=== PATIENT | female | born 1955 | race Caucasian/White ===

== ENCOUNTER 2016-12-10 19:54 | Inpatient (IN) | payer OTHER ==
[~2016-12-10] VITALS: Ht 162.6 cm; Wt 83.9 kg
[~2016-12-10 19:54] MED LIST: ATOR10TA60 PO; BYSTOLIC20 MG PO; CHLO25TA PO; CLON0.2T PO; CYCL10TA2 PO; HYDR-2766 PO; HYDR100T24 PO; LORA0.5T PO; LOSA100T6 PO; POTA20TA12 PO; PREG300C PO; PROAIR HFA8.5 GM IH; ROPI2TAB3 PO; TIZA2TAB PO
--- NOTE | 2016-12-10 21:30 | PHYS DOC ---
Past Medical History Past Medical History: Anemia, DVT, Hypertension, Other Additional Past Medical Histor: MRSA in past, Cervical fusion C6-C7, Hx of DVT Past Surgical History: Cervical Fusion, Other Additional Past Surgical Histo: Cardiac cath WITH STENTS, partial gastrectomy, Alcohol Use: None Drug Use: None Adult General Chief Complaint Chief Complaint: MUSCLE SPASM/CRAMP HPI HPI 61 yo F presenting to the ED with leg cramps and swelling. She has a hx of a DVT. she reports right lower extremity swelling more than the left. onset 2-3 days. location legs. duration constant. no alleviating factors. ROS neg for cp, soa, n/v/d, fevers, chills. all other ros neg unless noted in hpi. ED course: 61 yo F presenting to the ED with leg cramps and swelling. US and blood work obtained. Patient's hemoglobin was noted to be below 7. Type and screen ordered. Transfusion ordered. Patient does not have abdominal pain. She denies a history of dark stools. Ultrasound negative. Urinalysis suggestive of urinary tract infection. Intravenous Rocephin ordered. Patient was then admitted to Dr. harris at approximately 10:30 PM for further evaluation workup and care. At that time the patient's care was transferred. Allergies Allergies Allergies Coded Allergies Type Severity Reaction Last Updated Verified Sulfa (Sulfonamide Antibiotics) Allergy Intermediate 02/16/16 Yes amlodipine Allergy Intermediate 02/16/16 Yes codeine Allergy Intermediate Rash 02/16/16 Yes doxycycline Allergy Intermediate 02/16/16 Yes ezetimibe Allergy Intermediate 02/16/16 Yes levofloxacin Allergy Intermediate 02/16/16 Yes morphine Allergy Intermediate 02/16/16 Yes simvastatin Allergy Intermediate 02/16/16 Yes oxycodone Adverse Reaction Intermediate Hallucinations 02/16/16 Yes Physical Exam Physical Exam Constitutional: Well developed, well nourished, no acute distress, non-toxic appearance. [] HENT: Normocephalic, atraumatic, bilateral external ears normal, oropharynx moist, no oral exudates, nose normal. [] Eyes: PERRLA, EOMI, conjunctiva normal, no discharge. [] Neck: Normal range of motion, no tenderness, supple, no stridor. [] Cardiovascular:Heart rate regular rhythm, no murmur [] Lungs & Thorax: Bilateral breath sounds clear to auscultation [] Abdomen: Bowel sounds normal, soft, no tenderness, no masses, no pulsatile masses. [] Skin: Warm, dry, no erythema, no rash. [] Back: No tenderness, no CVA tenderness. [] Extremities: mild 1+ edema in the legs bilaterally. more on the right than the left. otherwise pule present. 2 sec cap refill and nl neurovasc status. Neurologic: Alert and oriented X 3, normal motor function, normal sensory function, no focal deficits noted. [] Psychologic: Affect normal, judgement normal, mood normal. [] Current Patient Data Vital Signs Vital Signs Date Time Temp Pulse Resp B/P (MAP) Pulse Ox O2 Delivery O2 Flow Rate FiO2 12/10/16 21:48 80 174/92 (119) 100 Room Air 12/10/16 20:20 98.2 20 98.2 Lab Values Laboratory Tests Test 12/10/16 20:25 12/10/16 21:40 12/10/16 21:44 Urine Collection Type Unknown Urine Color Straw Urine Clarity Cloudy Urine pH 7.5 Urine Specific [place] <=1.005 Urine Protein 30 mg/dL (NEG-TRACE) Urine Glucose (UA) Negative mg/dL (NEG) Urine Ketones (Stick) Negative mg/dL (NEG) Urine Blood Moderate (NEG) Urine Nitrite Negative (NEG) Urine Bilirubin Negative (NEG) Urine Urobilinogen Dipstick 0.2 mg/dL (0.2 mg/dL) Urine Leukocyte Esterase Large (NEG) Urine RBC 1-2 /HPF (0-2) Urine WBC Tntc /HPF (0-4) Urine Squamous Epithelial Cells Few /LPF Urine Renal Epithelial Cells Occ /LPF Urine Bacteria Many /HPF (0-FEW) Urine Mucus Mod /LPF Prothrombin Time 13.8 SEC (11.7-14.0) Prothrombin Time INR 1.1 (0.8-1.1) PTT 27 SEC (24-38) White Blood Count 8.9 x10^3/uL (4.0-11.0) Red Blood Count 3.64 x10^6/uL (3.50-5.40) Hemoglobin 6.8 g/dL (12.0-15.5) *L Hematocrit 22.7 % (36.0-47.0) L Mean Corpuscular Volume 62 fL (79-100) L Mean Corpuscular Hemoglobin 19 pg (25-35) L Mean Corpuscular Hemoglobin Concent 30 g/dL (31-37) L Red Cell Distribution Width 18.6 % (11.5-14.5) H Platelet Count 325 x10^3/uL (140-400) Neutrophils (%) (Auto) 60 % (31-73) Lymphocytes (%) (Auto) 27 % (24-48) Monocytes (%) (Auto) 8 % (0-9) Eosinophils (%) (Auto) 3 % (0-3) Basophils (%) (Auto) 1 % (0-3) Neutrophils # (Auto) 5.3 x10^3uL (1.8-7.7) Lymphocytes # (Auto) 2.4 x10^3/uL (1.0-4.8) Monocytes # (Auto) 0.7 x10^3/uL (0.0-1.1) Eosinophils # (Auto) 0.3 x10^3/uL (0.0-0.7) Basophils # (Auto) 0.1 x10^3/uL (0.0-0.2) Platelet Estimate Adequate (ADEQUATE) Hypochromasia Marked Poikilocytosis Slight Anisocytosis Slight Microcytosis Marked Ovalocytes Mod Sodium Level 135 mmol/L (136-145) L Potassium Level 4.6 mmol/L (3.5-5.1) Chloride Level 102 mmol/L (98-107) Carbon Dioxide Level 21 mmol/L (21-32) Anion Gap 12 (6-14) Blood Urea Nitrogen 21 mg/dL (7-20) H Creatinine 1.6 mg/dL (0.6-1.0) H Estimated GFR (Cockcroft-Gault) 32.7 Glucose Level 106 mg/dL (70-99) H Calcium Level 9.2 mg/dL (8.5-10.1) Total Bilirubin 0.1 mg/dL (0.2-1.0) L Direct Bilirubin 0.1 mg/dL (0.0-0.2) Aspartate Amino Transferase (AST) 16 U/L (15-37) Alanine Aminotransferase (ALT) 13 U/L (14-59) L Alkaline Phosphatase 141 U/L (46-116) H Troponin I Quantitative < 0.017 ng/mL (0.000-0.055) Total Protein 7.3 g/dL (6.4-8.2) Albumin 3.7 g/dL (3.4-5.0) Laboratory Tests 12/10/16 21:44 Laboratory Tests 12/10/16 21:44 EKG EKG [] Radiology/Procedures Radiology/Procedures [] Course & Med Decision Making Course & Med Decision Making Pertinent Labs and Imaging studies reviewed. (See chart for details) [] Dragon Disclaimer Dragon Disclaimer This electronic medical record was generated, in whole or in part, using a voice recognition dictation system. Departure Departure Impression: Primary Impression: Leg cramp Additional Impression: Swelling of lower extremity Disposition: ADMITTED INPATIENT Admitting Physician: An Harris Condition: STABLE Referrals: WARD TINOCO MD (PCP) Patient Instructions: Leg Cramps Problem Qualifiers JESSICA PEÑA MD Dec 10, 2016 21:30
[2016-12-10 21:52] LABS: BASO # 0.1 x10^3/uL (0.0-0.2); BASO % 1 % (0-3); EOS % 3 % (0-3); HEMATOCRIT 22.7 % (36.0-47.0); LYMPH # 2.4 x10^3/uL (1.0-4.8); LYMPH % 27 % (24-48); MEAN CORPUSCULAR HEMOGLOBIN 19 pg (25-35); MEAN CORPUSCULAR HGB CONC 30 g/dL (31-37); MEAN CORPUSCULAR VOLUME 62 fL (79-100); MONO % 8 % (0-9); NEUT % 60 % (31-73); PLATELET COUNT 325 x10^3/uL (140-400); RED BLOOD COUNT 3.64 x10^6/uL (3.50-5.40); RED CELL DISTRIBUTION WIDTH 18.6 % (11.5-14.5); WHITE BLOOD COUNT 8.9 x10^3/uL (4.0-11.0)
[2016-12-10 21:57] LABS: HEMOGLOBIN 6.8 g/dL (12.0-15.5)
[2016-12-10 22:10] LABS: CALCIUM 9.2 mg/dL (8.5-10.1); CREATININE 1.6 mg/dL (0.6-1.0); GFR 32.7; POTASSIUM 4.6 mmol/L (3.5-5.1)
[2016-12-10] MEDS ORDERED: ONDANSETRON PF 4 MG/2 ML VIAL. IV PRN (22:15)
[2016-12-10 22:19] LABS: BILIRUBIN,URINE NEGATIVE (NEG); GLUCOSE,URINE NEGATIVE (NEG); NITRITE,URINE NEGATIVE (NEG); PH,URINE 7.5; PROTEIN,URINE 30 mg/dL (NEG-TRACE); UROBILINOGEN,URINE 0.2 mg/dL (0.2 mg/dL)
[2016-12-10 22:20] LABS: PLT ESTIMATE ADEQUATE (ADEQUATE)
[2016-12-10 22:21] LABS: ANISOCYTOSIS SLIGHT; HYPOCHROMIA MARKED; MICROCYTOSIS MARKED; OVALOCYTES MOD; POIKILOCYTOSIS SLIGHT
[2016-12-10 22:27] LABS: INR 1.1 (0.8-1.1); PROTHROMBIN TIME PATIENT 13.8 SEC (11.7-14.0)
[2016-12-10 22:29] LABS: BACTERIA,URINE MANY /HPF (0-FEW); SQUAMOUS EPITHELIAL CELL,UR FEW /LPF; WBC,URINE TNTC /HPF (0-4)
[2016-12-10 22:29] LABS: ALBUMIN 3.7 g/dL (3.4-5.0); DIRECT BILIRUBIN 0.1 mg/dL (0.0-0.2); TOTAL BILIRUBIN 0.1 mg/dL (0.2-1.0); TOTAL PROTEIN 7.3 g/dL (6.4-8.2)
[2016-12-10] MEDS ORDERED: IV NORMAL SALINE 1000ML BAG 1,000 ML IV ONE (22:30)
--- NOTE | 2016-12-10 22:41 | RAD ---
Ultrasound bilateral lower extremity Indication: Bilateral lower extremity swelling Technique: Multiple real-time grayscale images were obtained over the bilateral lower extremities with use of color Doppler imaging and spectral analysis. Static images were submitted for interpretation. Findings: There is no evidence for deep venous thrombosis. There is normal color fill-in on Doppler images. There is also normal response to compression and augmentation deep venous system. No evidence for mass or fluid collection. Impression: No evidence for deep venous thrombosis. Electronically signed by: Robe London MD (12/10/2016 10:38 PM) [facility]
[2016-12-10 23:00] VITALS: BP 155/86
[2016-12-10] MEDS ORDERED: ACET500T68 PO (23:38)
[2016-12-11] VITALS (12 sets, daily range): BP systolic 150–187; BP diastolic 70–94
[2016-12-11 06:40] LABS: BASO # 0.1 x10^3/uL (0.0-0.2); BASO % 1 % (0-3); EOS % 3 % (0-3); HEMATOCRIT 26.6 % (36.0-47.0); HEMOGLOBIN 8.1 g/dL (12.0-15.5); LYMPH # 1.7 x10^3/uL (1.0-4.8); LYMPH % 24 % (24-48); MEAN CORPUSCULAR HEMOGLOBIN 20 pg (25-35); MEAN CORPUSCULAR HGB CONC 31 g/dL (31-37); MEAN CORPUSCULAR VOLUME 65 fL (79-100); MONO % 8 % (0-9); NEUT % 63 % (31-73); PLATELET COUNT 317 x10^3/uL (140-400); RED CELL DISTRIBUTION WIDTH 21.6 % (11.5-14.5); WHITE BLOOD COUNT 7.2 x10^3/uL (4.0-11.0)
[2016-12-11 07:00] LABS: CALCIUM 9.4 mg/dL (8.5-10.1); CREATININE 1.5 mg/dL (0.6-1.0); GFR 35.2; POTASSIUM 4.7 mmol/L (3.5-5.1)
--- NOTE | 2016-12-11 08:23 | PDOC1 ---
History and Physical Date of Admission Date of Admission DATE: 12/11/16 TIME: 08:19 Identification/Chief Complaint Chief Complaint leg cramps Problems: Source Source: Chart review, Patient History of Present Illness History of Present Illness Ms. Gonzalez, is a 61 yo f admit for weakness and leg cramps and swelling. She follows with Dr. Delaney, but has not been there in some time. Reports some worsening weakness with these legs cramps, almost 3 days of pain she has no history of renal disease, but has Htn, and has not been taking her BP meds for some time. she does report hx of renal stones leg pain 09/09 now. Hx of DVT, has been of Xarelto after she cut herself and bled extensively some time ago. 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 Family History: No Significant Social History Smoke: No ALCOHOL: none Drugs: None Current Problem List Problem List Problems Medical Problems: (1) Leg cramp Status: Acute (2) Swelling of lower extremity Status: Acute Problems: Current Medications Current Medications Current Medications Ondansetron HCl (Zofran) 4 mg PRN Q8HRS PRN IV NAUSEA/VOMITING; Start 12/10/16 at 22:15; Stop 12/11/16 at 22:14 Sodium Chloride 1,000 ml @ 100 mls/hr 1X ONCE IV Last administered on t 05:32; Start 12/10/16 at 22:30; Stop 12/11/16 at 08:29 Ceftriaxone Sodium 50 ml @ 100 mls/hr 1X ONCE IV Last administered on 05:33; Start 12/11/16 at 01:30; Stop 12/11/16 at 01:59; Status DC Ceftriaxone Sodium 1 gm/ Sodium Chloride 50 ml @ 100 mls/hr Q24H IV ; Start at 06:00 Pantoprazole Sodium (Protonix) 40 mg DAILYAC PO ; Start 12/12/16 at 07:30 Pantoprazole Sodium (Protonix) 40 mg 1X ONCE PO ; Start 12/11/16 at 08:30; Stop 12/11/16 at 08:31 Active Scripts Active Reported Acetaminophen 500 Mg Tablet 1,000 Mg PO PRN Q6HRS PRN Cyclobenzaprine Hcl 10 Mg Tablet 10 Mg PO Proair Hfa Inhaler (Albuterol Sulfate) 8.5 Gm Hfa.aer.ad 8.5 Gm IH Allergies Allergies: Coded Allergies: Sulfa (Sulfonamide Antibiotics) (Verified Allergy, Intermediate, 02/16/16) amlodipine (Verified Allergy, Intermediate, 02/16/16) codeine (Verified Allergy, Intermediate, Rash, 02/16/16) doxycycline (Verified Allergy, Intermediate, 02/16/16) ezetimibe (Verified Allergy, Intermediate, 02/16/16) levofloxacin (Verified Allergy, Intermediate, 02/16/16) morphine (Verified Allergy, Intermediate, 02/16/16) simvastatin (Verified Allergy, Intermediate, 02/16/16) oxycodone (Verified Adverse Reaction, Intermediate, Hallucinations, ) ROS General: YES: Fatigue, Malaise, No: Chills, Night Sweats, Appetite, Other PSYCHOLOGICAL ROS: No: Anxiety, Behavioral Disorder, Concentration difficultie , Decreased libido, Depression, Disorientation, Hallucinations, Hostility, Irritablity, Memory difficulties, Mood Swings, Obsessive thoughts, Physical abuse, Sexual abuse, Sleep disturbances, Suicidal ideation, Other Eyes: No Blurry vision, No Decreased vision, No Double vision, No Dry eyes, No Excessive tearing, No Eye Pain, No Itchy Eyes, No Loss of vision, No Photophobia , No Scotomata, No Uses contacts, No Uses glasses, No Other HEENT: No: Heacaches, Visual Changes, Hearing change, Nasal congestion, Nasal discharge, Oral lesions, Sinus pain, Sore Throat, Epistaxis, Sneezing, Snoring, Tinnitus, Vertigo, Vocal changes, Other Respiratory: No: Cough, Hemoptysis, Orthopnea, Pleuritic Pain, Shortness of breath, SOB with excertion, Sputum Changes, Stridor, Tachypnea, Wheezing, Other Cardiovascular: No Chest Pain, No Palpitations, No Orthopnea, No Paroxysmal Noc. Dyspnea, No Edema, No Lt Headedness, No Other Gastrointestinal: No Nausea, No Vomiting, No Abdominal Pain, No Diarrhea, No Constipation, No Melena, No Hematochezia, No Other Genitourinary: No Dysuria, No Frequency, No Incontinence, No Hematuria, No Retention, No Discharge, No Urgency, No Pain, No Flank Pain, No Other, No , No , No , No , No , No , No Musculoskeletal: Yes Muscle Pain (cramps), Yes Muscular Weakness, No Gait Disturbance, No Joint Pain, No Joint Stiffness, No Joint Swelling, No Pain In:, No Swelling In:, No Other Neurological: No Behavorial Changes, No Bowel/Bladder ControlChng, No Confusion , No Dizziness, No Gait Disturbance, No Headaches, No Impaired Coord/balance, No Memory Loss, No Numbness/Tingling, No Seizures, No Speech Problems, No Tremors, No Visual Changes, No Weakness, No Other Skin: No Dry Skin, No Eczema, No Hair Changes, No Lumps, No Mole Changes, No Mottling, No Nail Changes, No Pruritus, No Rash, No Skin Lesion Changes, No Other, No Acne Physical Exam Abdomen: Normal bowel sounds, Soft (obese) Rectal Exam: not examined Extremities: No clubbing, No edema, Normal pulses Skin: No rashes Neuro: Normal gait, Normal speech, Normal tone, Sensation intact, Cranial nerves 3-12 NL Vitals Vitals Vital Signs Date Time Temp Pulse Resp B/P (MAP) Pulse Ox O2 Delivery O2 Flow Rate FiO2 12/11/16 07:00 98.4 77 18 155/94 (114) 97 Room Air 98.4 Labs Labs Laboratory Tests Test 12/10/16 20:25 12/10/16 21:40 12/10/16 21:44 12/11/16 06:00 Urine Collection Type Unknown Urine Color Straw Urine Clarity Cloudy Urine pH 7.5 Urine Specific [place] <=1.005 Urine Protein 30 mg/dL (NEG-TRACE) Urine Glucose (UA) Negative mg/dL (NEG) Urine Ketones (Stick) Negative mg/dL (NEG) Urine Blood Moderate (NEG) Urine Nitrite Negative (NEG) Urine Bilirubin Negative (NEG) Urine Urobilinogen Dipstick 0.2 mg/dL (0.2 mg/dL) Urine Leukocyte Esterase Large (NEG) Urine RBC 1-2 /HPF (0-2) Urine WBC Tntc /HPF (0-4) Urine Squamous Epithelial Cells Few /LPF Urine Renal Epithelial Cells Occ /LPF Urine Bacteria Many /HPF (0-FEW) Urine Mucus Mod /LPF Prothrombin Time 13.8 SEC (11.7-14.0) Prothromb Time International Ratio 1.1 (0.8-1.1) Activated Partial Thromboplast Time 27 SEC (24-38) White Blood Count 8.9 x10^3/uL (4.0-11.0) 7.2 x10^3/uL (4.0-11.0) Red Blood Count 3.64 x10^6/uL (3.50-5.40) 4.10 x10^6/uL (3.50-5.40) Hemoglobin 6.8 g/dL (12.0-15.5) 8.1 g/dL (12.0-15.5) Hematocrit 22.7 % (36.0-47.0) 26.6 % (36.0-47.0) Mean Corpuscular Volume 62 fL (79-100) 65 fL (79-100) Mean Corpuscular Hemoglobin 19 pg (25-35) 20 pg (25-35) Mean Corpuscular Hemoglobin Concent 30 g/dL (31-37) 31 g/dL (31-37) Red Cell Distribution Width 18.6 % (11.5-14.5) 21.6 % (11.5-14.5) Platelet Count 325 x10^3/uL (140-400) 317 x10^3/uL (140-400) Neutrophils (%) (Auto) 60 % (31-73) 63 % (31-73) Lymphocytes (%) (Auto) 27 % (24-48) 24 % (24-48) Monocytes (%) (Auto) 8 % (0-9) 8 % (0-9) Eosinophils (%) (Auto) 3 % (0-3) 3 % (0-3) Basophils (%) (Auto) 1 % (0-3) 1 % (0-3) Neutrophils # (Auto) 5.3 x10^3uL (1.8-7.7) 4.6 x10^3uL (1.8-7.7) Lymphocytes # (Auto) 2.4 x10^3/uL (1.0-4.8) 1.7 x10^3/uL (1.0-4.8) Monocytes # (Auto) 0.7 x10^3/uL (0.0-1.1) 0.6 x10^3/uL (0.0-1.1) Eosinophils # (Auto) 0.3 x10^3/uL (0.0-0.7) 0.2 x10^3/uL (0.0-0.7) Basophils # (Auto) 0.1 x10^3/uL (0.0-0.2) 0.1 x10^3/uL (0.0-0.2) Platelet Estimate Adequate (ADEQUATE) Hypochromasia Marked Poikilocytosis Slight Anisocytosis Slight Microcytosis Marked Ovalocytes Mod Sodium Level 135 mmol/L (136-145) 138 mmol/L (136-145) Potassium Level 4.6 mmol/L (3.5-5.1) 4.7 mmol/L (3.5-5.1) Chloride Level 102 mmol/L (98-107) 104 mmol/L (98-107) Carbon Dioxide Level 21 mmol/L (21-32) 22 mmol/L (21-32) Anion Gap 12 (6-14) 12 (6-14) Blood Urea Nitrogen 21 mg/dL (7-20) 19 mg/dL (7-20) Creatinine 1.6 mg/dL (0.6-1.0) 1.5 mg/dL (0.6-1.0) Estimated GFR (Cockcroft-Gault) 32.7 35.2 Glucose Level 106 mg/dL (70-99) 111 mg/dL (70-99) Calcium Level 9.2 mg/dL (8.5-10.1) 9.4 mg/dL (8.5-10.1) Total Bilirubin 0.1 mg/dL (0.2-1.0) Direct Bilirubin 0.1 mg/dL (0.0-0.2) Aspartate Amino Transf (AST/SGOT) 16 U/L (15-37) Alanine Aminotransferase (ALT/SGPT) 13 U/L (14-59) Alkaline Phosphatase 141 U/L (46-116) Troponin I Quantitative < 0.017 ng/mL (0.000-0.055) Total Protein 7.3 g/dL (6.4-8.2) Albumin 3.7 g/dL (3.4-5.0) Laboratory Tests Test 12/10/16 20:25 12/10/16 21:40 12/10/16 21:44 12/11/16 06:00 Urine Collection Type Unknown Urine Color Straw Urine Clarity Cloudy Urine pH 7.5 Urine Specific [place] <=1.005 Urine Protein 30 mg/dL (NEG-TRACE) Urine Glucose (UA) Negative mg/dL (NEG) Urine Ketones (Stick) Negative mg/dL (NEG) Urine Blood Moderate (NEG) Urine Nitrite Negative (NEG) Urine Bilirubin Negative (NEG) Urine Urobilinogen Dipstick 0.2 mg/dL (0.2 mg/dL) Urine Leukocyte Esterase Large (NEG) Urine RBC 1-2 /HPF (0-2) Urine WBC Tntc /HPF (0-4) Urine Squamous Epithelial Cells Few /LPF Urine Renal Epithelial Cells Occ /LPF Urine Bacteria Many /HPF (0-FEW) Urine Mucus Mod /LPF Prothrombin Time 13.8 SEC (11.7-14.0) Prothromb Time International Ratio 1.1 (0.8-1.1) Activated Partial Thromboplast Time 27 SEC (24-38) White Blood Count 8.9 x10^3/uL (4.0-11.0) 7.2 x10^3/uL (4.0-11.0) Red Blood Count 3.64 x10^6/uL (3.50-5.40) 4.10 x10^6/uL (3.50-5.40) Hemoglobin 6.8 g/dL (12.0-15.5) 8.1 g/dL (12.0-15.5) Hematocrit 22.7 % (36.0-47.0) 26.6 % (36.0-47.0) Mean Corpuscular Volume 62 fL (79-100) 65 fL (79-100) Mean Corpuscular Hemoglobin 19 pg (25-35) 20 pg (25-35) Mean Corpuscular Hemoglobin Concent 30 g/dL (31-37) 31 g/dL (31-37) Red Cell Distribution Width 18.6 % (11.5-14.5) 21.6 % (11.5-14.5) Platelet Count 325 x10^3/uL (140-400) 317 x10^3/uL (140-400) Neutrophils (%) (Auto) 60 % (31-73) 63 % (31-73) Lymphocytes (%) (Auto) 27 % (24-48) 24 % (24-48) Monocytes (%) (Auto) 8 % (0-9) 8 % (0-9) Eosinophils (%) (Auto) 3 % (0-3) 3 % (0-3) Basophils (%) (Auto) 1 % (0-3) 1 % (0-3) Neutrophils # (Auto) 5.3 x10^3uL (1.8-7.7) 4.6 x10^3uL (1.8-7.7) Lymphocytes # (Auto) 2.4 x10^3/uL (1.0-4.8) 1.7 x10^3/uL (1.0-4.8) Monocytes # (Auto) 0.7 x10^3/uL (0.0-1.1) 0.6 x10^3/uL (0.0-1.1) Eosinophils # (Auto) 0.3 x10^3/uL (0.0-0.7) 0.2 x10^3/uL (0.0-0.7) Basophils # (Auto) 0.1 x10^3/uL (0.0-0.2) 0.1 x10^3/uL (0.0-0.2) Platelet Estimate Adequate (ADEQUATE) Hypochromasia Marked Poikilocytosis Slight Anisocytosis Slight Microcytosis Marked Ovalocytes Mod Sodium Level 135 mmol/L (136-145) 138 mmol/L (136-145) Potassium Level 4.6 mmol/L (3.5-5.1) 4.7 mmol/L (3.5-5.1) Chloride Level 102 mmol/L (98-107) 104 mmol/L (98-107) Carbon Dioxide Level 21 mmol/L (21-32) 22 mmol/L (21-32) Anion Gap 12 (6-14) 12 (6-14) Blood Urea Nitrogen 21 mg/dL (7-20) 19 mg/dL (7-20) Creatinine 1.6 mg/dL (0.6-1.0) 1.5 mg/dL (0.6-1.0) Estimated GFR (Cockcroft-Gault) 32.7 35.2 Glucose Level 106 mg/dL (70-99) 111 mg/dL (70-99) Calcium Level 9.2 mg/dL (8.5-10.1) 9.4 mg/dL (8.5-10.1) Total Bilirubin 0.1 mg/dL (0.2-1.0) Direct Bilirubin 0.1 mg/dL (0.0-0.2) Aspartate Amino Transf (AST/SGOT) 16 U/L (15-37) Alanine Aminotransferase (ALT/SGPT) 13 U/L (14-59) Alkaline Phosphatase 141 U/L (46-116) Troponin I Quantitative < 0.017 ng/mL (0.000-0.055) Total Protein 7.3 g/dL (6.4-8.2) Albumin 3.7 g/dL (3.4-5.0) VTE Prophylaxis Ordered VTE Prophylaxis Devices: Yes VTE Pharmacological Prophylaxi: No Assessment/Plan Assessment/Plan leg cramps, weakness symptomatic anemia UTI, rocephin, cx pending microcytic anemia, suspect iron def. consult GI Hx gastrectomy, she reports prior history of Ulcers, Htn, non-compliant with med treatment Hx of DVT, CKD 3 or4, with history of renal stones, check US, consult renal PCP is ZACH Mcgraw MD Dec 11, 2016 08:23
[2016-12-11] MEDS ORDERED: PANTOPRAZOLE 40 MG TABLET.DR. PO ONE (08:30)
[2016-12-11 08:31] LABS: % SAT IRON 10 % (15-34); IRON,SERUM 50 ug/dL (50-170)
--- NOTE | 2016-12-11 09:26 | RAD ---
Renal ultrasound 12/11/2016 at 0844 hours Indication: Renal failure with history of stones. Comparison: Ultrasound abdomen 02/26/2013. Technique: Sonographic evaluation of the right kidney was performed utilizing grayscale and color Doppler. Findings: Right kidney measures 12.1 x 4.7 x 5.7 cm. Left kidney measures 11.7 x 5.3 x 5.1 cm. There is increased echogenicity of the renal cortex which appears thinned compatible with medical renal disease. There is a 15 mm calculus in the mid to superior pole the right kidney. There is no hydronephrosis. There are areas of calcification within the left renal pelvis measuring up to 2.1 cm, which may represent nonobstructing renal calculi. There is no hydronephrosis. There is a complex cystic structure in the superior pole of the left kidney measuring 4.5 x 3.2 cm. There is suggestion of peripheral calcification. There are areas which appear more solid that do not have posterior acoustic shadowing to suggest calcification. Impression: 1. There is a complex cystic and solid lesion in the superior pole the left kidney which is indeterminate by ultrasound. Further evaluation with a renal mass CT (CT abdomen/pelvis with and without intravenous contrast) is recommended for further evaluation. 2. 15 mm nonobstructing calculus in the mid to superior pole the right kidney. No hydronephrosis. 3. There is a calcification within the left renal pelvis may represent renal calculi or calcifications from underlying hyperparathyroidism or medullary sponge kidney or other hypercalcemic states.
--- NOTE | 2016-12-11 09:47 | PDOC2 ---
GI CONSULT Reason For Consult: Microcytic anemia, h/o gastrectomy HPI: HPI: 61 y/o female, evaluated in ER for "whole body cramps" and admitted. Also describes some lightheadedness which "is typical of when my blood counts are low." Noted w/ Hgb 6.8 (now 8.1 s/p transfusion 1 unit pRBCs) w/ low indices and elevated RDW. Iron 50, TIBC 513, sat 10. Cr elevated (1.5) w/ normal BUN. Left renal mass noted on US, nephrology asked to see. Reports h/o anemia since the , previously treated w/ iron ("didn't work" - records suggest stomach sensitivity to iron), now seems treated w/ intermittent transfusions (she thinks last 3 months ago). GI history is also significant for PUD w/ partial gastrectomy. Was on PPI for awhile, has been off due to fear of possible adverse effects. Occasional heartburn and nausea, also some occasional decreased appetite. "Always" has diarrhea which is unchanged. Denies obvious bleeding including hematochezia or melena. No vomiting or dysphagia. No weight loss. H/o DVT, took self off of Xarleto in August after significant bleeding from skin/arm trauma at home. No NSAIDs. Reports last EGD and colonoscopy w/ Dr. Nevarez 2-3 years ago, says performed here at [facility], believes performed for anemia, "was never told results." Per our office records , had an EGD w/ ulcers in 1993 and normal colonoscopy that year. PMH: PMH: CAD w/ 2 stents, HTN, DVT, GERD, PUD, anemia, nephrolithiasis, non-compliance, partial gastrectomy, umbilical hernia repair FH: Family History: No pertinent hx (denies GI cancers), Cancer (lung) Social History: Smoke: No ALCOHOL: none Drugs: None ROS: GEN: Denies fevers, chills, sweats HEENT: Denies blurred vision, sore throat CV: Denies chest pain RESP: +shortness of air GI: Per HPI : Denies hematuria, dysuria ENDO: Denies weight changes NEURO: Denies confusion, dizziness MSK: Denies weakness, joint pain/swelling SKIN: Denies jaundice, pruritus Vitals: Vitals: Vital Signs Date Time Temp Pulse Resp B/P (MAP) Pulse Ox O2 Delivery O2 Flow Rate FiO2 12/11/16 07:00 98.4 77 18 155/94 (114) 97 Room Air 98.4 Labs: Labs: Laboratory Tests Test 12/10/16 20:25 12/10/16 21:40 12/10/16 21:44 12/11/16 06:00 Urine Collection Type Unknown Urine Color Straw Urine Clarity Cloudy Urine pH 7.5 Urine Specific [place] <=1.005 Urine Protein 30 mg/dL (NEG-TRACE) Urine Glucose (UA) Negative mg/dL (NEG) Urine Ketones (Stick) Negative mg/dL (NEG) Urine Blood Moderate (NEG) Urine Nitrite Negative (NEG) Urine Bilirubin Negative (NEG) Urine Urobilinogen Dipstick 0.2 mg/dL (0.2 mg/dL) Urine Leukocyte Esterase Large (NEG) Urine RBC 1-2 /HPF (0-2) Urine WBC Tntc /HPF (0-4) Urine Squamous Epithelial Cells Few /LPF Urine Renal Epithelial Cells Occ /LPF Urine Bacteria Many /HPF (0-FEW) Urine Mucus Mod /LPF Prothrombin Time 13.8 SEC (11.7-14.0) Prothromb Time International Ratio 1.1 (0.8-1.1) Activated Partial Thromboplast Time 27 SEC (24-38) White Blood Count 8.9 x10^3/uL (4.0-11.0) 7.2 x10^3/uL (4.0-11.0) Red Blood Count 3.64 x10^6/uL (3.50-5.40) 4.10 x10^6/uL (3.50-5.40) Hemoglobin 6.8 g/dL (12.0-15.5) 8.1 g/dL (12.0-15.5) Hematocrit 22.7 % (36.0-47.0) 26.6 % (36.0-47.0) Mean Corpuscular Volume 62 fL (79-100) 65 fL (79-100) Mean Corpuscular Hemoglobin 19 pg (25-35) 20 pg (25-35) Mean Corpuscular Hemoglobin Concent 30 g/dL (31-37) 31 g/dL (31-37) Red Cell Distribution Width 18.6 % (11.5-14.5) 21.6 % (11.5-14.5) Platelet Count 325 x10^3/uL (140-400) 317 x10^3/uL (140-400) Neutrophils (%) (Auto) 60 % (31-73) 63 % (31-73) Lymphocytes (%) (Auto) 27 % (24-48) 24 % (24-48) Monocytes (%) (Auto) 8 % (0-9) 8 % (0-9) Eosinophils (%) (Auto) 3 % (0-3) 3 % (0-3) Basophils (%) (Auto) 1 % (0-3) 1 % (0-3) Neutrophils # (Auto) 5.3 x10^3uL (1.8-7.7) 4.6 x10^3uL (1.8-7.7) Lymphocytes # (Auto) 2.4 x10^3/uL (1.0-4.8) 1.7 x10^3/uL (1.0-4.8) Monocytes # (Auto) 0.7 x10^3/uL (0.0-1.1) 0.6 x10^3/uL (0.0-1.1) Eosinophils # (Auto) 0.3 x10^3/uL (0.0-0.7) 0.2 x10^3/uL (0.0-0.7) Basophils # (Auto) 0.1 x10^3/uL (0.0-0.2) 0.1 x10^3/uL (0.0-0.2) Platelet Estimate Adequate (ADEQUATE) Hypochromasia Marked Poikilocytosis Slight Anisocytosis Slight Microcytosis Marked Ovalocytes Mod Sodium Level 135 mmol/L (136-145) 138 mmol/L (136-145) Potassium Level 4.6 mmol/L (3.5-5.1) 4.7 mmol/L (3.5-5.1) Chloride Level 102 mmol/L (98-107) 104 mmol/L (98-107) Carbon Dioxide Level 21 mmol/L (21-32) 22 mmol/L (21-32) Anion Gap 12 (6-14) 12 (6-14) Blood Urea Nitrogen 21 mg/dL (7-20) 19 mg/dL (7-20) Creatinine 1.6 mg/dL (0.6-1.0) 1.5 mg/dL (0.6-1.0) Estimated GFR (Cockcroft-Gault) 32.7 35.2 Glucose Level 106 mg/dL (70-99) 111 mg/dL (70-99) Calcium Level 9.2 mg/dL (8.5-10.1) 9.4 mg/dL (8.5-10.1) Total Bilirubin 0.1 mg/dL (0.2-1.0) Direct Bilirubin 0.1 mg/dL (0.0-0.2) Aspartate Amino Transf (AST/SGOT) 16 U/L (15-37) Alanine Aminotransferase (ALT/SGPT) 13 U/L (14-59) Alkaline Phosphatase 141 U/L (46-116) Troponin I Quantitative < 0.017 ng/mL (0.000-0.055) Total Protein 7.3 g/dL (6.4-8.2) Albumin 3.7 g/dL (3.4-5.0) Iron Level 50 ug/dL (50-170) Total Iron Binding Capacity 513 ug/dL (250-450) Iron Saturation 10 % (15-34) Allergies: Coded Allergies: Sulfa (Sulfonamide Antibiotics) (Verified Allergy, Intermediate, 02/16/16) amlodipine (Verified Allergy, Intermediate, 02/16/16) codeine (Verified Allergy, Intermediate, Rash, 02/16/16) doxycycline (Verified Allergy, Intermediate, 02/16/16) ezetimibe (Verified Allergy, Intermediate, 02/16/16) levofloxacin (Verified Allergy, Intermediate, 02/16/16) morphine (Verified Allergy, Intermediate, 02/16/16) simvastatin (Verified Allergy, Intermediate, 02/16/16) oxycodone (Verified Adverse Reaction, Intermediate, Hallucinations, ) Medications: Current Medications Medications (Trade) Dose Ordered Sig/David Route PRN Reason Start Time Stop Time Status Last Admin Dose Admin Sodium Chloride 1,000 ml @ 100 mls/hr 1X ONCE IV 12/10/16 22:30 12/11/16 08:29 DC 12/11/16 05:32 Ceftriaxone Sodium 50 ml @ 100 mls/hr 1X ONCE IV 12/11/16 01:30 12/11/16 01:59 DC 12/11/16 05:33 Imaging: Imaging: BLE US Impression: No evidence for deep venous thrombosis. Renal US Impression: 1. There is a complex cystic and solid lesion in the superior pole the left kidney which is indeterminate by ultrasound. Further evaluation with a renal mass CT (CT abdomen/pelvis with and without intravenous contrast) is recommended for further evaluation. 2. 15 mm nonobstructing calculus in the mid to superior pole the right kidney. No hydronephrosis. 3. There is a calcification within the left renal pelvis may represent renal calculi or calcifications from underlying hyperparathyroidism or medullary sponge kidney or other hypercalcemic states. PE: GEN: NAD HEENT: Atraumatic, PERRL LUNGS: CTAB anteriorly HEART: RRR ABD: NABS, S/ND/NT EXTREMITY: No edema SKIN: No rashes, no jaundice NEURO/PSYCH: A & O 3 A/P: A/P: Microcytic anemia -seems long history of this, attempted tx w/ iron in the past, now intermittent transfusions -denies obvious bleeding -last EGD/colon 2-3 years ago -started on PPI here H/o PUD, occasional heartburn/nausea, h/o partial gastrectomy HTN, elevated Cr, left renal mass -per primary/nephrology H/o DVT -off Xarelto since August, no evidence of DVT on imaging above -- Agree w/ PPI, transfusion. Seems chronic anemia, possible related to altered anatomy/partial gastrectomy. Unable to see records of EGD/colonoscopy she says performed here 2-3 years ago. Other per Dr. Rinaldi. ABDI RUBIO Dec 11, 2016 09:47
[2016-12-11] MEDS ORDERED: traMADol 50 MG TABLET PO PRN (11:15)
--- NOTE | 2016-12-11 11:48 | PDOC2 ---
CONSULT Date of Consult Date of Consult DATE: 12/11/16 TIME: 11:42 Reason for Consult Reason for Consult: RENAL FAILURE Referring Physician Referring Physician: LES Identification/Chief Complaint Chief Complaint ANEMIA AND WEAKNESS Problems: Source Source: Chart review, Patient History of Present Illness Reason for Visit: THIS IS A 61 YR OLD WITH WEAKNESS AND SEVERE ANEMIA WITH A HGB OF 6.8. GI EVAL IS ONGOING. CR IS 1.5. SHE HAS A HX OF RENAL STONES NEEDING EXTRACTION SEVERAL TIMES IN THE PAST. ALL DONE AT [facility]. NO PASSAGE OF STONES IN SEVERAL YEARS. SHE IS NOT AWARE OF ANY CKD. SHE HAS A LONG HX OF HTN AND IT HAS NOT BEEN WELL CONTROLLED. RENAL SONO SHOWED A NON OBSTRUCTING RIGHT RENAL STONE AND A LEFT COMPLEX CYSTIC VS MASS LESION Past Medical History Cardiovascular: HTN Pulmonary: No pertinent hx GI: GERD, Gastritis, Peptic Ulcer disease Hepatobiliary: No pertinent hx Psych: No pertinent hx Musculoskeletal: low back pain Rheumatologic: No pertinent hx Infectious disease: No pertinent hx ENT: No pertinent hx Renal/: Chronic renal insuff Endocrine: No pertinent hx Family History Family History: No Significant Social History No ALCOHOL: none Drugs: None Current Problem List Problem List Problems Medical Problems: (1) Leg cramp Status: Acute (2) Swelling of lower extremity Status: Acute Current Medications Current Medications Current Medications Ondansetron HCl (Zofran) 4 mg PRN Q8HRS PRN IV NAUSEA/VOMITING; Start 12/10/16 at 22:15; Stop 12/11/16 at 22:14 Sodium Chloride 1,000 ml @ 100 mls/hr 1X ONCE IV Last administered on 05:32; Start 12/10/16 at 22:30; Stop 12/11/16 at 08:29; Status DC Ceftriaxone Sodium 50 ml @ 100 mls/hr 1X ONCE IV Last administered on 05:33; Start 12/11/16 at 01:30; Stop 12/11/16 at 01:59; Status DC Ceftriaxone Sodium 1 gm/ Sodium Chloride 50 ml @ 100 mls/hr Q24H IV ; Start at 06:00 Pantoprazole Sodium (Protonix) 40 mg DAILYAC PO ; Start 12/12/16 at 07:30 Pantoprazole Sodium (Protonix) 40 mg 1X ONCE PO Last administered on 7/12/ 17at 10:58; Start 12/11/16 at 08:30; Stop 12/11/16 at 08:31; Status DC Acetaminophen (Tylenol) 650 mg PRN Q6HRS PRN PO MILD PAIN; Start 12/11/16 at 11 :15 Tramadol HCl (Ultram) 50 mg PRN Q6HRS PRN PO MODERATE - SEVERE PAIN; Start 05/18 at 11:15 Iron Sucrose 500 mg/Sodium Chloride 275 ml @ 78.571 mls/ hr 1X ONCE IV ; Start 12/11/16 at 12:00; Stop 12/11/16 at 15:29 Iron Sucrose 500 mg/Sodium Chloride 275 ml @ 78.571 mls/ hr 1X ONCE IV ; Start 12/12/16 at 08:00; Stop 12/12/16 at 11:29 Active Scripts Active Reported Acetaminophen 500 Mg Tablet 1,000 Mg PO PRN Q6HRS PRN Cyclobenzaprine Hcl 10 Mg Tablet 10 Mg PO Proair Hfa Inhaler (Albuterol Sulfate) 8.5 Gm Hfa.aer.ad 8.5 Gm IH Allergies Allergies: Coded Allergies: Sulfa (Sulfonamide Antibiotics) (Verified Allergy, Intermediate, 02/16/16) amlodipine (Verified Allergy, Intermediate, 02/16/16) codeine (Verified Allergy, Intermediate, Rash, 02/16/16) doxycycline (Verified Allergy, Intermediate, 02/16/16) ezetimibe (Verified Allergy, Intermediate, 02/16/16) levofloxacin (Verified Allergy, Intermediate, 02/16/16) morphine (Verified Allergy, Intermediate, 02/16/16) simvastatin (Verified Allergy, Intermediate, 02/16/16) oxycodone (Verified Adverse Reaction, Intermediate, Hallucinations, ) ROS General: YES: Fatigue, Malaise, Appetite PSYCHOLOGICAL ROS: YES: Anxiety Eyes: Yes Decreased vision HEENT: YES: Heacaches Respiratory: YES: Cough Gastrointestinal: Yes Constipation Genitourinary: YES Other (NOCTURIA) Musculoskeletal: Yes Muscular Weakness Neurological: Yes Weakness Skin: Yes Dry Skin Physical Exam General: Alert, Oriented X3, Cooperative, No acute distress HEENT: Atraumatic, PERRLA, EOMI Lungs: Clear to auscultation, Normal air movement Heart: Regular rate, Normal S1 Abdomen: Normal bowel sounds, Soft, No tenderness Skin: No significant lesion Neuro: Normal speech, Cranial nerves 3-12 NL Psych/Mental Status: Mental status NL, Mood NL MUSCULOSKELETAL: No joint tenderness, No deformity, No swelling Vitals VITALS Vital Signs Date Time Temp Pulse Resp B/P (MAP) Pulse Ox O2 Delivery O2 Flow Rate FiO2 12/11/16 11:00 98.1 82 18 150/84 (106) 98 Room Air 98.1 Labs Labs Laboratory Tests Test 12/10/16 20:25 12/10/16 21:40 12/10/16 21:44 12/11/16 06:00 Urine Collection Type Unknown Urine Color Straw Urine Clarity Cloudy Urine pH 7.5 Urine Specific [place] <=1.005 Urine Protein 30 mg/dL (NEG-TRACE) Urine Glucose (UA) Negative mg/dL (NEG) Urine Ketones (Stick) Negative mg/dL (NEG) Urine Blood Moderate (NEG) Urine Nitrite Negative (NEG) Urine Bilirubin Negative (NEG) Urine Urobilinogen Dipstick 0.2 mg/dL (0.2 mg/dL) Urine Leukocyte Esterase Large (NEG) Urine RBC 1-2 /HPF (0-2) Urine WBC Tntc /HPF (0-4) Urine Squamous Epithelial Cells Few /LPF Urine Renal Epithelial Cells Occ /LPF Urine Bacteria Many /HPF (0-FEW) Urine Mucus Mod /LPF Prothrombin Time 13.8 SEC (11.7-14.0) Prothromb Time International Ratio 1.1 (0.8-1.1) Activated Partial Thromboplast Time 27 SEC (24-38) White Blood Count 8.9 x10^3/uL (4.0-11.0) 7.2 x10^3/uL (4.0-11.0) Red Blood Count 3.64 x10^6/uL (3.50-5.40) 4.10 x10^6/uL (3.50-5.40) Hemoglobin 6.8 g/dL (12.0-15.5) 8.1 g/dL (12.0-15.5) Hematocrit 22.7 % (36.0-47.0) 26.6 % (36.0-47.0) Mean Corpuscular Volume 62 fL (79-100) 65 fL (79-100) Mean Corpuscular Hemoglobin 19 pg (25-35) 20 pg (25-35) Mean Corpuscular Hemoglobin Concent 30 g/dL (31-37) 31 g/dL (31-37) Red Cell Distribution Width 18.6 % (11.5-14.5) 21.6 % (11.5-14.5) Platelet Count 325 x10^3/uL (140-400) 317 x10^3/uL (140-400) Neutrophils (%) (Auto) 60 % (31-73) 63 % (31-73) Lymphocytes (%) (Auto) 27 % (24-48) 24 % (24-48) Monocytes (%) (Auto) 8 % (0-9) 8 % (0-9) Eosinophils (%) (Auto) 3 % (0-3) 3 % (0-3) Basophils (%) (Auto) 1 % (0-3) 1 % (0-3) Neutrophils # (Auto) 5.3 x10^3uL (1.8-7.7) 4.6 x10^3uL (1.8-7.7) Lymphocytes # (Auto) 2.4 x10^3/uL (1.0-4.8) 1.7 x10^3/uL (1.0-4.8) Monocytes # (Auto) 0.7 x10^3/uL (0.0-1.1) 0.6 x10^3/uL (0.0-1.1) Eosinophils # (Auto) 0.3 x10^3/uL (0.0-0.7) 0.2 x10^3/uL (0.0-0.7) Basophils # (Auto) 0.1 x10^3/uL (0.0-0.2) 0.1 x10^3/uL (0.0-0.2) Platelet Estimate Adequate (ADEQUATE) Hypochromasia Marked Poikilocytosis Slight Anisocytosis Slight Microcytosis Marked Ovalocytes Mod Sodium Level 135 mmol/L (136-145) 138 mmol/L (136-145) Potassium Level 4.6 mmol/L (3.5-5.1) 4.7 mmol/L (3.5-5.1) Chloride Level 102 mmol/L (98-107) 104 mmol/L (98-107) Carbon Dioxide Level 21 mmol/L (21-32) 22 mmol/L (21-32) Anion Gap 12 (6-14) 12 (6-14) Blood Urea Nitrogen 21 mg/dL (7-20) 19 mg/dL (7-20) Creatinine 1.6 mg/dL (0.6-1.0) 1.5 mg/dL (0.6-1.0) Estimated GFR (Cockcroft-Gault) 32.7 35.2 Glucose Level 106 mg/dL (70-99) 111 mg/dL (70-99) Calcium Level 9.2 mg/dL (8.5-10.1) 9.4 mg/dL (8.5-10.1) Total Bilirubin 0.1 mg/dL (0.2-1.0) Direct Bilirubin 0.1 mg/dL (0.0-0.2) Aspartate Amino Transf (AST/SGOT) 16 U/L (15-37) Alanine Aminotransferase (ALT/SGPT) 13 U/L (14-59) Alkaline Phosphatase 141 U/L (46-116) Troponin I Quantitative < 0.017 ng/mL (0.000-0.055) Total Protein 7.3 g/dL (6.4-8.2) Albumin 3.7 g/dL (3.4-5.0) Iron Level 50 ug/dL (50-170) Total Iron Binding Capacity 513 ug/dL (250-450) Iron Saturation 10 % (15-34) Laboratory Tests Test 12/10/16 20:25 12/10/16 21:40 12/10/16 21:44 12/11/16 06:00 Urine Collection Type Unknown Urine Color Straw Urine Clarity Cloudy Urine pH 7.5 Urine Specific [place] <=1.005 Urine Protein 30 mg/dL (NEG-TRACE) Urine Glucose (UA) Negative mg/dL (NEG) Urine Ketones (Stick) Negative mg/dL (NEG) Urine Blood Moderate (NEG) Urine Nitrite Negative (NEG) Urine Bilirubin Negative (NEG) Urine Urobilinogen Dipstick 0.2 mg/dL (0.2 mg/dL) Urine Leukocyte Esterase Large (NEG) Urine RBC 1-2 /HPF (0-2) Urine WBC Tntc /HPF (0-4) Urine Squamous Epithelial Cells Few /LPF Urine Renal Epithelial Cells Occ /LPF Urine Bacteria Many /HPF (0-FEW) Urine Mucus Mod /LPF Prothrombin Time 13.8 SEC (11.7-14.0) Prothromb Time International Ratio 1.1 (0.8-1.1) Activated Partial Thromboplast Time 27 SEC (24-38) White Blood Count 8.9 x10^3/uL (4.0-11.0) 7.2 x10^3/uL (4.0-11.0) Red Blood Count 3.64 x10^6/uL (3.50-5.40) 4.10 x10^6/uL (3.50-5.40) Hemoglobin 6.8 g/dL (12.0-15.5) 8.1 g/dL (12.0-15.5) Hematocrit 22.7 % (36.0-47.0) 26.6 % (36.0-47.0) Mean Corpuscular Volume 62 fL (79-100) 65 fL (79-100) Mean Corpuscular Hemoglobin 19 pg (25-35) 20 pg (25-35) Mean Corpuscular Hemoglobin Concent 30 g/dL (31-37) 31 g/dL (31-37) Red Cell Distribution Width 18.6 % (11.5-14.5) 21.6 % (11.5-14.5) Platelet Count 325 x10^3/uL (140-400) 317 x10^3/uL (140-400) Neutrophils (%) (Auto) 60 % (31-73) 63 % (31-73) Lymphocytes (%) (Auto) 27 % (24-48) 24 % (24-48) Monocytes (%) (Auto) 8 % (0-9) 8 % (0-9) Eosinophils (%) (Auto) 3 % (0-3) 3 % (0-3) Basophils (%) (Auto) 1 % (0-3) 1 % (0-3) Neutrophils # (Auto) 5.3 x10^3uL (1.8-7.7) 4.6 x10^3uL (1.8-7.7) Lymphocytes # (Auto) 2.4 x10^3/uL (1.0-4.8) 1.7 x10^3/uL (1.0-4.8) Monocytes # (Auto) 0.7 x10^3/uL (0.0-1.1) 0.6 x10^3/uL (0.0-1.1) Eosinophils # (Auto) 0.3 x10^3/uL (0.0-0.7) 0.2 x10^3/uL (0.0-0.7) Basophils # (Auto) 0.1 x10^3/uL (0.0-0.2) 0.1 x10^3/uL (0.0-0.2) Platelet Estimate Adequate (ADEQUATE) Hypochromasia Marked Poikilocytosis Slight Anisocytosis Slight Microcytosis Marked Ovalocytes Mod Sodium Level 135 mmol/L (136-145) 138 mmol/L (136-145) Potassium Level 4.6 mmol/L (3.5-5.1) 4.7 mmol/L (3.5-5.1) Chloride Level 102 mmol/L (98-107) 104 mmol/L (98-107) Carbon Dioxide Level 21 mmol/L (21-32) 22 mmol/L (21-32) Anion Gap 12 (6-14) 12 (6-14) Blood Urea Nitrogen 21 mg/dL (7-20) 19 mg/dL (7-20) Creatinine 1.6 mg/dL (0.6-1.0) 1.5 mg/dL (0.6-1.0) Estimated GFR (Cockcroft-Gault) 32.7 35.2 Glucose Level 106 mg/dL (70-99) 111 mg/dL (70-99) Calcium Level 9.2 mg/dL (8.5-10.1) 9.4 mg/dL (8.5-10.1) Total Bilirubin 0.1 mg/dL (0.2-1.0) Direct Bilirubin 0.1 mg/dL (0.0-0.2) Aspartate Amino Transf (AST/SGOT) 16 U/L (15-37) Alanine Aminotransferase (ALT/SGPT) 13 U/L (14-59) Alkaline Phosphatase 141 U/L (46-116) Troponin I Quantitative < 0.017 ng/mL (0.000-0.055) Total Protein 7.3 g/dL (6.4-8.2) Albumin 3.7 g/dL (3.4-5.0) Iron Level 50 ug/dL (50-170) Total Iron Binding Capacity 513 ug/dL (250-450) Iron Saturation 10 % (15-34) Assessment/Plan Assessment/Plan IMP SEVERE ANEMIA PROB CKD STAGE 3 WITH CR OF 1.5-1.6 HTN UTI COMPLEX L RENAL CYST RIGHT SIDE NEPHROCALCINOSIS HTN-POORLY CONTROLLED PLAN CONT IVF'S CT SCAN TO EVALUATE THE CYST VS MASS START NORVASC RISK OF CAN D/W PT CATIA ESPAÑA AND TX DARWIN ANNE MD Dec 11, 2016 11:48
[2016-12-11] MEDS ORDERED: IRON SUCROSE COMPLEX 500 MG in IV NORMAL SALINE 250ML 250 ML IV ONE (12:00)
--- NOTE | 2016-12-11 12:47 | PDOC2 ---
CONSULT Date of Consult Date of Consult DATE: 12/11/16 TIME: 12:34 Reason for Consult Reason for Consult: Iron def anemia Referring Physician Referring Physician: Linda Pepper History of Present Illness Reason for Visit: Pt presented with 3 day h/o weakness, leg pain. H/o RLE DVT in Jun, unprovoked per pt. Tried anticoag for 3 weeks, was woodworking and had bad bleeding-- reported being told by ER to stop and never went back on meds. Has chronic RLE swelling but LE U/S neg for DVT this admit. Noted to have hgb 6.8, MCV 62. Had partial gastrectomy for PUD in 1997. Has had poor tolerance to po iron and didn' t absorb it well. Has needed blood transfusions periodically, last a few months ago. Reports that her PCP, Dr. 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 Occasionally has SOB, chest pain, dizziness, leg cramps when iron low-- has leg cramps now. Has always craved ice. Past Medical History Past Medical History DVT RLE 06/18, only 3 weeks of anticoag, HTN, PUD, CAD, kidney stones, YENY Cardiovascular: HTN Pulmonary: No pertinent hx GI: GERD, Gastritis, Peptic Ulcer disease Hepatobiliary: No pertinent hx Psych: No pertinent hx Musculoskeletal: low back pain Rheumatologic: No pertinent hx Infectious disease: No pertinent hx ENT: No pertinent hx Renal/: Chronic renal insuff Endocrine: No pertinent hx Past Surgical History Past Surgical History Partial gastrectomy 1997 for PUD, PCI x 2, Umb hernia repair, lithotripsy, C fusion x 2 Family History Family History 8 siblings, mom and dad reportedly all from lung ca- nonsmokers-- reports living near [place] [employer] and thinking that is the cause Mom also possibly had breast ca Family History: No Significant Social History 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, 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 No ALCOHOL: none Drugs: None Current Problem List Problem List Problems Medical Problems: (1) Leg cramp Status: Acute (2) Swelling of lower extremity Status: Acute Current Medications Current Medications Current Medications Ondansetron HCl (Zofran) 4 mg PRN Q8HRS PRN IV NAUSEA/VOMITING; Start 12/10/16 at 22:15; Stop 12/11/16 at 22:14 Sodium Chloride 1,000 ml @ 100 mls/hr 1X ONCE IV Last administered on 05:32; Start 12/10/16 at 22:30; Stop 12/11/16 at 08:29; Status DC Ceftriaxone Sodium 50 ml @ 100 mls/hr 1X ONCE IV Last administered on 05:33; Start 12/11/16 at 01:30; Stop 12/11/16 at 01:59; Status DC Ceftriaxone Sodium 1 gm/ Sodium Chloride 50 ml @ 100 mls/hr Q24H IV ; Start at 06:00 Pantoprazole Sodium (Protonix) 40 mg DAILYAC PO ; Start 12/12/16 at 07:30 Pantoprazole Sodium (Protonix) 40 mg 1X ONCE PO Last administered on 10:58; Start 12/11/16 at 08:30; Stop 12/11/16 at 08:31; Status DC Acetaminophen (Tylenol) 650 mg PRN Q6HRS PRN PO MILD PAIN; Start 12/11/16 at 11 :15 Tramadol HCl (Ultram) 50 mg PRN Q6HRS PRN PO MODERATE - SEVERE PAIN; Start 05/18 at 11:15 Iron Sucrose 500 mg/Sodium Chloride 275 ml @ 78.571 mls/ hr 1X ONCE IV ; Start 12/11/16 at 12:00; Stop 12/11/16 at 15:29 Iron Sucrose 500 mg/Sodium Chloride 275 ml @ 78.571 mls/ hr 1X ONCE IV ; Start 12/12/16 at 08:00; Stop 12/12/16 at 11:29 Sodium Chloride 1,000 ml @ 100 mls/hr Q10H IV ; Start 12/11/16 at 12:00 Amlodipine Besylate (Norvasc) 5 mg DAILY PO ; Start 12/12/16 at 09:00; Status UNV Active Scripts Active Reported Acetaminophen 500 Mg Tablet 1,000 Mg PO PRN Q6HRS PRN Cyclobenzaprine Hcl 10 Mg Tablet 10 Mg PO Proair Hfa Inhaler (Albuterol Sulfate) 8.5 Gm Hfa.aer.ad 8.5 Gm IH Allergies Allergies: Coded Allergies: Sulfa (Sulfonamide Antibiotics) (Verified Allergy, Intermediate, 02/16/16) amlodipine (Verified Allergy, Intermediate, 02/16/16) codeine (Verified Allergy, Intermediate, Rash, 02/16/16) doxycycline (Verified Allergy, Intermediate, 02/16/16) ezetimibe (Verified Allergy, Intermediate, 02/16/16) levofloxacin (Verified Allergy, Intermediate, 02/16/16) morphine (Verified Allergy, Intermediate, 02/16/16) simvastatin (Verified Allergy, Intermediate, 02/16/16) oxycodone (Verified Adverse Reaction, Intermediate, Hallucinations, ) ROS Review of System 12 point ROS completed, positive as per HPI, also chronic RLE swelling Physical Exam General: Alert, Oriented X3, Cooperative, No acute distress HEENT: Other (no scleral icterus) Lungs: Clear to auscultation, Normal air movement Heart: Regular rate Abdomen: Normal bowel sounds, Soft Extremities: Other (chronic 1+ RLE edema) Skin: No rashes, Other (no pallor) Neuro: Normal tone, Cranial nerves 3-12 NL Psych/Mental Status: Mental status NL, Mood NL MUSCULOSKELETAL: Other (1+ RLE edema) Vitals VITALS Vital Signs Date Time Temp Pulse Resp B/P (MAP) Pulse Ox O2 Delivery O2 Flow Rate FiO2 12/11/16 11:00 98.1 82 18 150/84 (106) 98 Room Air 98.1 Labs Labs Laboratory Tests Test 12/10/16 20:25 12/10/16 21:40 12/10/16 21:44 12/11/16 06:00 Urine Collection Type Unknown Urine Color Straw Urine Clarity Cloudy Urine pH 7.5 Urine Specific [place] <=1.005 Urine Protein 30 mg/dL (NEG-TRACE) Urine Glucose (UA) Negative mg/dL (NEG) Urine Ketones (Stick) Negative mg/dL (NEG) Urine Blood Moderate (NEG) Urine Nitrite Negative (NEG) Urine Bilirubin Negative (NEG) Urine Urobilinogen Dipstick 0.2 mg/dL (0.2 mg/dL) Urine Leukocyte Esterase Large (NEG) Urine RBC 1-2 /HPF (0-2) Urine WBC Tntc /HPF (0-4) Urine Squamous Epithelial Cells Few /LPF Urine Renal Epithelial Cells Occ /LPF Urine Bacteria Many /HPF (0-FEW) Urine Mucus Mod /LPF Prothrombin Time 13.8 SEC (11.7-14.0) Prothromb Time International Ratio 1.1 (0.8-1.1) Activated Partial Thromboplast Time 27 SEC (24-38) White Blood Count 8.9 x10^3/uL (4.0-11.0) 7.2 x10^3/uL (4.0-11.0) Red Blood Count 3.64 x10^6/uL (3.50-5.40) 4.10 x10^6/uL (3.50-5.40) Hemoglobin 6.8 g/dL (12.0-15.5) 8.1 g/dL (12.0-15.5) Hematocrit 22.7 % (36.0-47.0) 26.6 % (36.0-47.0) Mean Corpuscular Volume 62 fL (79-100) 65 fL (79-100) Mean Corpuscular Hemoglobin 19 pg (25-35) 20 pg (25-35) Mean Corpuscular Hemoglobin Concent 30 g/dL (31-37) 31 g/dL (31-37) Red Cell Distribution Width 18.6 % (11.5-14.5) 21.6 % (11.5-14.5) Platelet Count 325 x10^3/uL (140-400) 317 x10^3/uL (140-400) Neutrophils (%) (Auto) 60 % (31-73) 63 % (31-73) Lymphocytes (%) (Auto) 27 % (24-48) 24 % (24-48) Monocytes (%) (Auto) 8 % (0-9) 8 % (0-9) Eosinophils (%) (Auto) 3 % (0-3) 3 % (0-3) Basophils (%) (Auto) 1 % (0-3) 1 % (0-3) Neutrophils # (Auto) 5.3 x10^3uL (1.8-7.7) 4.6 x10^3uL (1.8-7.7) Lymphocytes # (Auto) 2.4 x10^3/uL (1.0-4.8) 1.7 x10^3/uL (1.0-4.8) Monocytes # (Auto) 0.7 x10^3/uL (0.0-1.1) 0.6 x10^3/uL (0.0-1.1) Eosinophils # (Auto) 0.3 x10^3/uL (0.0-0.7) 0.2 x10^3/uL (0.0-0.7) Basophils # (Auto) 0.1 x10^3/uL (0.0-0.2) 0.1 x10^3/uL (0.0-0.2) Platelet Estimate Adequate (ADEQUATE) Hypochromasia Marked Poikilocytosis Slight Anisocytosis Slight Microcytosis Marked Ovalocytes Mod Sodium Level 135 mmol/L (136-145) 138 mmol/L (136-145) Potassium Level 4.6 mmol/L (3.5-5.1) 4.7 mmol/L (3.5-5.1) Chloride Level 102 mmol/L (98-107) 104 mmol/L (98-107) Carbon Dioxide Level 21 mmol/L (21-32) 22 mmol/L (21-32) Anion Gap 12 (6-14) 12 (6-14) Blood Urea Nitrogen 21 mg/dL (7-20) 19 mg/dL (7-20) Creatinine 1.6 mg/dL (0.6-1.0) 1.5 mg/dL (0.6-1.0) Estimated GFR (Cockcroft-Gault) 32.7 35.2 Glucose Level 106 mg/dL (70-99) 111 mg/dL (70-99) Calcium Level 9.2 mg/dL (8.5-10.1) 9.4 mg/dL (8.5-10.1) Total Bilirubin 0.1 mg/dL (0.2-1.0) Direct Bilirubin 0.1 mg/dL (0.0-0.2) Aspartate Amino Transf (AST/SGOT) 16 U/L (15-37) Alanine Aminotransferase (ALT/SGPT) 13 U/L (14-59) Alkaline Phosphatase 141 U/L (46-116) Troponin I Quantitative < 0.017 ng/mL (0.000-0.055) Total Protein 7.3 g/dL (6.4-8.2) Albumin 3.7 g/dL (3.4-5.0) Iron Level 50 ug/dL (50-170) Total Iron Binding Capacity 513 ug/dL (250-450) Iron Saturation 10 % (15-34) Laboratory Tests Test 12/10/16 20:25 12/10/16 21:40 12/10/16 21:44 12/11/16 06:00 Urine Collection Type Unknown Urine Color Straw Urine Clarity Cloudy Urine pH 7.5 Urine Specific [place] <=1.005 Urine Protein 30 mg/dL (NEG-TRACE) Urine Glucose (UA) Negative mg/dL (NEG) Urine Ketones (Stick) Negative mg/dL (NEG) Urine Blood Moderate (NEG) Urine Nitrite Negative (NEG) Urine Bilirubin Negative (NEG) Urine Urobilinogen Dipstick 0.2 mg/dL (0.2 mg/dL) Urine Leukocyte Esterase Large (NEG) Urine RBC 1-2 /HPF (0-2) Urine WBC Tntc /HPF (0-4) Urine Squamous Epithelial Cells Few /LPF Urine Renal Epithelial Cells Occ /LPF Urine Bacteria Many /HPF (0-FEW) Urine Mucus Mod /LPF Prothrombin Time 13.8 SEC (11.7-14.0) Prothromb Time International Ratio 1.1 (0.8-1.1) Activated Partial Thromboplast Time 27 SEC (24-38) White Blood Count 8.9 x10^3/uL (4.0-11.0) 7.2 x10^3/uL (4.0-11.0) Red Blood Count 3.64 x10^6/uL (3.50-5.40) 4.10 x10^6/uL (3.50-5.40) Hemoglobin 6.8 g/dL (12.0-15.5) 8.1 g/dL (12.0-15.5) Hematocrit 22.7 % (36.0-47.0) 26.6 % (36.0-47.0) Mean Corpuscular Volume 62 fL (79-100) 65 fL (79-100) Mean Corpuscular Hemoglobin 19 pg (25-35) 20 pg (25-35) Mean Corpuscular Hemoglobin Concent 30 g/dL (31-37) 31 g/dL (31-37) Red Cell Distribution Width 18.6 % (11.5-14.5) 21.6 % (11.5-14.5) Platelet Count 325 x10^3/uL (140-400) 317 x10^3/uL (140-400) Neutrophils (%) (Auto) 60 % (31-73) 63 % (31-73) Lymphocytes (%) (Auto) 27 % (24-48) 24 % (24-48) Monocytes (%) (Auto) 8 % (0-9) 8 % (0-9) Eosinophils (%) (Auto) 3 % (0-3) 3 % (0-3) Basophils (%) (Auto) 1 % (0-3) 1 % (0-3) Neutrophils # (Auto) 5.3 x10^3uL (1.8-7.7) 4.6 x10^3uL (1.8-7.7) Lymphocytes # (Auto) 2.4 x10^3/uL (1.0-4.8) 1.7 x10^3/uL (1.0-4.8) Monocytes # (Auto) 0.7 x10^3/uL (0.0-1.1) 0.6 x10^3/uL (0.0-1.1) Eosinophils # (Auto) 0.3 x10^3/uL (0.0-0.7) 0.2 x10^3/uL (0.0-0.7) Basophils # (Auto) 0.1 x10^3/uL (0.0-0.2) 0.1 x10^3/uL (0.0-0.2) Platelet Estimate Adequate (ADEQUATE) Hypochromasia Marked Poikilocytosis Slight Anisocytosis Slight Microcytosis Marked Ovalocytes Mod Sodium Level 135 mmol/L (136-145) 138 mmol/L (136-145) Potassium Level 4.6 mmol/L (3.5-5.1) 4.7 mmol/L (3.5-5.1) Chloride Level 102 mmol/L (98-107) 104 mmol/L (98-107) Carbon Dioxide Level 21 mmol/L (21-32) 22 mmol/L (21-32) Anion Gap 12 (6-14) 12 (6-14) Blood Urea Nitrogen 21 mg/dL (7-20) 19 mg/dL (7-20) Creatinine 1.6 mg/dL (0.6-1.0) 1.5 mg/dL (0.6-1.0) Estimated GFR (Cockcroft-Gault) 32.7 35.2 Glucose Level 106 mg/dL (70-99) 111 mg/dL (70-99) Calcium Level 9.2 mg/dL (8.5-10.1) 9.4 mg/dL (8.5-10.1) Total Bilirubin 0.1 mg/dL (0.2-1.0) Direct Bilirubin 0.1 mg/dL (0.0-0.2) Aspartate Amino Transf (AST/SGOT) 16 U/L (15-37) Alanine Aminotransferase (ALT/SGPT) 13 U/L (14-59) Alkaline Phosphatase 141 U/L (46-116) Troponin I Quantitative < 0.017 ng/mL (0.000-0.055) Total Protein 7.3 g/dL (6.4-8.2) Albumin 3.7 g/dL (3.4-5.0) Iron Level 50 ug/dL (50-170) Total Iron Binding Capacity 513 ug/dL (250-450) Iron Saturation 10 % (15-34) Images Images Bilateral LE neg for DVT Assessment/Plan Assessment/Plan 1. Iron deficiency anemia likely due to decreased absorption s/p partial gastrectomy in , previous intolerance and lack of response to po iron Ordered venofer 500 mg today, 2nd dose tomorrow AM. Pt eager to DC after that. Unfortunately my clinic does not participate with her insurance. I have placed a call to her PCP, Dr. Delaney, to set up further outpt IV iron at [facility] infusion. Will take 2 mth for iron/ hgb to fully correct. Given previous surgery, also will check B12, folate and recommend outpt replacement if these are low as well. 1 unit PRBC has already been ordered today. 2. Chronic RLE swelling. Discussed this is due to her previous RLE DVT in 06/18. However no DVT now seen so would not recommend anticoag. 3. Leg cramping. Can be seen with iron deficiency as well. Hopefully will improve with replacement. Ok to DC tomorrow from heme standpoint after IV iron. Will need f/u with PCP as above. SHARON LLANOS DO Dec 11, 2016 12:46
[2016-12-11] MEDS: ACETAMINOPHEN 325 MG TABLET. PO PRN ×2 (13:03→21:13)
[2016-12-11] MEDS: METOPROLOL TART IMMED RELEASE 50 MG TABLET. PO SCH (17:46)
[2016-12-11] MEDS: IV NORMAL SALINE 1000ML BAG 1,000 ML IV SCH ×2 (18:45→22:00)
[2016-12-12 00:25] VITALS: BP 159/78
[2016-12-12 01:25] VITALS: BP 168/80
[2016-12-12 06:59] LABS: BASO # 0.1 x10^3/uL (0.0-0.2); BASO % 2 % (0-3); EOS % 4 % (0-3); HEMATOCRIT 31.4 % (36.0-47.0); HEMOGLOBIN 9.6 g/dL (12.0-15.5); LYMPH # 1.4 x10^3/uL (1.0-4.8); LYMPH % 20 % (24-48); MEAN CORPUSCULAR HEMOGLOBIN 21 pg (25-35); MEAN CORPUSCULAR HGB CONC 31 g/dL (31-37); MONO % 8 % (0-9); NEUT % 67 % (31-73); PLATELET COUNT 287 x10^3/uL (140-400); RED BLOOD COUNT 4.57 x10^6/uL (3.50-5.40); RED CELL DISTRIBUTION WIDTH 23.7 % (11.5-14.5); WHITE BLOOD COUNT 6.9 x10^3/uL (4.0-11.0)
[2016-12-12 07:00] VITALS: BP 163/100
[2016-12-12 07:04] LABS: MEAN CORPUSCULAR VOLUME 67 fL (79-100)
[2016-12-12 07:19] LABS: ALBUMIN 3.4 g/dL (3.4-5.0); ALBUMIN/GLOBULIN RATIO 0.9 (1.0-1.7); CALCIUM 9.5 mg/dL (8.5-10.1); CREATININE 1.4 mg/dL (0.6-1.0); GFR 38.1; POTASSIUM 4.5 mmol/L (3.5-5.1); TOTAL BILIRUBIN 0.4 mg/dL (0.2-1.0); TOTAL PROTEIN 7.4 g/dL (6.4-8.2)
[2016-12-12] MEDS ORDERED: PANTOPRAZOLE 40 MG TABLET.DR. PO SCH (07:30)
[2016-12-12] MEDS ORDERED: FOLI1TAB16 PO (07:37)
[2016-12-12] MEDS ORDERED: IRON SUCROSE COMPLEX 500 MG in IV NORMAL SALINE 250ML 250 ML IV ONE (08:00)
--- NOTE | 2016-12-12 08:21 | PDOC3 ---
Discharge Summary Visit Information Date of Admission: Dec 10, 2016 Date of Discharge: Dec 12, 2016 Admitting Diagnosis Comment: leg cramps, in the background of YENY symptomatic anemia Intolreance to PO ferrous sulfate Hx gastric bypass UTI, Hx of DVT, neg sono currently CKD 3 - 4 15 mm non obstructing kidney stone, R superior pole Final Diagnosis Problems Medical Problems: (1) Leg cramp Status: Acute (2) Swelling of lower extremity Status: Acute Brief Hospital Course Allergies Allergies Coded Allergies Type Severity Reaction Last Updated Verified Sulfa (Sulfonamide Antibiotics) Allergy Intermediate 02/16/16 Yes amlodipine Allergy Intermediate 02/16/16 Yes codeine Allergy Intermediate Rash 02/16/16 Yes doxycycline Allergy Intermediate 02/16/16 Yes ezetimibe Allergy Intermediate 02/16/16 Yes levofloxacin Allergy Intermediate 02/16/16 Yes morphine Allergy Intermediate 02/16/16 Yes simvastatin Allergy Intermediate 02/16/16 Yes oxycodone Adverse Reaction Intermediate Hallucinations 02/16/16 Yes Vital Signs Vital Signs Date Time Temp Pulse Resp B/P (MAP) Pulse Ox O2 Delivery O2 Flow Rate FiO2 12/12/16 07:00 98.1 70 16 163/100 (121) 98 Room Air 98.1 Lab Results Laboratory Tests Test 12/10/16 20:25 12/10/16 21:40 12/10/16 21:44 12/11/16 06:00 Urine Collection Type Unknown Urine Color Straw Urine Clarity Cloudy Urine pH 7.5 Urine Specific [place] <=1.005 Urine Protein 30 mg/dL (NEG-TRACE) Urine Glucose (UA) Negative mg/dL (NEG) Urine Ketones (Stick) Negative mg/dL (NEG) Urine Blood Moderate (NEG) Urine Nitrite Negative (NEG) Urine Bilirubin Negative (NEG) Urine Urobilinogen Dipstick 0.2 mg/dL (0.2 mg/dL) Urine Leukocyte Esterase Large (NEG) Urine RBC 1-2 /HPF (0-2) Urine WBC Tntc /HPF (0-4) Urine Squamous Epithelial Cells Few /LPF Urine Renal Epithelial Cells Occ /LPF Urine Bacteria Many /HPF (0-FEW) Urine Mucus Mod /LPF Prothrombin Time 13.8 SEC (11.7-14.0) Prothromb Time International Ratio 1.1 (0.8-1.1) Activated Partial Thromboplast Time 27 SEC (24-38) White Blood Count 8.9 x10^3/uL (4.0-11.0) 7.2 x10^3/uL (4.0-11.0) Red Blood Count 3.64 x10^6/uL (3.50-5.40) 4.10 x10^6/uL (3.50-5.40) Hemoglobin 6.8 g/dL (12.0-15.5) 8.1 g/dL (12.0-15.5) Hematocrit 22.7 % (36.0-47.0) 26.6 % (36.0-47.0) Mean Corpuscular Volume 62 fL (79-100) 65 fL (79-100) Mean Corpuscular Hemoglobin 19 pg (25-35) 20 pg (25-35) Mean Corpuscular Hemoglobin Concent 30 g/dL (31-37) 31 g/dL (31-37) Red Cell Distribution Width 18.6 % (11.5-14.5) 21.6 % (11.5-14.5) Platelet Count 325 x10^3/uL (140-400) 317 x10^3/uL (140-400) Neutrophils (%) (Auto) 60 % (31-73) 63 % (31-73) Lymphocytes (%) (Auto) 27 % (24-48) 24 % (24-48) Monocytes (%) (Auto) 8 % (0-9) 8 % (0-9) Eosinophils (%) (Auto) 3 % (0-3) 3 % (0-3) Basophils (%) (Auto) 1 % (0-3) 1 % (0-3) Neutrophils # (Auto) 5.3 x10^3uL (1.8-7.7) 4.6 x10^3uL (1.8-7.7) Lymphocytes # (Auto) 2.4 x10^3/uL (1.0-4.8) 1.7 x10^3/uL (1.0-4.8) Monocytes # (Auto) 0.7 x10^3/uL (0.0-1.1) 0.6 x10^3/uL (0.0-1.1) Eosinophils # (Auto) 0.3 x10^3/uL (0.0-0.7) 0.2 x10^3/uL (0.0-0.7) Basophils # (Auto) 0.1 x10^3/uL (0.0-0.2) 0.1 x10^3/uL (0.0-0.2) Platelet Estimate Adequate (ADEQUATE) Hypochromasia Marked Poikilocytosis Slight Anisocytosis Slight Microcytosis Marked Ovalocytes Mod Sodium Level 135 mmol/L (136-145) 138 mmol/L (136-145) Potassium Level 4.6 mmol/L (3.5-5.1) 4.7 mmol/L (3.5-5.1) Chloride Level 102 mmol/L (98-107) 104 mmol/L (98-107) Carbon Dioxide Level 21 mmol/L (21-32) 22 mmol/L (21-32) Anion Gap 12 (6-14) 12 (6-14) Blood Urea Nitrogen 21 mg/dL (7-20) 19 mg/dL (7-20) Creatinine 1.6 mg/dL (0.6-1.0) 1.5 mg/dL (0.6-1.0) Estimated GFR (Cockcroft-Gault) 32.7 35.2 Glucose Level 106 mg/dL (70-99) 111 mg/dL (70-99) Calcium Level 9.2 mg/dL (8.5-10.1) 9.4 mg/dL (8.5-10.1) Total Bilirubin 0.1 mg/dL (0.2-1.0) Direct Bilirubin 0.1 mg/dL (0.0-0.2) Aspartate Amino Transf (AST/SGOT) 16 U/L (15-37) Alanine Aminotransferase (ALT/SGPT) 13 U/L (14-59) Alkaline Phosphatase 141 U/L (46-116) Troponin I Quantitative < 0.017 ng/mL (0.000-0.055) Total Protein 7.3 g/dL (6.4-8.2) Albumin 3.7 g/dL (3.4-5.0) Iron Level 50 ug/dL (50-170) Total Iron Binding Capacity 513 ug/dL (250-450) Iron Saturation 10 % (15-34) Test 12/11/16 12:40 12/12/16 06:30 Ferritin 7 ng/mL (8-252) Serum Folate 7.91 ng/ml (3.2-20.0) White Blood Count 6.9 x10^3/uL (4.0-11.0) Red Blood Count 4.57 x10^6/uL (3.50-5.40) Hemoglobin 9.6 g/dL (12.0-15.5) Hematocrit 31.4 % (36.0-47.0) Mean Corpuscular Volume 67 fL (79-100) Mean Corpuscular Hemoglobin 21 pg (25-35) Mean Corpuscular Hemoglobin Concent 31 g/dL (31-37) Red Cell Distribution Width 23.7 % (11.5-14.5) Platelet Count 287 x10^3/uL (140-400) Neutrophils (%) (Auto) 67 % (31-73) Lymphocytes (%) (Auto) 20 % (24-48) Monocytes (%) (Auto) 8 % (0-9) Eosinophils (%) (Auto) 4 % (0-3) Basophils (%) (Auto) 2 % (0-3) Neutrophils # (Auto) 4.6 x10^3uL (1.8-7.7) Lymphocytes # (Auto) 1.4 x10^3/uL (1.0-4.8) Monocytes # (Auto) 0.6 x10^3/uL (0.0-1.1) Eosinophils # (Auto) 0.3 x10^3/uL (0.0-0.7) Basophils # (Auto) 0.1 x10^3/uL (0.0-0.2) Sodium Level 140 mmol/L (136-145) Potassium Level 4.5 mmol/L (3.5-5.1) Chloride Level 105 mmol/L (98-107) Carbon Dioxide Level 24 mmol/L (21-32) Anion Gap 11 (6-14) Blood Urea Nitrogen 15 mg/dL (7-20) Creatinine 1.4 mg/dL (0.6-1.0) Estimated GFR (Cockcroft-Gault) 38.1 BUN/Creatinine Ratio 11 (6-20) Glucose Level 112 mg/dL (70-99) Calcium Level 9.5 mg/dL (8.5-10.1) Total Bilirubin 0.4 mg/dL (0.2-1.0) Aspartate Amino Transf (AST/SGOT) 15 U/L (15-37) Alanine Aminotransferase (ALT/SGPT) 11 U/L (14-59) Alkaline Phosphatase 136 U/L (46-116) Total Protein 7.4 g/dL (6.4-8.2) Albumin 3.4 g/dL (3.4-5.0) Albumin/Globulin Ratio 0.9 (1.0-1.7) Laboratory Tests Test 12/11/16 12:40 12/12/16 06:30 Ferritin 7 ng/mL (8-252) Serum Folate 7.91 ng/ml (3.2-20.0) White Blood Count 6.9 x10^3/uL (4.0-11.0) Red Blood Count 4.57 x10^6/uL (3.50-5.40) Hemoglobin 9.6 g/dL (12.0-15.5) Hematocrit 31.4 % (36.0-47.0) Mean Corpuscular Volume 67 fL (79-100) Mean Corpuscular Hemoglobin 21 pg (25-35) Mean Corpuscular Hemoglobin Concent 31 g/dL (31-37) Red Cell Distribution Width 23.7 % (11.5-14.5) Platelet Count 287 x10^3/uL (140-400) Neutrophils (%) (Auto) 67 % (31-73) Lymphocytes (%) (Auto) 20 % (24-48) Monocytes (%) (Auto) 8 % (0-9) Eosinophils (%) (Auto) 4 % (0-3) Basophils (%) (Auto) 2 % (0-3) Neutrophils # (Auto) 4.6 x10^3uL (1.8-7.7) Lymphocytes # (Auto) 1.4 x10^3/uL (1.0-4.8) Monocytes # (Auto) 0.6 x10^3/uL (0.0-1.1) Eosinophils # (Auto) 0.3 x10^3/uL (0.0-0.7) Basophils # (Auto) 0.1 x10^3/uL (0.0-0.2) Sodium Level 140 mmol/L (136-145) Potassium Level 4.5 mmol/L (3.5-5.1) Chloride Level 105 mmol/L (98-107) Carbon Dioxide Level 24 mmol/L (21-32) Anion Gap 11 (6-14) Blood Urea Nitrogen 15 mg/dL (7-20) Creatinine 1.4 mg/dL (0.6-1.0) Estimated GFR (Cockcroft-Gault) 38.1 BUN/Creatinine Ratio 11 (6-20) Glucose Level 112 mg/dL (70-99) Calcium Level 9.5 mg/dL (8.5-10.1) Total Bilirubin 0.4 mg/dL (0.2-1.0) Aspartate Amino Transf (AST/SGOT) 15 U/L (15-37) Alanine Aminotransferase (ALT/SGPT) 11 U/L (14-59) Alkaline Phosphatase 136 U/L (46-116) Total Protein 7.4 g/dL (6.4-8.2) Albumin 3.4 g/dL (3.4-5.0) Albumin/Globulin Ratio 0.9 (1.0-1.7) Brief Hospital Course Ms. Gonzalez is a 61 old female admitted for leg cramps and weakness and was found to have significant anemia, YENY by iron panel indices. Hx gasrtric bypass which is most likely the culprit, CLiams intolarence to PO ferrous sulfate, heme onc consulted, IV venofer x 2 doses given;. Advised ff up PCP set up appt as our heme onc does not accept pt insurance, Pt aware SOme incidental non obstructing 15 mm urologic stone, none bothersome, Wants to go home, CT to be done, Can definitely ff up as oP re this Pt seen and examined Dw Pt and RN Advised PO folic acid and B12, B12 levels pending time 3 4mins Discharge Information Condition at Discharge: Improved, Stable Follow Up: Weeks (2-[address] Delaney PCP) Disposition/Orders: D/C to Home Scheduled PRN Acetaminophen (Acetaminophen), 1,000 MG PO PRN Q6HRS PRN for PAIN, (Reported) Miscellaneous Medications Albuterol Sulfate (Proair Hfa Inhaler), 8.5 GM IH, (Reported) Cyclobenzaprine Hcl (Cyclobenzaprine Hcl), 10 MG PO, (Reported) Discontinued Medications Atorvastatin Calcium (Atorvastatin Calcium), 10 MG PO, (Reported) Chlorthalidone (Chlorthalidone), 25 MG PO, (Reported) Clonidine Hcl (Clonidine Hcl), 0.2 MG PO, (Reported) Hydralazine Hcl (Hydralazine Hcl), 100 MG PO, (Reported) Hydrocodone Bit/Acetaminophen (Hydrocodone-Apap 10-325 ), 1 EACH PO, ( Reported) Lorazepam (Lorazepam), 0.5 MG PO, (Reported) Losartan Potassium (Losartan Potassium), 100 MG PO, (Reported) Nebivolol Hcl (Bystolic), 20 MG PO, (Reported) Potassium Chloride (Potassium Chloride), 20 MEQ PO, (Reported) Pregabalin (Lyrica), 300 MG PO, (Reported) Ropinirole Hcl (Requip), 2 MG PO, (Reported) Tizanidine Hcl (Tizanidine Hcl), 2 MG PO, (Reported) GABY LUNA MD Dec 12, 2016 08:21
[2016-12-12] MEDS ORDERED: amLODIPine BESYLATE 5 MG TABLET PO SCH (09:00)
[2016-12-12] MEDS: ACETAMINOPHEN 325 MG TABLET. PO PRN ×2 (09:08→15:24)
--- NOTE | 2016-12-12 09:09 | PDOC ---
Subjective: Subjective: Feels better, hopeful to DC today. Objective: Objective: No records received (previous EGD/colon w/ [facility] requested yesterday). Vital Signs: Vital Signs Date Time Temp Pulse Resp B/P (MAP) Pulse Ox O2 Delivery O2 Flow Rate FiO2 12/12/16 07:00 98.1 70 16 163/100 (121) 98 Room Air 98.1 Labs: Laboratory Tests Test 12/11/16 12:40 12/12/16 06:30 Ferritin 7 ng/mL Serum Folate 7.91 ng/ml White Blood Count 6.9 x10^3/uL Red Blood Count 4.57 x10^6/uL Hemoglobin 9.6 g/dL Hematocrit 31.4 % Mean Corpuscular Volume 67 fL Mean Corpuscular Hemoglobin 21 pg Mean Corpuscular Hemoglobin Concent 31 g/dL Red Cell Distribution Width 23.7 % Platelet Count 287 x10^3/uL Neutrophils (%) (Auto) 67 % Lymphocytes (%) (Auto) 20 % Monocytes (%) (Auto) 8 % Eosinophils (%) (Auto) 4 % Basophils (%) (Auto) 2 % Neutrophils # (Auto) 4.6 x10^3uL Lymphocytes # (Auto) 1.4 x10^3/uL Monocytes # (Auto) 0.6 x10^3/uL Eosinophils # (Auto) 0.3 x10^3/uL Basophils # (Auto) 0.1 x10^3/uL Sodium Level 140 mmol/L Potassium Level 4.5 mmol/L Chloride Level 105 mmol/L Carbon Dioxide Level 24 mmol/L Anion Gap 11 Blood Urea Nitrogen 15 mg/dL Creatinine 1.4 mg/dL Estimated GFR (Cockcroft-Gault) 38.1 BUN/Creatinine Ratio 11 Glucose Level 112 mg/dL Calcium Level 9.5 mg/dL Total Bilirubin 0.4 mg/dL Aspartate Amino Transf (AST/SGOT) 15 U/L Alanine Aminotransferase (ALT/SGPT) 11 U/L Alkaline Phosphatase 136 U/L Total Protein 7.4 g/dL Albumin 3.4 g/dL Albumin/Globulin Ratio 0.9 PE: GEN: NAD LUNGS: CTAB HEART: RRR ABD: S/ND/NT NEURO/PSYCH: A & O 3 A/P: Chronic YENY -Hgb improved s/p transfusions -denies obvious bleeding -h/o PUD and partial gastrectomy, last EGD/colon 2-3 years ago ---> records requested/not received -started on PPI here -saw hematology yesterday, received IV iron Left renal mass -to have CT today -- Note DC plans, okay per GI. She asks when she should have her next EGD/colon; will review w/ Dr. Rinaldi. ABDI RUBIO Dec 12, 2016 09:08
[2016-12-12] MEDS: METOPROLOL TART IMMED RELEASE 50 MG TABLET. PO SCH (09:12)
[2016-12-12] MEDS ORDERED: SODIUM BICARBONATE VIAL 150 MEQ in IV STERILE WATER 1,000 ML IV SCH (10:30)
[2016-12-12 10:39] VITALS: BP 156/95
[2016-12-12] MEDS: IV NORMAL SALINE 1000ML BAG 1,000 ML IV SCH (10:53)
--- NOTE | 2016-12-12 12:19 | PDOC ---
Renal-Progress Notes Subjective Notes Notes NO NEW COMPLAINTS History of Present Illness Hx of present illness STABLE Vitals Vitals Vital Signs Date Time Temp Pulse Resp B/P (MAP) Pulse Ox O2 Delivery O2 Flow Rate FiO2 12/12/16 10:39 98.0 75 17 156/95 (115) 95 Room Air 98.0 Weight Weight [ ] I.O. Intake and Output Intake and Output 12/12/16 06:59 Intake Total 360 ml Output Total 450 ml Balance -90 ml Intake Oral 360 ml Output Urine Total 450 ml # Voids 6 Labs Labs Laboratory Tests Test 12/11/16 12:40 12/12/16 06:30 Ferritin 7 ng/mL (8-252) Serum Folate 7.91 ng/ml (3.2-20.0) White Blood Count 6.9 x10^3/uL (4.0-11.0) Red Blood Count 4.57 x10^6/uL (3.50-5.40) Hemoglobin 9.6 g/dL (12.0-15.5) Hematocrit 31.4 % (36.0-47.0) Mean Corpuscular Volume 67 fL (79-100) Mean Corpuscular Hemoglobin 21 pg (25-35) Mean Corpuscular Hemoglobin Concent 31 g/dL (31-37) Red Cell Distribution Width 23.7 % (11.5-14.5) Platelet Count 287 x10^3/uL (140-400) Neutrophils (%) (Auto) 67 % (31-73) Lymphocytes (%) (Auto) 20 % (24-48) Monocytes (%) (Auto) 8 % (0-9) Eosinophils (%) (Auto) 4 % (0-3) Basophils (%) (Auto) 2 % (0-3) Neutrophils # (Auto) 4.6 x10^3uL (1.8-7.7) Lymphocytes # (Auto) 1.4 x10^3/uL (1.0-4.8) Monocytes # (Auto) 0.6 x10^3/uL (0.0-1.1) Eosinophils # (Auto) 0.3 x10^3/uL (0.0-0.7) Basophils # (Auto) 0.1 x10^3/uL (0.0-0.2) Sodium Level 140 mmol/L (136-145) Potassium Level 4.5 mmol/L (3.5-5.1) Chloride Level 105 mmol/L (98-107) Carbon Dioxide Level 24 mmol/L (21-32) Anion Gap 11 (6-14) Blood Urea Nitrogen 15 mg/dL (7-20) Creatinine 1.4 mg/dL (0.6-1.0) Estimated GFR (Cockcroft-Gault) 38.1 BUN/Creatinine Ratio 11 (6-20) Glucose Level 112 mg/dL (70-99) Calcium Level 9.5 mg/dL (8.5-10.1) Total Bilirubin 0.4 mg/dL (0.2-1.0) Aspartate Amino Transf (AST/SGOT) 15 U/L (15-37) Alanine Aminotransferase (ALT/SGPT) 11 U/L (14-59) Alkaline Phosphatase 136 U/L (46-116) Total Protein 7.4 g/dL (6.4-8.2) Albumin 3.4 g/dL (3.4-5.0) Albumin/Globulin Ratio 0.9 (1.0-1.7) Review of Systems Constitutional: yes: weakness, alert, oriented Ears/Nose/Throat: Yes: no symptom reported Eyes: Yes: no symptom reported Pulmonary: Yes no symptom reported Gastrointestional: Yes: no symptom reported Genitourinary: Yes: no symptom reported Musculoskeletal: Yes: no symptom reported Skin: Yes no symptom reported Psychiatric/Neurological: Yes: no symptom reported Endocrine: Yes: no symptom reported Physical Exam General Appearance: no apparent distress Skin: warm Respiratory: bilateral CTA Heart: S1S2 Abdomen: bowel sounds present Genitourinary: bladder flat Extremities: pulses present Neurology: alert Assessment Assessment IMP ANEMIA-IRON DEFICIENT CKD STAGE 3 - STABLE CR OF 1.4 HX OF GASTRIC BYPASS LEFT RENAL CYST-COMPLEX VS MASS RIGHT RENAL NON OBSTRUCTING STONE PLAN IV IRON IVF'S CT SCAN PENDING LABS IN AM DARWIN ANNE MD Dec 12, 2016 12:19
[2016-12-12] MEDS ORDERED: CONTRAST GIVEN MC PRN (13:15)
[2016-12-12] MEDS ORDERED: IOHEXOL 300 MG/ML 75 ML VIAL IV ONE (13:15)
--- NOTE | 2016-12-12 14:46 | RAD ---
CT abdomen/pelvis without and with contrast 12/12/2016 at 1303 hours Indication: Renal cyst versus mass Comparison: Renal ultrasound 12/11/2016 Technique: Multiple axial CT images of the abdomen and pelvis are performed with and without intravenous contrast. Coronal and sagittal reformats are provided. 60 mL of Omnipaque 300 was administered intravenously. Findings: Lung bases are clear. Heart size is within normal limits. The liver enhances homogenously without evidence for a focal mass lesion. The spleen is normal. Bilateral adrenal glands are normal. The gallbladder is present without adjacent inflammatory changes. There is fatty atrophy of the pancreas. No intrahepatic or extrahepatic biliary ductal dilatation. The abdominal aorta is normal in course and caliber. IVC is patent. There are no enlarged lymph nodes in the abdomen or pelvis. There is no free intraperitoneal air. No free fluid within the abdomen or pelvis. There is symmetric enhancement of the kidneys. There is a large staghorn calculus involving the left kidney with inflammatory changes surrounding the renal pelvis suggestive of xanthogranulomatous pyelonephritis. Mild perinephric stranding with slight thickening of Gerota's fascia. Early staghorn formation is identified in the right kidney. Irregularity and parenchymal thinning of bilateral kidneys is noted. No right-sided hydronephrosis. No renal mass. Postsurgical changes from gastric bypass surgery are noted. Prior abdominal hernia repair noted. Small and large bowel are normal in caliber. A normal appendix is visualized. No pericolonic inflammatory changes are present. The urinary bladder is normal in appearance. No suspicious osseous lesions are identified. Facet degenerative changes are identified in the lower lumbar spine. Impression: 1. There is a large staghorn calculus in the left kidney with prominence of the left renal collecting system and associated inflammatory changes/perinephric stranding suggestive of xanthogranulomatous pyelonephritis. Recommend correlation with urinalysis and Urology consultation. 2. Early staghorn formation in the right kidney. No hydronephrosis or inflammatory changes. 3. Bilateral renal cortical thinning and irregularity. Recommend correlation with renal function. 4. Postoperative changes from surgical gastric bypass Critical findings were discussed with LUCIAN Wright at 2:40 PM on 12/12/[address] Silva. PQRS Compliance Statement: One or more of the following individualized dose reduction techniques were utilized for this examination: 1. Automated exposure control 2. Adjustment of the mA and/or kV according to patient size 3. Use of iterative reconstruction technique
[2016-12-12 15:01] VITALS: BP 155/80
[2016-12-12] MEDS ORDERED: CEPHALEXIN 250 MG CAPSULE. PO SCH (17:30)
[2016-12-12] MEDS ORDERED: CEPH-264 PO (19:49)
== END 2016-12-12 20:46 | disposition home or self-care (01) | DRG 812 ==
LOC: ER 19:54 → 5 NORTH 22:03
PROVIDERS: ADMIT Internal Medicine; ATTEND Internal Medicine
PROC: 30233N1 Transfusion of Nonautologous Red Blood Cells into Peripheral Vein, Percutaneous Approach (ICD-10-PCS; principal; 2016-12-10)
DX: D50.9 Iron deficiency anemia, unspecified (principal); N39.0 Urinary tract infection, site not specified; N28.1 Cyst of kidney, acquired; I12.9 Hypertensive chronic kidney disease with stage 1 through stage 4 chronic kidney disease, or unspecified chronic kidney disease; I25.10 Atherosclerotic heart disease of native coronary artery without angina pectoris; K21.9 Gastro-esophageal reflux disease without esophagitis; G47.62 Sleep related leg cramps; N28.89 Other specified disorders of kidney and ureter; N20.0 Calculus of kidney; E66.9 Obesity, unspecified; N18.3 Chronic kidney disease, stage 3 (moderate); Z90.3 Acquired absence of stomach [part of]; Z91.14 Patient's other noncompliance with medication regimen; Z91.19 Patient's noncompliance with other medical treatment and regimen; Z95.5 Presence of coronary angioplasty implant and graft; Z98.84 Bariatric surgery status; Z68.31 Body mass index [BMI] 31.0-31.9, adult; Z88.1 Allergy status to other antibiotic agents; Z88.5 Allergy status to narcotic agent; Z88.2 Allergy status to sulfonamides; Z88.8 Allergy status to other drugs, medicaments and biological substances; Z86.718 Personal history of other venous thrombosis and embolism; Z87.11 Personal history of peptic ulcer disease; Z80.1 Family history of malignant neoplasm of trachea, bronchus and lung
CPT/HCPCS: 36415; 72193; 74170; 76770; 80048; 80053; 80076; 81001; 82728; 82746; 83540; 83550; 84484; 85007; 85027; 85610; 85730; 86850; 86900; 86901; 86920; 93970; J0690; J0696; J1756; J7030; J7050; P9016; 99285-25

== ENCOUNTER 2017-01-29 09:26 | Emergency (ER) | payer OTHER ==
[~2017-01-29] VITALS: Ht 162.6 cm; Wt 83.9 kg
[~2017-01-29 09:26] MED LIST changes: +ACET500T68 PO; +CEPH-264 PO; +FOLI1TAB16 PO
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
[2017-01-29] MEDS ORDERED: CYCLOBENZAPRINE 10 MG TABLET. PO ONE (10:00)
[2017-01-29 10:16] LABS: BILIRUBIN,URINE NEGATIVE (NEG); GLUCOSE,URINE NEGATIVE (NEG); NITRITE,URINE NEGATIVE (NEG); PH,URINE 7.5; PROTEIN,URINE 100 mg/dL (NEG-TRACE); UROBILINOGEN,URINE 0.2 mg/dL (0.2 mg/dL)
[2017-01-29 10:16] LABS: BASO % 1 % (0-3); EOS % 2 % (0-3); HEMATOCRIT 34.4 % (36.0-47.0); HEMOGLOBIN 11.3 g/dL (12.0-15.5); LYMPH % 19 % (24-48); MEAN CORPUSCULAR HEMOGLOBIN 27 pg (25-35); MEAN CORPUSCULAR HGB CONC 33 g/dL (31-37); MEAN CORPUSCULAR VOLUME 81 fL (79-100); MONO % 8 % (0-9); NEUT % 70 % (31-73); PLATELET COUNT 230 x10^3/uL (140-400); RED BLOOD COUNT 4.23 x10^6/uL (3.50-5.40); WHITE BLOOD COUNT 5.4 x10^3/uL (4.0-11.0)
[2017-01-29 10:36] LABS: BACTERIA,URINE MODERATE /HPF (0-FEW); SQUAMOUS EPITHELIAL CELL,UR FEW /LPF; WBC,URINE 20-40 /HPF (0-4)
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
[2017-01-29 10:40] LABS: CALCIUM 9.1 mg/dL (8.5-10.1); CREATININE 1.5 mg/dL (0.6-1.0); GFR 35.2
[2017-01-29 10:53] LABS: ALBUMIN 3.2 g/dL (3.4-5.0); ALBUMIN/GLOBULIN RATIO 0.9 (1.0-1.7); TOTAL BILIRUBIN 0.2 mg/dL (0.2-1.0); TOTAL PROTEIN 6.9 g/dL (6.4-8.2)
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
[2017-01-29] MEDS ORDERED: NITR100C62 PO (12:02)
[2017-01-29] MEDS ORDERED: CYCL10TA2 PO (12:02)
[2017-01-29 12:12] VITALS: BP 180/83
[2017-01-29 12:37] LABS: ANISOCYTOSIS MARKED; OVALOCYTES MOD; PLT ESTIMATE ADEQUATE (ADEQUATE); POLYCHROMASIA SLIGHT
== END 2017-01-29 12:15 | disposition home or self-care (01) ==
LOC: ER 09:26
DX: S06.0X0A Concussion without loss of consciousness, initial encounter (principal); N39.0 Urinary tract infection, site not specified; I10 Essential (primary) hypertension; Z86.718 Personal history of other venous thrombosis and embolism; Z98.1 Arthrodesis status; Z95.5 Presence of coronary angioplasty implant and graft; Z86.14 Personal history of Methicillin resistant Staphylococcus aureus infection; Z88.1 Allergy status to other antibiotic agents; Z88.2 Allergy status to sulfonamides; Z88.5 Allergy status to narcotic agent; Z88.8 Allergy status to other drugs, medicaments and biological substances; Y08.89XA Assault by other specified means, initial encounter; Y93.89 Activity, other specified; Y99.8 Other external cause status; Y92.89 Other specified places as the place of occurrence of the external cause
CPT/HCPCS: 36415; 70450; 72072; 72100; 72125; 80053; 81001; 85025; 87086; 99285-25

== ENCOUNTER 2017-02-03 11:54 | Emergency (ER) | payer OTHER ==
[~2017-02-03] VITALS: Ht 165.1 cm; Wt 85.8 kg
[~2017-02-03 11:54] MED LIST changes: +NITR100C62 PO
[2017-02-03 12:18] VITALS: BP 160/93
[2017-02-03] MEDS ORDERED: PRED50TA PO (12:21)
--- NOTE | 2017-02-03 12:22 | PHYS DOC ---
Past Medical History Past Medical History: Anemia, DVT, Hypertension, Other Additional Past Medical Histor: MRSA in past, Cervical fusion C6-C7, Hx of DVT Past Surgical History: Cervical Fusion, Other Additional Past Surgical Histo: Cardiac cath WITH STENTS, partial gastrectomy, C6-7 fusion Alcohol Use: None Drug Use: None Adult General Chief Complaint Chief Complaint: SKIN RASH/ABSCESS HPI HPI Patient is a 61 year old F who presents with rash to the face for 2 days. Patient states she was weeding in her yard 2 days ago and developed a rash to her face and progressive got worse. Patient states her eyes itch and her cheeks itch bilaterally. Patient denies any wheezing or shortness of breath. Patient denies any fevers. Patient denies any chest pain. Patient denies any other symptoms. Patient states she took Benadryl last night however the symptoms hve not gotten better. Review of Systems Review of Systems GEN: Rash HEENT: Denies blurred vision, sore throat CV: Denies chest pain RESP: Denies shortness of air, cough GI: Denies n/v/d NEURO: Denies confusion, dizziness MSK: Denies weakness, joint pain/swelling Allergies Allergies Allergies Coded Allergies Type Severity Reaction Last Updated Verified Sulfa (Sulfonamide Antibiotics) Allergy Intermediate 02/16/16 Yes amlodipine Allergy Intermediate 02/16/16 Yes codeine Allergy Intermediate Rash 02/16/16 Yes doxycycline Allergy Intermediate 02/16/16 Yes ezetimibe Allergy Intermediate 02/16/16 Yes levofloxacin Allergy Intermediate 02/16/16 Yes morphine Allergy Intermediate 02/16/16 Yes simvastatin Allergy Intermediate 02/16/16 Yes oxycodone Adverse Reaction Intermediate Hallucinations 02/16/16 Yes Physical Exam Physical Exam GEN.: No apparent distress. Alert and oriented. HEENT: Head is normocephalic, atraumatic NECK: Supple. LUNGS: CTAB. HEART: RRR, S1, S2 present. Peripheral pulses intact ABDOMEN: Soft, nontender. Positive bowel sounds. EXTREMITIES: Without any cyanosis. NEUROLOGIC: Normal speech, normal tone PSYCHIATRIC: Normal affect, normal mood. SKIN: No ulcerations, erythematous rash to the face with periorbital swelling bilaterally consistent with contact dermatitis EKG EKG [] Radiology/Procedures Radiology/Procedures [] Course & Med Decision Making Course & Med Decision Making Pertinent Labs and Imaging studies reviewed. (See chart for details) ED course Patient was seen and examined emergency room patient was given 10 mg Decadron IM MDM: After reviewing the chart, CC/HPI/PMH, physical exam, I do not believe the patient has a life-threatening rashes warranting further workup and/or admission at this time. I believe the patient has contact dermatitis from working out in the yard. Patient is no acute distress and having no difficult breathing or signs or symptoms of anaphylaxis. Patient will be given steroids and discharged home. Additional verbal discharge instructions were provided to the patient and that if symptoms get worse or any new symptoms arise that are worrisome to the patient she is to return to the emergency room immediately [] Dragon Disclaimer Dragon Disclaimer This electronic medical record was generated, in whole or in part, using a voice recognition dictation system. Departure Departure Impression: Primary Impression: Contact dermatitis Disposition: 01 HOME, SELF-CARE Condition: IMPROVED Referrals: WARD TINOCO MD (PCP) Patient Instructions: Contact Dermatitis, [id number] Additional Instructions: Please follow-up with your family physician next one to 2 days and return if symptoms increase Scripts Prednisone (PREDNISONE) 50 Mg Tablet 1 TAB PO DAILY, #5 TAB Prov: BILLY TRUJILLO DO 02/03/17 BILLY TRUJILLO DO Feb 03, 2017 12:22
[2017-02-03] MEDS ORDERED: DEXAMETHASONE SOD PHOS 4 MG/ML VIAL IM ONE (12:30)
== END 2017-02-03 12:30 | disposition home or self-care (01) ==
LOC: ER 11:54
DX: L25.9 Unspecified contact dermatitis, unspecified cause (principal); I10 Essential (primary) hypertension; Z86.718 Personal history of other venous thrombosis and embolism; Z86.14 Personal history of Methicillin resistant Staphylococcus aureus infection; Z98.1 Arthrodesis status; Z95.5 Presence of coronary angioplasty implant and graft; Z88.2 Allergy status to sulfonamides; Z88.5 Allergy status to narcotic agent; Z88.1 Allergy status to other antibiotic agents; Z88.8 Allergy status to other drugs, medicaments and biological substances
CPT/HCPCS: 96372; 99283; J1100

== ENCOUNTER 2017-02-23 15:24 | Inpatient (IN) | payer OTHER ==
[~2017-02-23] VITALS: Ht 162.6 cm; Wt 85.7 kg
[~2017-02-23 15:24] MED LIST changes: +PIPERACILLIN/TAZOBACTAM 2.25 GM in IV NORMAL SALINE 50ML 50 ML IV SCH; +PRED50TA PO
[2017-02-23] MEDS ORDERED: IV NORMAL SALINE 1000ML BAG 1,000 ML IV SCH (15:51)
[2017-02-23] MEDS ORDERED: ONDANSETRON PF 4 MG/2 ML VIAL. IV ONE ×2 (16:00→17:30)
[2017-02-23 16:02] LABS: BASO % 0 % (0-3); EOS % 0 % (0-3); HEMATOCRIT 40.8 % (36.0-47.0); HEMOGLOBIN 13.1 g/dL (12.0-15.5); LYMPH # 0.5 x10^3/uL (1.0-4.8); LYMPH % 2 % (24-48); MEAN CORPUSCULAR HEMOGLOBIN 28 pg (25-35); MEAN CORPUSCULAR HGB CONC 32 g/dL (31-37); MEAN CORPUSCULAR VOLUME 87 fL (79-100); MONO % 4 % (0-9); NEUT % 93 % (31-73); PLATELET COUNT 153 x10^3/uL (140-400); RED BLOOD COUNT 4.67 x10^6/uL (3.50-5.40); RED CELL DISTRIBUTION WIDTH 21.9 % (11.5-14.5); WHITE BLOOD COUNT 20.6 x10^3/uL (4.0-11.0)
[2017-02-23 16:24] LABS: CALCIUM 9.7 mg/dL (8.5-10.1); CREATININE 3.1 mg/dL (0.6-1.0); GFR 15.2; POTASSIUM 4.7 mmol/L (3.5-5.1)
[2017-02-23 16:25] LABS: ANISOCYTOSIS MOD; PLT ESTIMATE ADEQUATE (ADEQUATE); TOXIC GRANULATION SLIGHT; TOXIC VACUOLATION SLIGHT
[2017-02-23 16:30] LABS: ALBUMIN 3.2 g/dL (3.4-5.0); ALBUMIN/GLOBULIN RATIO 0.7 (1.0-1.7); TOTAL BILIRUBIN 0.7 mg/dL (0.2-1.0); TOTAL PROTEIN 7.5 g/dL (6.4-8.2)
[2017-02-23] MEDS: fentaNYL PF VIAL 100 MCG/2 ML VIAL IV PRN ×2 (16:32→17:21)
--- NOTE | 2017-02-23 17:39 | PHYS DOC ---
Past Medical History Past Medical History: Anemia, DVT, Hypertension, Other Additional Past Medical Histor: MRSA in past, Cervical fusion C6-C7, KIDNEY INFECTION Past Surgical History: Cervical Fusion, Other Additional Past Surgical Histo: Cardiac cath WITH STENTS, partial gastrectomy, C6-7 fusion Alcohol Use: None Drug Use: None Adult General Chief Complaint Chief Complaint: MECHANICAL FALL HPI HPI Patient is a 61 year old female who presents with complaint of nausea, vomiting , and lower abdominal pain. Patient states her symptoms started last night and have progressively worsened throughout the day today. Patient states that she has had numerous episodes of vomiting and has not been able to keep down any solid or liquid intake. The patient states that she has been having multiple falls, though she states that she has not suffered any significant injuries and has been able to catch herself before fully falling to the ground. The patient states that she has history of chronic kidney disease and has been diagnosed with renal stones in the past. Patient states that she thinks she ate something bad last night that precipitated her symptoms. She states that she ate at a buffet restaurant prior to onset of symptoms. Patient denies any associated fever and denies any known sick contacts. Patient rates her pain as 9 out of 10 and states that it is currently located in her left lower abdomen. Review of Systems Review of Systems Constitutional: Denies fever or chills [] Eyes: Denies change in visual acuity, redness, or eye pain [] HENT: Denies nasal congestion or sore throat [] Respiratory: Denies cough or shortness of breath [] Cardiovascular: Denies chest pain or edema[] GI: Abdominal pain, nausea, vomiting, denies bloody stools or diarrhea [] : Denies dysuria or hematuria [] Musculoskeletal: Denies back pain or joint pain [] Integument: Denies rash or skin lesions [] Neurologic: Denies headache, focal weakness or sensory changes [] Current Medications Current Medications Current Medications Medications (Trade) Dose Ordered Sig/David Start Time Stop Time Status Last Admin Dose Admin Fentanyl Citrate (Fentanyl 2ml Vial) 50 mcg PRN Q15MIN PRN 02/23/17 16:00 02/24/17 15:59 02/23/17 17:21 50 MCG Ondansetron HCl (Zofran) 4 mg 1X ONCE 02/23/17 17:30 02/23/17 17:33 DC 02/23/17 17:37 4 MG Sodium Chloride 1,000 ml @ 1,000 mls/hr Q1H 02/23/17 15:51 02/23/17 16:50 DC 02/23/17 16:19 1,000 MLS/HR Allergies Allergies Allergies Coded Allergies Type Severity Reaction Last Updated Verified Sulfa (Sulfonamide Antibiotics) Allergy Intermediate 02/16/16 Yes amlodipine Allergy Intermediate 02/16/16 Yes codeine Allergy Intermediate Rash 02/16/16 Yes doxycycline Allergy Intermediate 02/16/16 Yes ezetimibe Allergy Intermediate 02/16/16 Yes levofloxacin Allergy Intermediate 02/16/16 Yes morphine Allergy Intermediate 02/16/16 Yes simvastatin Allergy Intermediate 02/16/16 Yes oxycodone Adverse Reaction Intermediate Hallucinations 02/16/16 Yes Physical Exam Physical Exam Constitutional: Alert, afebrile, appears ill. [] HENT: Normocephalic, atraumatic, bilateral external ears normal, oropharynx moist, no oral exudates, nose normal. [] Eyes: PERRLA, EOMI, conjunctiva normal, no discharge. [] Neck: Normal range of motion, no tenderness, supple, no stridor. [] Cardiovascular:Heart rate regular rhythm, no murmur [] Lungs & Thorax: Bilateral breath sounds clear to auscultation [] Abdomen: Bowel sounds normal, soft, suprapubic and left lower quadrant tenderness to palpation with mild guarding, no rebound tenderness, no masses, no pulsatile masses. [] Skin: Warm, dry, no erythema, no rash. [] Back: No tenderness, no CVA tenderness. [] Extremities: No tenderness, no cyanosis, no clubbing, ROM intact, no edema. [] Neurologic: Alert and oriented X 3, normal motor function, normal sensory function, no focal deficits noted. [] Current Patient Data Vital Signs Vital Signs Date Time Temp Pulse Resp B/P (MAP) Pulse Ox O2 Delivery O2 Flow Rate FiO2 02/23/17 15:39 98.2 105 160/93 (115) 99 98.2 Lab Values Laboratory Tests Test 02/23/17 15:51 02/23/17 17:30 White Blood Count 20.6 x10^3/uL (4.0-11.0) H Red Blood Count 4.67 x10^6/uL (3.50-5.40) Hemoglobin 13.1 g/dL (12.0-15.5) Hematocrit 40.8 % (36.0-47.0) Mean Corpuscular Volume 87 fL (79-100) Mean Corpuscular Hemoglobin 28 pg (25-35) Mean Corpuscular Hemoglobin Concent 32 g/dL (31-37) Red Cell Distribution Width 21.9 % (11.5-14.5) H Platelet Count 153 x10^3/uL (140-400) Neutrophils (%) (Auto) 93 % (31-73) H Lymphocytes (%) (Auto) 2 % (24-48) L Monocytes (%) (Auto) 4 % (0-9) Eosinophils (%) (Auto) 0 % (0-3) Basophils (%) (Auto) 0 % (0-3) Neutrophils # (Auto) 19.3 x10^3uL (1.8-7.7) H Lymphocytes # (Auto) 0.5 x10^3/uL (1.0-4.8) L Monocytes # (Auto) 0.9 x10^3/uL (0.0-1.1) Eosinophils # (Auto) 0.0 x10^3/uL (0.0-0.7) Basophils # (Auto) 0.0 x10^3/uL (0.0-0.2) Segmented Neutrophils % 59 % (35-66) Band Neutrophils % 35 % (0-9) H Lymphocytes % 2 % (24-48) L Monocytes % 4 % (0-10) Toxic Granulation Slight Toxic Vacuolation Slight Platelet Estimate Adequate (ADEQUATE) Anisocytosis Mod Sodium Level 137 mmol/L (136-145) Potassium Level 4.7 mmol/L (3.5-5.1) Chloride Level 101 mmol/L (98-107) Carbon Dioxide Level 22 mmol/L (21-32) Anion Gap 14 (6-14) Blood Urea Nitrogen 43 mg/dL (7-20) H Creatinine 3.1 mg/dL (0.6-1.0) H Estimated GFR (Cockcroft-Gault) 15.2 BUN/Creatinine Ratio 14 (6-20) Glucose Level 191 mg/dL (70-99) H Calcium Level 9.7 mg/dL (8.5-10.1) Total Bilirubin 0.7 mg/dL (0.2-1.0) Aspartate Amino Transferase (AST) 50 U/L (15-37) H Alanine Aminotransferase (ALT) 54 U/L (14-59) Alkaline Phosphatase 224 U/L (46-116) H Total Protein 7.5 g/dL (6.4-8.2) Albumin 3.2 g/dL (3.4-5.0) L Albumin/Globulin Ratio 0.7 (1.0-1.7) L Lipase 226 U/L (73-393) Urine Collection Type Unknown Urine Color Yellow Urine Clarity Cloudy Urine pH 8.5 Urine Specific [place] 1.015 Urine Protein 100 mg/dL (NEG-TRACE) Urine Glucose (UA) Negative mg/dL (NEG) Urine Ketones (Stick) Negative mg/dL (NEG) Urine Blood Large (NEG) Urine Nitrite Negative (NEG) Urine Bilirubin Negative (NEG) Urine Urobilinogen Dipstick 0.2 mg/dL (0.2 mg/dL) Urine Leukocyte Esterase Large (NEG) Urine RBC 3-5 /HPF (0-2) Urine WBC >40 /HPF (0-4) Urine Squamous Epithelial Cells Mod /LPF Urine Bacteria Many /HPF (0-FEW) Laboratory Tests 02/23/17 15:51 Laboratory Tests 02/23/17 15:51 EKG EKG Interpreted by me: Heart rate 105, sinus tachycardia, leftward axis, no acute ST /T-wave abnormalities present[] Radiology/Procedures Radiology/Procedures 3 view acute abdominal series interpreted by me: No infiltrates, no effusions, nonobstructive bowel gas pattern, no free air under the diaphragm [id number] [place], [place] [id number] IMAGING REPORT Signed PATIENT: PANDA COLEMAN ACCOUNT: [id number] : 1955 LOCATION: ER AGE: 61 SEX: F EXAM STATUS: REG ER ORD. PHYSICIAN: SAUNDRA LANDRY MD REASON: nausea, vomiting, leukocytosis, lower abdominal pain PROCEDURE: CT ABDOMEN PELVIS WO CONTRAST History: Nausea, vomiting, abdominal pain, leukocytosis. Comparison: CT abdomen pelvis December 12, 2016. Technique: CT of the abdomen and pelvis was performed without intravenous or oral contrast. Exposure: One or more of the following individualized dose reduction techniques were utilized for this examination: 1. Automated exposure control 2. Adjustment of the mA and/or kV according to patient size 3. Use of iterative reconstruction technique Findings: Evaluation of solid organs is limited by lack of intravenous contrast. Evaluation of enteric structures may be limited by lack of oral contrast. Liver, spleen, pancreas, and bilateral adrenal glands unremarkable. Gallbladder is distended. Postsurgical changes are seen involving the stomach of distal gastrectomy and gastrojejunostomy. This may have been a Billroth type of procedure. Duodenum remains in place. Pancreas is without evidence of inflammation. Ventral hernia repair with mesh is seen. No recurrent hernia is identified. No bowel obstruction or inflammation is seen. Appendix is without evidence of inflammation. Urinary bladder is unremarkable. Uterus is unremarkable. No free air or significant free fluid is seen in the abdomen or pelvis. Left kidney demonstrates a large staghorn like calculus. Calculus measures about 7.5 cm in maximum craniocaudal dimension by 4.5 cm in transverse dimension. The right kidney demonstrates presence of a several smaller stones ranging in size from 3 mm up to 2.3 cm. There is a right renal pelvis stone which measures 10 mm and another stone measuring 5 mm. Both kidneys demonstrate dilated collecting systems. There is also inflammatory change involving both renal collecting systems. Since the previous study, the inflammatory change involving the left kidney is similar to previous study. The right kidney inflammation appears worse since previous study. Impression: 1. Left kidney demonstrates a large staghorn like calculus. There is also associated inflammation. Overall inflation is similar to previous study. 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 2. The right kidney demonstrates presence of smaller stones, but there is inflammatory change involving the right kidney which is increased from previous study. Acute inflammation from intermittent obstruction versus infection versus xanthogranulomatous pyelonephritis are possible. 3. No acute bowel pathology identified. Electronically signed by: Gagandeep Jaime MD (02/23/2017 6:00 PM) [facility] DICTATED and SIGNED BY: GAGANDEEP JAIME MD DATE: 02/23/17 [id number] CC: SAUNDRA LANDRY MD; WARD TINOCO MD ~ [] Course & Med Decision Making Course & Med Decision Making Pertinent Labs and Imaging studies reviewed. (See chart for details) The patient was given IV fluids, Zofran, and fentanyl for symptoms. Patient continues to have vomiting after treatment. The patient's CT scan shows an increase and inflammation around the right kidney which could show evidence of acute pyelonephritis versus possible xanthogranulomatous pyelonephritis. Due to presence of leukocytosis and bandemia, the patient will be started on Zosyn for possible intra-abdominal source of infection. I spoke with Dr. Steiner who accepted care patient in hospital. Patient also initiated on a 30 mL per kilo bolus due to potential concern for severe sepsis. Lactic acid and blood cultures drawn at time of admission before initiation of Zosyn. Dragon Disclaimer Dragon Disclaimer This electronic medical record was generated, in whole or in part, using a voice recognition dictation system. Departure Departure Impression: Primary Impression: Abdominal pain Additional Impressions: Intractable nausea and vomiting Leukocytosis Acute on chronic renal failure Dehydration Disposition: ADMITTED INPATIENT Admitting Physician: Milton Steiner Condition: GUARDED Referrals: WARD TINOCO MD (PCP) Problem Qualifiers Primary Impression: Abdominal pain Abdominal location: left lower quadrant Qualified Codes: R10.32 - Left lower quadrant pain Additional Impressions: Intractable nausea and vomiting Vomiting type: unspecified Qualified Codes: R11.2 - Nausea with vomiting, unspecified Leukocytosis Leukocytosis type: bandemia Qualified Codes: D72.825 - Bandemia Acute on chronic renal failure Acute renal failure type: unspecified Chronic kidney disease stage: stage 3 (moderate) Qualified Codes: N17.9 - Acute kidney failure, unspecified; N18.3 - Chronic kidney disease, stage 3 (moderate) SAUNDRA LANDRY MD Feb 23, 2017 17:39
[2017-02-23 17:50] LABS: BILIRUBIN,URINE NEGATIVE (NEG); GLUCOSE,URINE NEGATIVE (NEG); NITRITE,URINE NEGATIVE (NEG); PH,URINE 8.5; PROTEIN,URINE 100 mg/dL (NEG-TRACE); UROBILINOGEN,URINE 0.2 mg/dL (0.2 mg/dL)
[2017-02-23 17:52] LABS: BACTERIA,URINE MANY /HPF (0-FEW); WBC,URINE >40 /HPF (0-4)
[2017-02-23 17:53] LABS: SQUAMOUS EPITHELIAL CELL,UR MOD /LPF
--- NOTE | 2017-02-23 18:04 | RAD ---
History: Nausea, vomiting, abdominal pain, leukocytosis. Comparison: CT abdomen pelvis December 12, 2016. Technique: CT of the abdomen and pelvis was performed without intravenous or oral contrast. Exposure: One or more of the following individualized dose reduction techniques were utilized for this examination: 1. Automated exposure control 2. Adjustment of the mA and/or kV according to patient size 3. Use of iterative reconstruction technique Findings: Evaluation of solid organs is limited by lack of intravenous contrast. Evaluation of enteric structures may be limited by lack of oral contrast. Liver, spleen, pancreas, and bilateral adrenal glands unremarkable. Gallbladder is distended. Postsurgical changes are seen involving the stomach of distal gastrectomy and gastrojejunostomy. This may have been a Billroth type of procedure. Duodenum remains in place. Pancreas is without evidence of inflammation. Ventral hernia repair with mesh is seen. No recurrent hernia is identified. No bowel obstruction or inflammation is seen. Appendix is without evidence of inflammation. Urinary bladder is unremarkable. Uterus is unremarkable. No free air or significant free fluid is seen in the abdomen or pelvis. Left kidney demonstrates a large staghorn like calculus. Calculus measures about 7.5 cm in maximum craniocaudal dimension by 4.5 cm in transverse dimension. The right kidney demonstrates presence of a several smaller stones ranging in size from 3 mm up to 2.3 cm. There is a right renal pelvis stone which measures 10 mm and another stone measuring 5 mm. Both kidneys demonstrate dilated collecting systems. There is also inflammatory change involving both renal collecting systems. Since the previous study, the inflammatory change involving the left kidney is similar to previous study. The right kidney inflammation appears worse since previous study. Impression: 1. Left kidney demonstrates a large staghorn like calculus. There is also associated inflammation. Overall inflation is similar to previous study. 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 2. The right kidney demonstrates presence of smaller stones, but there is inflammatory change involving the right kidney which is increased from previous study. Acute inflammation from intermittent obstruction versus infection versus xanthogranulomatous pyelonephritis are possible. 3. No acute bowel pathology identified. Electronically signed by: Gagandeep Rocha MD (02/23/2017 6:00 PM) [facility]
[2017-02-23] MEDS ORDERED: PIP/TAZO PER PHARMACY MC PRN (18:30)
[2017-02-23] MEDS ORDERED: fentaNYL PF VIAL 100 MCG/2 ML VIAL IV PRN (18:30)
[2017-02-23] MEDS ORDERED: ACETAMINOPHEN 325 MG TABLET. PO PRN (18:30)
[2017-02-23] MEDS ORDERED: IV NORMAL SALINE 1000ML BAG 1,000 ML IV ONE (18:30)
[2017-02-23] MEDS ORDERED: ONDANSETRON PF 4 MG/2 ML VIAL. IV PRN (18:30)
[2017-02-23] MEDS ORDERED: NORMAL SALINE IV ONE (18:30)
[2017-02-23] MEDS ORDERED: DOCUSATE SODIUM 100 MG CAPSULE. PO PRN (19:00)
[2017-02-23] MEDS ORDERED: PIPERACILLIN/TAZOBACTAM 2.25 GM in IV NORMAL SALINE 50ML 50 ML IV ONE (19:00)
--- NOTE | 2017-02-23 19:09 | PDOC1 ---
History and Physical Date of Admission Date of Admission 02/23/17 Identification/Chief Complaint Chief Complaint abd pain ,N/V Problems: Source Source: Chart review, Patient History of Present Illness History of Present Illness HPI HPI Patient is a 61 year old female who presents with complaint of nausea, vomiting , and lower abdominal pain x1 day. Pt has had h/o bl kidney stones, s/p many sx for it and had UTI from it too. She always has flank pain. Last night, she started to have RLQ pain, which is new to her, 01/09, no radiation, with N/V, non bloody nor greenish. She also had fever at home T 101, chills, no cough, sob, chest pain. H/o partial gastrectomy for ulcer, since then, daily watery diarrhea. The patient states that she has been having multiple falls, though she states that she has not suffered any significant injuries and has been able to catch herself before fully falling to the ground. CT showed . 1. Left kidney demonstrates a large staghorn like calculus. There is also associated inflammation. Overall inflation is similar to previous study. 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 2. The right kidney demonstrates presence of smaller stones, but there is inflammatory change involving the right kidney which is increased from previous study. Acute inflammation from intermittent obstruction versus infection versus xanthogranulomatous pyelonephritis are possible. 3. No acute bowel pathology identified. Past Medical History Cardiovascular: HTN Pulmonary: No pertinent hx GI: GERD, Gastritis, Peptic Ulcer disease Hepatobiliary: No pertinent hx Psych: No pertinent hx Rheumatologic: No pertinent hx Infectious disease: No pertinent hx Renal/: Chronic renal insuff Endocrine: No pertinent hx Past Surgical History Past Surgical History gastrectomy partial Family History Family History: Hypertension Social History Smoke: No ALCOHOL: none Drugs: None Current Problem List Problem List Problems Medical Problems: (1) Abdominal pain Status: Acute (2) Acute on chronic renal failure Status: Acute (3) Dehydration Status: Acute (4) Intractable nausea and vomiting Status: Acute (5) Leukocytosis Status: Acute Current Medications Current Medications Current Medications Medications (Trade) Dose Ordered Sig/David Start Time Stop Time Status Last Admin Dose Admin Acetaminophen (Tylenol) 650 mg PRN Q4HRS PRN 02/23/17 18:30 02/24/17 18:29 Fentanyl Citrate (Fentanyl 2ml Vial) 50 mcg PRN Q2HR PRN 02/23/17 18:30 02/24/17 18:29 Ondansetron HCl (Zofran) 4 mg PRN Q8HRS PRN 02/23/17 18:30 02/24/17 18:29 Piperacillin Sod/ Tazobactam Sod (Zosyn Per Pharmacy) 1 each PRN DAILY PRN 02/23/17 18:30 UNV Piperacillin Sod/ Tazobactam Sod 2.25 gm/Sodium Chloride 50 ml @ 100 mls/hr 1X ONCE 02/23/17 19:00 02/23/17 19:29 Sodium Chloride 1,000 ml @ 150 mls/hr Q6H40M 02/23/17 18:27 02/24/17 18:26 Allergies Allergies Allergies Coded Allergies Type Severity Reaction Last Updated Verified Sulfa (Sulfonamide Antibiotics) Allergy Intermediate 02/16/16 Yes amlodipine Allergy Intermediate 02/16/16 Yes codeine Allergy Intermediate Rash 02/16/16 Yes doxycycline Allergy Intermediate 02/16/16 Yes ezetimibe Allergy Intermediate 02/16/16 Yes levofloxacin Allergy Intermediate 02/16/16 Yes morphine Allergy Intermediate 02/16/16 Yes simvastatin Allergy Intermediate 02/16/16 Yes oxycodone Adverse Reaction Intermediate Hallucinations 02/16/16 Yes ROS Review of System CONSTITUTIONAL: No fever or chills EYES: No recent changes SKIN: No rash or itching CARDIOVASCULAR: No chest pain, syncope, palpitations, or edema RESPIRATORY: No SOB or cough GASTROINTESTINAL: No nausea, vomiting or abdominal pain NEUROLOGICAL: No headaches or weakness ENDOCRINE: No cold or heat intolerance GENITOURINARY: No urgency or frequency of urination MUSCULOSKELETAL: No back pain or joint pain LYMPHATICS: No enlarged lymph nodes PSYCHIATRIC: No anxiety or depression Physical Exam Physical Exam GEN.: No apparent distress. Alert and oriented. HEENT: Head is normocephalic, atraumatic NECK: Supple. LUNGS: Clear to auscultation. HEART: RRR, S1, S2 present. Peripheral pulses intact ABDOMEN: Soft, Positive bowel sounds. RLQ moderate tenderness, no guarding or rebound. EXTREMITIES: Without any cyanosis. NEUROLOGIC: Normal speech, normal tone PSYCHIATRIC: Normal affect, normal mood. SKIN: No ulcerations Vitals Vitals Vital Signs Date Time Temp Pulse Resp B/P (MAP) Pulse Ox O2 Delivery O2 Flow Rate FiO2 9/24/17 15:39 98.2 105 160/93 (115) 99 98.2 Labs Labs Laboratory Tests Test 02/23/17 15:51 02/23/17 17:30 White Blood Count 20.6 x10^3/uL (4.0-11.0) Red Blood Count 4.67 x10^6/uL (3.50-5.40) Hemoglobin 13.1 g/dL (12.0-15.5) Hematocrit 40.8 % (36.0-47.0) Mean Corpuscular Volume 87 fL (79-100) Mean Corpuscular Hemoglobin 28 pg (25-35) Mean Corpuscular Hemoglobin Concent 32 g/dL (31-37) Red Cell Distribution Width 21.9 % (11.5-14.5) Platelet Count 153 x10^3/uL (140-400) Neutrophils (%) (Auto) 93 % (31-73) Lymphocytes (%) (Auto) 2 % (24-48) Monocytes (%) (Auto) 4 % (0-9) Eosinophils (%) (Auto) 0 % (0-3) Basophils (%) (Auto) 0 % (0-3) Neutrophils # (Auto) 19.3 x10^3uL (1.8-7.7) Lymphocytes # (Auto) 0.5 x10^3/uL (1.0-4.8) Monocytes # (Auto) 0.9 x10^3/uL (0.0-1.1) Eosinophils # (Auto) 0.0 x10^3/uL (0.0-0.7) Basophils # (Auto) 0.0 x10^3/uL (0.0-0.2) Segmented Neutrophils % 59 % (35-66) Band Neutrophils % 35 % (0-9) Lymphocytes % 2 % (24-48) Monocytes % 4 % (0-10) Toxic Granulation Slight Toxic Vacuolation Slight Platelet Estimate Adequate (ADEQUATE) Anisocytosis Mod Sodium Level 137 mmol/L (136-145) Potassium Level 4.7 mmol/L (3.5-5.1) Chloride Level 101 mmol/L (98-107) Carbon Dioxide Level 22 mmol/L (21-32) Anion Gap 14 (6-14) Blood Urea Nitrogen 43 mg/dL (7-20) Creatinine 3.1 mg/dL (0.6-1.0) Estimated GFR (Cockcroft-Gault) 15.2 BUN/Creatinine Ratio 14 (6-20) Glucose Level 191 mg/dL (70-99) Calcium Level 9.7 mg/dL (8.5-10.1) Total Bilirubin 0.7 mg/dL (0.2-1.0) Aspartate Amino Transf (AST/SGOT) 50 U/L (15-37) Alanine Aminotransferase (ALT/SGPT) 54 U/L (14-59) Alkaline Phosphatase 224 U/L (46-116) Total Protein 7.5 g/dL (6.4-8.2) Albumin 3.2 g/dL (3.4-5.0) Albumin/Globulin Ratio 0.7 (1.0-1.7) Lipase 226 U/L (73-393) Urine Collection Type Unknown Urine Color Yellow Urine Clarity Cloudy Urine pH 8.5 Urine Specific [place] 1.015 Urine Protein 100 mg/dL (NEG-TRACE) Urine Glucose (UA) Negative mg/dL (NEG) Urine Ketones (Stick) Negative mg/dL (NEG) Urine Blood Large (NEG) Urine Nitrite Negative (NEG) Urine Bilirubin Negative (NEG) Urine Urobilinogen Dipstick 0.2 mg/dL (0.2 mg/dL) Urine Leukocyte Esterase Large (NEG) Urine RBC 3-5 /HPF (0-2) Urine WBC >40 /HPF (0-4) Urine Squamous Epithelial Cells Mod /LPF Urine Bacteria Many /HPF (0-FEW) Laboratory Tests Test 02/23/17 15:51 02/23/17 17:30 White Blood Count 20.6 x10^3/uL (4.0-11.0) Red Blood Count 4.67 x10^6/uL (3.50-5.40) Hemoglobin 13.1 g/dL (12.0-15.5) Hematocrit 40.8 % (36.0-47.0) Mean Corpuscular Volume 87 fL (79-100) Mean Corpuscular Hemoglobin 28 pg (25-35) Mean Corpuscular Hemoglobin Concent 32 g/dL (31-37) Red Cell Distribution Width 21.9 % (11.5-14.5) Platelet Count 153 x10^3/uL (140-400) Neutrophils (%) (Auto) 93 % (31-73) Lymphocytes (%) (Auto) 2 % (24-48) Monocytes (%) (Auto) 4 % (0-9) Eosinophils (%) (Auto) 0 % (0-3) Basophils (%) (Auto) 0 % (0-3) Neutrophils # (Auto) 19.3 x10^3uL (1.8-7.7) Lymphocytes # (Auto) 0.5 x10^3/uL (1.0-4.8) Monocytes # (Auto) 0.9 x10^3/uL (0.0-1.1) Eosinophils # (Auto) 0.0 x10^3/uL (0.0-0.7) Basophils # (Auto) 0.0 x10^3/uL (0.0-0.2) Segmented Neutrophils % 59 % (35-66) Band Neutrophils % 35 % (0-9) Lymphocytes % 2 % (24-48) Monocytes % 4 % (0-10) Toxic Granulation Slight Toxic Vacuolation Slight Platelet Estimate Adequate (ADEQUATE) Anisocytosis Mod Sodium Level 137 mmol/L (136-145) Potassium Level 4.7 mmol/L (3.5-5.1) Chloride Level 101 mmol/L (98-107) Carbon Dioxide Level 22 mmol/L (21-32) Anion Gap 14 (6-14) Blood Urea Nitrogen 43 mg/dL (7-20) Creatinine 3.1 mg/dL (0.6-1.0) Estimated GFR (Cockcroft-Gault) 15.2 BUN/Creatinine Ratio 14 (6-20) Glucose Level 191 mg/dL (70-99) Calcium Level 9.7 mg/dL (8.5-10.1) Total Bilirubin 0.7 mg/dL (0.2-1.0) Aspartate Amino Transf (AST/SGOT) 50 U/L (15-37) Alanine Aminotransferase (ALT/SGPT) 54 U/L (14-59) Alkaline Phosphatase 224 U/L (46-116) Total Protein 7.5 g/dL (6.4-8.2) Albumin 3.2 g/dL (3.4-5.0) Albumin/Globulin Ratio 0.7 (1.0-1.7) Lipase 226 U/L (73-393) Urine Collection Type Unknown Urine Color Yellow Urine Clarity Cloudy Urine pH 8.5 Urine Specific [place] 1.015 Urine Protein 100 mg/dL (NEG-TRACE) Urine Glucose (UA) Negative mg/dL (NEG) Urine Ketones (Stick) Negative mg/dL (NEG) Urine Blood Large (NEG) Urine Nitrite Negative (NEG) Urine Bilirubin Negative (NEG) Urine Urobilinogen Dipstick 0.2 mg/dL (0.2 mg/dL) Urine Leukocyte Esterase Large (NEG) Urine RBC 3-5 /HPF (0-2) Urine WBC >40 /HPF (0-4) Urine Squamous Epithelial Cells Mod /LPF Urine Bacteria Many /HPF (0-FEW) VTE Prophylaxis Ordered VTE Prophylaxis Devices: Yes VTE Pharmacological Prophylaxi: Yes Assessment/Plan Assessment/Plan abd pain with N/V 2/2 UTI likely sepsis, likely 2/2 UTI bl kidney stones with h/o UTI BHUPENDRA on CKD 3, vasomotor vs. obstructive h/o dvt no AC htn H/O anemia h/o MRSA H/O CAD with PCI h/o partial gastrectomy with chronic diarrhea mild malnutrition plan: renal, id consult ivf zosyn , vanco for now if not better , need to rule out obstructive, may need transfer for uro then cont home meds clear liquid diet for now dvt ppx check cdiff admit 2nARCADIO Hernandez MD Feb 23, 2017 19:09
[2017-02-23] MEDS ORDERED: VANCOMYCIN PER PHARMACY MC PRN (19:15)
[2017-02-23] MEDS ORDERED: VANCOMYCIN 2 GM in IV NORMAL SALINE 500ML BAG 500 ML IV ONE (20:00)
[2017-02-23 20:08] VITALS: BP 153/82
[2017-02-23] MEDS: CYCLOBENZAPRINE 10 MG TABLET. PO PRN (20:50)
[2017-02-23] MEDS: HEPARIN PF for SUB-Q USE 5,000 UNIT/0.5 ML VIAL. SQ SCH (20:54)
[2017-02-23] MEDS: IV NORMAL SALINE 1000ML BAG 1,000 ML IV SCH (21:22)
[2017-02-23] MEDS ORDERED: PNEUMOCOCCAL VAX SCREEN BY RX. MC ONE (22:15)
[2017-02-23] MEDS ORDERED: INFLUENZA VAX SCREEN BY RX. MC ONE (22:15)
[2017-02-23 23:20] VITALS: BP 143/86
[2017-02-24] VITALS (7 sets, daily range): BP systolic 129–176; BP diastolic 60–88
[2017-02-24] MEDS: IV NORMAL SALINE 1000ML BAG 1,000 ML IV SCH ×3 (01:07→14:27)
[2017-02-24] MEDS: ONDANSETRON PF 4 MG/2 ML VIAL. IV PRN ×2 (02:05→11:17)
[2017-02-24] MEDS: PIPERACILLIN/TAZOBACTAM 2.25 GM in IV NORMAL SALINE 50ML 50 ML IV SCH ×3 (05:21→22:27)
[2017-02-24] MEDS: HEPARIN PF for SUB-Q USE 5,000 UNIT/0.5 ML VIAL. SQ SCH ×3 (05:29→21:12)
[2017-02-24 05:39] LABS: BASO # 0.1 x10^3/uL (0.0-0.2); BASO % 0 % (0-3); EOS % 0 % (0-3); HEMATOCRIT 34.8 % (36.0-47.0); HEMOGLOBIN 11.5 g/dL (12.0-15.5); LYMPH # 0.5 x10^3/uL (1.0-4.8); LYMPH % 4 % (24-48); MEAN CORPUSCULAR HEMOGLOBIN 29 pg (25-35); MEAN CORPUSCULAR HGB CONC 33 g/dL (31-37); MEAN CORPUSCULAR VOLUME 86 fL (79-100); MONO % 6 % (0-9); NEUT % 90 % (31-73); PLATELET COUNT 109 x10^3/uL (140-400); RED BLOOD COUNT 4.03 x10^6/uL (3.50-5.40); WHITE BLOOD COUNT 14.5 x10^3/uL (4.0-11.0)
[2017-02-24 06:15] LABS: CALCIUM 8.5 mg/dL (8.5-10.1); CREATININE 2.8 mg/dL (0.6-1.0); GFR 17.1; POTASSIUM 4.3 mmol/L (3.5-5.1)
--- NOTE | 2017-02-24 06:15 | EKG ---
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
[2017-02-24] MEDS: FOLIC ACID 1 MG TABLET. PO SCH (08:28)
[2017-02-24] MEDS: ACETAMINOPHEN 325 MG TABLET. PO PRN ×2 (08:29→22:27)
[2017-02-24] MEDS ORDERED: FLU VACC QS2017-18 (36MOS+)/PF 0.5 ML SYRINGE. VAX IM ONE (09:00)
[2017-02-24] MEDS ORDERED: PNEUMOC CONJ VACC 23-VALENT 0.5 ML VIAL. VAX IM ONE (09:00)
--- NOTE | 2017-02-24 10:02 | RAD ---
EXAM: Two view abdomen with one view chest HISTORY: Abdominal pain and vomiting. COMPARISON: 07/04/2009. FINDINGS: A frontal view of the chest and supine/upright views of the abdomen are obtained. There are no confluent infiltrates. There is no pneumothorax or pleural effusion. The heart is not enlarged. Instrumented anterior cervical discectomy and fusion changes are noted. There are atherosclerotic calcifications of the aorta. There is no pneumoperitoneum. There are no distended small bowel loops or significant air-fluid levels. There is gas distally. Stool throughout the colon is consistent with constipation. A large staghorn calculus in the left renal lower pole spans 6 cm. Another on the right and 3 cm. There are postsurgical changes throughout the anterior abdominal wall and within the upper abdomen. Left hip osteoarthritis is severe with large subchondral cysts in the femoral head and acetabulum. IMPRESSION: 1. No confluent infiltrates. 2. No evidence of obstruction. Findings consistent with constipation. 3. Large staghorn calculi within the left greater than right kidneys.
[2017-02-24] MEDS: CIPROFLOXACIN 400MG PREMIX 200 ML IV SCH ×2 (11:00→21:04)
--- NOTE | 2017-02-24 11:48 | PDOC2 ---
CONSULT Date of Consult Date of Consult DATE: 02/24/17 TIME: 11:41 Reason for Consult Reason for Consult: BHUPENDRA Referring Physician Referring Physician: BRYANT Identification/Chief Complaint Chief Complaint FEVER, N/V/D Problems: Source Source: Chart review, Patient History of Present Illness Reason for Visit: THIS IS A 61 YR WITH C/O OF N/V/D. SHE HAS CHRONIC LOOSE STOOLS DUE TO GASTRIC BYPASS SURGERY HX. SHE HAS ALSO NOTED THE N/V AND INCREASE IN DIARRHEA AND FEVERS THE LAST 2 DAYS. SHE ALSO HAS SOME BACK PAIN BUT STATES THIS IS CHRONIC IN NATURE. IMAGING STUDIES SHOWED A LARGE STAGHORN CALCULI AND SOME SMALL STONES ON THE RIGHT BUT NOT OBSTRUCTING IN NATURE. SHE HAS HAD STONES REMOVED IN THE PAST AT [facility] BUT THIS WAS ABOUT 3 TO 4 YEARS AGO. CR IS 3.1. SHE HAS CKD STAGE 3 WITH CR OF 1.5 AT BASELINE Past Medical History Cardiovascular: HTN Pulmonary: No pertinent hx GI: GERD, Gastritis, Peptic Ulcer disease Hepatobiliary: No pertinent hx Psych: No pertinent hx Rheumatologic: No pertinent hx Infectious disease: No pertinent hx Renal/: Chronic renal insuff, Other (KIDNEY STONES) Endocrine: No pertinent hx Past Surgical History Past Surgical History RENAL STONE EXTRACTION Family History Family History: Hypertension Social History No ALCOHOL: none Drugs: None Lives: with Family Current Problem List Problem List Problems Medical Problems: (1) Abdominal pain Status: Acute (2) Acute on chronic renal failure Status: Acute (3) Dehydration Status: Acute (4) Intractable nausea and vomiting Status: Acute (5) Leukocytosis Status: Acute Current Medications Current Medications Current Medications Fentanyl Citrate (Fentanyl 2ml Vial) 50 mcg PRN Q15MIN PRN IV PAIN GREATER THAN 3/10 Last administered on 02/23/17 17:21; Start 02/23/17 at 16:00; Stop at 20:30; Status DC Sodium Chloride 1,000 ml @ 1,000 mls/hr Q1H IV Last administered on 02/23/17 16:19; Start 02/23/17 at 15:51; Stop 02/23/17 at 16:50; Status DC Ondansetron HCl (Zofran) 4 mg 1X ONCE IV Last administered on 02/23/17 16:33 ; Start 02/23/17 at 16:00; Stop 02/23/17 at 16:01; Status DC Ondansetron HCl (Zofran) 4 mg 1X ONCE IV Last administered on 02/23/17 17:37 ; Start 02/23/17 at 17:30; Stop 02/23/17 at 17:33; Status DC Sodium Chloride 1,000 ml @ 1,000 mls/hr 1X ONCE IV Last administered on 19:26; Start 02/23/17 at 18:30; Stop 02/23/17 at 19:29; Status DC Sodium Chloride 600 ml @ 1,000 mls/hr 1X ONCE IV Last administered on 20:44; Start 02/23/17 at 18:30; Stop 02/23/17 at 19:05; Status DC Piperacillin Sod/ Tazobactam Sod (Zosyn Per Pharmacy) 1 each PRN DAILY PRN MC SEE COMMENTS; Start 02/23/17 at 18:30 Ondansetron HCl (Zofran) 4 mg PRN Q8HRS PRN IV NAUSEA/VOMITING Last administered on 02/23/17 19:57; Start 02/23/17 at 18:30; Stop 02/23/17 at 20:30 ; Status DC Fentanyl Citrate (Fentanyl 2ml Vial) 50 mcg PRN Q2HR PRN IV PAIN; Start at 18:30; Stop 02/23/17 at 20:30; Status DC Sodium Chloride 1,000 ml @ 150 mls/hr Q6H40M IV Last administered on 07:47; Start 02/23/17 at 18:27; Stop 02/24/17 at 18:26 Acetaminophen (Tylenol) 650 mg PRN Q4HRS PRN PO FEVER Last administered on 02/23 20:50; Start 02/23/17 at 18:30; Stop 02/24/17 at 18:29 Piperacillin Sod/ Tazobactam Sod 2.25 gm/Sodium Chloride 50 ml @ 100 mls/hr 1X ONCE IV Last administered on 02/23/17 19:48; Start 02/23/17 at 19:00; Stop 02/23/17 at 19:29; Status DC Piperacillin Sod/ Tazobactam Sod 2.25 gm/Sodium Chloride 50 ml @ 100 mls/hr Q8HRS IV ; Start 02/23/17 at 05:00; Status Cancel Cyclobenzaprine HCl (Flexeril) 10 mg PRN TID PRN PO MUSCLE PAIN Last administered on 02/23/17 20:50; Start 02/23/17 at 19:00 Folic Acid (Folic Acid) 1 mg DAILY PO Last administered on 02/24/17 08:28; Start 02/24/17 at 09:00 Acetaminophen (Tylenol) 650 mg PRN Q6HRS PRN PO FEVER Last administered on 02/24 08:29; Start 02/23/17 at 19:00 Ondansetron HCl (Zofran) 4 mg PRN Q6HRS PRN IV NAUSEA/VOMITING Last administered on 02/24/17 11:17; Start 02/23/17 at 19:00 Hydralazine HCl (Apresoline) 10 mg PRN Q4HRS PRN IVP ELEVATED BP, SEE COMMENTS ; Start 02/23/17 at 19:00 Docusate Sodium (Colace) 100 mg PRN DAILY PRN PO CONSTIPATION; Start 02/23/17 at 19:00 Fentanyl Citrate (Fentanyl 2ml Vial) 50 mcg PRN Q2HR PRN IV PAIN; Start at 19:00 Heparin Sodium (Porcine) (Heparin Sq) 5,000 unit Q8HRS SQ Last administered on 02/24/17 05:29; Start 02/23/17 at 20:00 Vancomycin HCl 2 gm/Sodium Chloride 500 ml @ 250 mls/hr 1X ONCE IV Last administered on 02/23/17 20:50; Start 02/23/17 at 20:00; Stop 02/23/17 at 21:59 ; Status DC Vancomycin HCl (Vanco Per Pharmacy) 1 each PRN DAILY PRN MC SEE COMMENTS Last administered on 02/23/17 21:28; Start 02/23/17 at 19:15; Stop 02/24/17 at 08:57 ; Status DC Piperacillin Sod/ Tazobactam Sod 2.25 gm/Sodium Chloride 50 ml @ 100 mls/hr Q8HRS IV Last administered on 02/24/17 05:21; Start 02/24/17 at 05:00 Vancomycin HCl 1.25 gm/Sodium Chloride 250 ml @ 167 mls/hr Q48H IV ; Start at 21:00; Stop 02/25/17 at 21:00; Status DC Vancomycin HCl 1 each 1X ONCE MC ; Start 02/27/17 at 20:30; Stop 02/27/17 at 20 :31; Status Cancel Info (Do NOT chart on this placeholder) 1 each 1X ONCE MC ; Start 02/23/17 at 22:15; Stop 02/23/17 at 22:16; Status UNV Pneumococcal Polyvalent Vaccine (Do NOT chart on this placeholder) 1 each 1X ONCE MC ; Start 02/23/17 at 22:15; Stop 02/23/17 at 22:16; Status UNV Influenza Virus Vaccine Quadrival (Fluarix Quad [id number] Syringe) 0.5 ml ONCE ONCE VAX IM ; Start 02/24/17 at 09:00; Stop 02/24/17 at 09:01; Status DC Pneumococcal Polyvalent Vaccine (Pneumovax 23) 0.5 ml ONCE ONCE VAX IM ; Start 02/24/17 at 09:00; Stop 02/24/17 at 09:01; Status DC Ciprofloxacin/ Dextrose 200 ml @ 200 mls/hr Q12HR IV Last administered on 02/24t 11:00; Start 02/24/17 at 11:00 Active Scripts Active Prednisone 50 Mg Tablet 1 Tab PO DAILY Macrobid 100 Mg Capsule (Nitrofurantoin Monohyd/M-Cryst) 100 Mg Capsule 1 Cap PO BID Cyclobenzaprine Hcl 10 Mg Tablet 1 Tab PO TID PRN Folic Acid 1 Mg Tablet 1 Tab PO DAILY Reported Keflex (Cephalexin) 500 Mg Capsule 1 Cap PO TID 14 Days Acetaminophen 500 Mg Tablet 1,000 Mg PO PRN Q6HRS PRN Cyclobenzaprine Hcl 10 Mg Tablet 10 Mg PO Proair Hfa Inhaler (Albuterol Sulfate) 8.5 Gm Hfa.aer.ad 8.5 Gm IH Allergies Allergies: Coded Allergies: Sulfa (Sulfonamide Antibiotics) (Verified Allergy, Intermediate, 02/16/16) amlodipine (Verified Allergy, Intermediate, 02/16/16) codeine (Verified Allergy, Intermediate, Rash, 02/16/16) doxycycline (Verified Allergy, Intermediate, 02/16/16) ezetimibe (Verified Allergy, Intermediate, 02/16/16) levofloxacin (Verified Allergy, Intermediate, ITCH, 02/24/17) morphine (Verified Allergy, Intermediate, 02/16/16) simvastatin (Verified Allergy, Intermediate, 02/16/16) oxycodone (Verified Adverse Reaction, Intermediate, Hallucinations, ) ROS General: YES: Chills, Fatigue, Malaise, Appetite PSYCHOLOGICAL ROS: YES: Anxiety Eyes: Yes Decreased vision HEENT: YES: [place] ALLERGY AND IMMUNOLOGY: YES: Hives Respiratory: YES: Cough Cardiovascular: yes Chest Pain Gastrointestinal: Yes Nausea, Yes Vomiting, Yes Diarrhea Genitourinary: YES Dysuria, YES Frequency, YES Other Musculoskeletal: Yes Muscular Weakness, Yes Other (FLANK PAIN) Neurological: Yes Weakness Skin: Yes Dry Skin Physical Exam General: Alert, Oriented X3, Cooperative, No acute distress HEENT: Atraumatic, PERRLA, EOMI, Mucous membr. moist/pink Lungs: Clear to auscultation, Normal air movement Heart: Regular rate, Normal S2 Abdomen: Normal bowel sounds, Soft, No tenderness Extremities: No clubbing, Normal pulses Skin: No breakdown, No significant lesion Neuro: Normal speech, Cranial nerves 3-12 NL Psych/Mental Status: Mental status NL, Mood NL MUSCULOSKELETAL: No deformity, No swelling Vitals VITALS Vital Signs Date Time Temp Pulse Resp B/P (MAP) Pulse Ox O2 Delivery O2 Flow Rate FiO2 02/24/17 10:42 Room Air 02/24/17 10:28 97.7 102 20 138/60 (86) 97.7 02/24/17 07:00 98 02/23/17 20:08 98.0 Labs Labs Laboratory Tests Test 02/23/17 15:51 02/23/17 17:30 02/23/17 19:35 02/23/17 20:45 White Blood Count 20.6 x10^3/uL (4.0-11.0) Red Blood Count 4.67 x10^6/uL (3.50-5.40) Hemoglobin 13.1 g/dL (12.0-15.5) Hematocrit 40.8 % (36.0-47.0) Mean Corpuscular Volume 87 fL (79-100) Mean Corpuscular Hemoglobin 28 pg (25-35) Mean Corpuscular Hemoglobin Concent 32 g/dL (31-37) Red Cell Distribution Width 21.9 % (11.5-14.5) Platelet Count 153 x10^3/uL (140-400) Neutrophils (%) (Auto) 93 % (31-73) Lymphocytes (%) (Auto) 2 % (24-48) Monocytes (%) (Auto) 4 % (0-9) Eosinophils (%) (Auto) 0 % (0-3) Basophils (%) (Auto) 0 % (0-3) Neutrophils # (Auto) 19.3 x10^3uL (1.8-7.7) Lymphocytes # (Auto) 0.5 x10^3/uL (1.0-4.8) Monocytes # (Auto) 0.9 x10^3/uL (0.0-1.1) Eosinophils # (Auto) 0.0 x10^3/uL (0.0-0.7) Basophils # (Auto) 0.0 x10^3/uL (0.0-0.2) Segmented Neutrophils % 59 % (35-66) Band Neutrophils % 35 % (0-9) Lymphocytes % 2 % (24-48) Monocytes % 4 % (0-10) Toxic Granulation Slight Toxic Vacuolation Slight Platelet Estimate Adequate (ADEQUATE) Anisocytosis Mod Sodium Level 137 mmol/L (136-145) Potassium Level 4.7 mmol/L (3.5-5.1) Chloride Level 101 mmol/L (98-107) Carbon Dioxide Level 22 mmol/L (21-32) Anion Gap 14 (6-14) Blood Urea Nitrogen 43 mg/dL (7-20) Creatinine 3.1 mg/dL (0.6-1.0) Estimated GFR (Cockcroft-Gault) 15.2 BUN/Creatinine Ratio 14 (6-20) Glucose Level 191 mg/dL (70-99) Calcium Level 9.7 mg/dL (8.5-10.1) Total Bilirubin 0.7 mg/dL (0.2-1.0) Aspartate Amino Transf (AST/SGOT) 50 U/L (15-37) Alanine Aminotransferase (ALT/SGPT) 54 U/L (14-59) Alkaline Phosphatase 224 U/L (46-116) C-Reactive Protein, Quantitative 114.1 mg/L (0-3.3) Total Protein 7.5 g/dL (6.4-8.2) Albumin 3.2 g/dL (3.4-5.0) Albumin/Globulin Ratio 0.7 (1.0-1.7) Lipase 226 U/L (73-393) Urine Collection Type Unknown Urine Color Yellow Urine Clarity Cloudy Urine pH 8.5 Urine Specific [place] 1.015 Urine Protein 100 mg/dL (NEG-TRACE) Urine Glucose (UA) Negative mg/dL (NEG) Urine Ketones (Stick) Negative mg/dL (NEG) Urine Blood Large (NEG) Urine Nitrite Negative (NEG) Urine Bilirubin Negative (NEG) Urine Urobilinogen Dipstick 0.2 mg/dL (0.2 mg/dL) Urine Leukocyte Esterase Large (NEG) Urine RBC 3-5 /HPF (0-2) Urine WBC >40 /HPF (0-4) Urine Squamous Epithelial Cells Mod /LPF Urine Bacteria Many /HPF (0-FEW) Lactic Acid Level 1.4 mmol/L (0.4-2.0) 2.7 mmol/L (0.4-2.0) Test 02/24/17 04:58 White Blood Count 14.5 x10^3/uL (4.0-11.0) Red Blood Count 4.03 x10^6/uL (3.50-5.40) Hemoglobin 11.5 g/dL (12.0-15.5) Hematocrit 34.8 % (36.0-47.0) Mean Corpuscular Volume 86 fL (79-100) Mean Corpuscular Hemoglobin 29 pg (25-35) Mean Corpuscular Hemoglobin Concent 33 g/dL (31-37) Red Cell Distribution Width 22.0 % (11.5-14.5) Platelet Count 109 x10^3/uL (140-400) Neutrophils (%) (Auto) 90 % (31-73) Lymphocytes (%) (Auto) 4 % (24-48) Monocytes (%) (Auto) 6 % (0-9) Eosinophils (%) (Auto) 0 % (0-3) Basophils (%) (Auto) 0 % (0-3) Neutrophils # (Auto) 13.1 x10^3uL (1.8-7.7) Lymphocytes # (Auto) 0.5 x10^3/uL (1.0-4.8) Monocytes # (Auto) 0.8 x10^3/uL (0.0-1.1) Eosinophils # (Auto) 0.0 x10^3/uL (0.0-0.7) Basophils # (Auto) 0.1 x10^3/uL (0.0-0.2) Sodium Level 140 mmol/L (136-145) Potassium Level 4.3 mmol/L (3.5-5.1) Chloride Level 108 mmol/L (98-107) Carbon Dioxide Level 19 mmol/L (21-32) Anion Gap 13 (6-14) Blood Urea Nitrogen 41 mg/dL (7-20) Creatinine 2.8 mg/dL (0.6-1.0) Estimated GFR (Cockcroft-Gault) 17.1 Glucose Level 181 mg/dL (70-99) Calcium Level 8.5 mg/dL (8.5-10.1) Laboratory Tests Test 02/23/17 15:51 02/23/17 17:30 02/23/17 19:35 02/23/17 20:45 White Blood Count 20.6 x10^3/uL (4.0-11.0) Red Blood Count 4.67 x10^6/uL (3.50-5.40) Hemoglobin 13.1 g/dL (12.0-15.5) Hematocrit 40.8 % (36.0-47.0) Mean Corpuscular Volume 87 fL (79-100) Mean Corpuscular Hemoglobin 28 pg (25-35) Mean Corpuscular Hemoglobin Concent 32 g/dL (31-37) Red Cell Distribution Width 21.9 % (11.5-14.5) Platelet Count 153 x10^3/uL (140-400) Neutrophils (%) (Auto) 93 % (31-73) Lymphocytes (%) (Auto) 2 % (24-48) Monocytes (%) (Auto) 4 % (0-9) Eosinophils (%) (Auto) 0 % (0-3) Basophils (%) (Auto) 0 % (0-3) Neutrophils # (Auto) 19.3 x10^3uL (1.8-7.7) Lymphocytes # (Auto) 0.5 x10^3/uL (1.0-4.8) Monocytes # (Auto) 0.9 x10^3/uL (0.0-1.1) Eosinophils # (Auto) 0.0 x10^3/uL (0.0-0.7) Basophils # (Auto) 0.0 x10^3/uL (0.0-0.2) Segmented Neutrophils % 59 % (35-66) Band Neutrophils % 35 % (0-9) Lymphocytes % 2 % (24-48) Monocytes % 4 % (0-10) Toxic Granulation Slight Toxic Vacuolation Slight Platelet Estimate Adequate (ADEQUATE) Anisocytosis Mod Sodium Level 137 mmol/L (136-145) Potassium Level 4.7 mmol/L (3.5-5.1) Chloride Level 101 mmol/L (98-107) Carbon Dioxide Level 22 mmol/L (21-32) Anion Gap 14 (6-14) Blood Urea Nitrogen 43 mg/dL (7-20) Creatinine 3.1 mg/dL (0.6-1.0) Estimated GFR (Cockcroft-Gault) 15.2 BUN/Creatinine Ratio 14 (6-20) Glucose Level 191 mg/dL (70-99) Calcium Level 9.7 mg/dL (8.5-10.1) Total Bilirubin 0.7 mg/dL (0.2-1.0) Aspartate Amino Transf (AST/SGOT) 50 U/L (15-37) Alanine Aminotransferase (ALT/SGPT) 54 U/L (14-59) Alkaline Phosphatase 224 U/L (46-116) C-Reactive Protein, Quantitative 114.1 mg/L (0-3.3) Total Protein 7.5 g/dL (6.4-8.2) Albumin 3.2 g/dL (3.4-5.0) Albumin/Globulin Ratio 0.7 (1.0-1.7) Lipase 226 U/L (73-393) Urine Collection Type Unknown Urine Color Yellow Urine Clarity Cloudy Urine pH 8.5 Urine Specific [place] 1.015 Urine Protein 100 mg/dL (NEG-TRACE) Urine Glucose (UA) Negative mg/dL (NEG) Urine Ketones (Stick) Negative mg/dL (NEG) Urine Blood Large (NEG) Urine Nitrite Negative (NEG) Urine Bilirubin Negative (NEG) Urine Urobilinogen Dipstick 0.2 mg/dL (0.2 mg/dL) Urine Leukocyte Esterase Large (NEG) Urine RBC 3-5 /HPF (0-2) Urine WBC >40 /HPF (0-4) Urine Squamous Epithelial Cells Mod /LPF Urine Bacteria Many /HPF (0-FEW) Lactic Acid Level 1.4 mmol/L (0.4-2.0) 2.7 mmol/L (0.4-2.0) Test 02/24/17 04:58 White Blood Count 14.5 x10^3/uL (4.0-11.0) Red Blood Count 4.03 x10^6/uL (3.50-5.40) Hemoglobin 11.5 g/dL (12.0-15.5) Hematocrit 34.8 % (36.0-47.0) Mean Corpuscular Volume 86 fL (79-100) Mean Corpuscular Hemoglobin 29 pg (25-35) Mean Corpuscular Hemoglobin Concent 33 g/dL (31-37) Red Cell Distribution Width 22.0 % (11.5-14.5) Platelet Count 109 x10^3/uL (140-400) Neutrophils (%) (Auto) 90 % (31-73) Lymphocytes (%) (Auto) 4 % (24-48) Monocytes (%) (Auto) 6 % (0-9) Eosinophils (%) (Auto) 0 % (0-3) Basophils (%) (Auto) 0 % (0-3) Neutrophils # (Auto) 13.1 x10^3uL (1.8-7.7) Lymphocytes # (Auto) 0.5 x10^3/uL (1.0-4.8) Monocytes # (Auto) 0.8 x10^3/uL (0.0-1.1) Eosinophils # (Auto) 0.0 x10^3/uL (0.0-0.7) Basophils # (Auto) 0.1 x10^3/uL (0.0-0.2) Sodium Level 140 mmol/L (136-145) Potassium Level 4.3 mmol/L (3.5-5.1) Chloride Level 108 mmol/L (98-107) Carbon Dioxide Level 19 mmol/L (21-32) Anion Gap 13 (6-14) Blood Urea Nitrogen 41 mg/dL (7-20) Creatinine 2.8 mg/dL (0.6-1.0) Estimated GFR (Cockcroft-Gault) 17.1 Glucose Level 181 mg/dL (70-99) Calcium Level 8.5 mg/dL (8.5-10.1) Assessment/Plan Assessment/Plan IMP DEHYDRATION PROBABLY GASTROENTERITIS URINARY TRACT INFECTION NEPHROCALCINOSIS-BILATERAL AND NON OBSTRUCTING CKD STAGE 3 WITH CR OF 1.5 AT BASELINE BHUPENDRA WITH CR OF 3.1 LEUCOCYTOSIS PLAN IVF'S ANTIBIOTICS EXPECT RECOVERY FROM [facility] IN AM DARWIN ANNE MD Feb 24, 2017 11:47
--- NOTE | 2017-02-24 14:12 | PDOC ---
PROGRESS NOTES Chief Complaint Chief Complaint sepsis, likely 2/2 UTI bl kidney stones with h/o UTI BHUPENDRA on CKD 3, vasomotor h/o dvt no AC htn H/O anemia h/o MRSA H/O CAD with PCI h/o partial gastrectomy with chronic diarrhea mild malnutrition POA History of Present Illness History of Present Illness IV fluid, abx given renal, id consult following cont home meds ADAT Vitals Vitals Vital Signs Date Time Temp Pulse Resp B/P (MAP) Pulse Ox O2 Delivery O2 Flow Rate FiO2 02/24/17 11:49 97.7 91 20 146/77 (100) Room Air 97.7 02/24/17 07:00 98 02/23/17 20:08 98.0 Physical Exam General: Alert, Oriented X3, Cooperative, No acute distress Heart: Regular rate, Normal S2 Abdomen: Normal bowel sounds, Soft, No tenderness Extremities: No clubbing, Normal pulses Skin: No breakdown, No significant lesion Labs LABS Laboratory Tests Test 02/23/17 15:51 02/23/17 17:30 02/23/17 19:35 02/23/17 20:45 White Blood Count 20.6 x10^3/uL (4.0-11.0) Red Blood Count 4.67 x10^6/uL (3.50-5.40) Hemoglobin 13.1 g/dL (12.0-15.5) Hematocrit 40.8 % (36.0-47.0) Mean Corpuscular Volume 87 fL (79-100) Mean Corpuscular Hemoglobin 28 pg (25-35) Mean Corpuscular Hemoglobin Concent 32 g/dL (31-37) Red Cell Distribution Width 21.9 % (11.5-14.5) Platelet Count 153 x10^3/uL (140-400) Neutrophils (%) (Auto) 93 % (31-73) Lymphocytes (%) (Auto) 2 % (24-48) Monocytes (%) (Auto) 4 % (0-9) Eosinophils (%) (Auto) 0 % (0-3) Basophils (%) (Auto) 0 % (0-3) Neutrophils # (Auto) 19.3 x10^3uL (1.8-7.7) Lymphocytes # (Auto) 0.5 x10^3/uL (1.0-4.8) Monocytes # (Auto) 0.9 x10^3/uL (0.0-1.1) Eosinophils # (Auto) 0.0 x10^3/uL (0.0-0.7) Basophils # (Auto) 0.0 x10^3/uL (0.0-0.2) Segmented Neutrophils % 59 % (35-66) Band Neutrophils % 35 % (0-9) Lymphocytes % 2 % (24-48) Monocytes % 4 % (0-10) Toxic Granulation Slight Toxic Vacuolation Slight Platelet Estimate Adequate (ADEQUATE) Anisocytosis Mod Sodium Level 137 mmol/L (136-145) Potassium Level 4.7 mmol/L (3.5-5.1) Chloride Level 101 mmol/L (98-107) Carbon Dioxide Level 22 mmol/L (21-32) Anion Gap 14 (6-14) Blood Urea Nitrogen 43 mg/dL (7-20) Creatinine 3.1 mg/dL (0.6-1.0) Estimated GFR (Cockcroft-Gault) 15.2 BUN/Creatinine Ratio 14 (6-20) Glucose Level 191 mg/dL (70-99) Calcium Level 9.7 mg/dL (8.5-10.1) Total Bilirubin 0.7 mg/dL (0.2-1.0) Aspartate Amino Transf (AST/SGOT) 50 U/L (15-37) Alanine Aminotransferase (ALT/SGPT) 54 U/L (14-59) Alkaline Phosphatase 224 U/L (46-116) C-Reactive Protein, Quantitative 114.1 mg/L (0-3.3) Total Protein 7.5 g/dL (6.4-8.2) Albumin 3.2 g/dL (3.4-5.0) Albumin/Globulin Ratio 0.7 (1.0-1.7) Lipase 226 U/L (73-393) Urine Collection Type Unknown Urine Color Yellow Urine Clarity Cloudy Urine pH 8.5 Urine Specific [place] 1.015 Urine Protein 100 mg/dL (NEG-TRACE) Urine Glucose (UA) Negative mg/dL (NEG) Urine Ketones (Stick) Negative mg/dL (NEG) Urine Blood Large (NEG) Urine Nitrite Negative (NEG) Urine Bilirubin Negative (NEG) Urine Urobilinogen Dipstick 0.2 mg/dL (0.2 mg/dL) Urine Leukocyte Esterase Large (NEG) Urine RBC 3-5 /HPF (0-2) Urine WBC >40 /HPF (0-4) Urine Squamous Epithelial Cells Mod /LPF Urine Bacteria Many /HPF (0-FEW) Lactic Acid Level 1.4 mmol/L (0.4-2.0) 2.7 mmol/L (0.4-2.0) Test 02/24/17 04:58 White Blood Count 14.5 x10^3/uL (4.0-11.0) Red Blood Count 4.03 x10^6/uL (3.50-5.40) Hemoglobin 11.5 g/dL (12.0-15.5) Hematocrit 34.8 % (36.0-47.0) Mean Corpuscular Volume 86 fL (79-100) Mean Corpuscular Hemoglobin 29 pg (25-35) Mean Corpuscular Hemoglobin Concent 33 g/dL (31-37) Red Cell Distribution Width 22.0 % (11.5-14.5) Platelet Count 109 x10^3/uL (140-400) Neutrophils (%) (Auto) 90 % (31-73) Lymphocytes (%) (Auto) 4 % (24-48) Monocytes (%) (Auto) 6 % (0-9) Eosinophils (%) (Auto) 0 % (0-3) Basophils (%) (Auto) 0 % (0-3) Neutrophils # (Auto) 13.1 x10^3uL (1.8-7.7) Lymphocytes # (Auto) 0.5 x10^3/uL (1.0-4.8) Monocytes # (Auto) 0.8 x10^3/uL (0.0-1.1) Eosinophils # (Auto) 0.0 x10^3/uL (0.0-0.7) Basophils # (Auto) 0.1 x10^3/uL (0.0-0.2) Sodium Level 140 mmol/L (136-145) Potassium Level 4.3 mmol/L (3.5-5.1) Chloride Level 108 mmol/L (98-107) Carbon Dioxide Level 19 mmol/L (21-32) Anion Gap 13 (6-14) Blood Urea Nitrogen 41 mg/dL (7-20) Creatinine 2.8 mg/dL (0.6-1.0) Estimated GFR (Cockcroft-Gault) 17.1 Glucose Level 181 mg/dL (70-99) Calcium Level 8.5 mg/dL (8.5-10.1) Review of Systems Review of Systems lethargy, weak Assessment and Plan Assessmemt and Plan Problems Medical Problems: (1) Abdominal pain Status: Acute (2) Acute on chronic renal failure Status: Acute (3) Dehydration Status: Acute (4) Intractable nausea and vomiting Status: Acute (5) Leukocytosis Status: Acute Problems: Comment Review of Relevant I have reviewed the following items joanna (where applicable) has been applied. Labs Laboratory Tests Test 02/23/17 15:51 02/23/17 17:30 02/23/17 19:35 02/23/17 20:45 White Blood Count 20.6 x10^3/uL (4.0-11.0) Red Blood Count 4.67 x10^6/uL (3.50-5.40) Hemoglobin 13.1 g/dL (12.0-15.5) Hematocrit 40.8 % (36.0-47.0) Mean Corpuscular Volume 87 fL (79-100) Mean Corpuscular Hemoglobin 28 pg (25-35) Mean Corpuscular Hemoglobin Concent 32 g/dL (31-37) Red Cell Distribution Width 21.9 % (11.5-14.5) Platelet Count 153 x10^3/uL (140-400) Neutrophils (%) (Auto) 93 % (31-73) Lymphocytes (%) (Auto) 2 % (24-48) Monocytes (%) (Auto) 4 % (0-9) Eosinophils (%) (Auto) 0 % (0-3) Basophils (%) (Auto) 0 % (0-3) Neutrophils # (Auto) 19.3 x10^3uL (1.8-7.7) Lymphocytes # (Auto) 0.5 x10^3/uL (1.0-4.8) Monocytes # (Auto) 0.9 x10^3/uL (0.0-1.1) Eosinophils # (Auto) 0.0 x10^3/uL (0.0-0.7) Basophils # (Auto) 0.0 x10^3/uL (0.0-0.2) Segmented Neutrophils % 59 % (35-66) Band Neutrophils % 35 % (0-9) Lymphocytes % 2 % (24-48) Monocytes % 4 % (0-10) Toxic Granulation Slight Toxic Vacuolation Slight Platelet Estimate Adequate (ADEQUATE) Anisocytosis Mod Sodium Level 137 mmol/L (136-145) Potassium Level 4.7 mmol/L (3.5-5.1) Chloride Level 101 mmol/L (98-107) Carbon Dioxide Level 22 mmol/L (21-32) Anion Gap 14 (6-14) Blood Urea Nitrogen 43 mg/dL (7-20) Creatinine 3.1 mg/dL (0.6-1.0) Estimated GFR (Cockcroft-Gault) 15.2 BUN/Creatinine Ratio 14 (6-20) Glucose Level 191 mg/dL (70-99) Calcium Level 9.7 mg/dL (8.5-10.1) Total Bilirubin 0.7 mg/dL (0.2-1.0) Aspartate Amino Transf (AST/SGOT) 50 U/L (15-37) Alanine Aminotransferase (ALT/SGPT) 54 U/L (14-59) Alkaline Phosphatase 224 U/L (46-116) C-Reactive Protein, Quantitative 114.1 mg/L (0-3.3) Total Protein 7.5 g/dL (6.4-8.2) Albumin 3.2 g/dL (3.4-5.0) Albumin/Globulin Ratio 0.7 (1.0-1.7) Lipase 226 U/L (73-393) Urine Collection Type Unknown Urine Color Yellow Urine Clarity Cloudy Urine pH 8.5 Urine Specific [place] 1.015 Urine Protein 100 mg/dL (NEG-TRACE) Urine Glucose (UA) Negative mg/dL (NEG) Urine Ketones (Stick) Negative mg/dL (NEG) Urine Blood Large (NEG) Urine Nitrite Negative (NEG) Urine Bilirubin Negative (NEG) Urine Urobilinogen Dipstick 0.2 mg/dL (0.2 mg/dL) Urine Leukocyte Esterase Large (NEG) Urine RBC 3-5 /HPF (0-2) Urine WBC >40 /HPF (0-4) Urine Squamous Epithelial Cells Mod /LPF Urine Bacteria Many /HPF (0-FEW) Lactic Acid Level 1.4 mmol/L (0.4-2.0) 2.7 mmol/L (0.4-2.0) Test 02/24/17 04:58 White Blood Count 14.5 x10^3/uL (4.0-11.0) Red Blood Count 4.03 x10^6/uL (3.50-5.40) Hemoglobin 11.5 g/dL (12.0-15.5) Hematocrit 34.8 % (36.0-47.0) Mean Corpuscular Volume 86 fL (79-100) Mean Corpuscular Hemoglobin 29 pg (25-35) Mean Corpuscular Hemoglobin Concent 33 g/dL (31-37) Red Cell Distribution Width 22.0 % (11.5-14.5) Platelet Count 109 x10^3/uL (140-400) Neutrophils (%) (Auto) 90 % (31-73) Lymphocytes (%) (Auto) 4 % (24-48) Monocytes (%) (Auto) 6 % (0-9) Eosinophils (%) (Auto) 0 % (0-3) Basophils (%) (Auto) 0 % (0-3) Neutrophils # (Auto) 13.1 x10^3uL (1.8-7.7) Lymphocytes # (Auto) 0.5 x10^3/uL (1.0-4.8) Monocytes # (Auto) 0.8 x10^3/uL (0.0-1.1) Eosinophils # (Auto) 0.0 x10^3/uL (0.0-0.7) Basophils # (Auto) 0.1 x10^3/uL (0.0-0.2) Sodium Level 140 mmol/L (136-145) Potassium Level 4.3 mmol/L (3.5-5.1) Chloride Level 108 mmol/L (98-107) Carbon Dioxide Level 19 mmol/L (21-32) Anion Gap 13 (6-14) Blood Urea Nitrogen 41 mg/dL (7-20) Creatinine 2.8 mg/dL (0.6-1.0) Estimated GFR (Cockcroft-Gault) 17.1 Glucose Level 181 mg/dL (70-99) Calcium Level 8.5 mg/dL (8.5-10.1) Laboratory Tests Test 02/23/17 15:51 02/23/17 17:30 02/23/17 19:35 02/23/17 20:45 White Blood Count 20.6 x10^3/uL (4.0-11.0) Red Blood Count 4.67 x10^6/uL (3.50-5.40) Hemoglobin 13.1 g/dL (12.0-15.5) Hematocrit 40.8 % (36.0-47.0) Mean Corpuscular Volume 87 fL (79-100) Mean Corpuscular Hemoglobin 28 pg (25-35) Mean Corpuscular Hemoglobin Concent 32 g/dL (31-37) Red Cell Distribution Width 21.9 % (11.5-14.5) Platelet Count 153 x10^3/uL (140-400) Neutrophils (%) (Auto) 93 % (31-73) Lymphocytes (%) (Auto) 2 % (24-48) Monocytes (%) (Auto) 4 % (0-9) Eosinophils (%) (Auto) 0 % (0-3) Basophils (%) (Auto) 0 % (0-3) Neutrophils # (Auto) 19.3 x10^3uL (1.8-7.7) Lymphocytes # (Auto) 0.5 x10^3/uL (1.0-4.8) Monocytes # (Auto) 0.9 x10^3/uL (0.0-1.1) Eosinophils # (Auto) 0.0 x10^3/uL (0.0-0.7) Basophils # (Auto) 0.0 x10^3/uL (0.0-0.2) Segmented Neutrophils % 59 % (35-66) Band Neutrophils % 35 % (0-9) Lymphocytes % 2 % (24-48) Monocytes % 4 % (0-10) Toxic Granulation Slight Toxic Vacuolation Slight Platelet Estimate Adequate (ADEQUATE) Anisocytosis Mod Sodium Level 137 mmol/L (136-145) Potassium Level 4.7 mmol/L (3.5-5.1) Chloride Level 101 mmol/L (98-107) Carbon Dioxide Level 22 mmol/L (21-32) Anion Gap 14 (6-14) Blood Urea Nitrogen 43 mg/dL (7-20) Creatinine 3.1 mg/dL (0.6-1.0) Estimated GFR (Cockcroft-Gault) 15.2 BUN/Creatinine Ratio 14 (6-20) Glucose Level 191 mg/dL (70-99) Calcium Level 9.7 mg/dL (8.5-10.1) Total Bilirubin 0.7 mg/dL (0.2-1.0) Aspartate Amino Transf (AST/SGOT) 50 U/L (15-37) Alanine Aminotransferase (ALT/SGPT) 54 U/L (14-59) Alkaline Phosphatase 224 U/L (46-116) C-Reactive Protein, Quantitative 114.1 mg/L (0-3.3) Total Protein 7.5 g/dL (6.4-8.2) Albumin 3.2 g/dL (3.4-5.0) Albumin/Globulin Ratio 0.7 (1.0-1.7) Lipase 226 U/L (73-393) Urine Collection Type Unknown Urine Color Yellow Urine Clarity Cloudy Urine pH 8.5 Urine Specific [place] 1.015 Urine Protein 100 mg/dL (NEG-TRACE) Urine Glucose (UA) Negative mg/dL (NEG) Urine Ketones (Stick) Negative mg/dL (NEG) Urine Blood Large (NEG) Urine Nitrite Negative (NEG) Urine Bilirubin Negative (NEG) Urine Urobilinogen Dipstick 0.2 mg/dL (0.2 mg/dL) Urine Leukocyte Esterase Large (NEG) Urine RBC 3-5 /HPF (0-2) Urine WBC >40 /HPF (0-4) Urine Squamous Epithelial Cells Mod /LPF Urine Bacteria Many /HPF (0-FEW) Lactic Acid Level 1.4 mmol/L (0.4-2.0) 2.7 mmol/L (0.4-2.0) Test 02/24/17 04:58 White Blood Count 14.5 x10^3/uL (4.0-11.0) Red Blood Count 4.03 x10^6/uL (3.50-5.40) Hemoglobin 11.5 g/dL (12.0-15.5) Hematocrit 34.8 % (36.0-47.0) Mean Corpuscular Volume 86 fL (79-100) Mean Corpuscular Hemoglobin 29 pg (25-35) Mean Corpuscular Hemoglobin Concent 33 g/dL (31-37) Red Cell Distribution Width 22.0 % (11.5-14.5) Platelet Count 109 x10^3/uL (140-400) Neutrophils (%) (Auto) 90 % (31-73) Lymphocytes (%) (Auto) 4 % (24-48) Monocytes (%) (Auto) 6 % (0-9) Eosinophils (%) (Auto) 0 % (0-3) Basophils (%) (Auto) 0 % (0-3) Neutrophils # (Auto) 13.1 x10^3uL (1.8-7.7) Lymphocytes # (Auto) 0.5 x10^3/uL (1.0-4.8) Monocytes # (Auto) 0.8 x10^3/uL (0.0-1.1) Eosinophils # (Auto) 0.0 x10^3/uL (0.0-0.7) Basophils # (Auto) 0.1 x10^3/uL (0.0-0.2) Sodium Level 140 mmol/L (136-145) Potassium Level 4.3 mmol/L (3.5-5.1) Chloride Level 108 mmol/L (98-107) Carbon Dioxide Level 19 mmol/L (21-32) Anion Gap 13 (6-14) Blood Urea Nitrogen 41 mg/dL (7-20) Creatinine 2.8 mg/dL (0.6-1.0) Estimated GFR (Cockcroft-Gault) 17.1 Glucose Level 181 mg/dL (70-99) Calcium Level 8.5 mg/dL (8.5-10.1) Microbiology 02/23/17 Blood Culture - Final, Complete 02/23/17 Urine Culture - Preliminary, Resulted 02/23/17 Urine Culture Result 1 (LINDSAY) - Preliminary, Resulted Medications Current Medications Fentanyl Citrate (Fentanyl 2ml Vial) 50 mcg PRN Q15MIN PRN IV PAIN GREATER THAN 3/10 Last administered on 02/23/17 17:21; Start 02/23/17 at 16:00; Stop at 20:30; Status DC Sodium Chloride 1,000 ml @ 1,000 mls/hr Q1H IV Last administered on 02/23/17 16:19; Start 02/23/17 at 15:51; Stop 02/23/17 at 16:50; Status DC Ondansetron HCl (Zofran) 4 mg 1X ONCE IV Last administered on 02/23/17 16:33 ; Start 02/23/17 at 16:00; Stop 02/23/17 at 16:01; Status DC Ondansetron HCl (Zofran) 4 mg 1X ONCE IV Last administered on 02/23/17 17:37 ; Start 02/23/17 at 17:30; Stop 02/23/17 at 17:33; Status DC Sodium Chloride 1,000 ml @ 1,000 mls/hr 1X ONCE IV Last administered on 19:26; Start 02/23/17 at 18:30; Stop 02/23/17 at 19:29; Status DC Sodium Chloride 600 ml @ 1,000 mls/hr 1X ONCE IV Last administered on 20:44; Start 02/23/17 at 18:30; Stop 02/23/17 at 19:05; Status DC Piperacillin Sod/ Tazobactam Sod (Zosyn Per Pharmacy) 1 each PRN DAILY PRN MC SEE COMMENTS; Start 02/23/17 at 18:30 Ondansetron HCl (Zofran) 4 mg PRN Q8HRS PRN IV NAUSEA/VOMITING Last administered on 02/23/17 19:57; Start 02/23/17 at 18:30; Stop 02/23/17 at 20:30 ; Status DC Fentanyl Citrate (Fentanyl 2ml Vial) 50 mcg PRN Q2HR PRN IV PAIN; Start at 18:30; Stop 02/23/17 at 20:30; Status DC Sodium Chloride 1,000 ml @ 150 mls/hr Q6H40M IV Last administered on 07:47; Start 02/23/17 at 18:27; Stop 02/24/17 at 18:26 Acetaminophen (Tylenol) 650 mg PRN Q4HRS PRN PO FEVER Last administered on 02/23 20:50; Start 02/23/17 at 18:30; Stop 02/24/17 at 18:29 Piperacillin Sod/ Tazobactam Sod 2.25 gm/Sodium Chloride 50 ml @ 100 mls/hr 1X ONCE IV Last administered on 02/23/17 19:48; Start 02/23/17 at 19:00; Stop 02/23/17 at 19:29; Status DC Piperacillin Sod/ Tazobactam Sod 2.25 gm/Sodium Chloride 50 ml @ 100 mls/hr Q8HRS IV ; Start 02/23/17 at 05:00; Status Cancel Cyclobenzaprine HCl (Flexeril) 10 mg PRN TID PRN PO MUSCLE PAIN Last administered on 02/23/17 20:50; Start 02/23/17 at 19:00 Folic Acid (Folic Acid) 1 mg DAILY PO Last administered on 02/24/17 08:28; Start 02/24/17 at 09:00 Acetaminophen (Tylenol) 650 mg PRN Q6HRS PRN PO FEVER Last administered on 02/24 08:29; Start 02/23/17 at 19:00 Ondansetron HCl (Zofran) 4 mg PRN Q6HRS PRN IV NAUSEA/VOMITING Last administered on 02/24/17 11:17; Start 02/23/17 at 19:00 Hydralazine HCl (Apresoline) 10 mg PRN Q4HRS PRN IVP ELEVATED BP, SEE COMMENTS ; Start 02/23/17 at 19:00 Docusate Sodium (Colace) 100 mg PRN DAILY PRN PO CONSTIPATION; Start 02/23/17 at 19:00 Fentanyl Citrate (Fentanyl 2ml Vial) 50 mcg PRN Q2HR PRN IV PAIN; Start at 19:00 Heparin Sodium (Porcine) (Heparin Sq) 5,000 unit Q8HRS SQ Last administered on 02/24/17 05:29; Start 02/23/17 at 20:00 Vancomycin HCl 2 gm/Sodium Chloride 500 ml @ 250 mls/hr 1X ONCE IV Last administered on 02/23/17 20:50; Start 02/23/17 at 20:00; Stop 02/23/17 at 21:59 ; Status DC Vancomycin HCl (Vanco Per Pharmacy) 1 each PRN DAILY PRN MC SEE COMMENTS Last administered on 02/23/17 21:28; Start 02/23/17 at 19:15; Stop 02/24/17 at 08:57 ; Status DC Piperacillin Sod/ Tazobactam Sod 2.25 gm/Sodium Chloride 50 ml @ 100 mls/hr Q8HRS IV Last administered on 9/25/17at 05:21; Start 02/24/17 at 05:00 Vancomycin HCl 1.25 gm/Sodium Chloride 250 ml @ 167 mls/hr Q48H IV ; Start at 21:00; Stop 02/25/17 at 21:00; Status DC Vancomycin HCl 1 each 1X ONCE MC ; Start 02/27/17 at 20:30; Stop 02/27/17 at 20 :31; Status Cancel Info (Do NOT chart on this placeholder) 1 each 1X ONCE MC ; Start 02/23/17 at 22:15; Stop 02/23/17 at 22:16; Status UNV Pneumococcal Polyvalent Vaccine (Do NOT chart on this placeholder) 1 each 1X ONCE MC ; Start 02/23/17 at 22:15; Stop 02/23/17 at 22:16; Status UNV Influenza Virus Vaccine Quadrival (Fluarix Quad [id number] Syringe) 0.5 ml ONCE ONCE VAX IM ; Start 02/24/17 at 09:00; Stop 02/24/17 at 09:01; Status DC Pneumococcal Polyvalent Vaccine (Pneumovax 23) 0.5 ml ONCE ONCE VAX IM ; Start 02/24/17 at 09:00; Stop 02/24/17 at 09:01; Status DC Ciprofloxacin/ Dextrose 200 ml @ 200 mls/hr Q12HR IV Last administered on 02/24t 11:00; Start 02/24/17 at 11:00 Active Scripts Active Prednisone 50 Mg Tablet 1 Tab PO DAILY Macrobid 100 Mg Capsule (Nitrofurantoin Monohyd/M-Cryst) 100 Mg Capsule 1 Cap PO BID Cyclobenzaprine Hcl 10 Mg Tablet 1 Tab PO TID PRN Folic Acid 1 Mg Tablet 1 Tab PO DAILY Reported Keflex (Cephalexin) 500 Mg Capsule 1 Cap PO TID 14 Days Acetaminophen 500 Mg Tablet 1,000 Mg PO PRN Q6HRS PRN Cyclobenzaprine Hcl 10 Mg Tablet 10 Mg PO Proair Hfa Inhaler (Albuterol Sulfate) 8.5 Gm Hfa.aer.ad 8.5 Gm IH Vitals/I & O Vital Sign - Last 24 Hours 02/23/17 02/23/17 02/23/17 02/23/17 15:39 16:35 17:17 17:30 Temp 98.2 98.2 Pulse 105 98 98 98 B/P (MAP) 160/93 (115) 149/70 (96) 166/78 (107) 156/71 (99) Pulse Ox 99 98 98 97 O2 Delivery Room Air Room Air Room Air 02/23/17 02/23/17 02/23/17 02/23/17 19:23 20:08 22:24 23:20 Temp 97.7 99.5 97.7 99.5 Pulse 96 20 101 Resp 20 20 B/P (MAP) 140/74 (96) 153/82 (105) 143/86 (105) Pulse Ox 10 99 O2 Delivery Room Air Room Air Room Air Room Air O2 Flow Rate 98.0 02/24/17 02/24/17 02/24/17 02/24/17 03:55 07:00 08:00 10:28 Temp 98.6 97.7 97.7 98.6 97.7 97.7 Pulse 99 102 102 Resp 18 20 20 B/P (MAP) 129/73 (91) 138/60 (86) 138/60 (86) Pulse Ox 96 98 O2 Delivery Room Air Room Air Room Air Room Air 02/24/17 02/24/17 10:42 11:49 Temp 97.7 97.7 Pulse 91 Resp 20 B/P (MAP) 146/77 (100) O2 Delivery Room Air Room Air ZACH SALDANA MD Feb 24, 2017 14:12
--- NOTE | 2017-02-24 15:43 | CONS ---
DATE OF CONSULTATION: 02/23/2017 REQUESTING PHYSICIAN: Dr. Steiner. REASON FOR CONSULTATION: Gram-negative sara in the blood. HISTORY OF PRESENT ILLNESS: This is a 61-year-old female with history of hypertension, kidney infection and stones in the past who came in with nausea, vomiting, abdominal pain and not feeling well. The patient even fell down. The patient was noted to have leukocytosis. The patient's blood culture done which is showing gram-negative sara in blood. Urinalysis abnormal and abdominal pelvic CT showing a large staghorn calculi in the left kidney and a smaller stone in the right kidney. The patient has been put on vancomycin and Zosyn and now, I discontinue vancomycin and added Cipro until we know the organism and susceptibilities. The patient is comfortable. She denies any right now, nausea, vomiting, diarrhea. Denies any abdominal pain. She does have urinary frequency, but that is all the time that way. She says she does not have any burning or pain with urination. Denies any headache, visual symptoms and denies any diarrhea. PAST MEDICAL HISTORY: Positive for hypertension, history of DVT, history of MRSA, cervical fusion done in the past, kidney infection and coronary artery disease with stenting done. The patient had partial gastrectomy. SOCIAL HISTORY: Negative for smoking, alcohol, illicit drug use. ALLERGIES: The patient is listed as allergic to DOXYCYCLINE, LEVOFLOXACIN although LEVOFLOXACIN she says is itching, she has taken Cipro without any problem. REVIEW OF SYSTEMS: As per HPI, all other systems reviewed are negative. CURRENT MEDICATIONS: Reviewed. PHYSICAL EXAMINATION: GENERAL: Alert, oriented female, not in distress. VITAL SIGNS: Stable, afebrile up to 99.5. HEENT: Anicteric. NECK: Supple, no JVP, no lymphadenopathy. LUNGS: Clear. HEART: S1, S2 regular. ABDOMEN: Benign. EXTREMITIES: No edema or cyanosis. SKIN: Unremarkable. NEUROLOGIC: Intact. LABORATORY DATA: White count is 14,000, down from 20,000. Platelets are 109,000. BUN 41, creatinine 2.8, which is improving. Urinalysis showed more than 40 wbc's. Blood culture is gram-negative sara and CT as I mentioned in HPI. IMPRESSION: 1. Urinary tract infection with sepsis. 2. Gram-negative sara bacteremia. 3. Leukocytosis. 4. Low grade fever. 5. Nausea, vomiting. 6. Kidney stones. RECOMMENDATION: Would continue Zosyn, discontinue vancomycin, added Cipro until identification and susceptibilities are known. Supportive care. We will adjust once the information is available and eventually, the patient is going to need a urologic workup with a possible lithotripsy or something like that. Although this is kidney stones, so it is not urgent and is not ureteral stone. Thank you very much, Dr. Steiner, for giving me the opportunity to participate in this patient's care. SANDRA HURLEY MD DR: LAYO/beth JOB#: [id number] / [id number]
[2017-02-24] MEDS: fentaNYL PF VIAL 100 MCG/2 ML VIAL IV PRN (17:31)
[2017-02-25] MEDS: fentaNYL PF VIAL 100 MCG/2 ML VIAL IV PRN (03:20)
[2017-02-25] MEDS: ONDANSETRON PF 4 MG/2 ML VIAL. IV PRN ×3 (03:20→22:03)
[2017-02-25 03:21] VITALS: BP 164/87
[2017-02-25] MEDS: PIPERACILLIN/TAZOBACTAM 2.25 GM in IV NORMAL SALINE 50ML 50 ML IV SCH ×3 (06:05→23:10)
[2017-02-25] MEDS: HEPARIN PF for SUB-Q USE 5,000 UNIT/0.5 ML VIAL. SQ SCH ×3 (06:08→22:16)
[2017-02-25 07:32] VITALS: BP 179/91
[2017-02-25 07:52] LABS: HEMATOCRIT 32.4 % (36.0-47.0); HEMOGLOBIN 10.5 g/dL (12.0-15.5); RED BLOOD COUNT 3.68 x10^6/uL (3.50-5.40); RED CELL DISTRIBUTION WIDTH 21.7 % (11.5-14.5); WHITE BLOOD COUNT 8.5 x10^3/uL (4.0-11.0)
[2017-02-25] MEDS: HYDROcodone/APAP 5/325MG 1 TAB TABLET PO PRN ×3 (09:05→22:03)
[2017-02-25] MEDS: FOLIC ACID 1 MG TABLET. PO SCH (09:05)
[2017-02-25] MEDS: CIPROFLOXACIN 400MG PREMIX 200 ML IV SCH ×2 (09:06→22:03)
[2017-02-25 09:50] LABS: CALCIUM 8.7 mg/dL (8.5-10.1); CREATININE 2.5 mg/dL (0.6-1.0); GFR 19.5
--- NOTE | 2017-02-25 09:52 | PDOC ---
Infectious Disease Note Subjective Subjective pt feeling ok, has headache ROS ROS GEN: Denies fevers, chills, sweats HEENT: Denies blurred vision, sore throat CV: Denies chest pain RESP: Denies shortness of air, cough GI: Denies n/v/d NEURO: Denies confusion, dizziness MSK: Denies weakness, joint pain/swelling Vital Sign Vital Signs Vital Signs Date Time Temp Pulse Resp B/P (MAP) Pulse Ox O2 Delivery O2 Flow Rate FiO2 02/25/17 09:05 98 Room Air 02/25/17 07:32 97.9 96 18 179/91 (120) 97.9 Physical Exam PHYSICAL EXAM GENERAL: NAD, Alert HEENT: PERRL, OC/OP NECK: Supple, no JVD, no LN LUNGS: Clear HEART: S1S2, no gallop, no murmur ABD: Soft, NT, no organomegaly, no rebound EXT: No edema, no cyanosis BEE ROBBER: Alert, oriented x 3, no focal neurologic deficit SKIN: No rash IV: ok Labs Lab Laboratory Tests Test 02/25/17 06:10 White Blood Count 8.5 x10^3/uL (4.0-11.0) Red Blood Count 3.68 x10^6/uL (3.50-5.40) Hemoglobin 10.5 g/dL (12.0-15.5) Hematocrit 32.4 % (36.0-47.0) Mean Corpuscular Volume 88 fL (79-100) Mean Corpuscular Hemoglobin 28 pg (25-35) Mean Corpuscular Hemoglobin Concent 32 g/dL (31-37) Red Cell Distribution Width 21.7 % (11.5-14.5) Platelet Count 103 x10^3/uL (140-400) C-Reactive Protein, Quantitative 311.8 mg/L (0-3.3) Micro BC g neg sara urine g neg sara Objective Assessment 1. Urinary tract infection with sepsis. 2. Gram-negative sara bacteremia. 3. Leukocytosis. 4. Low grade fever. 5. Nausea, vomiting. 6. Kidney stones. Plan Plan of Care cont antibiotics supprotive care check cultures and adjust SANDRA HURLEY MD Feb 25, 2017 09:52
[2017-02-25 10:40] VITALS: BP 158/86
--- NOTE | 2017-02-25 11:48 | PDOC ---
Renal-Progress Notes Subjective Notes Notes BETTER BUT STILL HAS NAUSEA AND NO APPETITE Vitals Vitals Vital Signs Date Time Temp Pulse Resp B/P (MAP) Pulse Ox O2 Delivery O2 Flow Rate FiO2 02/25/17 10:54 98 Room Air 98.0 02/25/17 10:40 97.9 88 18 158/86 (110) 97.9 Weight Weight [ ] I.O. Intake and Output Intake and Output 02/26/17 07:00 Intake Total 400 ml Output Total 1800 ml Balance -1400 ml Intake Oral 400 ml Output Urine Total 1800 ml Labs Labs Laboratory Tests Test 02/25/17 06:10 White Blood Count 8.5 x10^3/uL (4.0-11.0) Red Blood Count 3.68 x10^6/uL (3.50-5.40) Hemoglobin 10.5 g/dL (12.0-15.5) Hematocrit 32.4 % (36.0-47.0) Mean Corpuscular Volume 88 fL (79-100) Mean Corpuscular Hemoglobin 28 pg (25-35) Mean Corpuscular Hemoglobin Concent 32 g/dL (31-37) Red Cell Distribution Width 21.7 % (11.5-14.5) Platelet Count 103 x10^3/uL (140-400) Sodium Level 139 mmol/L (136-145) Potassium Level 4.0 mmol/L (3.5-5.1) Chloride Level 109 mmol/L (98-107) Carbon Dioxide Level 18 mmol/L (21-32) Anion Gap 12 (6-14) Blood Urea Nitrogen 40 mg/dL (7-20) Creatinine 2.5 mg/dL (0.6-1.0) Estimated GFR (Cockcroft-Gault) 19.5 Glucose Level 138 mg/dL (70-99) Calcium Level 8.7 mg/dL (8.5-10.1) C-Reactive Protein, Quantitative 311.8 mg/L (0-3.3) Micro Micro Microbiology 02/23/17 Blood Culture - Preliminary, Resulted 02/23/17 Blood Culture Result 1 (LINDSAY) - Preliminary, Resulted 02/23/17 Urine Culture - Preliminary, Resulted 02/23/17 Urine Culture Result 1 (LINDSAY) - Preliminary, Resulted Review of Systems Constitutional: yes: sweats, malaise, weakness, alert, oriented Ears/Nose/Throat: Yes: no symptom reported Eyes: Yes: no symptom reported Pulmonary: Yes no symptom reported Cardiovascular: Yes no symptom reported Gastrointestional: Yes: nausea, vomiting Genitourinary: Yes: no symptom reported Musculoskeletal: Yes: no symptom reported Skin: Yes no symptom reported Psychiatric/Neurological: Yes: no symptom reported Endocrine: Yes: no symptom reported Physical Exam General Appearance: no apparent distress Respiratory: bilateral CTA Abdomen: soft, bowel sounds present Genitourinary: bladder flat Extremities: pulses present Neurology: alert, oriented Assessment Assessment IMP BHUPENDRA BETTER WITH CR DOWN TO 2.5 CKD STAGE 3 WITH CR OF 1.5 DEHYDRATION LEUCOCYTOSIS UTI NON OBSTRUCTING RENAL STONES PLAN IVF'S ANTIBIOTICS LABS IN AM ENC PO TOLERATED DARWIN ANNE MD Feb 25, 2017 11:48
[2017-02-25 14:18] VITALS: BP 160/99
--- NOTE | 2017-02-25 16:28 | PDOC ---
PROGRESS NOTES Chief Complaint Chief Complaint sepsis, likely 2/2 UTI bl kidney stones with h/o UTI BHUPENDRA on CKD 3, vasomotor h/o dvt no AC htn H/O anemia h/o MRSA H/O CAD with PCI h/o partial gastrectomy with chronic diarrhea mild malnutrition POA History of Present Illness History of Present Illness IV fluid given percocet for GARCIA renal, id consult following cont home meds ADAT Vitals Vitals Vital Signs Date Time Temp Pulse Resp B/P (MAP) Pulse Ox O2 Delivery O2 Flow Rate FiO2 02/25/17 14:18 97.8 89 18 160/99 (119) 96 Room Air 97.8 02/25/17 10:54 98.0 Physical Exam General: Alert, Oriented X3, Cooperative, No acute distress Heart: Regular rate, Normal S2 Abdomen: Normal bowel sounds, Soft, No tenderness Extremities: No clubbing, Normal pulses Skin: No breakdown, No significant lesion Labs LABS Laboratory Tests Test 02/25/17 06:10 White Blood Count 8.5 x10^3/uL (4.0-11.0) Red Blood Count 3.68 x10^6/uL (3.50-5.40) Hemoglobin 10.5 g/dL (12.0-15.5) Hematocrit 32.4 % (36.0-47.0) Mean Corpuscular Volume 88 fL (79-100) Mean Corpuscular Hemoglobin 28 pg (25-35) Mean Corpuscular Hemoglobin Concent 32 g/dL (31-37) Red Cell Distribution Width 21.7 % (11.5-14.5) Platelet Count 103 x10^3/uL (140-400) Sodium Level 139 mmol/L (136-145) Potassium Level 4.0 mmol/L (3.5-5.1) Chloride Level 109 mmol/L (98-107) Carbon Dioxide Level 18 mmol/L (21-32) Anion Gap 12 (6-14) Blood Urea Nitrogen 40 mg/dL (7-20) Creatinine 2.5 mg/dL (0.6-1.0) Estimated GFR (Cockcroft-Gault) 19.5 Glucose Level 138 mg/dL (70-99) Calcium Level 8.7 mg/dL (8.5-10.1) C-Reactive Protein, Quantitative 311.8 mg/L (0-3.3) Review of Systems Review of Systems headache, nausea, poor PO intake, mostly clears Assessment and Plan Assessmemt and Plan Problems Medical Problems: (1) Abdominal pain Status: Acute (2) Acute on chronic renal failure Status: Acute (3) Dehydration Status: Acute (4) Intractable nausea and vomiting Status: Acute (5) Leukocytosis Status: Acute Problems: Comment Review of Relevant I have reviewed the following items joanna (where applicable) has been applied. Labs Laboratory Tests Test 02/23/17 17:30 02/23/17 19:35 02/23/17 20:00 02/23/17 20:45 Urine Collection Type Unknown Urine Color Yellow Urine Clarity Cloudy Urine pH 8.5 Urine Specific [place] 1.015 Urine Protein 100 mg/dL (NEG-TRACE) Urine Glucose (UA) Negative mg/dL (NEG) Urine Ketones (Stick) Negative mg/dL (NEG) Urine Blood Large (NEG) Urine Nitrite Negative (NEG) Urine Bilirubin Negative (NEG) Urine Urobilinogen Dipstick 0.2 mg/dL (0.2 mg/dL) Urine Leukocyte Esterase Large (NEG) Urine RBC 3-5 /HPF (0-2) Urine WBC >40 /HPF (0-4) Urine Squamous Epithelial Cells Mod /LPF Urine Bacteria Many /HPF (0-FEW) Lactic Acid Level 1.4 mmol/L (0.4-2.0) 2.7 mmol/L (0.4-2.0) Nasal Screen MRSA (PCR) Negative (Negative) Test 02/24/17 04:58 02/25/17 06:10 White Blood Count 14.5 x10^3/uL (4.0-11.0) 8.5 x10^3/uL (4.0-11.0) Red Blood Count 4.03 x10^6/uL (3.50-5.40) 3.68 x10^6/uL (3.50-5.40) Hemoglobin 11.5 g/dL (12.0-15.5) 10.5 g/dL (12.0-15.5) Hematocrit 34.8 % (36.0-47.0) 32.4 % (36.0-47.0) Mean Corpuscular Volume 86 fL (79-100) 88 fL (79-100) Mean Corpuscular Hemoglobin 29 pg (25-35) 28 pg (25-35) Mean Corpuscular Hemoglobin Concent 33 g/dL (31-37) 32 g/dL (31-37) Red Cell Distribution Width 22.0 % (11.5-14.5) 21.7 % (11.5-14.5) Platelet Count 109 x10^3/uL (140-400) 103 x10^3/uL (140-400) Neutrophils (%) (Auto) 90 % (31-73) Lymphocytes (%) (Auto) 4 % (24-48) Monocytes (%) (Auto) 6 % (0-9) Eosinophils (%) (Auto) 0 % (0-3) Basophils (%) (Auto) 0 % (0-3) Neutrophils # (Auto) 13.1 x10^3uL (1.8-7.7) Lymphocytes # (Auto) 0.5 x10^3/uL (1.0-4.8) Monocytes # (Auto) 0.8 x10^3/uL (0.0-1.1) Eosinophils # (Auto) 0.0 x10^3/uL (0.0-0.7) Basophils # (Auto) 0.1 x10^3/uL (0.0-0.2) Sodium Level 140 mmol/L (136-145) 139 mmol/L (136-145) Potassium Level 4.3 mmol/L (3.5-5.1) 4.0 mmol/L (3.5-5.1) Chloride Level 108 mmol/L (98-107) 109 mmol/L (98-107) Carbon Dioxide Level 19 mmol/L (21-32) 18 mmol/L (21-32) Anion Gap 13 (6-14) 12 (6-14) Blood Urea Nitrogen 41 mg/dL (7-20) 40 mg/dL (7-20) Creatinine 2.8 mg/dL (0.6-1.0) 2.5 mg/dL (0.6-1.0) Estimated GFR (Cockcroft-Gault) 17.1 19.5 Glucose Level 181 mg/dL (70-99) 138 mg/dL (70-99) Calcium Level 8.5 mg/dL (8.5-10.1) 8.7 mg/dL (8.5-10.1) C-Reactive Protein, Quantitative 311.8 mg/L (0-3.3) Laboratory Tests Test 02/25/17 06:10 White Blood Count 8.5 x10^3/uL (4.0-11.0) Red Blood Count 3.68 x10^6/uL (3.50-5.40) Hemoglobin 10.5 g/dL (12.0-15.5) Hematocrit 32.4 % (36.0-47.0) Mean Corpuscular Volume 88 fL (79-100) Mean Corpuscular Hemoglobin 28 pg (25-35) Mean Corpuscular Hemoglobin Concent 32 g/dL (31-37) Red Cell Distribution Width 21.7 % (11.5-14.5) Platelet Count 103 x10^3/uL (140-400) Sodium Level 139 mmol/L (136-145) Potassium Level 4.0 mmol/L (3.5-5.1) Chloride Level 109 mmol/L (98-107) Carbon Dioxide Level 18 mmol/L (21-32) Anion Gap 12 (6-14) Blood Urea Nitrogen 40 mg/dL (7-20) Creatinine 2.5 mg/dL (0.6-1.0) Estimated GFR (Cockcroft-Gault) 19.5 Glucose Level 138 mg/dL (70-99) Calcium Level 8.7 mg/dL (8.5-10.1) C-Reactive Protein, Quantitative 311.8 mg/L (0-3.3) Microbiology 02/23/17 Blood Culture - Preliminary, Resulted 02/23/17 Blood Culture Result 1 (LINDSAY) - Preliminary, Resulted 02/23/17 Urine Culture - Final, Complete 02/23/17 Urine Culture Result 1 (LINDSAY) - Final, Complete 02/23/17 Antimicrobic Susceptibility - Final, Complete Medications Current Medications Fentanyl Citrate (Fentanyl 2ml Vial) 50 mcg PRN Q15MIN PRN IV PAIN GREATER THAN 3/10 Last administered on 02/23/17 17:21; Start 02/23/17 at 16:00; Stop at 20:30; Status DC Sodium Chloride 1,000 ml @ 1,000 mls/hr Q1H IV Last administered on 02/23/17 16:19; Start 02/23/17 at 15:51; Stop 02/23/17 at 16:50; Status DC Ondansetron HCl (Zofran) 4 mg 1X ONCE IV Last administered on 02/23/17 16:33 ; Start 02/23/17 at 16:00; Stop 02/23/17 at 16:01; Status DC Ondansetron HCl (Zofran) 4 mg 1X ONCE IV Last administered on 02/23/17 17:37 ; Start 02/23/17 at 17:30; Stop 02/23/17 at 17:33; Status DC Sodium Chloride 1,000 ml @ 1,000 mls/hr 1X ONCE IV Last administered on 19:26; Start 02/23/17 at 18:30; Stop 02/23/17 at 19:29; Status DC Sodium Chloride 600 ml @ 1,000 mls/hr 1X ONCE IV Last administered on 20:44; Start 02/23/17 at 18:30; Stop 02/23/17 at 19:05; Status DC Piperacillin Sod/ Tazobactam Sod (Zosyn Per Pharmacy) 1 each PRN DAILY PRN MC SEE COMMENTS; Start 02/23/17 at 18:30 Ondansetron HCl (Zofran) 4 mg PRN Q8HRS PRN IV NAUSEA/VOMITING Last administered on 02/23/17 19:57; Start 02/23/17 at 18:30; Stop 02/23/17 at 20:30 ; Status DC Fentanyl Citrate (Fentanyl 2ml Vial) 50 mcg PRN Q2HR PRN IV PAIN; Start at 18:30; Stop 02/23/17 at 20:30; Status DC Sodium Chloride 1,000 ml @ 150 mls/hr Q6H40M IV Last administered on 14:27; Start 02/23/17 at 18:27; Stop 02/24/17 at 18:26; Status DC Acetaminophen (Tylenol) 650 mg PRN Q4HRS PRN PO FEVER Last administered on 02/23 20:50; Start 02/23/17 at 18:30; Stop 02/24/17 at 18:29; Status DC Piperacillin Sod/ Tazobactam Sod 2.25 gm/Sodium Chloride 50 ml @ 100 mls/hr 1X ONCE IV Last administered on 02/23/17 19:48; Start 02/23/17 at 19:00; Stop 02/23/17 at 19:29; Status DC Piperacillin Sod/ Tazobactam Sod 2.25 gm/Sodium Chloride 50 ml @ 100 mls/hr Q8HRS IV ; Start 02/23/17 at 05:00; Status Cancel Cyclobenzaprine HCl (Flexeril) 10 mg PRN TID PRN PO MUSCLE PAIN Last administered on 02/23/17 20:50; Start 02/23/17 at 19:00 Folic Acid (Folic Acid) 1 mg DAILY PO Last administered on 02/25/17 09:05; Start 02/24/17 at 09:00 Acetaminophen (Tylenol) 650 mg PRN Q6HRS PRN PO FEVER Last administered on 02/24 22:27; Start 02/23/17 at 19:00 Ondansetron HCl (Zofran) 4 mg PRN Q6HRS PRN IV NAUSEA/VOMITING Last administered on 02/25/17 10:51; Start 02/23/17 at 19:00 Hydralazine HCl (Apresoline) 10 mg PRN Q4HRS PRN IVP ELEVATED BP, SEE COMMENTS ; Start 02/23/17 at 19:00 Docusate Sodium (Colace) 100 mg PRN DAILY PRN PO CONSTIPATION; Start 02/23/17 at 19:00 Fentanyl Citrate (Fentanyl 2ml Vial) 50 mcg PRN Q2HR PRN IV PAIN Last administered on 02/25/17 03:20; Start 02/23/17 at 19:00 Heparin Sodium (Porcine) (Heparin Sq) 5,000 unit Q8HRS SQ Last administered on 02/25/17 14:22; Start 02/23/17 at 20:00 Vancomycin HCl 2 gm/Sodium Chloride 500 ml @ 250 mls/hr 1X ONCE IV Last administered on 02/23/17 20:50; Start 02/23/17 at 20:00; Stop 02/23/17 at 21:59 ; Status DC Vancomycin HCl (Vanco Per Pharmacy) 1 each PRN DAILY PRN MC SEE COMMENTS Last administered on 02/23/17 21:28; Start 02/23/17 at 19:15; Stop 02/24/17 at 08:57 ; Status DC Piperacillin Sod/ Tazobactam Sod 2.25 gm/Sodium Chloride 50 ml @ 100 mls/hr Q8HRS IV Last administered on 02/25/17 14:10; Start 02/24/17 at 05:00 Vancomycin HCl 1.25 gm/Sodium Chloride 250 ml @ 167 mls/hr Q48H IV ; Start at 21:00; Stop 02/25/17 at 21:00; Status DC Vancomycin HCl 1 each 1X ONCE MC ; Start 02/27/17 at 20:30; Stop 02/27/17 at 20 :31; Status Cancel Info (Do NOT chart on this placeholder) 1 each 1X ONCE MC ; Start 02/23/17 at 22:15; Stop 02/23/17 at 22:16; Status UNV Pneumococcal Polyvalent Vaccine (Do NOT chart on this placeholder) 1 each 1X ONCE MC ; Start 02/23/17 at 22:15; Stop 02/23/17 at 22:16; Status UNV Influenza Virus Vaccine Quadrival (Fluarix Quad [id number] Syringe) 0.5 ml ONCE ONCE VAX IM ; Start 02/24/17 at 09:00; Stop 02/24/17 at 09:01; Status DC Pneumococcal Polyvalent Vaccine (Pneumovax 23) 0.5 ml ONCE ONCE VAX IM ; Start 02/24/17 at 09:00; Stop 02/24/17 at 09:01; Status DC Ciprofloxacin/ Dextrose 200 ml @ 200 mls/hr Q12HR IV Last administered on 02/25 09:06; Start 02/24/17 at 11:00 Acetaminophen/ Hydrocodone Bitart (Lortab 5/325) 1 tab PRN Q4HRS PRN PO PAIN Last administered on 02/25/17 14:09; Start 02/25/17 at 09:00 Active Scripts Active Prednisone 50 Mg Tablet 1 Tab PO DAILY Macrobid 100 Mg Capsule (Nitrofurantoin Monohyd/M-Cryst) 100 Mg Capsule 1 Cap PO BID Cyclobenzaprine Hcl 10 Mg Tablet 1 Tab PO TID PRN Folic Acid 1 Mg Tablet 1 Tab PO DAILY Reported Keflex (Cephalexin) 500 Mg Capsule 1 Cap PO TID 14 Days Acetaminophen 500 Mg Tablet 1,000 Mg PO PRN Q6HRS PRN Cyclobenzaprine Hcl 10 Mg Tablet 10 Mg PO Proair Hfa Inhaler (Albuterol Sulfate) 8.5 Gm Hfa.aer.ad 8.5 Gm IH Vitals/I & O Vital Sign - Last 24 Hours 02/24/17 02/24/17 02/24/17 02/24/17 17:31 18:35 19:19 20:10 Temp 99.0 99.0 Pulse 101 Resp 18 B/P (MAP) 168/88 (114) Pulse Ox 98 98 99 O2 Delivery Room Air Room Air Room Air Room Air 02/24/17 02/25/17 02/25/17 02/25/17 23:09 03:21 07:32 08:00 Temp 98.4 97.9 97.9 98.4 97.9 97.9 Pulse 96 91 96 Resp 18 18 18 B/P (MAP) 176/81 (112) 164/87 (112) 179/91 (120) Pulse Ox 96 98 98 O2 Delivery Room Air Room Air Room Air Room Air 02/25/17 02/25/17 02/25/17 02/25/17 09:05 10:40 10:54 14:09 Temp 97.9 97.9 Pulse 88 Resp 18 B/P (MAP) 158/86 (110) Pulse Ox 98 98 98 98 O2 Delivery Room Air Room Air Room Air Room Air O2 Flow Rate 98.0 02/25/17 14:18 Temp 97.8 97.8 Pulse 89 Resp 18 B/P (MAP) 160/99 (119) Pulse Ox 96 O2 Delivery Room Air Intake and Output 02/25/17 02/25/17 02/26/17 15:00 23:00 07:00 Intake Total 400 ml 660 ml Output Total 1800 ml Balance -1400 ml 660 ml ZACH SALDANA MD Feb 25, 2017 16:28
[2017-02-25 19:00] VITALS: BP 177/90
[2017-02-25] MEDS ORDERED: VANCOMYCIN 1.25 GM in IV NORMAL SALINE 250ML 250 ML IV SCH (21:00)
[2017-02-25] MEDS: CYCLOBENZAPRINE 10 MG TABLET. PO PRN (22:02)
[2017-02-25 22:34] VITALS: BP 182/101
[2017-02-25] MEDS: hydrALAZINE 20 MG/ML VIAL. IVP PRN (23:16)
[2017-02-26 02:42] VITALS: BP 159/84
[2017-02-26] MEDS: HYDROcodone/APAP 5/325MG 1 TAB TABLET PO PRN ×2 (05:38→12:37)
[2017-02-26 06:10] LABS: BASO % 0 % (0-3); EOS % 3 % (0-3); HEMATOCRIT 33.9 % (36.0-47.0); HEMOGLOBIN 11.3 g/dL (12.0-15.5); LYMPH # 0.6 x10^3/uL (1.0-4.8); LYMPH % 9 % (24-48); MEAN CORPUSCULAR HEMOGLOBIN 29 pg (25-35); MEAN CORPUSCULAR HGB CONC 33 g/dL (31-37); MEAN CORPUSCULAR VOLUME 87 fL (79-100); MONO % 8 % (0-9); NEUT % 81 % (31-73); PLATELET COUNT 122 x10^3/uL (140-400); RED CELL DISTRIBUTION WIDTH 21.2 % (11.5-14.5); WHITE BLOOD COUNT 7.3 x10^3/uL (4.0-11.0)
[2017-02-26] MEDS: ONDANSETRON PF 4 MG/2 ML VIAL. IV PRN (06:34)
[2017-02-26] MEDS: PIPERACILLIN/TAZOBACTAM 2.25 GM in IV NORMAL SALINE 50ML 50 ML IV SCH (06:34)
[2017-02-26 06:37] LABS: CREATININE 2.3 mg/dL (0.6-1.0); GFR 21.5
[2017-02-26] MEDS: HEPARIN PF for SUB-Q USE 5,000 UNIT/0.5 ML VIAL. SQ SCH ×3 (06:42→21:06)
[2017-02-26 06:58] VITALS: BP 157/91
[2017-02-26] MEDS: CIPROFLOXACIN 400MG PREMIX 200 ML IV SCH ×2 (09:34→20:54)
[2017-02-26] MEDS: FOLIC ACID 1 MG TABLET. PO SCH (09:34)
--- NOTE | 2017-02-26 10:08 | PDOC ---
PROGRESS NOTES Chief Complaint Chief Complaint sepsis, likely 2/2 UTI bl kidney stones with h/o UTI nausea, poor po intake, Hx GERD and ulcers, gastrectomy surg 1988 BHUPENDRA on CKD 3, vasomotor h/o dvt no AC htn H/O anemia h/o MRSA H/O CAD with PCI h/o partial gastrectomy with chronic diarrhea mild malnutrition POA History of Present Illness History of Present Illness on clear liquids, try fulls, consult GI, give H2 IV x1, Hx GERD, nausea persists headache gone cont current, mult abx id consult following Vitals Vitals Vital Signs Date Time Temp Pulse Resp B/P (MAP) Pulse Ox O2 Delivery O2 Flow Rate FiO2 02/26/17 06:58 98.1 84 18 157/91 (113) 96 Room Air 98.1 02/25/17 10:54 98.0 Physical Exam General: Alert, Oriented X3, Cooperative, No acute distress Heart: Regular rate, Normal S2 Abdomen: Normal bowel sounds, Soft, No tenderness Extremities: No clubbing, Normal pulses Skin: No breakdown, No significant lesion Labs LABS Laboratory Tests Test 02/26/17 05:50 White Blood Count 7.3 x10^3/uL (4.0-11.0) Red Blood Count 3.90 x10^6/uL (3.50-5.40) Hemoglobin 11.3 g/dL (12.0-15.5) Hematocrit 33.9 % (36.0-47.0) Mean Corpuscular Volume 87 fL (79-100) Mean Corpuscular Hemoglobin 29 pg (25-35) Mean Corpuscular Hemoglobin Concent 33 g/dL (31-37) Red Cell Distribution Width 21.2 % (11.5-14.5) Platelet Count 122 x10^3/uL (140-400) Neutrophils (%) (Auto) 81 % (31-73) Lymphocytes (%) (Auto) 9 % (24-48) Monocytes (%) (Auto) 8 % (0-9) Eosinophils (%) (Auto) 3 % (0-3) Basophils (%) (Auto) 0 % (0-3) Neutrophils # (Auto) 5.9 x10^3uL (1.8-7.7) Lymphocytes # (Auto) 0.6 x10^3/uL (1.0-4.8) Monocytes # (Auto) 0.6 x10^3/uL (0.0-1.1) Eosinophils # (Auto) 0.2 x10^3/uL (0.0-0.7) Basophils # (Auto) 0.0 x10^3/uL (0.0-0.2) Sodium Level 140 mmol/L (136-145) Potassium Level 4.0 mmol/L (3.5-5.1) Chloride Level 109 mmol/L (98-107) Carbon Dioxide Level 20 mmol/L (21-32) Anion Gap 11 (6-14) Blood Urea Nitrogen 31 mg/dL (7-20) Creatinine 2.3 mg/dL (0.6-1.0) Estimated GFR (Cockcroft-Gault) 21.5 Glucose Level 115 mg/dL (70-99) Calcium Level 9.0 mg/dL (8.5-10.1) Review of Systems Review of Systems nausea weakness Assessment and Plan Assessmemt and Plan Problems Medical Problems: (1) Abdominal pain Status: Acute (2) Acute on chronic renal failure Status: Acute (3) Dehydration Status: Acute (4) Intractable nausea and vomiting Status: Acute (5) Leukocytosis Status: Acute Problems: Comment Review of Relevant I have reviewed the following items joanna (where applicable) has been applied. Labs Laboratory Tests Test 02/25/17 06:10 02/26/17 05:50 White Blood Count 8.5 x10^3/uL (4.0-11.0) 7.3 x10^3/uL (4.0-11.0) Red Blood Count 3.68 x10^6/uL (3.50-5.40) 3.90 x10^6/uL (3.50-5.40) Hemoglobin 10.5 g/dL (12.0-15.5) 11.3 g/dL (12.0-15.5) Hematocrit 32.4 % (36.0-47.0) 33.9 % (36.0-47.0) Mean Corpuscular Volume 88 fL (79-100) 87 fL (79-100) Mean Corpuscular Hemoglobin 28 pg (25-35) 29 pg (25-35) Mean Corpuscular Hemoglobin Concent 32 g/dL (31-37) 33 g/dL (31-37) Red Cell Distribution Width 21.7 % (11.5-14.5) 21.2 % (11.5-14.5) Platelet Count 103 x10^3/uL (140-400) 122 x10^3/uL (140-400) Sodium Level 139 mmol/L (136-145) 140 mmol/L (136-145) Potassium Level 4.0 mmol/L (3.5-5.1) 4.0 mmol/L (3.5-5.1) Chloride Level 109 mmol/L (98-107) 109 mmol/L (98-107) Carbon Dioxide Level 18 mmol/L (21-32) 20 mmol/L (21-32) Anion Gap 12 (6-14) 11 (6-14) Blood Urea Nitrogen 40 mg/dL (7-20) 31 mg/dL (7-20) Creatinine 2.5 mg/dL (0.6-1.0) 2.3 mg/dL (0.6-1.0) Estimated GFR (Cockcroft-Gault) 19.5 21.5 Glucose Level 138 mg/dL (70-99) 115 mg/dL (70-99) Calcium Level 8.7 mg/dL (8.5-10.1) 9.0 mg/dL (8.5-10.1) C-Reactive Protein, Quantitative 311.8 mg/L (0-3.3) Neutrophils (%) (Auto) 81 % (31-73) Lymphocytes (%) (Auto) 9 % (24-48) Monocytes (%) (Auto) 8 % (0-9) Eosinophils (%) (Auto) 3 % (0-3) Basophils (%) (Auto) 0 % (0-3) Neutrophils # (Auto) 5.9 x10^3uL (1.8-7.7) Lymphocytes # (Auto) 0.6 x10^3/uL (1.0-4.8) Monocytes # (Auto) 0.6 x10^3/uL (0.0-1.1) Eosinophils # (Auto) 0.2 x10^3/uL (0.0-0.7) Basophils # (Auto) 0.0 x10^3/uL (0.0-0.2) Laboratory Tests Test 9/27/17 05:50 White Blood Count 7.3 x10^3/uL (4.0-11.0) Red Blood Count 3.90 x10^6/uL (3.50-5.40) Hemoglobin 11.3 g/dL (12.0-15.5) Hematocrit 33.9 % (36.0-47.0) Mean Corpuscular Volume 87 fL (79-100) Mean Corpuscular Hemoglobin 29 pg (25-35) Mean Corpuscular Hemoglobin Concent 33 g/dL (31-37) Red Cell Distribution Width 21.2 % (11.5-14.5) Platelet Count 122 x10^3/uL (140-400) Neutrophils (%) (Auto) 81 % (31-73) Lymphocytes (%) (Auto) 9 % (24-48) Monocytes (%) (Auto) 8 % (0-9) Eosinophils (%) (Auto) 3 % (0-3) Basophils (%) (Auto) 0 % (0-3) Neutrophils # (Auto) 5.9 x10^3uL (1.8-7.7) Lymphocytes # (Auto) 0.6 x10^3/uL (1.0-4.8) Monocytes # (Auto) 0.6 x10^3/uL (0.0-1.1) Eosinophils # (Auto) 0.2 x10^3/uL (0.0-0.7) Basophils # (Auto) 0.0 x10^3/uL (0.0-0.2) Sodium Level 140 mmol/L (136-145) Potassium Level 4.0 mmol/L (3.5-5.1) Chloride Level 109 mmol/L (98-107) Carbon Dioxide Level 20 mmol/L (21-32) Anion Gap 11 (6-14) Blood Urea Nitrogen 31 mg/dL (7-20) Creatinine 2.3 mg/dL (0.6-1.0) Estimated GFR (Cockcroft-Gault) 21.5 Glucose Level 115 mg/dL (70-99) Calcium Level 9.0 mg/dL (8.5-10.1) Microbiology 02/23/17 Blood Culture - Preliminary, Resulted 02/23/17 Blood Culture Result 1 (LINDSAY) - Preliminary, Resulted 02/23/17 Blood Culture Result 2 (LINDSAY) - Preliminary, Resulted 02/23/17 Urine Culture - Final, Complete 02/23/17 Urine Culture Result 1 (LINDSAY) - Final, Complete 02/23/17 Antimicrobic Susceptibility - Final, Complete Medications Current Medications Fentanyl Citrate (Fentanyl 2ml Vial) 50 mcg PRN Q15MIN PRN IV PAIN GREATER THAN 3/10 Last administered on 02/23/17 17:21; Start 02/23/17 at 16:00; Stop at 20:30; Status DC Sodium Chloride 1,000 ml @ 1,000 mls/hr Q1H IV Last administered on 02/23/17 16:19; Start 02/23/17 at 15:51; Stop 02/23/17 at 16:50; Status DC Ondansetron HCl (Zofran) 4 mg 1X ONCE IV Last administered on 02/23/17 16:33 ; Start 02/23/17 at 16:00; Stop 02/23/17 at 16:01; Status DC Ondansetron HCl (Zofran) 4 mg 1X ONCE IV Last administered on 02/23/17 17:37 ; Start 02/23/17 at 17:30; Stop 02/23/17 at 17:33; Status DC Sodium Chloride 1,000 ml @ 1,000 mls/hr 1X ONCE IV Last administered on 19:26; Start 02/23/17 at 18:30; Stop 02/23/17 at 19:29; Status DC Sodium Chloride 600 ml @ 1,000 mls/hr 1X ONCE IV Last administered on 20:44; Start 02/23/17 at 18:30; Stop 02/23/17 at 19:05; Status DC Piperacillin Sod/ Tazobactam Sod (Zosyn Per Pharmacy) 1 each PRN DAILY PRN MC SEE COMMENTS; Start 02/23/17 at 18:30 Ondansetron HCl (Zofran) 4 mg PRN Q8HRS PRN IV NAUSEA/VOMITING Last administered on 02/23/17 19:57; Start 02/23/17 at 18:30; Stop 02/23/17 at 20:30 ; Status DC Fentanyl Citrate (Fentanyl 2ml Vial) 50 mcg PRN Q2HR PRN IV PAIN; Start at 18:30; Stop 02/23/17 at 20:30; Status DC Sodium Chloride 1,000 ml @ 150 mls/hr Q6H40M IV Last administered on 14:27; Start 02/23/17 at 18:27; Stop 02/24/17 at 18:26; Status DC Acetaminophen (Tylenol) 650 mg PRN Q4HRS PRN PO FEVER Last administered on 02/23 20:50; Start 02/23/17 at 18:30; Stop 02/24/17 at 18:29; Status DC Piperacillin Sod/ Tazobactam Sod 2.25 gm/Sodium Chloride 50 ml @ 100 mls/hr 1X ONCE IV Last administered on 02/23/17 19:48; Start 02/23/17 at 19:00; Stop 02/23/17 at 19:29; Status DC Piperacillin Sod/ Tazobactam Sod 2.25 gm/Sodium Chloride 50 ml @ 100 mls/hr Q8HRS IV ; Start 02/23/17 at 05:00; Status Cancel Cyclobenzaprine HCl (Flexeril) 10 mg PRN TID PRN PO MUSCLE PAIN Last administered on 02/25/17 22:02; Start 02/23/17 at 19:00 Folic Acid (Folic Acid) 1 mg DAILY PO Last administered on 02/26/17 09:34; Start 02/24/17 at 09:00 Acetaminophen (Tylenol) 650 mg PRN Q6HRS PRN PO FEVER Last administered on 02/24 22:27; Start 02/23/17 at 19:00 Ondansetron HCl (Zofran) 4 mg PRN Q6HRS PRN IV NAUSEA/VOMITING Last administered on 02/26/17 06:34; Start 02/23/17 at 19:00 Hydralazine HCl (Apresoline) 10 mg PRN Q4HRS PRN IVP ELEVATED BP, SEE COMMENTS Last administered on 02/25/17 23:16; Start 02/23/17 at 19:00 Docusate Sodium (Colace) 100 mg PRN DAILY PRN PO CONSTIPATION; Start 02/23/17 at 19:00 Fentanyl Citrate (Fentanyl 2ml Vial) 50 mcg PRN Q2HR PRN IV PAIN Last administered on 02/25/17 03:20; Start 02/23/17 at 19:00 Heparin Sodium (Porcine) (Heparin Sq) 5,000 unit Q8HRS SQ Last administered on 02/26/17 06:42; Start 02/23/17 at 20:00 Vancomycin HCl 2 gm/Sodium Chloride 500 ml @ 250 mls/hr 1X ONCE IV Last administered on 02/23/17 20:50; Start 02/23/17 at 20:00; Stop 02/23/17 at 21:59 ; Status DC Vancomycin HCl (Vanco Per Pharmacy) 1 each PRN DAILY PRN MC SEE COMMENTS Last administered on 02/23/17 21:28; Start 02/23/17 at 19:15; Stop 02/24/17 at 08:57 ; Status DC Piperacillin Sod/ Tazobactam Sod 2.25 gm/Sodium Chloride 50 ml @ 100 mls/hr Q8HRS IV Last administered on 02/26/17 06:34; Start 02/24/17 at 05:00 Vancomycin HCl 1.25 gm/Sodium Chloride 250 ml @ 167 mls/hr Q48H IV ; Start at 21:00; Stop 02/25/17 at 21:00; Status DC Vancomycin HCl 1 each 1X ONCE MC ; Start 02/27/17 at 20:30; Stop 02/27/17 at 20 :31; Status Cancel Info (Do NOT chart on this placeholder) 1 each 1X ONCE MC ; Start 02/23/17 at 22:15; Stop 02/23/17 at 22:16; Status UNV Pneumococcal Polyvalent Vaccine (Do NOT chart on this placeholder) 1 each 1X ONCE MC ; Start 02/23/17 at 22:15; Stop 02/23/17 at 22:16; Status UNV Influenza Virus Vaccine Quadrival (Fluarix Quad [id number] Syringe) 0.5 ml ONCE ONCE VAX IM ; Start 02/24/17 at 09:00; Stop 02/24/17 at 09:01; Status DC Pneumococcal Polyvalent Vaccine (Pneumovax 23) 0.5 ml ONCE ONCE VAX IM ; Start 02/24/17 at 09:00; Stop 02/24/17 at 09:01; Status DC Ciprofloxacin/ Dextrose 200 ml @ 200 mls/hr Q12HR IV Last administered on 02/26 09:34; Start 02/24/17 at 11:00 Acetaminophen/ Hydrocodone Bitart (Lortab 5/325) 1 tab PRN Q4HRS PRN PO PAIN Last administered on 02/26/17 05:38; Start 02/25/17 at 09:00 Active Scripts Active Prednisone 50 Mg Tablet 1 Tab PO DAILY Macrobid 100 Mg Capsule (Nitrofurantoin Monohyd/M-Cryst) 100 Mg Capsule 1 Cap PO BID Cyclobenzaprine Hcl 10 Mg Tablet 1 Tab PO TID PRN Folic Acid 1 Mg Tablet 1 Tab PO DAILY Reported Keflex (Cephalexin) 500 Mg Capsule 1 Cap PO TID 14 Days Acetaminophen 500 Mg Tablet 1,000 Mg PO PRN Q6HRS PRN Cyclobenzaprine Hcl 10 Mg Tablet 10 Mg PO Proair Hfa Inhaler (Albuterol Sulfate) 8.5 Gm Hfa.aer.ad 8.5 Gm IH Vitals/I & O Vital Sign - Last 24 Hours 02/25/17 02/25/17 02/25/17 02/25/17 10:40 10:54 14:09 14:18 Temp 97.9 97.8 97.9 97.8 Pulse 88 89 Resp 18 18 B/P (MAP) 158/86 (110) 160/99 (119) Pulse Ox 98 98 96 O2 Delivery Room Air Room Air Room Air O2 Flow Rate 98.0 02/25/17 02/25/17 02/25/17 02/25/17 18:02 19:00 20:10 22:34 Temp 98.1 97.9 98.1 97.9 Pulse 87 86 Resp 16 18 B/P (MAP) 177/90 (119) 182/101 (128) Pulse Ox 96 99 96 O2 Delivery Room Air Room Air Room Air Room Air 02/25/17 02/26/17 02/26/17 23:16 02:42 06:58 Temp 98.2 98.1 98.2 98.1 Pulse 86 90 84 Resp 18 18 B/P (MAP) 182/101 159/84 (109) 157/91 (113) Pulse Ox 97 96 O2 Delivery Room Air Room Air ZACH SALDANA MD Feb 26, 2017 10:08
[2017-02-26] MEDS ORDERED: FAMOTIDINE 20 MG/2 ML VIAL IVP ONE (10:15)
[2017-02-26 10:21] VITALS: BP 156/85
--- NOTE | 2017-02-26 10:51 | PDOC ---
Infectious Disease Note Subjective Subjective pt feeling ok, nausea + ROS ROS GEN: Denies fevers, chills, sweats HEENT: Denies blurred vision, sore throat CV: Denies chest pain RESP: Denies shortness of air, cough GI: Denies n/v/d NEURO: Denies confusion, dizziness MSK: Denies weakness, joint pain/swelling Vital Sign Vital Signs Vital Signs Date Time Temp Pulse Resp B/P (MAP) Pulse Ox O2 Delivery O2 Flow Rate FiO2 02/26/17 10:21 97.7 80 18 156/85 (108) 99 Room Air 97.7 02/25/17 10:54 98.0 Physical Exam PHYSICAL EXAM GENERAL: NAD, Alert HEENT: PERRL, OC/OP NECK: Supple, no JVD, no LN LUNGS: Clear HEART: S1S2, no gallop, no murmur ABD: Soft, NT, no organomegaly, no rebound EXT: No edema, no cyanosis INVESTIGATIVE RESEARCH SPECIALIST: Alert, oriented x 3, no focal neurologic deficit SKIN: No rash IV: ok Labs Lab Laboratory Tests Test 02/26/17 05:50 White Blood Count 7.3 x10^3/uL (4.0-11.0) Red Blood Count 3.90 x10^6/uL (3.50-5.40) Hemoglobin 11.3 g/dL (12.0-15.5) Hematocrit 33.9 % (36.0-47.0) Mean Corpuscular Volume 87 fL (79-100) Mean Corpuscular Hemoglobin 29 pg (25-35) Mean Corpuscular Hemoglobin Concent 33 g/dL (31-37) Red Cell Distribution Width 21.2 % (11.5-14.5) Platelet Count 122 x10^3/uL (140-400) Neutrophils (%) (Auto) 81 % (31-73) Lymphocytes (%) (Auto) 9 % (24-48) Monocytes (%) (Auto) 8 % (0-9) Eosinophils (%) (Auto) 3 % (0-3) Basophils (%) (Auto) 0 % (0-3) Neutrophils # (Auto) 5.9 x10^3uL (1.8-7.7) Lymphocytes # (Auto) 0.6 x10^3/uL (1.0-4.8) Monocytes # (Auto) 0.6 x10^3/uL (0.0-1.1) Eosinophils # (Auto) 0.2 x10^3/uL (0.0-0.7) Basophils # (Auto) 0.0 x10^3/uL (0.0-0.2) Sodium Level 140 mmol/L (136-145) Potassium Level 4.0 mmol/L (3.5-5.1) Chloride Level 109 mmol/L (98-107) Carbon Dioxide Level 20 mmol/L (21-32) Anion Gap 11 (6-14) Blood Urea Nitrogen 31 mg/dL (7-20) Creatinine 2.3 mg/dL (0.6-1.0) Estimated GFR (Cockcroft-Gault) 21.5 Glucose Level 115 mg/dL (70-99) Calcium Level 9.0 mg/dL (8.5-10.1) Micro BLOOD CULTURE PRL Final Final report BLD CULT RESULT 1 Final Escherichia coli Recovered from aerobic and anaerobic bottles. ANTIMICROBIAL SUSCEPTIBILITY Final Comment S = Susceptible; I = Intermediate; R = Resistant P = Positive; N = Negative MICS are expressed in micrograms per mL Antibiotic RSLT#1 RSLT#2 RSLT#3 RSLT#4 Amoxicillin/Clavulanic Acid R Ampicillin R Cefazolin R Cefepime S Ceftriaxone I Cefuroxime R Cephalothin R Ciprofloxacin S Ertapenem S Gentamicin S Imipenem S Levofloxacin S Nitrofurantoin S Piperacillin I Tetracycline S Tobramycin S Trimethoprim/Sulfa S Performed at: [address] [id number] Director Drug Safety: Carey Francis MD, Phone: [phone] Objective Assessment 1. Urinary tract infection with sepsis. 2. Gram-negative sara bacteremia. 3. Leukocytosis. 4. Low grade fever. 5. Nausea, vomiting. 6. Kidney stones. Plan Plan of Care cont antibiotics,, d/c zosyn, ok to dc once GI is resolved, on po cipro for 7 days supprotive care check cultures and adjust SANDRA HURLEY MD Feb 26, 2017 10:51
--- NOTE | 2017-02-26 12:02 | PDOC2 ---
GI CONSULT Reason For Consult: Nausea, h/o gastrectomy HPI: HPI: 61 y/o female who has previously seen Dr. Rinaldi. H/o YENY (intolerant to PO iron, received iron transfusion 11/2016), PUD w/ partial gastrectomy, and GERD. Last admission restarted on PPI; this was not continued at discharge. She said she was not given Rx for this and has been unable to follow-up w/ PCP. Has also not been able to follow-up w/ hematology or urology (for staghorn calculus) . Reports EGD and colonoscopy by Dr. Nevarez @ [facility] 2-3 years ago, unsure about results. Unable to see these records in EMR so were requested during last admission but not received. She says she personally went to that office to request records after discharge and was told there were none. Per our office, EGD w/ ulcers in 1993, colonoscopy normal that year. On this occasion, admitted on 02/23/17 w/ UTI/sepsis. CT again demonstrated large staghorn like calculus w/ associated inflammation. Has had n/v since 02/22, no precipitating events. Only taking small amounts of clears, retching ongoing. Admits to intermittent nausea "when she's nervous" and frequent nocturnal reflux (untreated). Has some lower abdominal pain possibly related to UTI. H/o "diarrhea," w/o BM since admission. Denies hematochezia, melena, hematemesis. No blood thinners or NSAIDs (although on Heparin here). Received IV H2 marcelo x 1. PMH: PMH: CAD w/ 2 stents, HTN, DVT, GERD, PUD, anemia, nephrolithiasis, partial gastrectomy, umbilical hernia repair FH: Family History: Cancer (lung) Social History: Smoke: No ALCOHOL: none Drugs: None ROS: GEN: Denies fevers, chills, sweats HEENT: Denies blurred vision, sore throat CV: Denies chest pain RESP: Denies shortness of air, cough GI: Per HPI : Denies hematuria, dysuria ENDO: Denies weight changes NEURO: Denies confusion, dizziness MSK: Denies weakness, joint pain/swelling SKIN: Denies jaundice, pruritus Vitals: Vitals: Vital Signs Date Time Temp Pulse Resp B/P (MAP) Pulse Ox O2 Delivery O2 Flow Rate FiO2 02/26/17 10:21 97.7 80 18 156/85 (108) 99 Room Air 97.7 02/25/17 10:54 98.0 Labs: Labs: Laboratory Tests Test 02/26/17 05:50 White Blood Count 7.3 x10^3/uL (4.0-11.0) Red Blood Count 3.90 x10^6/uL (3.50-5.40) Hemoglobin 11.3 g/dL (12.0-15.5) Hematocrit 33.9 % (36.0-47.0) Mean Corpuscular Volume 87 fL (79-100) Mean Corpuscular Hemoglobin 29 pg (25-35) Mean Corpuscular Hemoglobin Concent 33 g/dL (31-37) Red Cell Distribution Width 21.2 % (11.5-14.5) Platelet Count 122 x10^3/uL (140-400) Neutrophils (%) (Auto) 81 % (31-73) Lymphocytes (%) (Auto) 9 % (24-48) Monocytes (%) (Auto) 8 % (0-9) Eosinophils (%) (Auto) 3 % (0-3) Basophils (%) (Auto) 0 % (0-3) Neutrophils # (Auto) 5.9 x10^3uL (1.8-7.7) Lymphocytes # (Auto) 0.6 x10^3/uL (1.0-4.8) Monocytes # (Auto) 0.6 x10^3/uL (0.0-1.1) Eosinophils # (Auto) 0.2 x10^3/uL (0.0-0.7) Basophils # (Auto) 0.0 x10^3/uL (0.0-0.2) Sodium Level 140 mmol/L (136-145) Potassium Level 4.0 mmol/L (3.5-5.1) Chloride Level 109 mmol/L (98-107) Carbon Dioxide Level 20 mmol/L (21-32) Anion Gap 11 (6-14) Blood Urea Nitrogen 31 mg/dL (7-20) Creatinine 2.3 mg/dL (0.6-1.0) Estimated GFR (Cockcroft-Gault) 21.5 Glucose Level 115 mg/dL (70-99) Calcium Level 9.0 mg/dL (8.5-10.1) Allergies: Coded Allergies: Sulfa (Sulfonamide Antibiotics) (Verified Allergy, Intermediate, 02/16/16) amlodipine (Verified Allergy, Intermediate, 02/16/16) codeine (Verified Allergy, Intermediate, Rash, 02/16/16) doxycycline (Verified Allergy, Intermediate, 02/16/16) ezetimibe (Verified Allergy, Intermediate, 02/16/16) levofloxacin (Verified Allergy, Intermediate, ITCH, 02/25/17) Tolerates cipro morphine (Verified Allergy, Intermediate, 02/16/16) simvastatin (Verified Allergy, Intermediate, 02/16/16) oxycodone (Verified Adverse Reaction, Intermediate, Hallucinations, ) Medications: Please see EMR. Imaging: Imaging: Acute Abd Series 02/23/17 IMPRESSION: 1. No confluent infiltrates. 2. No evidence of obstruction. Findings consistent with constipation. 3. Large staghorn calculi within the left greater than right kidneys. CT A/P 02/23/17 (w/o contrast) Impression: 1. Left kidney demonstrates a large staghorn like calculus. There is also associated inflammation. Overall inflation is similar to previous study. 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 2. The right kidney demonstrates presence of smaller stones, but there is inflammatory change involving the right kidney which is increased from previous study. Acute inflammation from intermittent obstruction versus infection versus xanthogranulomatous pyelonephritis are possible. 3. No acute bowel pathology identified. PE: GEN: NAD HEENT: Atraumatic, PERRL LUNGS: CTAB HEART: RRR ABD: NABS, S/ND, suprapubic discomfort EXTREMITY: No edema SKIN: No rashes, no jaundice NEURO/PSYCH: A & O 3 A/P: A/P: Nausea -chronic/intermittent, worse since 02/22 GERD, untreated -frequent nocturnal reflux H/o PUD, partial gastrectomy YENY (chronic) -hematology saw last admission, received IV iron UTI/sepsis/nephrolithiasis -outpt follow-up w/ urology discussed -atbx per ID CRC screen -- Dr. Rinaldi attempting to locate records of previous EGD/colonoscopy. Favor restarting PPI - she agrees. ?EGD tomorrow - will review w/ Dr. Rinaldi. ABDI RUBIO Feb 26, 2017 12:02
[2017-02-26] MEDS: PANTOPRAZOLE 40 MG TABLET.DR. PO SCH (12:37)
--- NOTE | 2017-02-26 12:49 | PDOC ---
Renal-Progress Notes Subjective Notes Notes FEELING BETTER History of Present Illness Hx of present illness STABLE Vitals Vitals Vital Signs Date Time Temp Pulse Resp B/P (MAP) Pulse Ox O2 Delivery O2 Flow Rate FiO2 02/26/17 12:37 Room Air 02/26/17 10:21 97.7 80 18 156/85 (108) 99 97.7 02/25/17 10:54 98.0 Weight Weight [ ] Labs Labs Laboratory Tests Test 02/26/17 05:50 White Blood Count 7.3 x10^3/uL (4.0-11.0) Red Blood Count 3.90 x10^6/uL (3.50-5.40) Hemoglobin 11.3 g/dL (12.0-15.5) Hematocrit 33.9 % (36.0-47.0) Mean Corpuscular Volume 87 fL (79-100) Mean Corpuscular Hemoglobin 29 pg (25-35) Mean Corpuscular Hemoglobin Concent 33 g/dL (31-37) Red Cell Distribution Width 21.2 % (11.5-14.5) Platelet Count 122 x10^3/uL (140-400) Neutrophils (%) (Auto) 81 % (31-73) Lymphocytes (%) (Auto) 9 % (24-48) Monocytes (%) (Auto) 8 % (0-9) Eosinophils (%) (Auto) 3 % (0-3) Basophils (%) (Auto) 0 % (0-3) Neutrophils # (Auto) 5.9 x10^3uL (1.8-7.7) Lymphocytes # (Auto) 0.6 x10^3/uL (1.0-4.8) Monocytes # (Auto) 0.6 x10^3/uL (0.0-1.1) Eosinophils # (Auto) 0.2 x10^3/uL (0.0-0.7) Basophils # (Auto) 0.0 x10^3/uL (0.0-0.2) Sodium Level 140 mmol/L (136-145) Potassium Level 4.0 mmol/L (3.5-5.1) Chloride Level 109 mmol/L (98-107) Carbon Dioxide Level 20 mmol/L (21-32) Anion Gap 11 (6-14) Blood Urea Nitrogen 31 mg/dL (7-20) Creatinine 2.3 mg/dL (0.6-1.0) Estimated GFR (Cockcroft-Gault) 21.5 Glucose Level 115 mg/dL (70-99) Calcium Level 9.0 mg/dL (8.5-10.1) Micro Micro Microbiology 02/23/17 Blood Culture - Preliminary, Resulted 02/23/17 Blood Culture Result 1 (LINDSAY) - Preliminary, Resulted 02/23/17 Blood Culture Result 2 (LINDSAY) - Preliminary, Resulted 02/23/17 Urine Culture - Final, Complete 02/23/17 Urine Culture Result 1 (LINDSAY) - Final, Complete 02/23/17 Antimicrobic Susceptibility - Final, Complete Review of Systems Constitutional: yes: sweats, malaise, weakness, alert, oriented Ears/Nose/Throat: Yes: no symptom reported Eyes: Yes: no symptom reported Pulmonary: Yes no symptom reported Cardiovascular: Yes no symptom reported Gastrointestional: Yes: nausea, vomiting Genitourinary: Yes: no symptom reported Musculoskeletal: Yes: no symptom reported Skin: Yes no symptom reported Psychiatric/Neurological: Yes: no symptom reported Endocrine: Yes: no symptom reported Physical Exam General Appearance: no apparent distress Respiratory: bilateral CTA Abdomen: soft, bowel sounds present Genitourinary: bladder flat Extremities: pulses present Neurology: alert, oriented Assessment Assessment IMP BHUPENDRA BETTER WITH CR DOWN TO 2.3 CKD STAGE 3 WITH CR OF 1.5 DEHYDRATION LEUCOCYTOSIS UTI NON OBSTRUCTING RENAL STONES PLAN IVF'S ANTIBIOTICS LABS IN AM ENC PO TOLERATED DARWIN ANNE MD Feb 26, 2017 12:48
[2017-02-26] MEDS: IV NORMAL SALINE 1000ML BAG 1,000 ML IV SCH (13:00)
[2017-02-26 14:11] VITALS: BP 152/84
[2017-02-26 19:15] VITALS: BP 172/81
[2017-02-26] MEDS: CYCLOBENZAPRINE 10 MG TABLET. PO PRN (20:54)
[2017-02-26] MEDS: ACETAMINOPHEN 325 MG TABLET. PO PRN (21:00)
[2017-02-26 23:42] VITALS: BP 143/90
[2017-02-27 03:44] VITALS: BP 158/81
[2017-02-27] MEDS: HEPARIN PF for SUB-Q USE 5,000 UNIT/0.5 ML VIAL. SQ SCH ×2 (05:45→14:00)
[2017-02-27] MEDS: IV NORMAL SALINE 1000ML BAG 1,000 ML IV SCH ×2 (05:47→13:30)
[2017-02-27] MEDS ORDERED: IV RINGERS,LACTATED 1000ML 1,000 ML IV SCH (07:00)
[2017-02-27 07:20] VITALS: BP 186/92
[2017-02-27] MEDS: PANTOPRAZOLE 40 MG TABLET.DR. PO SCH (07:30)
[2017-02-27] MEDS: FOLIC ACID 1 MG TABLET. PO SCH (09:00)
[2017-02-27] MEDS: ONDANSETRON PF 4 MG/2 ML VIAL. IV PRN (09:14)
[2017-02-27] MEDS: hydrALAZINE 20 MG/ML VIAL. IVP PRN (09:15)
[2017-02-27] MEDS: CIPROFLOXACIN 400MG PREMIX 200 ML IV SCH (09:16)
--- NOTE | 2017-02-27 10:25 | PDOC ---
Infectious Disease Note Subjective Subjective pt feeling ok, nausea + ROS ROS GEN: Denies fevers, chills, sweats HEENT: Denies blurred vision, sore throat CV: Denies chest pain RESP: Denies shortness of air, cough GI: Denies n/v/d NEURO: Denies confusion, dizziness MSK: Denies weakness, joint pain/swelling Vital Sign Vital Signs Vital Signs Date Time Temp Pulse Resp B/P (MAP) Pulse Ox O2 Delivery O2 Flow Rate FiO2 02/27/17 09:15 77 186/92 02/27/17 07:20 98.4 17 98 Room Air 98.4 Physical Exam PHYSICAL EXAM GENERAL: NAD, Alert HEENT: PERRL, OC/OP NECK: Supple, no JVD, no LN LUNGS: Clear HEART: S1S2, no gallop, no murmur ABD: Soft, NT, no organomegaly, no rebound EXT: No edema, no cyanosis SEED TESTER: Alert, oriented x 3, no focal neurologic deficit SKIN: No rash IV: ok Labs Micro BLOOD CULTURE PRL Final Final report BLD CULT RESULT 1 Final Escherichia coli Recovered from aerobic and anaerobic bottles. ANTIMICROBIAL SUSCEPTIBILITY Final Comment S = Susceptible; I = Intermediate; R = Resistant P = Positive; N = Negative MICS are expressed in micrograms per mL Antibiotic RSLT#1 RSLT#2 RSLT#3 RSLT#4 Amoxicillin/Clavulanic Acid R Ampicillin R Cefazolin R Cefepime S Ceftriaxone I Cefuroxime R Cephalothin R Ciprofloxacin S Ertapenem S Gentamicin S Imipenem S Levofloxacin S Nitrofurantoin S Piperacillin I Tetracycline S Tobramycin S Trimethoprim/Sulfa S Performed at: [address] [id number] Jump Roll Operator: Carey Francis MD, Phone: [phone] Objective Assessment 1. Urinary tract infection with sepsis. 2. Gram-negative sara bacteremia. 3. Leukocytosis. 4. Low grade fever. 5. Nausea, vomiting. 6. Kidney stones. Plan Plan of Care ok to dc once GI is resolved, on po cipro for 7 days supprotive care SANDRA HURLEY MD Feb 27, 2017 10:25
[2017-02-27] MEDS ORDERED: HYDR-2758 PO (11:02)
[2017-02-27] MEDS ORDERED: PANT40TA5 PO (11:02)
[2017-02-27] MEDS ORDERED: CIPR250T30 PO (11:02)
[2017-02-27 11:09] VITALS: BP 173/88
--- NOTE | 2017-02-27 11:43 | PDOC ---
Renal-Progress Notes Subjective Notes Notes FEELS WELL History of Present Illness Hx of present illness BETTER Vitals Vitals Vital Signs Date Time Temp Pulse Resp B/P (MAP) Pulse Ox O2 Delivery O2 Flow Rate FiO2 02/27/17 11:09 98.3 86 17 173/88 (116) 98 Room Air 98.3 Weight Weight [ ] I.O. Intake and Output Intake and Output 02/28/17 07:00 Output Total 900 ml Balance -900 ml Output Urine Total 900 ml Micro Micro Microbiology 02/23/17 Blood Culture - Final, Complete 02/23/17 Blood Culture Result 1 (LINDSAY) - Final, Complete 02/23/17 Blood Culture Result 2 (LINDSAY) - Final, Complete 02/23/17 Antimicrobic Susceptibility - Final, Complete 02/23/17 Urine Culture - Final, Complete 02/23/17 Urine Culture Result 1 (LINDSAY) - Final, Complete 02/23/17 Antimicrobic Susceptibility - Final, Complete Review of Systems Constitutional: yes: sweats, malaise, weakness, alert, oriented Ears/Nose/Throat: Yes: no symptom reported Eyes: Yes: no symptom reported Pulmonary: Yes no symptom reported Cardiovascular: Yes no symptom reported Gastrointestional: Yes: nausea, vomiting Genitourinary: Yes: no symptom reported Musculoskeletal: Yes: no symptom reported Skin: Yes no symptom reported Psychiatric/Neurological: Yes: no symptom reported Endocrine: Yes: no symptom reported Physical Exam General Appearance: no apparent distress Respiratory: bilateral CTA Abdomen: soft, bowel sounds present Genitourinary: bladder flat Extremities: pulses present Neurology: alert, oriented Assessment Assessment IMP BHUPENDRA BETTER WITH CR DOWN TO 2.3 CKD STAGE 3 WITH CR OF 1.5 DEHYDRATION LEUCOCYTOSIS UTI WITH SEPSIS NON OBSTRUCTING RENAL STONES PLAN IVF'S TO CONTINUE ANTIBIOTICS LABS IN AM ENC PO TOLERATED DARWIN ANNE MD Feb 27, 2017 11:43
--- NOTE | 2017-02-27 15:00 | PDOC4 ---
PROCEDURE Procedure EGD Indication: N, V, prior ulcer surgery; r/o stomal ulcer. Meds: per anesthesia. Findings: E--Normal. GEJ at 40cm. G--S/p antrectomy with BII anastomosis. No ulcer, mass, etc. Probable stitch granulomas at gastroenterostomy. D--Both afferent and efferent limbs of anastomosis inspected. Long afferent limb; unable to get to papilla. No mucosal abnormalities in either limb. Joselito. well. IMP: S/p V and A with BII anastomosis, otherwise unremarkable exam. N and V may be secondary effects of UTI. YENY very likely from her post-surgical anatomy. REC: Try advance diet as tolerated. Po iron bid-tid, probably chronically. Could consider screening colonoscopy as outpatient; last colonoscopy ( normal) I can document was in 2006. Thanks. YOLA MAHER MD Feb 27, 2017 14:59
[2017-02-27 15:27] VITALS: BP 165/80
[2017-04-05] MEDS ORDERED: CYCL5TAB PO (18:08)
== END 2017-02-27 18:18 | disposition home or self-care (01) | DRG 871 ==
LOC: ER 15:24 → 6 SOUTH 18:18
PROVIDERS: ADMIT Internal Medicine; ATTEND Internal Medicine
PROC: 0DJ08ZZ Inspection of Upper Intestinal Tract, Via Natural or Artificial Opening Endoscopic (ICD-10-PCS; principal; 2017-02-27 14:00)
DX: A41.50 Gram-negative sepsis, unspecified (principal); N17.0 Acute kidney failure with tubular necrosis; N39.0 Urinary tract infection, site not specified; E44.1 Mild protein-calorie malnutrition; E86.0 Dehydration; I12.9 Hypertensive chronic kidney disease with stage 1 through stage 4 chronic kidney disease, or unspecified chronic kidney disease; I25.10 Atherosclerotic heart disease of native coronary artery without angina pectoris; K21.9 Gastro-esophageal reflux disease without esophagitis; N18.3 Chronic kidney disease, stage 3 (moderate); N20.0 Calculus of kidney; Z80.1 Family history of malignant neoplasm of trachea, bronchus and lung; Z82.49 Family history of ischemic heart disease and other diseases of the circulatory system; Z86.14 Personal history of Methicillin resistant Staphylococcus aureus infection; Z86.718 Personal history of other venous thrombosis and embolism; Z87.11 Personal history of peptic ulcer disease; Z87.442 Personal history of urinary calculi; Z90.3 Acquired absence of stomach [part of]; Z95.5 Presence of coronary angioplasty implant and graft; Z98.84 Bariatric surgery status; Z86.2 Personal history of diseases of the blood and blood-forming organs and certain disorders involving the immune mechanism; Z88.1 Allergy status to other antibiotic agents; Z88.5 Allergy status to narcotic agent; Z88.2 Allergy status to sulfonamides; Z88.8 Allergy status to other drugs, medicaments and biological substances; E83.59 Other disorders of calcium metabolism; N29 Other disorders of kidney and ureter in diseases classified elsewhere
CPT/HCPCS: 36415; 74022; 74176; 80048; 80053; 81001; 83605; 83690; 85007; 85025; 85027; 86140; 87040; 87086; 87186; 87205; 87641; 93005; 96361; 96374; 96375; 96376; J0360; J0744; J2405; J2543; J3010; J3370; J7030; J7040; S0028; 99285-25

== ENCOUNTER 2017-06-05 22:17 | Emergency (ER) | payer OTHER ==
[2017-06-05 22:55] LABS: BILIRUBIN,URINE NEGATIVE (NEG); CLARITY,URINE TURBID; COLOR,URINE YELLOW; GLUCOSE,URINE NEGATIVE (NEG); NITRITE,URINE POSITIVE (NEG); PROTEIN,URINE 100 mg/dL (NEG-TRACE); UROBILINOGEN,URINE 0.2 mg/dL (0.2 mg/dL)
[2017-06-05 23:06] LABS: BACTERIA,URINE MANY /HPF (0-FEW); WBC,URINE TNTC /HPF (0-4)
[2017-06-05 23:19] LABS: ADD MAN DIFF? NO
[2017-06-05 23:21] LABS: BASO # 0.1 x10^3/uL (0.0-0.2); BASO % 1 % (0-3); EOS # 0.2 x10^3/uL (0.0-0.7); EOS % 3 % (0-3); HEMATOCRIT 37.3 % (36.0-47.0); LYMPH # 1.8 x10^3/uL (1.0-4.8); LYMPH % 24 % (24-48); MEAN CORPUSCULAR HEMOGLOBIN 28 pg (25-35); MEAN CORPUSCULAR HGB CONC 32 g/dL (31-37); MEAN CORPUSCULAR VOLUME 87 fL (79-100); MONO # 0.6 x10^3/uL (0.0-1.1); MONO % 8 % (0-9); NEUT # 4.8 x10^3uL (1.8-7.7); NEUT % 64 % (31-73); PLATELET COUNT 205 x10^3/uL (140-400); RED BLOOD COUNT 4.29 x10^6/uL (3.50-5.40); RED CELL DISTRIBUTION WIDTH 13.9 % (11.5-14.5); WHITE BLOOD COUNT 7.4 x10^3/uL (4.0-11.0)
[2017-06-05 23:31] LABS: ANION GAP 12 (6-14); BLOOD UREA NITROGEN 28 mg/dL (7-20); CALCIUM 8.9 mg/dL (8.5-10.1); CARBON DIOXIDE 22 mmol/L (21-32); CHLORIDE 107 mmol/L (98-107); CREATININE 1.8 mg/dL (0.6-1.0); GFR 28.5; GLUCOSE 125 mg/dL (70-99); SODIUM 141 mmol/L (136-145)
[2017-06-05] MEDS: IV NORMAL SALINE 500ML BAG 500 ML IV (23:33)
[2017-06-05] MEDS: KETOROLAC 15 MG/ML VIAL. IV (23:45)
[2017-06-06] MEDS: HYDROcodone/APAP 5/325MG 1 TAB TABLET PO (00:56)
== END 2017-06-06 01:08 | disposition home or self-care (01) ==
LOC: ER 06-06 01:08
DX: N39.0 Urinary tract infection, site not specified (principal); N12 Tubulo-interstitial nephritis, not specified as acute or chronic; I10 Essential (primary) hypertension; Z87.442 Personal history of urinary calculi; Z88.2 Allergy status to sulfonamides; Z88.5 Allergy status to narcotic agent; Z86.718 Personal history of other venous thrombosis and embolism; Z98.1 Arthrodesis status; Z90.711 Acquired absence of uterus with remaining cervical stump; Z88.1 Allergy status to other antibiotic agents; Z88.8 Allergy status to other drugs, medicaments and biological substances
CPT/HCPCS: 36415; 76705; 80048; 81001; 85025; 87086; 96365; 96375; 99285-25; J0690; J1885; J7040

== ENCOUNTER → 2017-09-16 | Outpatient (CLI) | payer OTHER | END | disposition home or self-care (01) | LOC: RAD 10:01 | DX: N20.0 Calculus of kidney (principal) | CPT/HCPCS: 74018 ==

== ENCOUNTER → 2018-04-10 | Outpatient (CLI) | payer OTHER, MEDICAID ==
[2018-03-16 16:09] VITALS: BP 164/98
[~2018-04-10] MED LIST changes: +APIX5TAB PO; +ASPI-612 PO; +ATOR40TA59 PO; +CIPR250T30 PO; +CIPR500T94 PO; +CYCL5TAB PO; +HYDR-2758 PO; +HYDR-971 PO; -LOSA100T6 PO; +LOSA100T7 PO; +LOSA50TA7 PO; +PANT40TA5 PO; -PIPERACILLIN/TAZOBACTAM 2.25 GM in IV NORMAL SALINE 50ML 50 ML IV SCH; +PRED5TAB PO; +PROP160C PO; +WARF-31 PO
--- NOTE | 2018-04-10 08:32 | RAD ---
PA and lateral chest radiographs 04/10/2018 CLINICAL HISTORY: Chest pain. History of pulmonary embolism. PA and lateral digital radiographs of chest were obtained. Comparison study is dated 03/13/2018. An anterior plate, bone screws and bone graft material are seen overlying the lower cervical spine, unchanged. The cardiac silhouette is normal in size. The thoracic aorta is minimally tortuous. Atherosclerotic calcification of the thoracic aorta is seen. No acute pulmonary infiltrate is noted. No pneumothorax or pleural effusion is seen. The osseous structures are unchanged. IMPRESSION: No acute abnormality is seen. Electronically signed by: Gilles Hopper MD (04/10/2018 8:29 AM) [facility]
--- NOTE | 2018-04-10 09:11 | RAD ---
Lung scan 04/10/2018 CLINICAL HISTORY: Chest pain and shortness of breath. History of PE. TECHNIQUE: After the administration of 19.0 mCi of xenon-133 gas, ventilation images of both lungs were obtained using the gamma camera. After the intravenous administration of 6.0 mCi of technetium 99m MAA, perfusion images of both lungs were obtained using the gamma camera. FINDINGS: Comparison is made to PA and lateral chest radiographs performed earlier today. They demonstrate no acute pulmonary infiltrate. Additional comparison is made to patient's previous lung scan dated 03/13/2018. Slightly heterogeneous ventilation and perfusion to both lungs is seen. The perfusion defects seen on the previous study have largely resolved. No unmatched perfusion defect is seen. These findings are consistent with a low probability study for pulmonary embolism. IMPRESSION: Low probability study. Electronically signed by: Gilles Hopper MD (04/10/2018 9:08 AM) [facility]
== END | disposition home or self-care (01) ==
LOC: NM 08:54
PROVIDERS: ATTEND Internal Medicine Pulmonary Disease
DX: I70.0 Atherosclerosis of aorta (principal); R07.9 Chest pain, unspecified; I12.9 Hypertensive chronic kidney disease with stage 1 through stage 4 chronic kidney disease, or unspecified chronic kidney disease; N18.4 Chronic kidney disease, stage 4 (severe); Z86.711 Personal history of pulmonary embolism
CPT/HCPCS: 71046; 78582; 96374; A9540; A9558

== ENCOUNTER 2018-05-12 13:25 | Emergency (ER) | payer OTHER, MEDICAID ==
[~2018-05-12] VITALS: Ht 162.6 cm; Wt 80.7 kg
[~2018-05-12 13:25] MED LIST changes: -CHLO25TA PO; +CHLO25TA10 PO; -HYDR-2758 PO; +HYDR-2761 PO; -HYDR-2766 PO; +HYDR-2769 PO; +HYDR-3164 PO; -HYDR-971 PO; +LOSA-73 PO; +LOSA100T14 PO; -LOSA100T7 PO; -LOSA50TA7 PO
--- NOTE | 2018-05-12 14:23 | RAD ---
Examination: 2 views of the left hip with frontal view of the pelvis HISTORY: History of left hip pain COMPARISON: 04/02/2014 FINDINGS: Severe joint space loss identified in the left hip joint with sclerotic changes identified in the left femoral head and the left acetabulum. Subchondral cystic changes identified in the left femoral head and in the left acetabular region. Moderate size osteophyte formation identified in the left femoral head. Moderate amount of stool identified in the colon. IMPRESSION: Severe degenerative changes left hip joint. Electronically signed by: Eduardo Greco MD (05/12/2018 2:19 PM) [place] [id number]
[2018-05-12] MEDS ORDERED: HYDR-3164 PO (14:53)
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
[2018-05-12 15:05] VITALS: BP 145/78
== END 2018-05-12 15:05 | disposition home or self-care (01) ==
LOC: ER 13:25
DX: M25.552 Pain in left hip (principal); G89.29 Other chronic pain; M16.12 Unilateral primary osteoarthritis, left hip; I10 Essential (primary) hypertension; Z87.442 Personal history of urinary calculi; Z86.718 Personal history of other venous thrombosis and embolism; Z98.1 Arthrodesis status; Z95.5 Presence of coronary angioplasty implant and graft; Z88.2 Allergy status to sulfonamides; Z91.041 Radiographic dye allergy status; Z88.5 Allergy status to narcotic agent; Z88.1 Allergy status to other antibiotic agents; Z88.6 Allergy status to analgesic agent; Z88.8 Allergy status to other drugs, medicaments and biological substances
CPT/HCPCS: 73502; 99284

== ENCOUNTER → 2018-06-04 | Outpatient (CLI) | payer OTHER, MEDICAID ==
[2018-05-12 15:05] VITALS: BP 145/78
[~2018-06-04] MED LIST changes: +ALBU2.5V8 IH; -PROAIR HFA8.5 GM IH
--- NOTE | 2018-06-04 13:23 | RAD ---
MR of the left hip Indication: Left hip pain for 6 weeks, no known injury.. Technique: Standard multiplanar sequences are obtained. FINDINGS: Artifact: No significant image degradation. Bones: No acute fracture. No aggressive bone destruction. Subchondral lesion at the femoral head is likely due to degenerative cysts. Effusion: Moderate Joint: Severe primary osteoarthritis with cartilage loss and subchondral cysts. There is anterior protuberance of the femoral head and neck junction, could predispose to impingement. Labrum: Degenerative changes, no acute detachment. Gluteus minimus tendon: Mild tendinosis. Gluteus medius tendon: Tendinosis. Mild fluid signal at the attachment compatible with a small partial tear. Hamstring tendon: Tendinosis with partial degenerative tearing. Iliopsoas tendon: Intact Rectus femoris tendon attachment:Intact Soft tissue: Generalized muscle atrophy. IMPRESSION: 1. Severe primary osteoarthritis. 2. Subchondral lesion at the femoral head is likely degenerative cyst. Difficult to exclude of femoral head osteonecrosis as that could have a similar appearance, if there are risk factors, but considered less likely. 3. Moderate joint effusion. 4. Gluteus tendon and hamstring tendon tendinosis. Mild partial tearing of the gluteus medius tendon attachment. Electronically signed by: Gagandeep Bone MD (06/04/2018 1:19 PM) [facility]
== END | disposition home or self-care (01) ==
LOC: MRI 09:27
PROVIDERS: ATTEND Orthopaedic Surgery
DX: S76.012A Strain of muscle, fascia and tendon of left hip, initial encounter (principal); M16.12 Unilateral primary osteoarthritis, left hip; X58.XXXA Exposure to other specified factors, initial encounter; Y93.89 Activity, other specified; Y92.89 Other specified places as the place of occurrence of the external cause; Y99.8 Other external cause status
CPT/HCPCS: 73721

== ENCOUNTER → 2018-06-17 | Outpatient (CLI) | payer OTHER, MEDICAID ==
[~2018-06-17] MED LIST changes: +ALLO100T PO; +AMOX1TAB58 PO; +CLIN150C14 PO; +HYDR-3135 PO; +LEVO75TA5 PO; -PANT40TA5 PO; +PANT40TA77 PO; -TIZA2TAB PO; +TIZA2TAB2 PO
--- NOTE | 2018-06-17 12:20 | RAD ---
Examination: MRI of the right hip without contrast HISTORY: History of worsening right hip pain COMPARISON: None available TECHNIQUE: Multiplanar, multisequence MR imaging of the right hip was performed without contrast FINDINGS: The right femoral head is within the acetabulum. Moderate joint space loss identified in the right hip joint. There is increased T2 signal identified in the hamstring tendons attachment of the ischial tuberosity likely high-grade near full-thickness tear of the hamstring tendons including the semimembranosus, semitendinosus, biceps femoris tendons. There is increased T2 signal identified in the attachment of the adductor lucia tendon likely high-grade partial tear.. Mild increased T2 signal identified at the attachment of the gluteal medius and gluteus minimus tendons to the greater trochanter. The attachment of the iliopsoas tendon to the lesser trochanter, attachment of the rectus femoris tendon to the anteroinferior iliac spine appear intact. Grossly appears intact. Mild fatty atrophic changes of the gluteus maximums muscle identified. There is superficial fraying of the superior labrum. IMPRESSION: 1. High-grade partial to near full-thickness tear of the right hamstring tendons at its attachment to the ischial tuberosity. There is partial thickness tear of the adductor lucia tendon in the inferior aspect of the ischium. 2. Mild increased T2 signal identified in the right gluteal tendon attachment to the greater trochanter probably tendinosis with small amount of fluid in the trochanteric bursa/bursitis. Electronically signed by: Eduardo Greco MD (06/17/2018 12:15 PM) [facility]
--- NOTE | 2018-06-17 15:26 | RAD ---
MRI of the lumbar spine without contrast 06/17/2018 CLINICAL HISTORY: Low back pain with bilateral leg weakness. TECHNIQUE: Unenhanced T1-weighted and T2-weighted sagittal and axial and inversion recovery sagittal images of the lumbar spine were obtained. FINDINGS: Minimal S-shaped curvature of the thoracolumbar spine is seen. Degenerative signal changes are seen involving the L2-3, L3-4, L4-5 and L5-S1 disc. Degenerative signal changes are seen within the marrow surrounding these discs. The conus medullaris is normal morphology, position, and signal characteristics. The L1-2 disc space is within normal limits. At the L2-3 disc space there is a mild generalized disc bulge. Degenerative changes are seen involving the facet joints bilaterally. There is mild ligamentum flavum hypertrophy bilaterally. These findings do not result in significant central spinal canal or neural foraminal stenosis. At the L3-4 disc space there is a mild generalized disc bulge. This is eccentric to the left. Degenerative changes are seen involving the facet joints bilaterally. There is mild to moderate ligamentum flavum hypertrophy bilaterally. These findings when combined result in mild central spinal canal stenosis. Mild bilateral neural foraminal stenosis is seen. At the L4-5 disc space there is a mild generalized disc bulge. Superimposed on this disc bulge is a left paracentral focal disc protrusion. This measures 3 mm in AP diameter. Degenerative changes are seen involving the facet joints bilaterally. There is mild ligamentum flavum hypertrophy bilaterally. These findings when combined result in mild to moderate left greater than right central spinal canal stenosis. No neural foraminal stenosis is seen. At the L5-S1 disc space there is a mild generalized disc bulge. Degenerative changes are seen involving the facet joints bilaterally. These findings when combined do not result in significant central spinal canal or neural foraminal stenosis. IMPRESSION: The changes of degenerative disc disease are seen throughout the lumbar spine. These findings result in mild central spinal canal stenosis at L3-4 and mild to moderate left greater than right central spinal canal stenosis at L4-5. Mild bilateral neural foraminal stenosis is seen at L3-4. Electronically signed by: Gilles Hopper MD (06/17/2018 3:21 PM) [facility]
== END | disposition home or self-care (01) ==
LOC: MRI 09:52
PROVIDERS: ATTEND Internal Medicine
DX: S76.011A Strain of muscle, fascia and tendon of right hip, initial encounter (principal); M51.36 Other intervertebral disc degeneration, lumbar region; M48.061 Spinal stenosis, lumbar region without neurogenic claudication; M47.817 Spondylosis without myelopathy or radiculopathy, lumbosacral region; X58.XXXA Exposure to other specified factors, initial encounter; Y93.89 Activity, other specified; Y92.89 Other specified places as the place of occurrence of the external cause; Y99.8 Other external cause status
CPT/HCPCS: 72148; 73721

== ENCOUNTER → 2018-06-23 | Outpatient (CLI) | payer OTHER, MEDICAID ==
[~2018-06-23] MED LIST changes: -AMOX1TAB58 PO; -CLIN150C14 PO; +PANT40TA5 PO; -PANT40TA77 PO; +TIZA2TAB PO; -TIZA2TAB2 PO
--- NOTE | 2018-06-23 18:06 | PAIN ---
DATE OF SERVICE: 06/23/2018 INITIAL CONSULTATION FOR PAIN CLINIC CHIEF COMPLAINT: Left hip pain. HISTORY OF PRESENT ILLNESS: This is a 62-year-old female who presents with history of pain for about 10 years, worse over the past 1 year, with pain in the left hip, worse with walking, standing, change in position, especially stepping up on a curb or stairs, which she tries to avoid at all times secondary to the pain. The patient reports the pain is in the posterior gluteus, radiating around into the left groin with walking, putting all of her weight on her left foot. The patient also has some low back pain and some pain radiating into the lower leg as well, mostly in the anterior medial thigh and posterior calf. The patient reports the pain in the hip, however, is constant, sharp, throbbing, shooting, tingling with numbness and radiation of pain, burning and cramping and especially into the groin radiating with weightbearing on the left side. The patient did have an MRI scan of the left hip, which shows severe primary osteoarthritis, subchondral lesion of the femoral head, and moderate joint effusion. Did have an MRI scan of the lumbar spine as well showing degenerative disk disease throughout the lumbar spine, mild central spinal canal stenosis at L3-L4 and [id number] left greater than right central spinal stenosis at L4-L5 with a left paracentral focal disk protrusion at L4-L5 as well. The patient reports her disability rating from 0-10, 10 being the worst, is a 5 with family and home responsibilities; 7 with recreation, social activity and occupation activities; 6 with self-care and life support activities. The patient reports she has done some therapy in the past, but nothing recently for the hip. She is still exercising and is trying to stretch her hip and back as she can. Awakens her from sleep about 2-3 times at night. The patient reports it does affect her ability to walk significantly. She is not using any assistive devices currently, but she does use a motorized wheelchair when she is at a store that has one available for her. Otherwise, she is holding on to items as she walks. The patient did have some epidural injections many, many years ago for some low back pain, but no other treatment for her hip at this time and no current physical therapy is noted. The patient reports no loss of motor function, but significant fatigability with the left leg with standing and walking, especially getting up from a seated position is very painful. PAST MEDICAL HISTORY: Significant for pulmonary embolism in 03/2018, hypertension, shortness of breath, UTIs, dizziness, headaches, kidney stones, arthritis. PREVIOUS SURGERY: Include a cervical fusion in 2007, kidney stone extraction in 2017, partial gastrectomy in 1990, and a previous hernia repair. CURRENT MEDICATIONS: Include hydrocodone, levothyroxine, Eliquis, atorvastatin, propranolol, allopurinol, losartan. ALLERGIES: THE PATIENT IS ALLERGIC TO SULFA. FAMILY HISTORY: Significant for cardiac disease and lung and breast cancers. SOCIAL HISTORY: The patient does not drink alcohol, does not smoke, does not use any illegal, illicit or recreational drugs. She is , lives with her spouse, has one child, living at home, lives locally in [place], [place]. REVIEW OF SYSTEMS: The patient's review of systems is positive for those items mentioned in history of present illness. All systems reviewed, otherwise negative. It is complete, full and well documented on the patient's chart. PHYSICAL EXAMINATION: VITAL SIGNS: The patient's blood pressure is 122/72, pulse 78, respirations 18, temperature 97.9 degrees Fahrenheit, height is 5 feet 4.5 inches, weight is 207 pounds. GENERAL: The patient is awake, alert, oriented, appropriate, very pleasant demeanor. HEENT: Shows normocephalic, atraumatic. Extraocular movements are intact and symmetrical. Oral cavity: Mucous membranes moist and pink. Dentition is intact. NECK: Shows anterior throat supple without palpable lymphadenopathy noted. Swallow reflex is symmetrical. CHEST: Shows normal on inspection. Breath sounds are clear to auscultation bilaterally. HEART: Shows S1, S2 clear. No murmurs auscultated. ABDOMEN: Soft, nontender, nondistended. No palpable organomegaly is noted. No rebound or guarding demonstrated. BACK: Shows spine grossly in the midline. Normal appearing thoracic kyphosis and lumbar lordotic curvature. Cervical lordotic curvature is maintained as well. The patient's low back shows some moderate tenderness in the lumbar paraspinous musculature with palpation, but only diffusely throughout the upper and middle and lower distribution of the paraspinous muscles, right equal to left. No tenderness over the spinous processes, sacrum or sacroiliac regions. The patient has good rotational motion of lumbar spine, both laterally greater than 10 degrees right and left as well as extension greater than 10 degrees, forward flexion 45 degrees without significant pain reported. EXTREMITIES: The patient's lower extremities show deep tendon reflexes at 1+ in the patellar and tendo calcaneus tendons are equal. Motor exam is approximately 4 on a scale of 5 with left dorsiflexion and extension, 5/5 on the right. This includes quadriceps and hamstring flexion as well, 4/5 left and 5/5 right. Peripheral pulses are 1+ posterior tibial. No peripheral edema is noted. Straight leg raise noted to be negative for reproduction of radicular symptoms. The patient does have a positive Amrit sign on the left side only with external rotation of the left hip with significant pain reported in the groin itself. Right side is negative. The patient is able to stand, does have difficulty trying to stand on her toes, especially with her left leg as it is very painful and loses balance very easily. SKIN: Warm, dry, good turgor. No edema, no sores, no rashes. IMPRESSION: 1. This is a 62-year-old female with long history, worse over the past year of left hip pain with radiation into the groin, also some pain into the lower extremity. 2. MRI scans of both lumbar spine and hip noted. 3. Arthritis. 4. Hypertension. 5. Anticoagulation therapy. PLAN: Options were discussed with the patient including continued physical therapies, conservative medical management, and interventional techniques and she would like to pursue interventional techniques. We discussed an intraarticular hip joint injection on the left hip using description as well as anatomical models to describe the procedure. The patient would like to proceed with this. We will first check if it is safe to have her Eliquis held for 48 hours prior to the injection. Check with her prescribing physician on that. Also, we will have preauthorization with patient's insurance provider for a left intraarticular hip joint injection with significant primary osteoarthritis of the left hip joint and significant pain with ambulation and weightbearing. The patient will return to the clinic once these are cleared and preapproved and we will plan on the left intra-articular hip joint injection at that time. SUKHDEEP SHAH MD DR: RENEA/beth JOB#: [id number] / [id number] WARD Mcnally MD
== END | disposition home or self-care (01) ==
LOC: PNCL 13:24
PROVIDERS: ATTEND Anesthesiology
DX: M16.12 Unilateral primary osteoarthritis, left hip (principal); M51.36 Other intervertebral disc degeneration, lumbar region; M48.061 Spinal stenosis, lumbar region without neurogenic claudication; M51.26 Other intervertebral disc displacement, lumbar region; I10 Essential (primary) hypertension; Z88.2 Allergy status to sulfonamides; Z87.442 Personal history of urinary calculi; Z87.440 Personal history of urinary (tract) infections; Z86.711 Personal history of pulmonary embolism
CPT/HCPCS: G0463

== ENCOUNTER 2018-09-01 09:21 | Emergency (ER) | payer MEDICAID, OTHER ==
[~2018-09-01] VITALS: Ht 162.6 cm; Wt 80.7 kg
[2018-09-01] MEDS ORDERED: CLINDAMYCIN 900MG PREMIX 50 ML IV ONE (09:45)
[2018-09-01] MEDS ORDERED: diphenhydrAMINE 50 MG/ML VIAL IVP ONE (09:45)
[2018-09-01] MEDS ORDERED: methylPREDNISolone SOD SUCC PF 125 MG/2 ML VIAL. IV ONE (09:45)
--- NOTE | 2018-09-01 11:02 | RAD ---
CT of the head without contrast, 09/01/2018: HISTORY: Headache, patient on eloquis The ventricles are within normal limits in size. There is no shift of the midline structures. There is no evidence of acute intracranial hemorrhage or mass effect. There are mild patchy deep white matter lucencies, most commonly due to chronic ischemic change. Similar findings were present on the study of 04/05/2017. No abnormal extra-axial fluid collection or mass is seen. IMPRESSION: 1. Mild bilateral deep white matter lucencies compatible with chronic ischemic change. 2. No acute abnormality or intracranial hemorrhage is evident. PQRS Compliance Statement: One or more of the following individualized dose reduction techniques were utilized for this examination: 1. Automated exposure control 2. Adjustment of the mA and/or kV according to patient size 3. Use of iterative reconstruction technique Electronically signed by: Vini Benitez MD (09/01/2018 10:59 AM) [facility]
--- NOTE | 2018-09-01 11:21 | PHYS DOC ---
Past Medical History Past Medical History: Anemia, DVT, Hypertension, Kidney Stone, MRSA, Other Additional Past Medical Histor: KIDNEY INFECTION,CHRONIC BACK/HIP PAIN,PE'S Past Surgical History: Angioplasty, Cervical Fusion, Other Additional Past Surgical Histo: Cardiac STENTS,partial gastrectomy,C6-7 fusion , KIDNEY STENT, hernia. Alcohol Use: None Drug Use: None Adult General Chief Complaint Chief Complaint: RIGHT SIDE MOUTH SWELLING,LIP SWELLING [facility] Patient is a 63 year old female presented to ER today for evaluation of right side lower dental pain and right mouth swelling, Patient woke up this morning with the symptoms. Patient said she has several decay teeth on the bottom and it has been bothering her. Patient SAID SHE HAS SOME headache, BUT NO neck pain , no weakness or numbness anywhere. Patient denies any problem with memory. Patient is on Eliquis. Review of Systems Review of Systems Constitutional: Denies fever or chills [] Eyes: Denies change in visual acuity, redness, or eye pain [] HENT: Denies nasal congestion or sore throat. POSITIVE FOR TOOTHACHE, MOUTH SWELLING, GUM SWELLING. Respiratory: Denies cough or shortness of breath [] Cardiovascular: No additional information not addressed in HPI [] GI: Denies abdominal pain, nausea, vomiting, bloody stools or diarrhea [] : Denies dysuria or hematuria [] Musculoskeletal: Denies back pain or joint pain [] Integument: Denies rash or skin lesions [] Neurologic: Positive for headache NO focal weakness or sensory changes [] Endocrine: Denies polyuria or polydipsia [] All other systems were reviewed and found to be within normal limits, except as documented in this note. Current Medications Current Medications Current Medications Medications (Trade) Dose Ordered Sig/David Start Time Stop Time Status Last Admin Dose Admin Clindamycin Phosphate 50 ml @ 100 mls/hr 1X ONCE 09/01/18 09:45 09/01/18 10:14 DC 09/01/18 10:28 100 MLS/HR Diphenhydramine HCl (Benadryl) 25 mg 1X ONCE 09/01/18 09:45 09/01/18 09:46 DC 09/01/18 10:16 25 MG Methylprednisolone Sodium Succinate (SOLU-Medrol 125MG VIAL) 125 mg 1X ONCE 09/01/18 09:45 09/01/18 09:46 DC 09/01/18 10:17 125 MG Allergies Allergies Allergies Coded Allergies Type Severity Reaction Last Updated Verified Sulfa (Sulfonamide Antibiotics) Allergy Intermediate 02/27/17 Yes amlodipine Allergy Intermediate 02/27/17 Yes codeine Allergy Intermediate Rash 02/27/17 Yes doxycycline Allergy Intermediate 02/27/17 Yes ezetimibe Allergy Intermediate 02/27/17 Yes levofloxacin Allergy Intermediate ITCH 02/27/17 Yes morphine Allergy Intermediate 02/27/17 Yes simvastatin Allergy Intermediate 02/27/17 Yes I S O L A T I O N *CONTACT* Allergy Unknown 03/12/18 Yes oxycodone Adverse Reaction Intermediate Hallucinations 02/16/16 Yes Physical Exam Physical Exam Constitutional: Well developed, well nourished, no acute distress, non-toxic appearance. [] HENT: Normocephalic, atraumatic, bilateral external ears normal, oropharynx moist, no ORAL EXUDATE. lower lip swelling, RIGHT anterior lower gumline is swollen and tender. Wide spread dental decay on the bottom.. Eyes: PERRLA, EOMI, conjunctiva normal, no discharge. [] Neck: Normal range of motion, no tenderness, supple, no stridor. [] Cardiovascular:Heart rate regular rhythm, no murmur [] Lungs & Thorax: Bilateral breath sounds clear to auscultation [] Abdomen: Bowel sounds normal, soft, no tenderness, no masses, no pulsatile masses. [] Skin: Warm, dry, no erythema, no rash. [] Back: No tenderness, no CVA tenderness. [] Extremities: No tenderness, no cyanosis, no clubbing, ROM intact, no edema. [] Neurologic: Alert and oriented X 3, normal motor function, normal sensory function, no focal deficits noted. [] Psychologic: Affect normal, judgement normal, mood normal. [] Current Patient Data Vital Signs Vital Signs Date Time Temp Pulse Resp B/P (MAP) Pulse Ox O2 Delivery O2 Flow Rate FiO2 09/01/18 12:00 81 20 100 09/01/18 09:25 99.6 145/78 (100) Room Air 99.6 Lab Values Laboratory Tests Test 09/01/18 09:29 Glucose (Fingerstick) 141 mg/dL (70-99) H EKG EKG [] Radiology/Procedures Radiology/Procedures [][facility] [address] [place] [address] IMAGING REPORT Signed PATIENT: PANDA COLEMAN ACCOUNT: [id number] : 1955 LOCATION: ER AGE: 63 SEX: F EXAM STATUS: REG ER ORD. PHYSICIAN: MAMI AKHTAR DO REASON: HEADACHE, ON ELIQUIS PROCEDURE: CT HEAD WO CONTRAST CT of the head without contrast, 09/01/2018: HISTORY: Headache, patient on eloquis The ventricles are within normal limits in size. There is no shift of the midline structures. There is no evidence of acute intracranial hemorrhage or mass effect. There are mild patchy deep white matter lucencies, most commonly due to chronic ischemic change. Similar findings were present on the study of 04/05/2017. No abnormal extra-axial fluid collection or mass is seen. IMPRESSION: 1. Mild bilateral deep white matter lucencies compatible with chronic ischemic change. 2. No acute abnormality or intracranial hemorrhage is evident. PQRS Compliance Statement: One or more of the following individualized dose reduction techniques were utilized for this examination: 1. Automated exposure control 2. Adjustment of the mA and/or kV according to patient size 3. Use of iterative reconstruction technique Electronically signed by: Vini Benitez MD (09/01/2018 10:59 AM) [facility] DICTATED and SIGNED BY: VINI BENITEZ MD DATE: 09/01/18 1059 Course & Med Decision Making Course & Med Decision Making Pertinent Labs and Imaging studies reviewed. (See chart for details) [] Dragon Disclaimer Dragon Disclaimer This electronic medical record was generated, in whole or in part, using a voice recognition dictation system. Departure Departure Impression: Primary Impression: Dental abscess Disposition: 01 HOME, SELF-CARE Condition: STABLE Referrals: WARD TINOCO MD (PCP) FOLLOW UP WITH YOUR DENTIST IN 2 DAYS Patient Instructions: Dental Abscess Scripts Clindamycin Hcl (CLINDAMYCIN HCL) 150 Mg Capsule 300 MG PO QID for 7 Days, #56 CAP Prov: MAMI AKHTAR DO 09/01/18 MAMI AKHTAR DO Sep 01, 2018 11:21
[2018-09-01] MEDS ORDERED: CLIN150C14 PO (11:26)
[2018-09-01 12:00] VITALS: BP 178/93
--- NOTE | 2018-09-01 15:14 | EKG ---
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
== END 2018-09-01 12:02 | disposition home or self-care (01) ==
LOC: ER 09:21
DX: K04.7 Periapical abscess without sinus (principal); R51 Headache; I10 Essential (primary) hypertension; G89.29 Other chronic pain; Z87.442 Personal history of urinary calculi; Z86.14 Personal history of Methicillin resistant Staphylococcus aureus infection; Z86.2 Personal history of diseases of the blood and blood-forming organs and certain disorders involving the immune mechanism; Z86.711 Personal history of pulmonary embolism; Z86.718 Personal history of other venous thrombosis and embolism; Z98.61 Coronary angioplasty status; Z88.2 Allergy status to sulfonamides; Z88.5 Allergy status to narcotic agent; Z88.1 Allergy status to other antibiotic agents; Z91.041 Radiographic dye allergy status; Z88.8 Allergy status to other drugs, medicaments and biological substances
CPT/HCPCS: 70450; 82962; 93005; 96365; 96375; 99284; J1200; J2930; J3490

== ENCOUNTER → 2018-10-22 | Outpatient (CLI) | payer OTHER ==
[~2018-10-22] MED LIST changes: +CLIN150C14 PO
--- NOTE | 2018-10-22 12:37 | RAD ---
EXAM: MRI LEFT HIP DATE: 10/22/2018 9:45 AM CLINICAL INDICATION: Left hip pain for 3 weeks, post fall COMPARISON: None. TECHNIQUE: Axial, sagittal, and coronal T1 and T2 FS MR imaging of the left hip was performed without IV contrast. FINDINGS: Moderate left hip joint effusion. No trochanteric bursal distention. Severe left hip joint osteoarthrosis with subchondral cystic change and chondral effacement superiorly. Marginal acetabular and femoral head/neck junction osteophytes are seen. Diffuse labral degeneration/maceration. The tendinous attachments of the gluteus medius and minimus are intact. The direct and indirect heads of the rectus femoris are intact at the attachment. Normal attachment of the iliopsoas. Partial-thickness tear of the hamstring attachment without significant retraction. No periarticular mass lesion or focal muscular atrophy. Limited survey of the visceral contents of the pelvis within normal limits. IMPRESSION: 1. Advanced left hip joint osteoarthritis with subchondral cystic change, chondral effacement and bony proliferative change. 2. Moderate left hip joint effusion. 3. Partial thickness tear of the left hamstring tendon attachment. Electronically signed by: Manjit Gonzalez MD (10/22/2018 12:35 PM) [id number]
== END | disposition home or self-care (01) ==
LOC: MRI 09:10
PROVIDERS: ATTEND Internal Medicine
DX: S72.002A Fracture of unspecified part of neck of left femur, initial encounter for closed fracture (principal); S76.812A Strain of other specified muscles, fascia and tendons at thigh level, left thigh, initial encounter; M16.12 Unilateral primary osteoarthritis, left hip; M25.452 Effusion, left hip; X58.XXXA Exposure to other specified factors, initial encounter; Y93.89 Activity, other specified; Y92.89 Other specified places as the place of occurrence of the external cause; Y99.8 Other external cause status
CPT/HCPCS: 73721

== ENCOUNTER 2018-11-03 10:22 | Inpatient (IN) | payer OTHER ==
[~2018-11-03] VITALS: Ht 162.6 cm; Wt 96.2 kg
--- NOTE | 2018-11-03 11:01 | PHYS DOC ---
Past Medical History Past Medical History: Anemia, DVT, Hypertension, Kidney Stone, MRSA, Other Additional Past Medical Histor: KIDNEY INFECTION,CHRONIC BACK/HIP PAIN,PE'S Past Surgical History: Angioplasty, Cervical Fusion, Other Additional Past Surgical Histo: Cardiac STENTS,partial gastrectomy,C6-7 fusion, KIDNEY STENT, hernia. Alcohol Use: None Drug Use: None Adult General Chief Complaint Chief Complaint: SHORTNESS OF BREATH HPI HPI Patient is a 63 year old female with history of hypertension, cardiac stents, PEs, who presents to the ED today complaining of shortness of breath that has been going on since yesterday. PCP had called and started this patient has sita PERDOMO. Patient states symptoms are worse on exertion. Patient states the last time she had similar symptoms March 2018 she had PEs. She states she is currently on Eliquis. Denies any chest pain. Patient said the PCP and is concerned she could have another PE. Review of Systems Review of Systems Constitutional: Denies fever or chills [] Eyes: Denies change in visual acuity, redness, or eye pain [] HENT: Denies nasal congestion or sore throat [] Respiratory: Reports shortness of breath. Denies cough Cardiovascular: No additional information not addressed in HPI [] GI: Denies abdominal pain, nausea, vomiting, bloody stools or diarrhea [] : Denies dysuria or hematuria [] Musculoskeletal: Denies back pain or joint pain [] Integument: Denies rash or skin lesions [] Neurologic: Denies headache, focal weakness or sensory changes [] All other systems were reviewed and found to be within normal limits, except as documented in this note. Current Medications Current Medications Current Medications Medications (Trade) Dose Ordered Sig/David Start Time Stop Time Status Last Admin Dose Admin Acetaminophen (Tylenol) 650 mg PRN Q4HRS PRN 11/03/18 16:30 11/04/18 16:29 Albuterol/ Ipratropium (Duoneb) 3 ml RTQID 11/03/18 20:00 11/04/18 19:59 Ceftriaxone Sodium (Rocephin) 1 gm Q24H 11/03/18 17:00 Ondansetron HCl (Zofran) 4 mg PRN Q8HRS PRN 11/03/18 16:30 11/04/18 16:29 Allergies Allergies Allergies Coded Allergies Type Severity Reaction Last Updated Verified Sulfa (Sulfonamide Antibiotics) Allergy Intermediate 02/27/17 Yes amlodipine Allergy Intermediate 02/27/17 Yes codeine Allergy Intermediate Rash 02/27/17 Yes doxycycline Allergy Intermediate 02/27/17 Yes ezetimibe Allergy Intermediate 02/27/17 Yes levofloxacin Allergy Intermediate ITCH 02/27/17 Yes morphine Allergy Intermediate 02/27/17 Yes simvastatin Allergy Intermediate 02/27/17 Yes I S O L A T I O N *CONTACT* Allergy Unknown 03/12/18 Yes oxycodone Adverse Reaction Intermediate Hallucinations 02/16/16 Yes Physical Exam Physical Exam Constitutional: Well developed, well nourished, no acute distress, non-toxic appearance. [] HENT: Normocephalic, atraumatic, bilateral external ears normal, oropharynx moist, no oral exudates, nose normal. [] Eyes: PERRLA, EOMI, conjunctiva normal, no discharge. [] Neck: Normal range of motion, no tenderness, supple, no stridor. [] Cardiovascular:Heart rate regular rhythm, no murmur [] Lungs & Thorax: Bilateral breath sounds clear to auscultation [] Abdomen: Bowel sounds normal, soft, no tenderness, no masses, no pulsatile masses. [] Skin: Warm, dry, no erythema, no rash. [] Back: No tenderness, no CVA tenderness. [] Extremities: No tenderness, no cyanosis, no clubbing, ROM intact, no edema. [] Neurologic: Alert and oriented X 3, normal motor function, normal sensory function, no focal deficits noted. [] Psychologic: Affect normal, judgement normal, mood normal. [] Current Patient Data Vital Signs Vital Signs Date Time Temp Pulse Resp B/P (MAP) Pulse Ox O2 Delivery O2 Flow Rate FiO2 11/03/18 15:30 70 20 144/74 (97) 100 Room Air 11/03/18 10:30 97.8 97.8 Lab Values Laboratory Tests Test 11/03/18 11:40 11/03/18 12:00 11/03/18 14:25 White Blood Count 5.9 x10^3/uL (4.0-11.0) Red Blood Count 3.66 x10^6/uL (3.50-5.40) Hemoglobin 7.8 g/dL (12.0-15.5) L Hematocrit 25.9 % (36.0-47.0) L Mean Corpuscular Volume 71 fL (79-100) L Mean Corpuscular Hemoglobin 21 pg (25-35) L Mean Corpuscular Hemoglobin Concent 30 g/dL (31-37) L Red Cell Distribution Width 18.0 % (11.5-14.5) H Platelet Count 209 x10^3/uL (140-400) Neutrophils (%) (Auto) 68 % (31-73) Lymphocytes (%) (Auto) 20 % (24-48) L Monocytes (%) (Auto) 8 % (0-9) Eosinophils (%) (Auto) 4 % (0-3) H Basophils (%) (Auto) 1 % (0-3) Neutrophils # (Auto) 4.0 x10^3uL (1.8-7.7) Lymphocytes # (Auto) 1.2 x10^3/uL (1.0-4.8) Monocytes # (Auto) 0.4 x10^3/uL (0.0-1.1) Eosinophils # (Auto) 0.2 x10^3/uL (0.0-0.7) Basophils # (Auto) 0.1 x10^3/uL (0.0-0.2) Platelet Estimate Adequate (ADEQUATE) Hypochromasia Slight Poikilocytosis Slight Anisocytosis Mod Microcytosis Mod Ovalocytes Few Prothrombin Time 18.6 SEC (11.7-14.0) H Prothrombin Time INR 1.6 (0.8-1.1) H PTT 32 SEC (24-38) Sodium Level 135 mmol/L (136-145) L Potassium Level 4.9 mmol/L (3.5-5.1) Chloride Level 103 mmol/L (98-107) Carbon Dioxide Level 20 mmol/L (21-32) L Anion Gap 12 (6-14) Blood Urea Nitrogen 27 mg/dL (7-20) H Creatinine 2.2 mg/dL (0.6-1.0) H Estimated GFR (Cockcroft-Gault) 22.5 BUN/Creatinine Ratio 12 (6-20) Glucose Level 125 mg/dL (70-99) H Lactic Acid Level 1.5 mmol/L (0.4-2.0) 1.6 mmol/L (0.4-2.0) Calcium Level 9.4 mg/dL (8.5-10.1) Magnesium Level 2.1 mg/dL (1.8-2.4) Total Bilirubin 0.3 mg/dL (0.2-1.0) Aspartate Amino Transferase (AST) 14 U/L (15-37) L Alanine Aminotransferase (ALT) 17 U/L (14-59) Alkaline Phosphatase 197 U/L (46-116) H Creatine Kinase 69 U/L (26-192) Creatine Kinase MB (Mass) 0.9 ng/mL (0.0-3.6) Creatine Kinase MB Relative Index % (0-4) Troponin I Quantitative < 0.017 ng/mL (0.000-0.055) PX-Ulg-P-Type Natriuretic Peptide 293 pg/mL (0-124) H Total Protein 7.4 g/dL (6.4-8.2) Albumin 3.6 g/dL (3.4-5.0) Albumin/Globulin Ratio 0.9 (1.0-1.7) L Thyroid Stimulating Hormone (TSH) 3.058 uIU/mL (0.358-3.74) Ethyl Alcohol Level < 10 mg/dL (0-10) Urine Collection Type Unknown Urine Color Yellow Urine Clarity Clear Urine pH 6.0 Urine Specific [place] 1.010 Urine Protein Negative mg/dL (NEG-TRACE) Urine Glucose (UA) Negative mg/dL (NEG) Urine Ketones (Stick) Negative mg/dL (NEG) Urine Blood Negative (NEG) Urine Nitrite Negative (NEG) Urine Bilirubin Negative (NEG) Urine Urobilinogen Dipstick 0.2 mg/dL (0.2 mg/dL) Urine Leukocyte Esterase Large (NEG) Urine RBC Occ /HPF (0-2) Urine WBC 11-20 /HPF (0-4) Urine Squamous Epithelial Cells Few /LPF Urine Transitional Epithelial Cells Few /LPF Urine Renal Epithelial Cells Occ /LPF Urine Bacteria Mod /HPF (0-FEW) Urine Opiates Screen Pos (NEG) Urine Methadone Screen Neg (NEG) Urine Barbiturates Neg (NEG) Urine Phencyclidine Screen Neg (NEG) Urine Amphetamine/Methamphetamine Neg (NEG) Urine Benzodiazepines Screen Neg (NEG) Urine Cocaine Screen Neg (NEG) Urine Cannabinoids Screen Neg (NEG) Urine Ethyl Alcohol Neg (NEG) Laboratory Tests 11/03/18 11:40 Laboratory Tests 11/03/18 11:40 EKG EKG Interpreted by Dr. King sinus rhythm HR 60 no STEMI[] Radiology/Procedures Radiology/Procedures []PROCEDURE: LUNG VENT/PERFUSION SCAN(VQ) VQ Scan: Clinical History: shortness of breath. Technique: 10.9 mCi of xenon-133 was administered as an aerosol and spot views were obtained on a gamma camera for a Nuclear Medicine ventilation examination. 5.5 mCi of Tc 99m MAA was administered intravenously and spot views were obtained on the gamma camera for a Nuclear Medicine perfusion examination. Static images were reviewed as a V/Q scan in order to exclude pulmonary embolism. Findings: Minimal retention of radiotracer identified in the bilateral lungs on the ventilation images likely due to airway disease. Perfusion images are homogeneous without perfusion defects. Impression: Low probability for pulmonary embolism. Electronically signed by: Eduardo Greco MD (11/03/2018 3:22 PM) [place] [id number] DICTATED and SIGNED BY: EDUARDO GRECO MD DATE: 11/03/18 1522 PROCEDURE: CHEST AP ONLY EXAM: CHEST 1 VIEW. HISTORY: Shortness of breath. COMPARISON: 04/10/2018. FINDINGS: A frontal view of the chest is obtained. There are no confluent infiltrates. There is no pneumothorax or pleural effusion. The heart is not enlarged. There are atherosclerotic calcifications of the aorta. Changes of cervical fusion are noted. IMPRESSION: 1. No confluent infiltrates. Electronically signed by: Katie Tamez MD (11/03/2018 4:00 PM) [facility] DICTATED and SIGNED BY: ALINA TAMEZ MD DATE: 11/03/18 1600 Course & Med Decision Making Course & Med Decision Making Pertinent Labs and Imaging studies reviewed. (See chart for details) This is a 63-year-old female patient with history of PEs presenting today complaining of shortness of breath since yesterday though she has hx of chronic SOA. Patient is currently on Eliquis. Vitals on arrival to the ED temperature in 97.8 heart rate 64 respiration 18 on room air blood pressure 168/74 O2 sats 100% on room air. CBC with a normal WBC, hemoglobin 7.8 hematocrit 25.9, patient has history of anemia. CMP with creatinine of 2.2, BUN 27. Patient has known history of renal insufficiency. Urine analysis is noted for infection. VQ scan shows low probability for PE Chest x-ray is negative for any acute findings. Patient was admitted under Dr. Hwang. Routine consult placed for pulmonary by Dr. Hwang's request. Batsheva Disclaimer Batsheva Disclaimer This electronic medical record was generated, in whole or in part, using a voice recognition dictation system. Departure Departure Impression: Primary Impression: UTI (urinary tract infection) Additional Impressions: YENY (iron deficiency anemia) Shortness of breath Disposition: ADMITTED INPATIENT Condition: STABLE Referrals: WARD TINOCO MD (PCP) Problem Qualifiers Primary Impression: UTI (urinary tract infection) Urinary tract infection type: site unspecified Hematuria presence: without hematuria Qualified Codes: N39.0 - Urinary tract infection, site not sp ecified Additional Impressions: YENY (iron deficiency anemia) Iron deficiency anemia type: unspecified iron deficiency Qualified Codes: D50.9 - Iron deficiency anemia, unspecified JORDAN CAMARGO APRN Nov 03, 2018 11:01
--- NOTE | 2018-11-03 11:29 | EKG ---
[address] [place] [address] Test Date: 2018-11-03 Test Time: 10:36:09 Pat Name: PANDA COLEMAN Department: Room: Gender: F Info Analyst: : 1955 Requested By: JORDAN CAMARGO Order Number: [id number] Reading MD: Measurements Intervals [place] Rate: 60 P: 90 [place]: 194 QRS: 13 QRSD: 70 T: 26 QT: 414 QTc: 418 Interpretive Statements SINUS RHYTHM QRS(T) CONTOUR ABNORMALITY CONSIDER ANTEROSEPTAL MYOCARDIAL DAMAGE POSSIBLY ABNORMAL ECG RI6.01 No previous ECG available for comparison
[2018-11-03 12:23] LABS: BILIRUBIN,URINE NEGATIVE (NEG); CLARITY,URINE CLEAR; COLOR,URINE YELLOW; NITRITE,URINE NEGATIVE (NEG); PROTEIN,URINE NEGATIVE (NEG-TRACE); UROBILINOGEN,URINE 0.2 mg/dL (0.2 mg/dL)
[2018-11-03 12:24] LABS: BARBITURATES NEG (NEG); BENZODIAZEPINES NEG (NEG); CANNABINOIDS NEG (NEG); COCAINE NEG (NEG); METHADONE NEG (NEG); OPIATES POS (NEG); PHENCYCLIDINE NEG (NEG)
[2018-11-03 12:27] LABS: AMPHETAMINE/METHAMPHETAMINE NEG (NEG)
[2018-11-03 12:28] LABS: BASO # 0.1 x10^3/uL (0.0-0.2); BASO % 1 % (0-3); EOS # 0.2 x10^3/uL (0.0-0.7); EOS % 4 % (0-3); HEMATOCRIT 25.9 % (36.0-47.0); HEMOGLOBIN 7.8 g/dL (12.0-15.5); LYMPH # 1.2 x10^3/uL (1.0-4.8); LYMPH % 20 % (24-48); MEAN CORPUSCULAR HEMOGLOBIN 21 pg (25-35); MEAN CORPUSCULAR HGB CONC 30 g/dL (31-37); MEAN CORPUSCULAR VOLUME 71 fL (79-100); MONO # 0.4 x10^3/uL (0.0-1.1); MONO % 8 % (0-9); NEUT % 68 % (31-73); PLATELET COUNT 209 x10^3/uL (140-400); RED BLOOD COUNT 3.66 x10^6/uL (3.50-5.40); WHITE BLOOD COUNT 5.9 x10^3/uL (4.0-11.0)
[2018-11-03 12:30] LABS: PROTHROMBIN TIME PATIENT 18.6 SEC (11.7-14.0)
[2018-11-03 12:33] LABS: SQUAMOUS EPITHELIAL CELL,UR FEW /LPF
[2018-11-03 12:35] LABS: BACTERIA,URINE MOD /HPF (0-FEW); RBC,URINE OCC /HPF (0-2)
[2018-11-03 12:38] LABS: CALCIUM 9.4 mg/dL (8.5-10.1); CREATININE 2.2 mg/dL (0.6-1.0); GFR 22.5; POTASSIUM 4.9 mmol/L (3.5-5.1)
[2018-11-03 12:43] LABS: ALBUMIN 3.6 g/dL (3.4-5.0); TOTAL PROTEIN 7.4 g/dL (6.4-8.2)
[2018-11-03 12:44] LABS: ALBUMIN/GLOBULIN RATIO 0.9 (1.0-1.7); MAGNESIUM 2.1 mg/dL (1.8-2.4); TOTAL BILIRUBIN 0.3 mg/dL (0.2-1.0)
[2018-11-03 12:49] LABS: CREATINE KINASE 69 U/L (26-192)
--- NOTE | 2018-11-03 15:25 | RAD ---
VQ Scan: Clinical History: shortness of breath. Technique: 10.9 mCi of xenon-133 was administered as an aerosol and spot views were obtained on a gamma camera for a Nuclear Medicine ventilation examination. 5.5 mCi of Tc 99m MAA was administered intravenously and spot views were obtained on the gamma camera for a Nuclear Medicine perfusion examination. Static images were reviewed as a V/Q scan in order to exclude pulmonary embolism. Findings: Minimal retention of radiotracer identified in the bilateral lungs on the ventilation images likely due to airway disease. Perfusion images are homogeneous without perfusion defects. Impression: Low probability for pulmonary embolism. Electronically signed by: Eduardo Greco MD (11/03/2018 3:22 PM) [place] [id number]
--- NOTE | 2018-11-03 16:04 | RAD ---
EXAM: CHEST 1 VIEW. HISTORY: Shortness of breath. COMPARISON: 04/10/2018. FINDINGS: A frontal view of the chest is obtained. There are no confluent infiltrates. There is no pneumothorax or pleural effusion. The heart is not enlarged. There are atherosclerotic calcifications of the aorta. Changes of cervical fusion are noted. IMPRESSION: 1. No confluent infiltrates. Electronically signed by: Katie Tamez MD (11/03/2018 4:00 PM) [facility]
[2018-11-03] MEDS ORDERED: ONDANSETRON PF 4 MG/2 ML VIAL. IV PRN (16:30)
[2018-11-03] MEDS ORDERED: cefTRIAXone IV Push 1 GM VIAL. IVP ONE (16:30)
[2018-11-03] MEDS ORDERED: ACETAMINOPHEN 325 MG TABLET. PO PRN (16:30)
[2018-11-03 16:51] LABS: ANISOCYTOSIS MOD; HYPOCHROMIA SLIGHT; MICROCYTOSIS MOD; OVALOCYTES FEW; PLT ESTIMATE ADEQUATE (ADEQUATE); POIKILOCYTOSIS SLIGHT
[2018-11-03] MEDS ORDERED: cefTRIAXone IV Push 1 GM VIAL. IVP SCH (17:00)
[2018-11-03 18:21] VITALS: BP 127/60
--- NOTE | 2018-11-03 18:44 | HP ---
ADMIT DATE: 11/03/2018 CHIEF COMPLAINT: Shortness of breath. 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 She presents with shortness of breath. She had a PE back in 03/2018. She has been on Eliquis since then. Her shortness of breath that has been worsening for the past 2 days, rated at 9/10. She has associated weakness, describes it as irritating. I discussed the case with the ER physician. We are going to admit the patient and consult Pulmonary. She also has some renal insufficiency with a creatinine of 2.2. I am going to consult Nephrology as well. PAST MEDICAL HISTORY: DVT, PE, anemia, hypertension, kidney stones, MRSA infection, chronic back and hip pain, angioplasty, cervical fusion, cardiac stents, partial gastrectomy, C6-C7 fusion, kidney stents and hernia repair. ALLERGIES: None. FAMILY HISTORY: Diabetes. SOCIAL HISTORY: She does not drink, smoke or take drugs. 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 MEDICATIONS: Reviewed. Please refer to the MRAD. REVIEW OF SYSTEMS: GENERAL: No history of weight change, weakness or fevers. SKIN: No bruising, hair changes or rashes. EYES: No blurred, double or loss of vision. NOSE AND THROAT: No history of nosebleeds, hoarseness or sore throat. HEART: No history of palpitations, chest pain or shortness of breath on exertion. LUNGS: She complains of shortness of breath. GASTROINTESTINAL: Denies changes in appetite, nausea, vomiting, diarrhea or constipation. GENITOURINARY: No history of frequency, urgency, hesitancy or nocturia. NEUROLOGIC: Denies history of numbness, tingling, tremor or weakness. PSYCHIATRIC: No history of panic, anxiety or depression. ENDOCRINE: No history of heat or cold intolerance, polyuria or polydipsia. EXTREMITIES: Denies muscle weakness, joint pain, pain on walking or stiffness. PHYSICAL EXAMINATION: VITAL SIGNS: Temperature afebrile, pulse 98, respirations 18, blood pressure 142/90. GENERAL: She is alert, cooperative. Her sister is present. HEART: Normal S1, S2. LUNGS: Mostly clear. ABDOMEN: Soft. EXTREMITIES: Trace edema. SKIN: No rashes. She does have Raynaud's syndrome on her fingers. ENDOCRINE: No thyromegaly. LYMPHATICS: No cervical nodes. HEMATOPOIETIC: No bruising. PSYCHIATRIC: She is stable. V/Q scan is negative. Creatinine is 2.2. Her hemoglobin was 7.8. ASSESSMENT AND PLAN: Shortness of breath with anemia and multiple comorbidities including previous pulmonary embolism. The patient has been admitted. We will consult Pulmonary, consult Nephrology. Gentle IV fluids. O2 per nasal cannula p.r.n. Continue home meds, frequent labs, PT, OT, DVT prophylaxis. KELSIE IGNACIO DO DR: JONATHAN/beth JOB#: [id number] / [id number]
[2018-11-03] MEDS: IPRATRPIUM/ALBUTEROL 0.5/2.5MG 3 ML NEBU. NEB SCH (19:34)
--- NOTE | 2018-11-03 20:00 | NUR ---
The patient, PANDA COLEMAN, 63 y/o, F admitted by KELSIE IGNACIO III, DO, was given written information regarding hospital policies, unit procedures and contact persons. Valuables were checked and patient is resting with call light within reach.
[2018-11-03 23:00] VITALS: BP 112/62
[2018-11-04 03:00] VITALS: BP 106/55
[2018-11-04 07:00] VITALS: BP 143/71
[2018-11-04] MEDS: IPRATRPIUM/ALBUTEROL 0.5/2.5MG 3 ML NEBU. NEB SCH ×2 (07:55→11:31)
--- NOTE | 2018-11-04 09:37 | NUR ---
IP: Pt has a long hx of mrsa since 2003. Most recent is a + mrsa screen on 03/11/18. Pt to be in contact precautions until there are 2 negative screens 7 days apart and no open wounds.
--- NOTE | 2018-11-04 09:41 | PDOC2 ---
CONSULT Date of Consult Date of Consult DATE: 11/04/18 TIME: 09:32 Reason for Consult Reason for Consult: Chr renal failure Source Source: Chart review, Patient History of Present Illness Reason for Visit: Pt is 63 yo CF with Hx of CKD seen by Renal in 2018 as inpatient - stage 4 with baseline Cr 2.0-2.5, HTN, DM, bilateral Nephrocalcinosis s/p stone removal a [facility] She reports she doesnt follow with Nephrology as OP as she didnt think she needs to and also not approved by Insurance She presents with shortness of breath. She had a PE back in 03/2018. She has been on Eliquis since then. Her shortness of breath that has been worsening for the past 2 days, rated at 9/10. She has associated weakness, PAST MEDICAL HISTORY: DVT, PE, anemia, hypertension, kidney stones, MRSA infection, chronic back and hip pain, angioplasty, cervical fusion, cardiac stents, partial gastrectomy, C6-C7 fusion, kidney stents and hernia repair. Past Medical History Cardiovascular: CAD, HTN, Hyperlipidemia Pulmonary: No pertinent hx CENTRAL NERVOUS SYSTEM: Migraine, Other GI: Peptic Ulcer disease Heme/Onc: Other Hepatobiliary: No pertinent hx Psych: No pertinent hx Musculoskeletal: Other Rheumatologic: Gout Infectious disease: Other Renal/: Chronic renal insuff, Other Endocrine: No pertinent hx Past Surgical History Past Surgical History: Hernia Repair, Other Family History Family History: Coronary Artery Disease Social History ALCOHOL: none Drugs: None Lives: with Family Current Problem List Problem List Problems Medical Problems: (1) Shortness of breath Status: Acute Current Medications Current Medications Current Medications Ondansetron HCl (Zofran) 4 mg PRN Q8HRS PRN IV NAUSEA/VOMITING; Start 11/03/18 at 16:30; Stop 11/04/18 at 16:29 Acetaminophen (Tylenol) 650 mg PRN Q4HRS PRN PO FEVER; Start 11/03/18 at 16:30; Stop 11/04/18 at 16:29 Albuterol/ Ipratropium (Duoneb) 3 ml RTQID NEB Last administered on 11/04/18at 07:55; Start 11/03/18 at 20:00; Stop 11/04/18 at 19:59 Ceftriaxone Sodium (Rocephin) 1 gm 1X ONCE IVP Last administered on 11/03/18at 17:27; Start 11/03/18 at 16:30; Stop 11/03/18 at 16:31; Status DC Ceftriaxone Sodium (Rocephin) 1 gm Q24H IVP ; Start 11/03/18 at 17:00 Active Scripts Active Eliquis (Apixaban) 5 Mg Tablet 5 Mg PO BID 30 Days 10mg BID for 7 days, then 5mg BID thereafter Atorvastatin Calcium 40 Mg Tablet 40 Mg PO QHS 30 Days Reported [place] 10-325 Tablet (Acetaminophen/Hydrocodone Bitart) 1 Each Tablet 1-2 Tab PO Q4-6HRS Levothyroxine Sodium 75 Mcg Tablet 1 Tab PO DAILY Allopurinol 100 Mg Tablet 1 Tab PO DAILY Propranolol Hcl 160 Mg Cap.sa.24h 160 Mg PO DAILY Losartan Potassium 50 Mg Tablet 50 Mg PO DAILY Cyclobenzaprine Hcl 10 Mg Tablet 10 Mg PO Proair Hfa Inhaler (Albuterol Sulfate) 8.5 Gm Hfa.aer.ad 8.5 Gm IH Allergies Allergies: Coded Allergies: Sulfa (Sulfonamide Antibiotics) (Verified Allergy, Intermediate, 02/27/17) amlodipine (Verified Allergy, Intermediate, 02/27/17) codeine (Verified Allergy, Intermediate, Rash, 02/27/17) doxycycline (Verified Allergy, Intermediate, 02/27/17) ezetimibe (Verified Allergy, Intermediate, 02/27/17) levofloxacin (Verified Allergy, Intermediate, ITCH, 02/27/17) Tolerates cipro morphine (Verified Allergy, Intermediate, 02/27/17) simvastatin (Verified Allergy, Intermediate, 02/27/17) I S O L A T I O N *CONTACT* (Verified Allergy, Unknown, 03/12/18) +MRSA nares 03/11/18 oxycodone (Verified Adverse Reaction, Intermediate, Hallucinations, 02/16/16) ROS Review of System Per HPI Physical Exam Physical Exam GENERAL: NAD HEENT- OM moist Neck- Supple HEART: Normal S1, S2. LUNGS: clear. ABDOMEN: Soft. EXTREMITIES: Trace edema. SKIN: No rashes. She does have Raynaud's syndrome on her fingers. NEURO- Grossly Normal No perkins, No SP or CVA tenderness Vital Signs Vital Signs Date Time Temp Pulse Resp B/P (MAP) Pulse Ox O2 Delivery O2 Flow Rate FiO2 11/04/18 07:55 99 Room Air 11/04/18 07:00 97.4 81 18 143/71 (95) 97.4 Assessment & Plan CKD stage 3/4- Per [facility] records, CT 2017- . Severe bilateral renal cortical scarring. Doesent follow with Renal as OP E-lytes and acid base stable Monitor, supportive care Nephrolithiais/nephrocalcinosis Surgical removal in [facility] at [facility] Ct in 2017- . Numerous bilateral renal calculi without current evidence of an obstructing calculus. UA positive for wbc Asymptomatic, defer to Primary Anemia- Drop in Hgb Defer to PCP COWAN- Per primary CXr no e/o Congestion Labs Labs Laboratory Tests Test 11/03/18 11:40 11/03/18 12:00 11/03/18 14:25 White Blood Count 5.9 x10^3/uL (4.0-11.0) Red Blood Count 3.66 x10^6/uL (3.50-5.40) Hemoglobin 7.8 g/dL (12.0-15.5) Hematocrit 25.9 % (36.0-47.0) Mean Corpuscular Volume 71 fL (79-100) Mean Corpuscular Hemoglobin 21 pg (25-35) Mean Corpuscular Hemoglobin Concent 30 g/dL (31-37) Red Cell Distribution Width 18.0 % (11.5-14.5) Platelet Count 209 x10^3/uL (140-400) Neutrophils (%) (Auto) 68 % (31-73) Lymphocytes (%) (Auto) 20 % (24-48) Monocytes (%) (Auto) 8 % (0-9) Eosinophils (%) (Auto) 4 % (0-3) Basophils (%) (Auto) 1 % (0-3) Neutrophils # (Auto) 4.0 x10^3uL (1.8-7.7) Lymphocytes # (Auto) 1.2 x10^3/uL (1.0-4.8) Monocytes # (Auto) 0.4 x10^3/uL (0.0-1.1) Eosinophils # (Auto) 0.2 x10^3/uL (0.0-0.7) Basophils # (Auto) 0.1 x10^3/uL (0.0-0.2) Platelet Estimate Adequate (ADEQUATE) Hypochromasia Slight Poikilocytosis Slight Anisocytosis Mod Microcytosis Mod Ovalocytes Few Prothrombin Time 18.6 SEC (11.7-14.0) Prothromb Time International Ratio 1.6 (0.8-1.1) Activated Partial Thromboplast Time 32 SEC (24-38) Sodium Level 135 mmol/L (136-145) Potassium Level 4.9 mmol/L (3.5-5.1) Chloride Level 103 mmol/L (98-107) Carbon Dioxide Level 20 mmol/L (21-32) Anion Gap 12 (6-14) Blood Urea Nitrogen 27 mg/dL (7-20) Creatinine 2.2 mg/dL (0.6-1.0) Estimated GFR (Cockcroft-Gault) 22.5 BUN/Creatinine Ratio 12 (6-20) Glucose Level 125 mg/dL (70-99) Lactic Acid Level 1.5 mmol/L (0.4-2.0) 1.6 mmol/L (0.4-2.0) Calcium Level 9.4 mg/dL (8.5-10.1) Magnesium Level 2.1 mg/dL (1.8-2.4) Total Bilirubin 0.3 mg/dL (0.2-1.0) Aspartate Amino Transf (AST/SGOT) 14 U/L (15-37) Alanine Aminotransferase (ALT/SGPT) 17 U/L (14-59) Alkaline Phosphatase 197 U/L (46-116) Creatine Kinase 69 U/L (26-192) Creatine Kinase MB (Mass) 0.9 ng/mL (0.0-3.6) Creatine Kinase MB Relative Index % (0-4) Troponin I Quantitative < 0.017 ng/mL (0.000-0.055) OH-Ctj-Y-Type Natriuretic Peptide 293 pg/mL (0-124) Total Protein 7.4 g/dL (6.4-8.2) Albumin 3.6 g/dL (3.4-5.0) Albumin/Globulin Ratio 0.9 (1.0-1.7) Thyroid Stimulating Hormone (TSH) 3.058 uIU/mL (0.358-3.74) Ethyl Alcohol Level < 10 mg/dL (0-10) Urine Collection Type Unknown Urine Color Yellow Urine Clarity Clear Urine pH 6.0 Urine Specific [place] 1.010 Urine Protein Negative mg/dL (NEG-TRACE) Urine Glucose (UA) Negative mg/dL (NEG) Urine Ketones (Stick) Negative mg/dL (NEG) Urine Blood Negative (NEG) Urine Nitrite Negative (NEG) Urine Bilirubin Negative (NEG) Urine Urobilinogen Dipstick 0.2 mg/dL (0.2 mg/dL) Urine Leukocyte Esterase Large (NEG) Urine RBC Occ /HPF (0-2) Urine WBC 11-20 /HPF (0-4) Urine Squamous Epithelial Cells Few /LPF Urine Transitional Epithelial Cells Few /LPF Urine Renal Epithelial Cells Occ /LPF Urine Bacteria Mod /HPF (0-FEW) Urine Opiates Screen Pos (NEG) Urine Methadone Screen Neg (NEG) Urine Barbiturates Neg (NEG) Urine Phencyclidine Screen Neg (NEG) Urine Amphetamine/Methamphetamine Neg (NEG) Urine Benzodiazepines Screen Neg (NEG) Urine Cocaine Screen Neg (NEG) Urine Cannabinoids Screen Neg (NEG) Urine Ethyl Alcohol Neg (NEG) Laboratory Tests Test 11/03/18 11:40 11/03/18 12:00 11/03/18 14:25 White Blood Count 5.9 x10^3/uL (4.0-11.0) Red Blood Count 3.66 x10^6/uL (3.50-5.40) Hemoglobin 7.8 g/dL (12.0-15.5) Hematocrit 25.9 % (36.0-47.0) Mean Corpuscular Volume 71 fL (79-100) Mean Corpuscular Hemoglobin 21 pg (25-35) Mean Corpuscular Hemoglobin Concent 30 g/dL (31-37) Red Cell Distribution Width 18.0 % (11.5-14.5) Platelet Count 209 x10^3/uL (140-400) Neutrophils (%) (Auto) 68 % (31-73) Lymphocytes (%) (Auto) 20 % (24-48) Monocytes (%) (Auto) 8 % (0-9) Eosinophils (%) (Auto) 4 % (0-3) Basophils (%) (Auto) 1 % (0-3) Neutrophils # (Auto) 4.0 x10^3uL (1.8-7.7) Lymphocytes # (Auto) 1.2 x10^3/uL (1.0-4.8) Monocytes # (Auto) 0.4 x10^3/uL (0.0-1.1) Eosinophils # (Auto) 0.2 x10^3/uL (0.0-0.7) Basophils # (Auto) 0.1 x10^3/uL (0.0-0.2) Platelet Estimate Adequate (ADEQUATE) Hypochromasia Slight Poikilocytosis Slight Anisocytosis Mod Microcytosis Mod Ovalocytes Few Prothrombin Time 18.6 SEC (11.7-14.0) Prothromb Time International Ratio 1.6 (0.8-1.1) Activated Partial Thromboplast Time 32 SEC (24-38) Sodium Level 135 mmol/L (136-145) Potassium Level 4.9 mmol/L (3.5-5.1) Chloride Level 103 mmol/L (98-107) Carbon Dioxide Level 20 mmol/L (21-32) Anion Gap 12 (6-14) Blood Urea Nitrogen 27 mg/dL (7-20) Creatinine 2.2 mg/dL (0.6-1.0) Estimated GFR (Cockcroft-Gault) 22.5 BUN/Creatinine Ratio 12 (6-20) Glucose Level 125 mg/dL (70-99) Lactic Acid Level 1.5 mmol/L (0.4-2.0) 1.6 mmol/L (0.4-2.0) Calcium Level 9.4 mg/dL (8.5-10.1) Magnesium Level 2.1 mg/dL (1.8-2.4) Total Bilirubin 0.3 mg/dL (0.2-1.0) Aspartate Amino Transf (AST/SGOT) 14 U/L (15-37) Alanine Aminotransferase (ALT/SGPT) 17 U/L (14-59) Alkaline Phosphatase 197 U/L (46-116) Creatine Kinase 69 U/L (26-192) Creatine Kinase MB (Mass) 0.9 ng/mL (0.0-3.6) Creatine Kinase MB Relative Index % (0-4) Troponin I Quantitative < 0.017 ng/mL (0.000-0.055) ZV-Vhf-N-Type Natriuretic Peptide 293 pg/mL (0-124) Total Protein 7.4 g/dL (6.4-8.2) Albumin 3.6 g/dL (3.4-5.0) Albumin/Globulin Ratio 0.9 (1.0-1.7) Thyroid Stimulating Hormone (TSH) 3.058 uIU/mL (0.358-3.74) Ethyl Alcohol Level < 10 mg/dL (0-10) Urine Collection Type Unknown Urine Color Yellow Urine Clarity Clear Urine pH 6.0 Urine Specific [place] 1.010 Urine Protein Negative mg/dL (NEG-TRACE) Urine Glucose (UA) Negative mg/dL (NEG) Urine Ketones (Stick) Negative mg/dL (NEG) Urine Blood Negative (NEG) Urine Nitrite Negative (NEG) Urine Bilirubin Negative (NEG) Urine Urobilinogen Dipstick 0.2 mg/dL (0.2 mg/dL) Urine Leukocyte Esterase Large (NEG) Urine RBC Occ /HPF (0-2) Urine WBC 11-20 /HPF (0-4) Urine Squamous Epithelial Cells Few /LPF Urine Transitional Epithelial Cells Few /LPF Urine Renal Epithelial Cells Occ /LPF Urine Bacteria Mod /HPF (0-FEW) Urine Opiates Screen Pos (NEG) Urine Methadone Screen Neg (NEG) Urine Barbiturates Neg (NEG) Urine Phencyclidine Screen Neg (NEG) Urine Amphetamine/Methamphetamine Neg (NEG) Urine Benzodiazepines Screen Neg (NEG) Urine Cocaine Screen Neg (NEG) Urine Cannabinoids Screen Neg (NEG) Urine Ethyl Alcohol Neg (NEG) Review All relevant outside records, renal labs, imaging studies, telemetry/EKG's were reviewed. Images Images EXAM: CHEST 1 VIEW. HISTORY: Shortness of breath. COMPARISON: 04/10/2018. FINDINGS: A frontal view of the chest is obtained. There are no confluent infiltrates. There is no pneumothorax or pleural effusion. The heart is not enlarged. There are atherosclerotic calcifications of the aorta. Changes of cervical fusion are noted. IMPRESSION: 1. No confluent infiltrates. CT of the abdomen and pelvis without contrast, 03/11/2018: Noncontrast scans were obtained as requested and compared to a study from 02/23/2017. Moderate coronary artery calcifications are present. The unopacified liver is unremarkable. No gallbladder abnormality is seen. There is fatty change in the pancreas. The spleen is of normal size. There is extensive bilateral renal scarring. There are numerous bilateral renal calculi. These have decreased in size and number since the previous study. There is currently no evidence of obstruction. There are streaky streaky left parapelvic opacities probably due to scarring. Residual edema from recent passage of a calculus cannot be excluded. No ureteral calculus is currently seen. JOYCE KHAN MD Nov 04, 2018 09:41
[2018-11-04 09:51] LABS: BASO % 1 % (0-3); EOS # 0.2 x10^3/uL (0.0-0.7); EOS % 3 % (0-3); HEMATOCRIT 25.5 % (36.0-47.0); HEMOGLOBIN 7.6 g/dL (12.0-15.5); LYMPH # 0.8 x10^3/uL (1.0-4.8); LYMPH % 16 % (24-48); MEAN CORPUSCULAR HEMOGLOBIN 21 pg (25-35); MEAN CORPUSCULAR HGB CONC 30 g/dL (31-37); MEAN CORPUSCULAR VOLUME 71 fL (79-100); MONO # 0.3 x10^3/uL (0.0-1.1); MONO % 5 % (0-9); NEUT # 3.7 x10^3uL (1.8-7.7); NEUT % 75 % (31-73); PLATELET COUNT 220 x10^3/uL (140-400)
[2018-11-04 10:03] LABS: CALCIUM 8.9 mg/dL (8.5-10.1); GFR 25.1
[2018-11-04 11:00] VITALS: BP 135/50
[2018-11-04] MEDS ORDERED: ALLOPURINOL 100 MG TABLET. PO SCH (12:00)
[2018-11-04] MEDS ORDERED: LOSARTAN POTASSIUM 50 MG TABLET. PO SCH (12:00)
[2018-11-04] MEDS ORDERED: ALBUTEROL SULFATE 2.5 MG/3 ML NEBU. NEB PRN (12:00)
[2018-11-04] MEDS ORDERED: LEVOTHYROXINE 75 MCG TABLET PO SCH (12:00)
[2018-11-04] MEDS ORDERED: CYCLOBENZAPRINE 10 MG TABLET. PO PRN (12:00)
[2018-11-04] MEDS ORDERED: APIXABAN 5 MG TABLET. PO SCH (12:00)
[2018-11-04 12:12] VITALS: BP 135/50
[2018-11-04] MEDS ORDERED: HYDROcodone/APAP 5/325MG 1 TAB TABLET PO PRN ×2 (12:15)
[2018-11-04] MEDS ORDERED: PROPRANOLOL ER 80 MG CAP.ER.24H. PO SCH (12:30)
--- NOTE | 2018-11-04 12:33 | NUR ---
SW consulted for dc needs. Chart reviewed. Pt is from home and Pulmonary and nephrology consulted. SW requested for PT/OT order as recommended by rehab screen.
[2018-11-04] MEDS ORDERED: ANTI-COAG MONITOR BY PHARMACY. MC PRN (12:45)
--- NOTE | 2018-11-04 15:21 | NUR ---
Discharge Note: PANDA COLEMAN Discharge instructions and discharge home medications reviewed with Patient and a copy given. All questions have been answered and understanding verbalized. The following instructions and handouts were given: Patient given education regarding new medication follow up instructions. Discontinued lines and drains: Iv removed per protocol. Patient discharged home, picked up by sister.
[2018-11-04] MEDS ORDERED: LACTOBACILLUS RHAMNOSUS GG 1 CAPSULE. PO SCH (21:00)
[2018-11-04] MEDS ORDERED: ATORVASTATIN CALCIUM 40 MG TABLET. PO SCH (21:00)
--- NOTE | 2018-11-04 22:43 | DS ---
DATE OF DISCHARGE: 11/04/2018 ADMISSION DIAGNOSES: Urinary tract infection and weakness, shortness of breath, anemia, and chronic renal insufficiency. DISCHARGE DIAGNOSES: Resolving urinary tract infection, chronic anemia, resolving shortness of breath. CONSULTS: Nephrology and Pulmonary. PROCEDURES: None. 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 Basically, she presented with short of breath and weak, had a UTI. She was doing fairly well. I admitted her overnight. This morning, she was back to her baseline. She wants to go home. I left her a prescription for Augmentin 875 p.o. b.i.d. If okay with consultants, we plan to discharge. DISPOSITION: Home. ACTIVITY: As tolerated. DIET: Low sodium. MEDICATIONS: Please see the MRAD. TOTAL TIME: 31 minutes. KELSIE IGNACIO DO DR: JONATHAN/beth JOB#: [id number] / [id number]
== END 2018-11-04 15:06 | disposition home or self-care (01) | DRG 690 ==
LOC: ER 10:22 → 5 NORTH 16:08
PROVIDERS: ADMIT Internal Medicine; ATTEND Internal Medicine
DX: N39.0 Urinary tract infection, site not specified (principal); N18.4 Chronic kidney disease, stage 4 (severe); D50.9 Iron deficiency anemia, unspecified; E11.22 Type 2 diabetes mellitus with diabetic chronic kidney disease; E78.5 Hyperlipidemia, unspecified; I12.9 Hypertensive chronic kidney disease with stage 1 through stage 4 chronic kidney disease, or unspecified chronic kidney disease; I25.10 Atherosclerotic heart disease of native coronary artery without angina pectoris; G43.909 Migraine, unspecified, not intractable, without status migrainosus; M10.9 Gout, unspecified; N20.0 Calculus of kidney; N29 Other disorders of kidney and ureter in diseases classified elsewhere; Z87.442 Personal history of urinary calculi; Z86.711 Personal history of pulmonary embolism; Z95.5 Presence of coronary angioplasty implant and graft; Z90.3 Acquired absence of stomach [part of]; Z87.11 Personal history of peptic ulcer disease; Z86.14 Personal history of Methicillin resistant Staphylococcus aureus infection; Z83.3 Family history of diabetes mellitus; Z82.49 Family history of ischemic heart disease and other diseases of the circulatory system; Z79.01 Long term (current) use of anticoagulants; Z98.1 Arthrodesis status; Z88.6 Allergy status to analgesic agent; Z88.1 Allergy status to other antibiotic agents; Z88.5 Allergy status to narcotic agent; Z88.2 Allergy status to sulfonamides; Z88.8 Allergy status to other drugs, medicaments and biological substances
CPT/HCPCS: 36415; 71045; 78582; 80048; 80053; 80307; 81001; 82553; 83605; 83735; 83880; 84443; 84484; 85025; 85610; 85730; 87040; 87641; 93005; 94640; 94760; 96374; A9540; A9558; G0480; J0696; J7620; 99285-25

== ENCOUNTER 2019-01-01 19:48 | Inpatient (IN) | payer OTHER ==
[~2019-01-01] VITALS: Ht 162.6 cm; Wt 101.2 kg
[~2019-01-01 19:48] MED LIST changes: -PANT40TA5 PO; +PANT40TA77 PO; -TIZA2TAB PO; +TIZA2TAB2 PO
[2019-01-01 21:26] LABS: BILIRUBIN,URINE NEGATIVE (NEG); CLARITY,URINE CLEAR; COLOR,URINE YELLOW; NITRITE,URINE NEGATIVE (NEG); PROTEIN,URINE NEGATIVE (NEG-TRACE); UROBILINOGEN,URINE 0.2 mg/dL (0.2 mg/dL)
[2019-01-01 21:33] LABS: AMPHETAMINE/METHAMPHETAMINE NEG (NEG); BARBITURATES NEG (NEG); BENZODIAZEPINES NEG (NEG); CANNABINOIDS NEG (NEG); COCAINE NEG (NEG); METHADONE NEG (NEG); OPIATES NEG (NEG); PHENCYCLIDINE NEG (NEG)
[2019-01-01 21:39] LABS: BACTERIA,URINE FEW /HPF (0-FEW); RBC,URINE 0 /HPF (0-2); SQUAMOUS EPITHELIAL CELL,UR OCC /LPF; WBC,URINE 20-40 /HPF (0-4)
[2019-01-01 22:13] LABS: BASO # 0.1 x10^3/uL (0.0-0.2); BASO % 1 % (0-3); EOS # 0.2 x10^3/uL (0.0-0.7); EOS % 3 % (0-3); HEMATOCRIT 22.4 % (36.0-47.0); LYMPH # 1.4 x10^3/uL (1.0-4.8); LYMPH % 20 % (24-48); MEAN CORPUSCULAR HEMOGLOBIN 20 pg (25-35); MEAN CORPUSCULAR HGB CONC 30 g/dL (31-37); MEAN CORPUSCULAR VOLUME 69 fL (79-100); MONO # 0.6 x10^3/uL (0.0-1.1); MONO % 9 % (0-9); NEUT # 4.8 x10^3/uL (1.8-7.7); NEUT % 67 % (31-73); PLATELET COUNT 239 x10^3/uL (140-400); RED BLOOD COUNT 3.25 x10^6/uL (3.50-5.40); RED CELL DISTRIBUTION WIDTH 18.7 % (11.5-14.5); WHITE BLOOD COUNT 7.1 x10^3/uL (4.0-11.0)
[2019-01-01 22:16] LABS: HEMOGLOBIN 6.6 g/dL (12.0-15.5)
[2019-01-01 22:20] LABS: CALCIUM 8.8 mg/dL (8.5-10.1); CREATININE 2.5 mg/dL (0.6-1.0); GFR 19.4
[2019-01-01 22:22] LABS: PROTHROMBIN TIME PATIENT 16.6 SEC (11.7-14.0)
[2019-01-01 22:25] LABS: ALBUMIN 3.4 g/dL (3.4-5.0); ALBUMIN/GLOBULIN RATIO 0.9 (1.0-1.7); TOTAL BILIRUBIN 0.2 mg/dL (0.2-1.0); TOTAL PROTEIN 7.2 g/dL (6.4-8.2)
[2019-01-01] MEDS ORDERED: cefTRIAXone IV Push 1 GM VIAL. IVP ONE (22:30)
--- NOTE | 2019-01-01 22:30 | RAD ---
Exam: Chest one view INDICATION: Weakness TECHNIQUE: Frontal view of the chest Comparisons: 11/03/2018 FINDINGS: The cardiomediastinal silhouette and pulmonary vessels are within normal limits. The lung and pleural spaces are clear. Cervical fusion hardware again visualized. IMPRESSION: No acute cardiopulmonary process. Electronically signed by: Jonh Gaona MD (01/01/2019 10:27 PM) [facility]
[2019-01-01 22:47] LABS: ANISOCYTOSIS SLIGHT; HYPOCHROMIA SLIGHT; MICROCYTOSIS MOD; PLT ESTIMATE ADEQUATE (ADEQUATE)
[2019-01-01 22:48] LABS: SCHISTOCYTES OCC
--- NOTE | 2019-01-01 22:50 | RAD ---
Exam: CT head INDICATION: Trouble ambulating TECHNIQUE: Sequential axial images through the head were obtained without the administration of IV contrast. Comparisons: September 01, 2018 FINDINGS: No focal parenchymal lesion or hemorrhage is identified. There is no midline shift or sulcal effacement. Patchy areas of hypodensities within the periventricular white matter. There is a more focal hypodensity within the right basal ganglia not definitively present on prior exam. The ventricular system is within normal limits without compression hydrocephalus. The basal cisterns are well maintained. The visualized portions of the paranasal sinuses and mastoid air cells are well-pneumatized. No acute fractures. IMPRESSION: Chronic ischemic change with focal hypodensity within the right basal ganglia which was not definitively present on the study from September 01, 2018. MRI is recommended for further evaluation. Exposure: One or more of the following in the visualized dose reduction techniques were utilized for this examination: 1. Automated exposure control 2. Adjustment of the MA and/or KV according to patient size Use of iterative of reconstructive technique Electronically signed by: Jonh Gaona MD (01/01/2019 10:47 PM) [facility]
--- NOTE | 2019-01-01 23:12 | PHYS DOC ---
Past Medical History Past Medical History: Anemia, DVT, Hypertension, Kidney Stone, MRSA, Other Additional Past Medical Histor: KIDNEY INFECTION,CHRONIC BACK/HIP PAIN,PE'S Past Surgical History: Angioplasty, Cervical Fusion, Other Additional Past Surgical Histo: Cardiac STENTS,partial gastrectomy,C6-7 fusion, KIDNEY STENT, hernia. Alcohol Use: None Drug Use: None Adult General Chief Complaint Chief Complaint: WEAKNESS/GENERALIZED HPI HPI Patient is a 63 year old female presents with chief complaint of weakness. She woke up this morning so last time she was normal was about 24 hours ago she was walking like she was intoxicated she was having intermittent slurred speech or vision is normal her arms and legs feel okay she said she was worried she was having a stroke. She did have mild shortness of breath with exertion that is not a new problem for her she also has frequent UTIs she was worried about that. Denies any melena or hematochezia at all no head injury or trauma no chest pain no fever. All other ROS neg unless otherwise noted in HPI Review of Systems Review of Systems SEE ABOVE Current Medications Current Medications Current Medications Medications (Trade) Dose Ordered Sig/David Start Time Stop Time Status Last Admin Dose Admin Aspirin (Children'S Aspirin) 324 mg 1X ONCE 01/01/19 23:30 01/01/19 23:31 Ceftriaxone Sodium (Rocephin) 1 gm 1X ONCE 01/01/19 22:30 01/01/19 22:31 DC 01/01/19 23:02 1 GM Sodium Chloride 1,000 ml @ 75 mls/hr [id number] 01/01/19 23:30 01/02/19 23:29 Allergies Allergies Allergies Coded Allergies Type Severity Reaction Last Updated Verified Sulfa (Sulfonamide Antibiotics) Allergy Intermediate 02/27/17 Yes amlodipine Allergy Intermediate 02/27/17 Yes codeine Allergy Intermediate Rash 02/27/17 Yes doxycycline Allergy Intermediate 02/27/17 Yes ezetimibe Allergy Intermediate 02/27/17 Yes levofloxacin Allergy Intermediate ITCH 02/27/17 Yes morphine Allergy Intermediate 02/27/17 Yes simvastatin Allergy Intermediate 02/27/17 Yes I S O L A T I O N *CONTACT* Allergy Unknown 03/12/18 Yes oxycodone Adverse Reaction Intermediate Hallucinations 02/16/16 Yes Physical Exam Physical Exam see above Constitutional: Well developed, well nourished, no acute distress, non-toxic appearance. [] HENT: Normocephalic, atraumatic, bilateral external ears normal, oropharynx moist, no oral exudates, nose normal. [] Eyes: PERRLA, EOMI, conjunctiva normal, no discharge. [] Neck: Normal range of motion, no tenderness, supple, no stridor. [] Cardiovascular:Heart rate regular rhythm, no murmur [] Lungs & Thorax: Bilateral breath sounds clear to auscultation [] Abdomen: Bowel sounds normal, soft, no tenderness, no masses, no pulsatile masses. [] Skin: Warm, dry, no erythema, no rash. [] Mild pallor Back: No tenderness, no CVA tenderness. [] Extremities: No tenderness, no cyanosis, no clubbing, ROM intact, no edema. [] Neurologic: See stroke scale Psychologic: Affect normal, judgement normal, mood normal. [] Current Patient Data Vital Signs Vital Signs Date Time Temp Pulse Resp B/P (MAP) Pulse Ox O2 Delivery O2 Flow Rate FiO2 01/01/19 20:09 97.9 88 18 131/55 (80) 99 Room Air 97.9 Lab Values Laboratory Tests Test 01/01/19 21:00 01/01/19 22:00 Urine Color Yellow Urine Clarity Clear Urine pH 6.0 Urine Specific [place] 1.010 Urine Protein Negative mg/dL (NEG-TRACE) Urine Glucose (UA) Negative mg/dL (NEG) Urine Ketones (Stick) Negative mg/dL (NEG) Urine Blood Negative (NEG) Urine Nitrite Negative (NEG) Urine Bilirubin Negative (NEG) Urine Urobilinogen Dipstick 0.2 mg/dL (0.2 mg/dL) Urine Leukocyte Esterase Large (NEG) Urine RBC 0 /HPF (0-2) Urine WBC 20-40 /HPF (0-4) Urine Squamous Epithelial Cells Occ /LPF Urine Bacteria Few /HPF (0-FEW) Urine Opiates Screen Neg (NEG) Urine Methadone Screen Neg (NEG) Urine Barbiturates Neg (NEG) Urine Phencyclidine Screen Neg (NEG) Urine Amphetamine/Methamphetamine Neg (NEG) Urine Benzodiazepines Screen Neg (NEG) Urine Cocaine Screen Neg (NEG) Urine Cannabinoids Screen Neg (NEG) Urine Ethyl Alcohol Neg (NEG) White Blood Count 7.1 x10^3/uL (4.0-11.0) Red Blood Count 3.25 x10^6/uL (3.50-5.40) L Hemoglobin 6.6 g/dL (12.0-15.5) *L Hematocrit 22.4 % (36.0-47.0) L Mean Corpuscular Volume 69 fL (79-100) L Mean Corpuscular Hemoglobin 20 pg (25-35) L Mean Corpuscular Hemoglobin Concent 30 g/dL (31-37) L Red Cell Distribution Width 18.7 % (11.5-14.5) H Platelet Count 239 x10^3/uL (140-400) Neutrophils (%) (Auto) 67 % (31-73) Lymphocytes (%) (Auto) 20 % (24-48) L Monocytes (%) (Auto) 9 % (0-9) Eosinophils (%) (Auto) 3 % (0-3) Basophils (%) (Auto) 1 % (0-3) Neutrophils # (Auto) 4.8 x10^3/uL (1.8-7.7) Lymphocytes # (Auto) 1.4 x10^3/uL (1.0-4.8) Monocytes # (Auto) 0.6 x10^3/uL (0.0-1.1) Eosinophils # (Auto) 0.2 x10^3/uL (0.0-0.7) Basophils # (Auto) 0.1 x10^3/uL (0.0-0.2) Platelet Estimate Adequate (ADEQUATE) Hypochromasia Slight Anisocytosis Slight Microcytosis Mod Schistocytes Occ Prothrombin Time 16.6 SEC (11.7-14.0) H Prothrombin Time INR 1.4 (0.8-1.1) H Sodium Level 139 mmol/L (136-145) Potassium Level 5.0 mmol/L (3.5-5.1) Chloride Level 105 mmol/L (98-107) Carbon Dioxide Level 20 mmol/L (21-32) L Anion Gap 14 (6-14) Blood Urea Nitrogen 26 mg/dL (7-20) H Creatinine 2.5 mg/dL (0.6-1.0) H Estimated GFR (Cockcroft-Gault) 19.4 BUN/Creatinine Ratio 10 (6-20) Glucose Level 129 mg/dL (70-99) H Calcium Level 8.8 mg/dL (8.5-10.1) Total Bilirubin 0.2 mg/dL (0.2-1.0) Aspartate Amino Transferase (AST) 18 U/L (15-37) Alanine Aminotransferase (ALT) 18 U/L (14-59) Alkaline Phosphatase 178 U/L (46-116) H Troponin I Quantitative < 0.017 ng/mL (0.000-0.055) Total Protein 7.2 g/dL (6.4-8.2) Albumin 3.4 g/dL (3.4-5.0) Albumin/Globulin Ratio 0.9 (1.0-1.7) L Ethyl Alcohol Level < 10 mg/dL (0-10) Laboratory Tests 01/01/19 22:00 Laboratory Tests 01/01/19 22:00 EKG EKG []Normal sinus rhythm rate of 71 no acute ischemic changes noted interpreted by me the time of encounter Radiology/Procedures Radiology/Procedures []TECHNIQUE: Frontal view of the chest Comparisons: 11/03/2018 FINDINGS: The cardiomediastinal silhouette and pulmonary vessels are within normal limits. The lung and pleural spaces are clear. Cervical fusion hardware again visualized. IMPRESSION: No acute cardiopulmonary process. Electronically signed by: Jonh Aggarwal MD (01/01/2019 10:27 PM) [facility] DICTATED and SIGNED BY: JONH AGGARWAL MD DATE: 01/01/192226 Impressions: IMPRESSION: Chronic ischemic change with focal hypodensity within the right basal ganglia which was not definitively present on the study from September 01, 2018. MRI is recommended for further evaluation. Exposure: One or more of the following in the visualized dose reduction techniques were utilized for this examination: 1. Automated exposure control 2. Adjustment of the MA and/or KV according to patient size Use of iterative of reconstructive technique Electronically signed by: Jonh Aggarwal MD (01/01/2019 10:47 PM) [facility] Course & Med Decision Making Course & Med Decision Making Pertinent Labs and Imaging studies reviewed. (See chart for details) []63-year-old female multiple medical problems presenting with trouble walking says she feels like she is drunk also slurred speech possible very mild slurred speech on examination the emergency room. Head CT shows a new basal ganglia abnormality compared to August this could be a small lacunar infarct. That would explain her symptoms for the most part. Also she has symptomatic anemia I ordered a blood transfusion she understands the risks and benefits of that she denies any melena or hematochezia. In addition she has a UTI this is also common problem for her ceftriaxone was ordered patient will be admitted to the service of Dr. Hwang for further evaluation and treatment Dragon Disclaimer Dragon Disclaimer This electronic medical record was generated, in whole or in part, using a voice recognition dictation system. Departure Departure Impression: Primary Impression: CVA (cerebral vascular accident) Additional Impressions: UTI (urinary tract infection) YENY (iron deficiency anemia) Disposition: ADMITTED INPATIENT Admitting Physician: TOBI Condition: STABLE Referrals: WARD TINOCO MD (PCP) NIHSS Stroke Scale NIH Stroke Scale: NIH Stroke Scale Response (Comments) Value Level of Consciousness: 1 Not alert/arousable 1 LOC Questions: 0 Answers both correctly 0 LOC Commands: 0 Performs both tasks 0 Best Gaze: 0 Normal 0 Visual: 0 No visual loss 0 Facial Palsy: 0 Normal, symmetrical 0 Motor - Left Arm 0 No drift 0 Motor - Right Arm 0 No drift 0 Motor - Left Leg 0 No drift 0 Motor: Right Leg 0 No drift 0 Limb Ataxia: 0 Absent 0 Sensory: 0 No loss 0 Best Language: 0 Normal 0 Dysathria: 1 Mild to moderate 1 Extinction and Inattention: 0 Normal 0 Total 2 Problem Qualifiers ANKIT HARVEY MD Jan 01, 2019 23:12
[2019-01-01] MEDS ORDERED: ASPIRIN CHEWABLE 81 MG TABLET. PO ONE (23:30)
[2019-01-02] VITALS (8 sets, daily range): BP systolic 111–149; BP diastolic 62–79
--- NOTE | 2019-01-02 00:29 | NUR ---
Lorna just arrived from ED via bed w/ anemia and r/o CVA. She is A/O x4 and will make needs known.
[2019-01-02] MEDS: IV NORMAL SALINE 1000ML BAG 1,000 ML IV SCH ×2 (04:16→17:17)
[2019-01-02] MEDS ORDERED: CYCLOBENZAPRINE 10 MG TABLET. PO PRN (09:15)
[2019-01-02] MEDS ORDERED: CALCIUM CARBONATE 500 MG TAB.CHEW PO PRN (09:15)
[2019-01-02] MEDS ORDERED: cloNIDine HCL 0.1 MG TABLET PO PRN (09:15)
[2019-01-02] MEDS ORDERED: TEMAZEPAM 7.5 MG CAPSULE PO PRN (09:15)
[2019-01-02 09:51] LABS: FREE T4 1.42 ng/dL (0.76-1.46); THYROID STIM HORMONE (TSH) 2.175 uIU/mL (0.358-3.74)
[2019-01-02] MEDS: LEVOTHYROXINE 75 MCG TABLET PO SCH (10:55)
[2019-01-02] MEDS: PROPRANOLOL ER 80 MG CAP.ER.24H. PO SCH (10:55)
[2019-01-02] MEDS: ALLOPURINOL 100 MG TABLET. PO SCH (10:55)
[2019-01-02] MEDS: LOSARTAN POTASSIUM 50 MG TABLET. PO SCH (10:55)
[2019-01-02] MEDS: HYDROcodone/APAP 10/325 1 TAB TABLET PO PRN (10:59)
--- NOTE | 2019-01-02 11:23 | EKG ---
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
--- NOTE | 2019-01-02 12:47 | PDOC1 ---
History and Physical Date of Admission Date of Admission DATE: 01/02/19 TIME: 12:40 Identification/Chief Complaint Chief Complaint stroke like sxs, slurred speech - etc all resolved Source Source: Caregiver, Chart review, Patient History of Present Illness History of Present Illness 43-year-old obese white female BMI 31 sent in by Jenelle Because of strokelike symptoms namely slurred speech and some weakness, that lasted one and half hours but since resolved on admission. She has a history of maybe old stroke CVA deep basal ganglia with no residuals as evidence on cT head,. She was admitted with admitting dx CVA with an anemia of hemoglobin 6.6 MCV 69 which is known to patient has had blood transfusions in the past. Has had full GI workup including colonoscopy and that is not the source of her anemia. Known to Dr. Inman- PCP, plan for IV Venofer. She has history of significant gastrectomy (BAD PUD) so she doesn't absorb any iron and was planned for IV Venofer. She does not know her baseline hemoglobin. She also has CK D known to Dr. glass creatinine 2.5 with good urine output. She is supposed to be on lifelong Eliquis for history of PE. She did get aspirin 325 mg despite her telling the docs that she was NOT advised to take such because of anemia and she is already on Eliquis. In any case, patient is back to her baseline, mentions to me on ROS that she has a right ovarian cyst that needs sono follow-up, requests renal to be on board as she has she was advised to follow up with renal. I cancel the fobt and iron drug panel as she is known to be YENY and we'll just plan for IV Venofer. She did get hemoglobin or one pack RBC for hemoglobin 6.6 and we'll recheck Discussed with her, lots of medical issues M DM complex Agreeable to rehabilitation if physical therapy recommended Past Medical History Cardiovascular: CAD, HTN, Hyperlipidemia Pulmonary: No pertinent hx CENTRAL NERVOUS SYSTEM: Migraine, Other GI: Peptic Ulcer disease Heme/Onc: Other Hepatobiliary: No pertinent hx Psych: No pertinent hx Musculoskeletal: Other Rheumatologic: Gout Infectious disease: Other Renal/: Chronic renal insuff, Other Endocrine: No pertinent hx Past Surgical History Past Surgical History: Hernia Repair, Other Family History Family History: Coronary Artery Disease Social History Smoke: No ALCOHOL: none Drugs: None Current Medications Current Medications Current Medications Ceftriaxone Sodium (Rocephin) 1 gm 1X ONCE IVP Last administered on 01/01/19 23:02; Start 01/01/19 at 22:30; Stop 01/01/19 at 22:31; Status DC Aspirin (Children'S Aspirin) 324 mg 1X ONCE PO Last administered on 01/01/19 23:31; Start 01/01/19 at 23:30; Stop 01/01/19 at 23:31; Status DC Sodium Chloride 1,000 ml @ 75 mls/hr [id number] IV Last administered on 01/02/19at 04:16; Start 01/01/19 at 23:30; Stop 01/02/19 at 23:29 Allopurinol (Zyloprim) 100 mg DAILY PO Last administered on 01/02/19 10:55; Start 01/02/19 at 10:00 Atorvastatin Calcium (Lipitor) 40 mg QHS PO ; Start 01/02/19 at 21:00 Cyclobenzaprine HCl (Flexeril) 10 mg PRN TID PRN PO MUSCLE SPASMS Last administered on 01/02/19 10:59; Start 01/02/19 at 09:15 Levothyroxine Sodium (Synthroid) 75 mcg DAILY06 PO Last administered on 01/02/19 10:55; Start 01/02/19 at 10:00 Losartan Potassium (Cozaar) 50 mg DAILY PO Last administered on 01/02/19 10:55; Start 01/02/19 at 10:00 Acetaminophen/ Hydrocodone Bitart (Lortab 10/325) 1 tab PRN Q4HRS PRN PO PAIN Last administered on 01/02/19 10:59; Start 01/02/19 at 09:30 Propranolol HCl (Inderal La) 160 mg DAILY PO Last administered on 01/02/19 10:55; Start 01/02/19 at 10:00 Temazepam (Restoril) 7.5 mg PRN QHS PRN PO INSOMNIA; Start 01/02/19 at 09:15 Clonidine HCl (Catapres) 0.1 mg PRN Q1HR PRN PO HYPERTENSION; Start 01/02/19 at 09:15 Calcium Carbonate/ Glycine (Tums) 500 mg PRN AFTMEALHC PRN PO INDIGESTION; Start 01/02/19 at 09:15 Epoetin Miller (PROCRIT for NON-DIALYSIS PTS) 10,000 unit 1X ONCE SQ ; Start 01/02/19 at 13:00; Stop 01/02/19 at 13:01 Iron Sucrose 200 mg/Sodium Chloride 110 ml @ 55 mls/hr 1X ONCE IV ; Start 01/02/19 at 12:45; Stop 01/02/19 at 14:44; Status UNV Active Scripts Active Eliquis (Apixaban) 5 Mg Tablet 5 Mg PO BID 30 Days 10mg BID for 7 days, then 5mg BID thereafter Atorvastatin Calcium 40 Mg Tablet 40 Mg PO QHS 30 Days Reported [place] 10-325 Tablet (Acetaminophen/Hydrocodone Bitart) 1 Each Tablet 1-2 Tab PO Q4-6HRS Levothyroxine Sodium 75 Mcg Tablet 1 Tab PO DAILY Allopurinol 100 Mg Tablet 1 Tab PO DAILY Propranolol Hcl 160 Mg Cap.sa.24h 160 Mg PO DAILY Losartan Potassium 50 Mg Tablet 50 Mg PO DAILY Cyclobenzaprine Hcl 10 Mg Tablet 10 Mg PO Proair Hfa Inhaler (Albuterol Sulfate) 8.5 Gm Hfa.aer.ad 8.5 Gm IH Allergies Allergies: Coded Allergies: Sulfa (Sulfonamide Antibiotics) (Verified Allergy, Intermediate, 02/27/17) amlodipine (Verified Allergy, Intermediate, 02/27/17) codeine (Verified Allergy, Intermediate, Rash, 02/27/17) doxycycline (Verified Allergy, Intermediate, 02/27/17) ezetimibe (Verified Allergy, Intermediate, 02/27/17) levofloxacin (Verified Allergy, Intermediate, ITCH, 02/27/17) Tolerates cipro morphine (Verified Allergy, Intermediate, 02/27/17) simvastatin (Verified Allergy, Intermediate, 02/27/17) I S O L A T I O N *CONTACT* (Verified Allergy, Unknown, 03/12/18) +MRSA nares 03/11/18 oxycodone (Verified Adverse Reaction, Intermediate, Hallucinations, 02/16/16) ROS Review of System A 14 point ROS was completed with the following noted as positive: Other systems reviewed and negative. \CONSTITUTIONAL: No fever or chills EYES: No recent changes SKIN: No rash or itching CARDIOVASCULAR: No chest pain, syncope, palpitations, or edema RESPIRATORY: No SOB or cough GASTROINTESTINAL: No nausea, vomiting or abdominal pain NEUROLOGICAL: No headaches or weakness ENDOCRINE: No cold or heat intolerance GENITOURINARY: No urgency or frequency of urination MUSCULOSKELETAL: No back pain or joint pain LYMPHATICS: No enlarged lymph nodes PSYCHIATRIC: No anxiety or depression Physical Exam General: Alert, Oriented X3, Cooperative, No acute distress HEENT: Atraumatic, PERRLA, EOMI Lungs: Clear to auscultation, Normal air movement Heart: S1S2, RRR, no thrills, no rubs, no gallops, no murmurs Cardiovascular: S1, S2 Breasts: Normal, Rt breast nml w/o mass, Lt breast nml w/o mass, Nipples normal Abdomen: Normal bowel sounds, Soft, No tenderness, No hepatosplenomegaly, No masses Rectal Exam: not examined PELVIC: Nml ext genitalia Extremities: No clubbing, No cyanosis, No edema, Normal pulses, No tenderness/swelling Skin: No rashes, No breakdown, No significant lesion Neuro: Normal gait, Normal speech, Strength at 5/5 X4 ext, Normal tone, Sensation intact, Cranial nerves 3-12 NL, Reflexes 2+ Psych/Mental Status: Mental status NL, Mood NL Vitals Vitals Vital Signs Date Time Temp Pulse Resp B/P (MAP) Pulse Ox O2 Delivery O2 Flow Rate FiO2 01/02/19 12:37 Room Air 01/02/19 11:35 97.7 87 18 134/75 (94) 98 2.0 97.7 Labs Labs Laboratory Tests Test 01/01/19 21:00 01/01/19 22:00 Urine Color Yellow Urine Clarity Clear Urine pH 6.0 Urine Specific [place] 1.010 Urine Protein Negative mg/dL (NEG-TRACE) Urine Glucose (UA) Negative mg/dL (NEG) Urine Ketones (Stick) Negative mg/dL (NEG) Urine Blood Negative (NEG) Urine Nitrite Negative (NEG) Urine Bilirubin Negative (NEG) Urine Urobilinogen Dipstick 0.2 mg/dL (0.2 mg/dL) Urine Leukocyte Esterase Large (NEG) Urine RBC 0 /HPF (0-2) Urine WBC 20-40 /HPF (0-4) Urine Squamous Epithelial Cells Occ /LPF Urine Bacteria Few /HPF (0-FEW) Urine Opiates Screen Neg (NEG) Urine Methadone Screen Neg (NEG) Urine Barbiturates Neg (NEG) Urine Phencyclidine Screen Neg (NEG) Urine Amphetamine/Methamphetamine Neg (NEG) Urine Benzodiazepines Screen Neg (NEG) Urine Cocaine Screen Neg (NEG) Urine Cannabinoids Screen Neg (NEG) Urine Ethyl Alcohol Neg (NEG) White Blood Count 7.1 x10^3/uL (4.0-11.0) Red Blood Count 3.25 x10^6/uL (3.50-5.40) Hemoglobin 6.6 g/dL (12.0-15.5) Hematocrit 22.4 % (36.0-47.0) Mean Corpuscular Volume 69 fL (79-100) Mean Corpuscular Hemoglobin 20 pg (25-35) Mean Corpuscular Hemoglobin Concent 30 g/dL (31-37) Red Cell Distribution Width 18.7 % (11.5-14.5) Platelet Count 239 x10^3/uL (140-400) Neutrophils (%) (Auto) 67 % (31-73) Lymphocytes (%) (Auto) 20 % (24-48) Monocytes (%) (Auto) 9 % (0-9) Eosinophils (%) (Auto) 3 % (0-3) Basophils (%) (Auto) 1 % (0-3) Neutrophils # (Auto) 4.8 x10^3/uL (1.8-7.7) Lymphocytes # (Auto) 1.4 x10^3/uL (1.0-4.8) Monocytes # (Auto) 0.6 x10^3/uL (0.0-1.1) Eosinophils # (Auto) 0.2 x10^3/uL (0.0-0.7) Basophils # (Auto) 0.1 x10^3/uL (0.0-0.2) Platelet Estimate Adequate (ADEQUATE) Hypochromasia Slight Anisocytosis Slight Microcytosis Mod Schistocytes Occ Prothrombin Time 16.6 SEC (11.7-14.0) Prothromb Time International Ratio 1.4 (0.8-1.1) Sodium Level 139 mmol/L (136-145) Potassium Level 5.0 mmol/L (3.5-5.1) Chloride Level 105 mmol/L (98-107) Carbon Dioxide Level 20 mmol/L (21-32) Anion Gap 14 (6-14) Blood Urea Nitrogen 26 mg/dL (7-20) Creatinine 2.5 mg/dL (0.6-1.0) Estimated GFR (Cockcroft-Gault) 19.4 BUN/Creatinine Ratio 10 (6-20) Glucose Level 129 mg/dL (70-99) Calcium Level 8.8 mg/dL (8.5-10.1) Iron Level 12 ug/dL (50-170) Total Iron Binding Capacity 466 ug/dL (250-450) Iron Saturation 3 % (15-34) Total Bilirubin 0.2 mg/dL (0.2-1.0) Aspartate Amino Transf (AST/SGOT) 18 U/L (15-37) Alanine Aminotransferase (ALT/SGPT) 18 U/L (14-59) Alkaline Phosphatase 178 U/L (46-116) Troponin I Quantitative < 0.017 ng/mL (0.000-0.055) Total Protein 7.2 g/dL (6.4-8.2) Albumin 3.4 g/dL (3.4-5.0) Albumin/Globulin Ratio 0.9 (1.0-1.7) Thyroid Stimulating Hormone (TSH) 2.175 uIU/mL (0.358-3.74) Free Thyroxine 1.42 ng/dL (0.76-1.46) Free Triiodothyronine (T3) pg/mL 1.93 pg/mL (2.18-3.98) Ethyl Alcohol Level < 10 mg/dL (0-10) Laboratory Tests Test 01/01/19 21:00 01/01/19 22:00 Urine Color Yellow Urine Clarity Clear Urine pH 6.0 Urine Specific [place] 1.010 Urine Protein Negative mg/dL (NEG-TRACE) Urine Glucose (UA) Negative mg/dL (NEG) Urine Ketones (Stick) Negative mg/dL (NEG) Urine Blood Negative (NEG) Urine Nitrite Negative (NEG) Urine Bilirubin Negative (NEG) Urine Urobilinogen Dipstick 0.2 mg/dL (0.2 mg/dL) Urine Leukocyte Esterase Large (NEG) Urine RBC 0 /HPF (0-2) Urine WBC 20-40 /HPF (0-4) Urine Squamous Epithelial Cells Occ /LPF Urine Bacteria Few /HPF (0-FEW) Urine Opiates Screen Neg (NEG) Urine Methadone Screen Neg (NEG) Urine Barbiturates Neg (NEG) Urine Phencyclidine Screen Neg (NEG) Urine Amphetamine/Methamphetamine Neg (NEG) Urine Benzodiazepines Screen Neg (NEG) Urine Cocaine Screen Neg (NEG) Urine Cannabinoids Screen Neg (NEG) Urine Ethyl Alcohol Neg (NEG) White Blood Count 7.1 x10^3/uL (4.0-11.0) Red Blood Count 3.25 x10^6/uL (3.50-5.40) Hemoglobin 6.6 g/dL (12.0-15.5) Hematocrit 22.4 % (36.0-47.0) Mean Corpuscular Volume 69 fL (79-100) Mean Corpuscular Hemoglobin 20 pg (25-35) Mean Corpuscular Hemoglobin Concent 30 g/dL (31-37) Red Cell Distribution Width 18.7 % (11.5-14.5) Platelet Count 239 x10^3/uL (140-400) Neutrophils (%) (Auto) 67 % (31-73) Lymphocytes (%) (Auto) 20 % (24-48) Monocytes (%) (Auto) 9 % (0-9) Eosinophils (%) (Auto) 3 % (0-3) Basophils (%) (Auto) 1 % (0-3) Neutrophils # (Auto) 4.8 x10^3/uL (1.8-7.7) Lymphocytes # (Auto) 1.4 x10^3/uL (1.0-4.8) Monocytes # (Auto) 0.6 x10^3/uL (0.0-1.1) Eosinophils # (Auto) 0.2 x10^3/uL (0.0-0.7) Basophils # (Auto) 0.1 x10^3/uL (0.0-0.2) Platelet Estimate Adequate (ADEQUATE) Hypochromasia Slight Anisocytosis Slight Microcytosis Mod Schistocytes Occ Prothrombin Time 16.6 SEC (11.7-14.0) Prothromb Time International Ratio 1.4 (0.8-1.1) Sodium Level 139 mmol/L (136-145) Potassium Level 5.0 mmol/L (3.5-5.1) Chloride Level 105 mmol/L (98-107) Carbon Dioxide Level 20 mmol/L (21-32) Anion Gap 14 (6-14) Blood Urea Nitrogen 26 mg/dL (7-20) Creatinine 2.5 mg/dL (0.6-1.0) Estimated GFR (Cockcroft-Gault) 19.4 BUN/Creatinine Ratio 10 (6-20) Glucose Level 129 mg/dL (70-99) Calcium Level 8.8 mg/dL (8.5-10.1) Iron Level 12 ug/dL (50-170) Total Iron Binding Capacity 466 ug/dL (250-450) Iron Saturation 3 % (15-34) Total Bilirubin 0.2 mg/dL (0.2-1.0) Aspartate Amino Transf (AST/SGOT) 18 U/L (15-37) Alanine Aminotransferase (ALT/SGPT) 18 U/L (14-59) Alkaline Phosphatase 178 U/L (46-116) Troponin I Quantitative < 0.017 ng/mL (0.000-0.055) Total Protein 7.2 g/dL (6.4-8.2) Albumin 3.4 g/dL (3.4-5.0) Albumin/Globulin Ratio 0.9 (1.0-1.7) Thyroid Stimulating Hormone (TSH) 2.175 uIU/mL (0.358-3.74) Free Thyroxine 1.42 ng/dL (0.76-1.46) Free Triiodothyronine (T3) pg/mL 1.93 pg/mL (2.18-3.98) Ethyl Alcohol Level < 10 mg/dL (0-10) VTE Prophylaxis Ordered VTE Prophylaxis Devices: Contraindicated VTE Pharmacological Prophylaxi: Contraindicated Assessment/Plan Assessment/Plan Known YENY, previous history of almost subtotal gastrectomy hence does not absorb Malabsorption Acute on chronic YENY Obesity, BMI 31 CK D-creatinine 2.5 Right ovarian cyst-interval sono Acute precipitous drop in hemoglobin-Hgb 6.6 status post transfusion 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
[2019-01-02] MEDS ORDERED: EPOETIN ALFA 20,000 UNIT/ML VIAL. SQ ONE (13:00)
[2019-01-02] MEDS ORDERED: IRON SUCROSE COMPLEX 200 MG in IV NORMAL SALINE 100ML 100 ML IV ONE (13:30)
[2019-01-02 13:44] LABS: HEMOGLOBIN 7.8 g/dL (12.0-15.5)
--- NOTE | 2019-01-02 15:54 | RAD ---
EXAM: Pelvic sonogram. HISTORY: Ovarian cyst follow-up. TECHNIQUE: Transabdominal and transvaginal sonographic imaging of the pelvis was performed. COMPARISON: None. FINDINGS: The uterus measures 5.7 x 2.3 x 3.7 cm. There is a suspected uterine fibroid measuring 1.3 cm in maximum dimension. There are suspected uterine parenchymal calcifications. There is fluid within the endocervical canal. The endometrial stripe heterogeneous and measures 8 mm in thickness. The left ovary is obscured due to body habitus. The right ovary measures 5.4 x 3.5 x 5.1 cm and contains a suspected complicated cyst measuring 4.3 x 3.5 x 3.6 cm. IMPRESSION: 1. Limited exam due to body habitus. The left ovary is not seen. 2. Suspected 4.3 cm complicated right ovarian cyst containing internal echoes. There is no prior sonogram at the time of dictation to assess for interval change. Given the postmenopausal status of patient, correlation with a CA 125 tumor marker level and surgical consultation may be indicated. 3. Thickened heterogeneous endometrial stripe for the postmenopausal status of the patient. Tissue sampling may be indicated for definitive diagnosis. 4. Suspected small uterine fibroid. 5. Nonspecific fluid within the endocervical canal, possibly due to blood products. Electronically signed by: Marlene Yu MD (01/02/2019 3:51 PM) [facility]
--- NOTE | 2019-01-02 16:12 | RAD ---
EXAM: Renal sonogram. HISTORY: Renal insufficiency. TECHNIQUE: Sonographic imaging of the kidneys and bladder was performed. COMPARISON: 12/11/2016. FINDINGS: The right kidney measures 13.2 cm [id number]. The left kidney measures 11.6 cm [id number]. There are multiple right renal stones, the largest of which measures 2.4 cm. There is bilateral renal cortical lobulation due to scarring. The renal parenchyma is echogenic. The bladder is partially obscured due to bowel gas. The ureteral jets are not seen. The aorta and inferior vena cava are also obscured. There is no convincing hydronephrosis. IMPRESSION: 1. Right nephrolithiasis, including a 2.4 cm stone within the mid zone. There is no convincing hydronephrosis. 2. Renal cortical scarring. 3. Limited evaluation of the urinary bladder due to bowel gas. 4. Echogenic renal parenchyma, a finding which can be seen with medical renal disease. Electronically signed by: Marlene Yu MD (01/02/2019 4:09 PM) [facility]
--- NOTE | 2019-01-02 19:00 | NUR ---
Transfusion not going at this time. Ended infusion at 1900.
--- NOTE | 2019-01-02 20:26 | CONS ---
DATE OF CONSULTATION: REASON FOR CONSULTATION: Renal failure. HISTORY OF PRESENT ILLNESS: This 63-year-old female with history of hypertension and nephrolithiasis. She has previously had "kidney stent." The patient presented to the hospital with generalized weakness. She was found to have hemoglobin of only 6.6, creatinine 2.5 with GFR of [address] scan also reveals focal hypodensity within the right basal ganglia, which is new. In this setting, she is admitted for further evaluation and management. The patient states that in 03/2018 hospitalization at [facility]. She first found out that she has chronic kidney disease stage 4. PAST MEDICAL HISTORY: Hypertension, nephrolithiasis, DVT, anemia, pyelonephritis, PTCA and stenting, cervical fusion, partial gastrectomy, C6-C7 fusion and hernia. ALLERGIES: SULFA, AMLODIPINE, CODEINE, DOXYCYCLINE, EZETIMIBE, LEVOFLOXACIN, MORPHINE, OXYCODONE AND SIMVASTATIN. MEDICATIONS: Reviewed per medication list. FAMILY HISTORY: Noncontributory. SOCIAL HISTORY: The patient resides independently. REVIEW OF SYSTEMS: No headache, sinus problem, nasal drainage, epistaxis, change in vision or hearing. No difficulty swallowing. No fever, chills, cough, sputum production or hemoptysis. No chest pain, shortness of breath, PND, orthopnea, dyspnea on exertion. No abdominal pain. No nausea, vomiting or diarrhea. No seizures or malignancies. PHYSICAL EXAMINATION: GENERAL: The patient awake and conversant. HEENT: Clear. NECK: No increased JVD. No thyromegaly, mass or adenopathy. LUNGS: Clear. CARDIAC: Without S3 or rub. ABDOMEN: Soft, nontender and no bruits. EXTREMITIES: Without edema. NEUROLOGIC: The patient still has unsteady gait. PSYCHIATRIC: Good attentions to detail, appropriate affect. LABORATORY DATA: Hemoglobin ____, hematocrit 22%, white count 7.1. Sodium 139, potassium 5, chloride 105, CO2 of 20, BUN 26, creatinine 2.5, GFR is 19. IMPRESSION: 1. Chronic kidney disease stage 4, ____ hypertensive nephrosclerosis. 2. Acute cerebrovascular accident. 3. Anemia -- likely in part secondary to chronic kidney disease. RECOMMENDATIONS: 1. Agree with transfusion. 2. Management of CVA and rehab as needed. 3. Epogen to assist in management of chronic anemia. We will likely need ongoing management of the same. YOLA ROLLINS MD DR: KHOI/beth JOB#: [id number] / [id number]
--- NOTE | 2019-01-02 21:03 | PDOC2 ---
NEUROLOGY CONSULT Date of Admission Date of Admission Full Report Dictated DATE: 01/02/19 TIME: 21:01 Patient is a 63-year-old woman who had difficulty with speech and moving her left leg. She still has residual difficulty with the left leg. Baseline she has severe pain of her left hip. Examination of the legs was challenging because I could not get her to relax. She is previously had a stroke in the right basal ganglia. I would like to check an MRI brain to evaluate for an acute stroke. We'll also check a carotid Doppler and echocardiogram. 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 Current Medications Current Medications Current Medications Ceftriaxone Sodium (Rocephin) 1 gm 1X ONCE IVP Last administered on 01/01/19 23:02; Start 01/01/19 at 22:30; Stop 01/01/19 at 22:31; Status DC Aspirin (Children'S Aspirin) 324 mg 1X ONCE PO Last administered on 01/01/19 23:31; Start 01/01/19 at 23:30; Stop 01/01/19 at 23:31; Status DC Sodium Chloride 1,000 ml @ 75 mls/hr [id number] IV Last administered on 01/02/19 17:17; Start 01/01/19 at 23:30; Stop 01/02/19 at 23:29 Allopurinol (Zyloprim) 100 mg DAILY PO Last administered on 01/02/19 10:55; Start 01/02/19 at 10:00 Atorvastatin Calcium (Lipitor) 40 mg QHS PO ; Start 01/02/19 at 21:00 Cyclobenzaprine HCl (Flexeril) 10 mg PRN TID PRN PO MUSCLE SPASMS Last administered on 01/02/19at 10:59; Start 01/02/19 at 09:15 Levothyroxine Sodium (Synthroid) 75 mcg DAILY06 PO Last administered on 01/02/19 10:55; Start 01/02/19 at 10:00 Losartan Potassium (Cozaar) 50 mg DAILY PO Last administered on 01/02/19 10:55; Start 01/02/19 at 10:00 Acetaminophen/ Hydrocodone Bitart (Lortab 10/325) 1 tab PRN Q4HRS PRN PO PAIN Last administered on 01/02/19 10:59; Start 01/02/19 at 09:30 Propranolol HCl (Inderal La) 160 mg DAILY PO Last administered on 01/02/19at 10:55; Start 01/02/19 at 10:00 Temazepam (Restoril) 7.5 mg PRN QHS PRN PO INSOMNIA; Start 01/02/19 at 09:15 Clonidine HCl (Catapres) 0.1 mg PRN Q1HR PRN PO HYPERTENSION; Start 01/02/19 at 09:15 Calcium Carbonate/ Glycine (Tums) 500 mg PRN AFTMEALHC PRN PO INDIGESTION; Start 01/02/19 at 09:15 Epoetin Miller (PROCRIT for NON-DIALYSIS PTS) 10,000 unit 1X ONCE SQ Last administered on 01/02/19at 14:53; Start 01/02/19 at 13:00; Stop 01/02/19 at 13:01; Status DC Iron Sucrose 200 mg/Sodium Chloride 110 ml @ 55 mls/hr 1X ONCE IV Last administered on 01/02/19at 14:54; Start 01/02/19 at 13:30; Stop 01/02/19 at 15:29; Status DC Apixaban (Eliquis) 5 mg BID PO ; Start 01/02/19 at 21:00 Active Scripts Active Eliquis (Apixaban) 5 Mg Tablet 5 Mg PO BID 30 Days 10mg BID for 7 days, then 5mg BID thereafter Atorvastatin Calcium 40 Mg Tablet 40 Mg PO QHS 30 Days Reported [place] 10-325 Tablet (Acetaminophen/Hydrocodone Bitart) 1 Each Tablet 1-2 Tab PO Q4-6HRS Levothyroxine Sodium 75 Mcg Tablet 1 Tab PO DAILY Allopurinol 100 Mg Tablet 1 Tab PO DAILY Propranolol Hcl 160 Mg Cap.sa.24h 160 Mg PO DAILY Losartan Potassium 50 Mg Tablet 50 Mg PO DAILY Cyclobenzaprine Hcl 10 Mg Tablet 10 Mg PO Proair Hfa Inhaler (Albuterol Sulfate) 8.5 Gm Hfa.aer.ad 8.5 Gm IH Allergies Allergies: Coded Allergies: Sulfa (Sulfonamide Antibiotics) (Verified Allergy, Intermediate, 02/27/17) amlodipine (Verified Allergy, Intermediate, 02/27/17) codeine (Verified Allergy, Intermediate, Rash, 02/27/17) doxycycline (Verified Allergy, Intermediate, 02/27/17) ezetimibe (Verified Allergy, Intermediate, 02/27/17) levofloxacin (Verified Allergy, Intermediate, ITCH, 02/27/17) Tolerates cipro morphine (Verified Allergy, Intermediate, 02/27/17) simvastatin (Verified Allergy, Intermediate, 02/27/17) I S O L A T I O N *CONTACT* (Verified Allergy, Unknown, 03/12/18) +MRSA nares 03/11/18 oxycodone (Verified Adverse Reaction, Intermediate, Hallucinations, 02/16/16) Vitals VITALS Vital Signs Date Time Temp Pulse Resp B/P (MAP) Pulse Ox O2 Delivery O2 Flow Rate FiO2 01/02/19 19:15 97.8 65 18 135/68 (90) 100 Nasal Cannula 2.0 97.8 Labs Labs Laboratory Tests Test 01/01/19 21:00 01/01/19 22:00 01/02/19 13:30 Urine Color Yellow Urine Clarity Clear Urine pH 6.0 Urine Specific [place] 1.010 Urine Protein Negative mg/dL (NEG-TRACE) Urine Glucose (UA) Negative mg/dL (NEG) Urine Ketones (Stick) Negative mg/dL (NEG) Urine Blood Negative (NEG) Urine Nitrite Negative (NEG) Urine Bilirubin Negative (NEG) Urine Urobilinogen Dipstick 0.2 mg/dL (0.2 mg/dL) Urine Leukocyte Esterase Large (NEG) Urine RBC 0 /HPF (0-2) Urine WBC 20-40 /HPF (0-4) Urine Squamous Epithelial Cells Occ /LPF Urine Bacteria Few /HPF (0-FEW) Urine Opiates Screen Neg (NEG) Urine Methadone Screen Neg (NEG) Urine Barbiturates Neg (NEG) Urine Phencyclidine Screen Neg (NEG) Urine Amphetamine/Methamphetamine Neg (NEG) Urine Benzodiazepines Screen Neg (NEG) Urine Cocaine Screen Neg (NEG) Urine Cannabinoids Screen Neg (NEG) Urine Ethyl Alcohol Neg (NEG) White Blood Count 7.1 x10^3/uL (4.0-11.0) Red Blood Count 3.25 x10^6/uL (3.50-5.40) Hemoglobin 6.6 g/dL (12.0-15.5) 7.8 g/dL (12.0-15.5) Hematocrit 22.4 % (36.0-47.0) 26.0 % (36.0-47.0) Mean Corpuscular Volume 69 fL (79-100) Mean Corpuscular Hemoglobin 20 pg (25-35) Mean Corpuscular Hemoglobin Concent 30 g/dL (31-37) 30 g/dL (31-37) Red Cell Distribution Width 18.7 % (11.5-14.5) Platelet Count 239 x10^3/uL (140-400) Neutrophils (%) (Auto) 67 % (31-73) Lymphocytes (%) (Auto) 20 % (24-48) Monocytes (%) (Auto) 9 % (0-9) Eosinophils (%) (Auto) 3 % (0-3) Basophils (%) (Auto) 1 % (0-3) Neutrophils # (Auto) 4.8 x10^3/uL (1.8-7.7) Lymphocytes # (Auto) 1.4 x10^3/uL (1.0-4.8) Monocytes # (Auto) 0.6 x10^3/uL (0.0-1.1) Eosinophils # (Auto) 0.2 x10^3/uL (0.0-0.7) Basophils # (Auto) 0.1 x10^3/uL (0.0-0.2) Platelet Estimate Adequate (ADEQUATE) Hypochromasia Slight Anisocytosis Slight Microcytosis Mod Schistocytes Occ Prothrombin Time 16.6 SEC (11.7-14.0) Prothromb Time International Ratio 1.4 (0.8-1.1) Sodium Level 139 mmol/L (136-145) Potassium Level 5.0 mmol/L (3.5-5.1) Chloride Level 105 mmol/L (98-107) Carbon Dioxide Level 20 mmol/L (21-32) Anion Gap 14 (6-14) Blood Urea Nitrogen 26 mg/dL (7-20) Creatinine 2.5 mg/dL (0.6-1.0) Estimated GFR (Cockcroft-Gault) 19.4 BUN/Creatinine Ratio 10 (6-20) Glucose Level 129 mg/dL (70-99) Calcium Level 8.8 mg/dL (8.5-10.1) Iron Level 12 ug/dL (50-170) Total Iron Binding Capacity 466 ug/dL (250-450) Iron Saturation 3 % (15-34) Total Bilirubin 0.2 mg/dL (0.2-1.0) Aspartate Amino Transf (AST/SGOT) 18 U/L (15-37) Alanine Aminotransferase (ALT/SGPT) 18 U/L (14-59) Alkaline Phosphatase 178 U/L (46-116) Troponin I Quantitative < 0.017 ng/mL (0.000-0.055) Total Protein 7.2 g/dL (6.4-8.2) Albumin 3.4 g/dL (3.4-5.0) Albumin/Globulin Ratio 0.9 (1.0-1.7) Thyroid Stimulating Hormone (TSH) 2.175 uIU/mL (0.358-3.74) Free Thyroxine 1.42 ng/dL (0.76-1.46) Free Triiodothyronine (T3) pg/mL 1.93 pg/mL (2.18-3.98) Ethyl Alcohol Level < 10 mg/dL (0-10) Laboratory Tests Test 01/01/19 22:00 01/02/19 13:30 White Blood Count 7.1 x10^3/uL (4.0-11.0) Red Blood Count 3.25 x10^6/uL (3.50-5.40) Hemoglobin 6.6 g/dL (12.0-15.5) 7.8 g/dL (12.0-15.5) Hematocrit 22.4 % (36.0-47.0) 26.0 % (36.0-47.0) Mean Corpuscular Volume 69 fL (79-100) Mean Corpuscular Hemoglobin 20 pg (25-35) Mean Corpuscular Hemoglobin Concent 30 g/dL (31-37) 30 g/dL (31-37) Red Cell Distribution Width 18.7 % (11.5-14.5) Platelet Count 239 x10^3/uL (140-400) Neutrophils (%) (Auto) 67 % (31-73) Lymphocytes (%) (Auto) 20 % (24-48) Monocytes (%) (Auto) 9 % (0-9) Eosinophils (%) (Auto) 3 % (0-3) Basophils (%) (Auto) 1 % (0-3) Neutrophils # (Auto) 4.8 x10^3/uL (1.8-7.7) Lymphocytes # (Auto) 1.4 x10^3/uL (1.0-4.8) Monocytes # (Auto) 0.6 x10^3/uL (0.0-1.1) Eosinophils # (Auto) 0.2 x10^3/uL (0.0-0.7) Basophils # (Auto) 0.1 x10^3/uL (0.0-0.2) Platelet Estimate Adequate (ADEQUATE) Hypochromasia Slight Anisocytosis Slight Microcytosis Mod Schistocytes Occ Prothrombin Time 16.6 SEC (11.7-14.0) Prothromb Time International Ratio 1.4 (0.8-1.1) Sodium Level 139 mmol/L (136-145) Potassium Level 5.0 mmol/L (3.5-5.1) Chloride Level 105 mmol/L (98-107) Carbon Dioxide Level 20 mmol/L (21-32) Anion Gap 14 (6-14) Blood Urea Nitrogen 26 mg/dL (7-20) Creatinine 2.5 mg/dL (0.6-1.0) Estimated GFR (Cockcroft-Gault) 19.4 BUN/Creatinine Ratio 10 (6-20) Glucose Level 129 mg/dL (70-99) Calcium Level 8.8 mg/dL (8.5-10.1) Iron Level 12 ug/dL (50-170) Total Iron Binding Capacity 466 ug/dL (250-450) Iron Saturation 3 % (15-34) Total Bilirubin 0.2 mg/dL (0.2-1.0) Aspartate Amino Transf (AST/SGOT) 18 U/L (15-37) Alanine Aminotransferase (ALT/SGPT) 18 U/L (14-59) Alkaline Phosphatase 178 U/L (46-116) Troponin I Quantitative < 0.017 ng/mL (0.000-0.055) Total Protein 7.2 g/dL (6.4-8.2) Albumin 3.4 g/dL (3.4-5.0) Albumin/Globulin Ratio 0.9 (1.0-1.7) Thyroid Stimulating Hormone (TSH) 2.175 uIU/mL (0.358-3.74) Free Thyroxine 1.42 ng/dL (0.76-1.46) Free Triiodothyronine (T3) pg/mL 1.93 pg/mL (2.18-3.98) Ethyl Alcohol Level < 10 mg/dL (0-10) EMIL WALLACE MD Jan 02, 2019 21:03
[2019-01-02] MEDS: ATORVASTATIN CALCIUM 40 MG TABLET. PO SCH (22:16)
[2019-01-02] MEDS: APIXABAN 5 MG TABLET. PO SCH (22:16)
[2019-01-03] VITALS (12 sets, daily range): BP systolic 120–141; BP diastolic 62–84
--- NOTE | 2019-01-03 01:05 | CONS ---
DATE OF CONSULTATION: 01/02/2019 REFERRING PHYSICIAN: Dr. Key Howe. REASON FOR CONSULTATION: Evaluate for stroke. HISTORY OF PRESENT ILLNESS: The patient is a pleasant 63-year-old woman who began to have difficulty at 4:00 p.m. on 01/01/2019. She found that she could not walk and had slurred speech. These symptoms lasted 1.5-2 hours. She also noticed that the left leg would not move properly. She has had difficulty with her left leg because of left hip pain, but this was much worse. This has not returned and she still feels like she cannot walk because of her left leg. She reports that she had a previous stroke towards the end of last year, which affected her left side, but she recovered. She also reports that she had a pulmonary embolus in 03/2018 and had recurred one about a month ago, even though she has been diligently taking her anticoagulant. She did have a headache yesterday, but this has resolved. She has had some stomach pain. She does not notice any difficulty with the arms. She has not had cognitive loss. She does not feel back to her normal self. PAST MEDICAL HISTORY: 1. Anemia. 2. History of deep venous thrombosis. 3. Hypertension. 4. Kidney stone. 5. Methicillin-resistant Staphylococcus aureus. 6. Kidney infection. 7. Chronic hip and back pain. 8. Cervical fusion. 9. Angioplasty with cardiac stents. 10. Partial gastrectomy. 11. C6-C7 fusion. 12. Hernia repair. 13. Chronic kidney failure, stage 4. ALLERGIES: SULFA, AMLODIPINE, CODEINE, DOXYCYCLINE, EZETIMIBE, LEVOFLOXACIN, MORPHINE, OXYCODONE, AND SIMVASTATIN. MEDICATIONS PRIOR TO ADMISSION: Acetaminophen/hydrocodone 1-2 tablets every 4 hours as needed, albuterol metered dose inhaler as needed, allopurinol 100 mg, apixaban 5 mg twice per day, atorvastatin 40 mg, cyclobenzaprine 10 mg, levothyroxine 75 mcg, losartan 50 mg, propranolol sustained release 160 mg. FAMILY HISTORY: Coronary artery disease. Her father at 76 years with metastatic lung cancer, but she had suffered myocardial infarctions as well as multiple strokes. Her mother also at 76 years. She had a blood clotting disorder and also had myocardial infarctions. There were 8 siblings and only one has survived with her. They have all had lung cancer. SOCIAL HISTORY: She reports being a lifelong nonsmoker. She does not drink alcohol or use recreational drugs. She has never been . She lives with her daughter. REVIEW OF SYSTEMS: She did have a headache yesterday, but not today. She has not had a change in vision or cognition. She has had no loss of hearing. She has been able to chew and swallow without difficulty. She does not feel short of breath, but does have some abdominal pain. Does not have bone or joint pain other than the back and left hip. She has not had fever or rash. Does not have any gastrointestinal or genitourinary complaints. She does have some numbness in her feet. She does get swelling in her feet and ankles. She does not have any psychiatric concerns. She does not complain of excessive bruising or bleeding. PHYSICAL EXAMINATION: VITAL SIGNS: The blood pressure was 131/62, pulse 88, respirations 18, temperature 97.8 degrees Fahrenheit. Oximetry was 95% on 2 liters. Her weight was 81.65 kilograms, height 64 inches with a calculated body mass index of 30.9. GENERAL: She was alert, awake, and cooperative. She was sitting in a reclining chair with her legs. She appeared well groomed and well nourished. She was fully oriented. Speech was fluent and clear. She had a good fund of recent and remote knowledge. Attention and concentration was intact. NEUROLOGIC: Examination of the cranial nerves revealed visual vaughn were full to confrontation. Extraocular movements were intact. The eyes were conjugate. Pursuit movements were smooth and saccadic eye movements were without dysmetria. There was no nystagmus. Pupils were 3 mm and reactive. Funduscopic exam on the right revealed no papilledema. She was not able to cooperate on the left as she continued to move and close her left eye. Facial sensation was intact bilaterally. The muscles of mastication and facial expression were powerful symmetrically. Hearing was intact to finger rub. The palate arched symmetrically and the tongue was midline with full range of motion. Sternocleidomastoid and trapezius were powerful. Muscle bulk and tone was normal. There was no arm drift or asterixis. There was no leg drift. Tone was normal in the arms. She absolutely despite retrying and education could not let her legs go and relax her legs at all. This seemed more voluntary than it seemed spastic. Power was, however, full and symmetric in the upper and lower extremities without deficit. Reflexes were 2/4 and symmetric in the upper extremities and at the knees, but were absent at the ankles. The toes were downgoing bilaterally. Coordination testing with [id number], [id number], fine motor and rapid alternating movements was well performed. The sensory exam was intact to pain, light touch, proprioception, graphesthesia, cold thermal, and vibration. There was no extinction to double simultaneous stimulation. Gait was not testable. Auscultation of the carotid arteries did not reveal a bruit. Heart rhythm is regular without a murmur. Peripheral pulses were symmetric in the hands and in the left foot, and more difficult to palpate in the right foot. There was only a slight amount of edema in the feet and ankles. Auscultation of the carotid arteries did not reveal a bruit. REVIEW OF LABORATORY DATA: CBC revealed a normal white blood cell count. Hemoglobin was quite low at 6.6 and hematocrit at 22.4, re-measured today was 7.8 and 26 respectively. Platelet count was normal. Chemistries revealed normal electrolytes. CO2 was low at 20. BUN was elevated at 26 and creatinine at 2.5 with a calculated GFR of 19.4. Glucose was elevated at 129. Calcium was normal. The total bilirubin, SGOT and SGPT were normal, but alkaline phosphatase was elevated to 178. Calcium was normal as was total protein and albumin. Troponin was not elevated. TSH was normal as was T4 free. Iron was low at 12 with TIBC at 466, which was high and saturation was low at 3%. Urine drug screen was negative. Alcohol was not detected. Urinalysis revealed a large amount of leukocyte esterase, 20-40 white blood cells, occasional squamous epithelial cells and a few bacteria. PT/INR was 1.4. A CT scan of the brain was performed without contrast on 01/01/2019. This revealed chronic ischemic change with focal hypodensity within the right basal ganglia, which was not definitely present on 09/01/2018. Chest x-ray revealed no acute cardiopulmonary process. Ultrasound of the kidneys revealed right nephrolithiasis with a 2.4 cm stone within the mid zone without hydronephrosis. Pelvic ultrasound was limited due to her morbid obesity. There was a suspected 4.3 cm complicated right ovarian cyst containing internal echoes. Further investigation was recommended. IMPRESSION: The patient is a 63-year-old woman who complains of left leg, not working right with 1.5-2 hours of dysarthric speech yesterday. This was also with headache. I am relieved the CT scan of the head did not reveal stroke. Neurologic exam does not reveal focal findings in the left leg, but I feel it is reasonable to proceed with an MRI brain to better evaluate for evidence of stroke. I will also obtain a carotid Doppler to look for evidence of stenosis. We will order an echocardiogram as well. She should continue with her anticoagulant. If there is evidence for stroke I would certainly consider aspirin 81 mg daily, adding to this regimen. She has previously had a lipid profile 03/2018 which revealed an LDL cholesterol of 134. I am not certain if this was before or after atorvastatin. We can repeat the study, fasting tomorrow. I appreciate being involved in her care. EMIL WALLACE MD DR: IVVI/beth JOB#: [id number] / [id number] JASPREET Spencer MD, CHUNMEI MD
[2019-01-03] MEDS: HYDROcodone/APAP 10/325 1 TAB TABLET PO PRN ×2 (01:29→20:11)
[2019-01-03 05:20] LABS: HEMATOCRIT 22.7 % (36.0-47.0)
[2019-01-03 05:25] LABS: HEMOGLOBIN 6.9 g/dL (12.0-15.5)
[2019-01-03 05:30] LABS: CALCIUM 8.7 mg/dL (8.5-10.1); GFR 25.1; POTASSIUM 5.1 mmol/L (3.5-5.1)
[2019-01-03] MEDS: LEVOTHYROXINE 75 MCG TABLET PO SCH (06:34)
--- NOTE | 2019-01-03 08:50 | NUR ---
Patient IV site red, mile edema and tender. Patient needs one unit packed red blood cells. Nursing supervisor lens generating Radha notified, unable to find vein and states patient needs midline IV access. See nursing communication for Dr. Jarrell. Patient verb. understanding POC.
[2019-01-03] MEDS: ALLOPURINOL 100 MG TABLET. PO SCH (08:54)
[2019-01-03] MEDS: APIXABAN 5 MG TABLET. PO SCH ×2 (08:55→20:11)
[2019-01-03] MEDS: LOSARTAN POTASSIUM 50 MG TABLET. PO SCH (08:55)
[2019-01-03] MEDS: PROPRANOLOL ER 80 MG CAP.ER.24H. PO SCH (08:56)
--- NOTE | 2019-01-03 08:59 | NUR ---
Patient wants midline, see orders, nursing shell core and molding supervisor Radha notified.
[2019-01-03] MEDS ORDERED: IRON SUCROSE COMPLEX 200 MG in IV NORMAL SALINE 100ML 100 ML IV ONE (10:00)
--- NOTE | 2019-01-03 11:03 | PDOC ---
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 Gasper Woodruff - also GI workup in the past including colonoscopy then there is no bleeding Did get dose of IV Venofer yesterday Friday Seen by neurology because she came in for stroke like symptoms but that has since resolved and she is looking for the MRI brain promised to her Creatinine 2.0 from 2.5 and is also known to Dr. glass and has CK D stage III or 4 Called by RN loss iV line- hard stick -Agreeable to picc Sono of the pelvis I did because of her request - shows right ovarian complex cyst need to rule out ovarian cancer-we'll order CA 125 Plan: PICC line Consult heme onc known to her for 2 reasons about this YENY and re this ovarian complex cyst - has not seen [employer]INEER as OP I'm giving IV Venofer �2 today, transfuse 1 packed RBC H&H tomorrow Check CA 125 levels Avoid nephrotoxins Okay to be off telemetry, may DC or transfer out of cardiac floor Transfuse if less than 7 when necessary Discussed with her and agrees HEme onc consult Add OB gyne - consult Vitals Vitals Vital Signs Date Time Temp Pulse Resp B/P (MAP) Pulse Ox O2 Delivery O2 Flow Rate FiO2 01/03/19 08:56 89 129/70 01/03/19 08:00 Room Air 01/03/19 07:40 97.3 17 99 2.0 97.3 Physical Exam General: Alert, Oriented X3, Cooperative, No acute distress Lungs: Clear Abdomen: Normal bowel sounds, Soft, No tenderness, No hepatosplenomegaly, No masses Extremities: No clubbing, No cyanosis, No edema, Normal pulses, No tenderness/swelling Skin: No rashes, No breakdown, No significant lesion Labs LABS Laboratory Tests Test 01/02/19 13:30 01/03/19 04:20 Hemoglobin 7.8 g/dL (12.0-15.5) 6.9 g/dL (12.0-15.5) Hematocrit 26.0 % (36.0-47.0) 22.7 % (36.0-47.0) Mean Corpuscular Hemoglobin Concent 30 g/dL (31-37) 30 g/dL (31-37) Sodium Level 141 mmol/L (136-145) Potassium Level 5.1 mmol/L (3.5-5.1) Chloride Level 110 mmol/L (98-107) Carbon Dioxide Level 21 mmol/L (21-32) Anion Gap 10 (6-14) Blood Urea Nitrogen 31 mg/dL (7-20) Creatinine 2.0 mg/dL (0.6-1.0) Estimated GFR (Cockcroft-Gault) 25.1 Glucose Level 132 mg/dL (70-99) Calcium Level 8.7 mg/dL (8.5-10.1) Review of Systems Review of Systems A 14 point ROS was completed with the following noted as positive: Other systems reviewed and negative. \CONSTITUTIONAL: No fever or chills EYES: No recent changes SKIN: No rash or itching CARDIOVASCULAR: No chest pain, syncope, palpitations, or edema RESPIRATORY: No SOB or cough GASTROINTESTINAL: No nausea, vomiting or abdominal pain NEUROLOGICAL: No headaches or weakness ENDOCRINE: No cold or heat intolerance GENITOURINARY: No urgency or frequency of urination MUSCULOSKELETAL: No back pain or joint pain LYMPHATICS: No enlarged lymph nodes PSYCHIATRIC: No anxiety or depression Comment Review of Relevant I have reviewed the following items joanna (where applicable) has been applied. Labs Laboratory Tests Test 01/01/19 21:00 01/01/19 22:00 01/02/19 13:30 01/03/19 04:20 Urine Color Yellow Urine Clarity Clear Urine pH 6.0 Urine Specific [place] 1.010 Urine Protein Negative mg/dL (NEG-TRACE) Urine Glucose (UA) Negative mg/dL (NEG) Urine Ketones (Stick) Negative mg/dL (NEG) Urine Blood Negative (NEG) Urine Nitrite Negative (NEG) Urine Bilirubin Negative (NEG) Urine Urobilinogen Dipstick 0.2 mg/dL (0.2 mg/dL) Urine Leukocyte Esterase Large (NEG) Urine RBC 0 /HPF (0-2) Urine WBC 20-40 /HPF (0-4) Urine Squamous Epithelial Cells Occ /LPF Urine Bacteria Few /HPF (0-FEW) Urine Opiates Screen Neg (NEG) Urine Methadone Screen Neg (NEG) Urine Barbiturates Neg (NEG) Urine Phencyclidine Screen Neg (NEG) Urine Amphetamine/Methamphetamine Neg (NEG) Urine Benzodiazepines Screen Neg (NEG) Urine Cocaine Screen Neg (NEG) Urine Cannabinoids Screen Neg (NEG) Urine Ethyl Alcohol Neg (NEG) White Blood Count 7.1 x10^3/uL (4.0-11.0) Red Blood Count 3.25 x10^6/uL (3.50-5.40) Hemoglobin 6.6 g/dL (12.0-15.5) 7.8 g/dL (12.0-15.5) 6.9 g/dL (12.0-15.5) Hematocrit 22.4 % (36.0-47.0) 26.0 % (36.0-47.0) 22.7 % (36.0-47.0) Mean Corpuscular Volume 69 fL (79-100) Mean Corpuscular Hemoglobin 20 pg (25-35) Mean Corpuscular Hemoglobin Concent 30 g/dL (31-37) 30 g/dL (31-37) 30 g/dL (31-37) Red Cell Distribution Width 18.7 % (11.5-14.5) Platelet Count 239 x10^3/uL (140-400) Neutrophils (%) (Auto) 67 % (31-73) Lymphocytes (%) (Auto) 20 % (24-48) Monocytes (%) (Auto) 9 % (0-9) Eosinophils (%) (Auto) 3 % (0-3) Basophils (%) (Auto) 1 % (0-3) Neutrophils # (Auto) 4.8 x10^3/uL (1.8-7.7) Lymphocytes # (Auto) 1.4 x10^3/uL (1.0-4.8) Monocytes # (Auto) 0.6 x10^3/uL (0.0-1.1) Eosinophils # (Auto) 0.2 x10^3/uL (0.0-0.7) Basophils # (Auto) 0.1 x10^3/uL (0.0-0.2) Platelet Estimate Adequate (ADEQUATE) Hypochromasia Slight Anisocytosis Slight Microcytosis Mod Schistocytes Occ Prothrombin Time 16.6 SEC (11.7-14.0) Prothromb Time International Ratio 1.4 (0.8-1.1) Sodium Level 139 mmol/L (136-145) 141 mmol/L (136-145) Potassium Level 5.0 mmol/L (3.5-5.1) 5.1 mmol/L (3.5-5.1) Chloride Level 105 mmol/L (98-107) 110 mmol/L (98-107) Carbon Dioxide Level 20 mmol/L (21-32) 21 mmol/L (21-32) Anion Gap 14 (6-14) 10 (6-14) Blood Urea Nitrogen 26 mg/dL (7-20) 31 mg/dL (7-20) Creatinine 2.5 mg/dL (0.6-1.0) 2.0 mg/dL (0.6-1.0) Estimated GFR (Cockcroft-Gault) 19.4 25.1 BUN/Creatinine Ratio 10 (6-20) Glucose Level 129 mg/dL (70-99) 132 mg/dL (70-99) Calcium Level 8.8 mg/dL (8.5-10.1) 8.7 mg/dL (8.5-10.1) Iron Level 12 ug/dL (50-170) Total Iron Binding Capacity 466 ug/dL (250-450) Iron Saturation 3 % (15-34) Total Bilirubin 0.2 mg/dL (0.2-1.0) Aspartate Amino Transf (AST/SGOT) 18 U/L (15-37) Alanine Aminotransferase (ALT/SGPT) 18 U/L (14-59) Alkaline Phosphatase 178 U/L (46-116) Troponin I Quantitative < 0.017 ng/mL (0.000-0.055) Total Protein 7.2 g/dL (6.4-8.2) Albumin 3.4 g/dL (3.4-5.0) Albumin/Globulin Ratio 0.9 (1.0-1.7) Thyroid Stimulating Hormone (TSH) 2.175 uIU/mL (0.358-3.74) Free Thyroxine 1.42 ng/dL (0.76-1.46) Free Triiodothyronine (T3) pg/mL 1.93 pg/mL (2.18-3.98) Ethyl Alcohol Level < 10 mg/dL (0-10) Laboratory Tests Test 01/02/19 13:30 01/03/19 04:20 Hemoglobin 7.8 g/dL (12.0-15.5) 6.9 g/dL (12.0-15.5) Hematocrit 26.0 % (36.0-47.0) 22.7 % (36.0-47.0) Mean Corpuscular Hemoglobin Concent 30 g/dL (31-37) 30 g/dL (31-37) Sodium Level 141 mmol/L (136-145) Potassium Level 5.1 mmol/L (3.5-5.1) Chloride Level 110 mmol/L (98-107) Carbon Dioxide Level 21 mmol/L (21-32) Anion Gap 10 (6-14) Blood Urea Nitrogen 31 mg/dL (7-20) Creatinine 2.0 mg/dL (0.6-1.0) Estimated GFR (Cockcroft-Gault) 25.1 Glucose Level 132 mg/dL (70-99) Calcium Level 8.7 mg/dL (8.5-10.1) Medications Current Medications Ceftriaxone Sodium (Rocephin) 1 gm 1X ONCE IVP Last administered on 01/01/19 23:02; Start 01/01/19 at 22:30; Stop 01/01/19 at 22:31; Status DC Aspirin (Children'S Aspirin) 324 mg 1X ONCE PO Last administered on 01/01/19at 23:31; Start 01/01/19 at 23:30; Stop 01/01/19 at 23:31; Status DC Sodium Chloride 1,000 ml @ 75 mls/hr [id number] IV Last administered on 01/02/19at 17:17; Start 01/01/19 at 23:30; Stop 01/02/19 at 23:29; Status DC Allopurinol (Zyloprim) 100 mg DAILY PO Last administered on 01/03/19at 08:54; Start 01/02/19 at 10:00 Atorvastatin Calcium (Lipitor) 40 mg QHS PO Last administered on 01/02/19 22:16; Start 01/02/19 at 21:00 Cyclobenzaprine HCl (Flexeril) 10 mg PRN TID PRN PO MUSCLE SPASMS Last admin istered on 01/02/19 10:59; Start 01/02/19 at 09:15 Levothyroxine Sodium (Synthroid) 75 mcg DAILY06 PO Last administered on 9at 06:34; Start 01/02/19 at 10:00 Losartan Potassium (Cozaar) 50 mg DAILY PO Last administered on 01/03/19 08:55; Start 01/02/19 at 10:00 Acetaminophen/ Hydrocodone Bitart (Lortab 10/325) 1 tab PRN Q4HRS PRN PO PAIN Last administered on 01/03/19 01:29; Start 01/02/19 at 09:30 Propranolol HCl (Inderal La) 160 mg DAILY PO Last administered on 01/03/19 08:56; Start 01/02/19 at 10:00 Temazepam (Restoril) 7.5 mg PRN QHS PRN PO INSOMNIA; Start 01/02/19 at 09:15 Clonidine HCl (Catapres) 0.1 mg PRN Q1HR PRN PO HYPERTENSION; Start 01/02/19 at 09:15 Calcium Carbonate/ Glycine (Tums) 500 mg PRN AFTMEALHC PRN PO INDIGESTION; Start 01/02/19 at 09:15 Epoetin Miller (PROCRIT for NON-DIALYSIS PTS) 10,000 unit 1X ONCE SQ Last administered on 01/02/19 14:53; Start 01/02/19 at 13:00; Stop 01/02/19 at 13:01; Status DC Iron Sucrose 200 mg/Sodium Chloride 110 ml @ 55 mls/hr 1X ONCE IV Last administered on 01/02/19 14:54; Start 01/02/19 at 13:30; Stop 01/02/19 at 15:29; Status DC Apixaban (Eliquis) 5 mg BID PO Last administered on 01/03/19 08:55; Start 01/02/19 at 21:00 Iron Sucrose 200 mg/Sodium Chloride 110 ml @ 55 mls/hr 1X ONCE IV ; Start 01/03/19 at 10:00; Stop 01/03/19 at 11:59 Active Scripts Active Eliquis (Apixaban) 5 Mg Tablet 5 Mg PO BID 30 Days 10mg BID for 7 days, then 5mg BID thereafter Atorvastatin Calcium 40 Mg Tablet 40 Mg PO QHS 30 Days Reported [place] 10-325 Tablet (Acetaminophen/Hydrocodone Bitart) 1 Each Tablet 1-2 Tab PO Q4-6HRS Levothyroxine Sodium 75 Mcg Tablet 1 Tab PO DAILY Allopurinol 100 Mg Tablet 1 Tab PO DAILY Propranolol Hcl 160 Mg Cap.sa.24h 160 Mg PO DAILY Losartan Potassium 50 Mg Tablet 50 Mg PO DAILY Cyclobenzaprine Hcl 10 Mg Tablet 10 Mg PO Proair Hfa Inhaler (Albuterol Sulfate) 8.5 Gm Hfa.aer.ad 8.5 Gm IH Vitals/I & O Vital Sign - Last 24 Hours 01/02/19 01/02/19 01/02/19 01/02/19 11:00 11:35 15:53 19:15 Temp 97.7 97.8 97.8 97.7 97.8 97.8 Pulse 87 88 65 Resp 18 18 18 B/P (MAP) 134/75 (94) 131/62 (85) 135/68 (90) Pulse Ox 98 95 100 O2 Delivery Nasal Cannula Nasal Cannula Nasal Cannula Nasal Cannula O2 Flow Rate 2.0 2.0 2.0 2.0 01/02/19 01/02/19 01/03/19 01/03/19 20:00 23:10 01:29 02:29 Temp 97.7 97.7 Pulse 79 Resp 18 B/P (MAP) 111/65 (80) Pulse Ox 98 98 O2 Delivery Nasal Cannula Nasal Cannula Room Air Nasal Cannula O2 Flow Rate 2.0 2.0 2.0 01/03/19 01/03/19 01/03/19 01/03/19 03:15 07:40 08:00 08:55 Temp 98.1 97.3 98.1 97.3 Pulse 77 89 89 Resp 18 17 B/P (MAP) 131/66 (87) 129/70 (89) 129/70 Pulse Ox 99 99 O2 Delivery Nasal Cannula Nasal Cannula Room Air O2 Flow Rate 2.0 2.0 01/03/19 08:56 Pulse 89 B/P (MAP) 129/70 Intake and Output 01/02/19 01/02/19 01/03/19 15:00 23:00 07:00 Intake Total 810 ml 350 ml 350 ml Output Total 600 ml 400 ml Balance 210 ml 350 ml -50 ml GABY LUNA MD Jan 03, 2019 11:03
--- NOTE | 2019-01-03 11:46 | NUR ---
Midline insertion by [facility] DONNA Midline, OK for use a blood draw, see orders. Oozing at site noted by Bhavesh EPSTEIN [facility] r/t patient on Eliquis, to change dressing later today. See orders and transfusion record. One unit packed red blood cells infusing DONNALeesa javier without difficulty. Patient verb. understanding transfusion reaciton S/S to report. Continue cares and monitor.
--- NOTE | 2019-01-03 11:58 | NUR ---
See transfusion record. VSS, blood transfusion rate increased from 50 cc per hour to 120 cc per hour. Continue cares as monitor.
[2019-01-03] MEDS ORDERED: ANTI-COAG MONITOR BY PHARMACY. MC PRN (13:00)
--- NOTE | 2019-01-03 14:29 | NUR ---
Patient transfusion one unit packed red blood cells infused without reaction. See transfusion record.
--- NOTE | 2019-01-03 15:03 | NUR ---
Iron sucrose IV infusing without any difficulty or patient symptoms, patient VS with start of infusion BP 139/62 pulse 82, T. 98.5; VS now BP 139/67 pulse 91, T. 98.0. Continue cares and monitor.
--- NOTE | 2019-01-03 15:11 | RAD ---
Ultrasound carotid Doppler 01/03/2019 5:00 AM INDICATION: Stroke, slurred speech COMPARISON: None available TECHNIQUE: Sonographic imaging of the carotid vasculature was performed utilizing grayscale, color Doppler and spectral waveform analysis. FINDINGS: (All velocities are measured cm per second) Right carotid: Mild atheromatous plaque is identified at the right carotid bifurcation without significant luminal stenosis. Peak systolic velocity: Proximal common carotid artery: 177 Middle common carotid artery: 149 Distal common carotid artery: 132 Proximal internal carotid artery: 110 Middle internal carotid artery: 110 Distal internal carotid artery: 108 End-diastolic velocity: 29 External carotid artery: 179 Internal carotid artery/common carotid artery ratio: 0.72-0.74 Vertebral artery: Antegrade flow Left carotid: Mild atheromatous plaque is identified at the carotid bifurcation without significant luminal stenosis. Peak systolic velocity: Proximal common carotid artery: 85 Middle common carotid artery: 85 Distal common carotid artery: 91 Proximal internal carotid artery: 101 Middle internal carotid artery: 82 Distal internal carotid artery: 60 End-diastolic velocity: 24 External carotid artery: 123 Internal carotid artery/common carotid artery ratio: 0.71-1.19 Vertebral artery: Antegrade flow IMPRESSION: 1. There is 50-69 percent stenosis involving the cervical internal carotid artery bilaterally secondary to atheromatous plaque at the carotid bifurcation. 2. Antegrade flow is identified in the vertebral arteries. 3. Evaluation of the carotid vasculature and measurements for luminal stenosis was performed utilizing NASCET criteria. Electronically signed by: María Silva MD (01/03/2019 3:08 PM) [facility]
[2019-01-03] MEDS: ATORVASTATIN CALCIUM 40 MG TABLET. PO SCH (20:11)
[2019-01-04 03:57] VITALS: BP 144/73
[2019-01-04] MEDS: LEVOTHYROXINE 75 MCG TABLET PO SCH (05:27)
[2019-01-04 05:47] LABS: HEMATOCRIT 28.1 % (36.0-47.0); HEMOGLOBIN 8.6 g/dL (12.0-15.5)
[2019-01-04 06:00] LABS: CALCIUM 9.2 mg/dL (8.5-10.1); CREATININE 1.8 mg/dL (0.6-1.0); GFR 28.3
[2019-01-04 07:00] VITALS: BP 158/84
[2019-01-04] MEDS: HYDROcodone/APAP 10/325 1 TAB TABLET PO PRN (07:20)
--- NOTE | 2019-01-04 09:35 | PDOC ---
PROGRESS NOTES Assessment Problems Medical Problems: (1) CKD (chronic kidney disease) Status: Chronic (2) YENY (iron deficiency anemia) Status: Acute (3) Malabsorption Status: Chronic (4) Slurred speech Status: Acute Prior stroke, possible new stroke symptoms related to her severe anemia. Subclinical bilateral carotid Doppler disease Plan Await MRI brain Await echocardiogram. Continue apixaban, adding aspirin would be difficult given her bleeding. Await lipid profile Rehab modalities Objective Vital Signs Date Time Temp Pulse Resp B/P (MAP) Pulse Ox O2 Delivery O2 Flow Rate FiO2 01/04/19 07:20 Room Air 01/04/19 03:57 98.0 92 20 144/73 (96) 99 98.0 01/03/19 19:45 2.0 Intake and Output 01/04/19 06:59 Intake Total 3155 ml Output Total 1500 ml Balance 1655 ml Intake Oral 2490 ml IV Total 110 ml Blood Product 305 ml Blood Product IV Normal Saline Flush 250 ml Output Urine Total 1500 ml # Voids 2 PHYSICAL EXAM Physical Exam: Alert. Oriented to time, place and person. PERRL. EOMI. CN: no focal findings. Muscle tone: normal. Muscle strength: 4/5 left leg DTR: 2+ Plantar reflex: flexor Gait: not examined in bed. Sensory exam: no abnormal findings. No cerebellar signs elicited. Review of Relevant I have reviewed the following items joanna (where applicable) has been applied. Labs Laboratory Tests Test 01/02/19 13:30 01/03/19 04:20 01/04/19 05:00 Hemoglobin 7.8 g/dL (12.0-15.5) 6.9 g/dL (12.0-15.5) 8.6 g/dL (12.0-15.5) Hematocrit 26.0 % (36.0-47.0) 22.7 % (36.0-47.0) 28.1 % (36.0-47.0) Mean Corpuscular Hemoglobin Concent 30 g/dL (31-37) 30 g/dL (31-37) 31 g/dL (31-37) Sodium Level 141 mmol/L (136-145) 141 mmol/L (136-145) Potassium Level 5.1 mmol/L (3.5-5.1) 5.0 mmol/L (3.5-5.1) Chloride Level 110 mmol/L (98-107) 108 mmol/L (98-107) Carbon Dioxide Level 21 mmol/L (21-32) 22 mmol/L (21-32) Anion Gap 10 (6-14) 11 (6-14) Blood Urea Nitrogen 31 mg/dL (7-20) 27 mg/dL (7-20) Creatinine 2.0 mg/dL (0.6-1.0) 1.8 mg/dL (0.6-1.0) Estimated GFR (Cockcroft-Gault) 25.1 28.3 Glucose Level 132 mg/dL (70-99) 106 mg/dL (70-99) Calcium Level 8.7 mg/dL (8.5-10.1) 9.2 mg/dL (8.5-10.1) CA 125 Antigen 9.7 U/mL (0.0-38.1) Laboratory Tests Test 01/04/19 05:00 Hemoglobin 8.6 g/dL (12.0-15.5) Hematocrit 28.1 % (36.0-47.0) Mean Corpuscular Hemoglobin Concent 31 g/dL (31-37) Sodium Level 141 mmol/L (136-145) Potassium Level 5.0 mmol/L (3.5-5.1) Chloride Level 108 mmol/L (98-107) Carbon Dioxide Level 22 mmol/L (21-32) Anion Gap 11 (6-14) Blood Urea Nitrogen 27 mg/dL (7-20) Creatinine 1.8 mg/dL (0.6-1.0) Estimated GFR (Cockcroft-Gault) 28.3 Glucose Level 106 mg/dL (70-99) Calcium Level 9.2 mg/dL (8.5-10.1) Microbiology 01/01/19 Urine Culture - Preliminary, Resulted 01/01/19 Urine Culture Result 1 (LINDSAY) - Preliminary, Resulted Medications Current Medications Ceftriaxone Sodium (Rocephin) 1 gm 1X ONCE IVP Last administered on 01/01/19at 23:02; Start 01/01/19 at 22:30; Stop 01/01/19 at 22:31; Status DC Aspirin (Children'S Aspirin) 324 mg 1X ONCE PO Last administered on 01/01/19at 23:31; Start 01/01/19 at 23:30; Stop 01/01/19 at 23:31; Status DC Sodium Chloride 1,000 ml @ 75 mls/hr [id number] IV Last administered on 01/02/19 17:17; Start 01/01/19 at 23:30; Stop 01/02/19 at 23:29; Status DC Allopurinol (Zyloprim) 100 mg DAILY PO Last administered on 01/03/19 08:54; Start 01/02/19 at 10:00 Atorvastatin Calcium (Lipitor) 40 mg QHS PO Last administered on 01/03/19 20:11; Start 01/02/19 at 21:00 Cyclobenzaprine HCl (Flexeril) 10 mg PRN TID PRN PO MUSCLE SPASMS Last administered on 01/02/19 10:59; Start 01/02/19 at 09:15 Levothyroxine Sodium (Synthroid) 75 mcg DAILY06 PO Last administered on 01/04/19 05:27; Start 01/02/19 at 10:00 Losartan Potassium (Cozaar) 50 mg DAILY PO Last administered on 01/03/19 08:55; Start 01/02/19 at 10:00 Acetaminophen/ Hydrocodone Bitart (Lortab 10/325) 1 tab PRN Q4HRS PRN PO PAIN Last administered on 01/04/19 07:20; Start 01/02/19 at 09:30 Propranolol HCl (Inderal La) 160 mg DAILY PO Last administered on 01/03/19 08:56; Start 01/02/19 at 10:00 Temazepam (Restoril) 7.5 mg PRN QHS PRN PO INSOMNIA; Start 01/02/19 at 09:15 Clonidine HCl (Catapres) 0.1 mg PRN Q1HR PRN PO HYPERTENSION; Start 01/02/19 at 09:15 Calcium Carbonate/ Glycine (Tums) 500 mg PRN AFTMEALHC PRN PO INDIGESTION; Start 01/02/19 at 09:15 Epoetin Miller (PROCRIT for NON-DIALYSIS PTS) 10,000 unit 1X ONCE SQ Last administered on 01/02/19 14:53; Start 01/02/19 at 13:00; Stop 01/02/19 at 13:01; Status DC Iron Sucrose 200 mg/Sodium Chloride 110 ml @ 55 mls/hr 1X ONCE IV Last administered on 01/02/19at 14:54; Start 01/02/19 at 13:30; Stop 01/02/19 at 15:29; Status DC Apixaban (Eliquis) 5 mg BID PO Last administered on 01/03/19at 20:11; Start 01/02/19 at 21:00 Iron Sucrose 200 mg/Sodium Chloride 110 ml @ 55 mls/hr 1X ONCE IV Last administered on 01/03/19at 14:35; Start 01/03/19 at 10:00; Stop 01/03/19 at 11:59; Status DC Info (Anti-Coagulation Monitoring By Pharmacy) 1 each PRN DAILY PRN MC SEE COMMENTS Last administered on 01/03/19at 12:53; Start 01/03/19 at 13:00 Active Scripts Active Eliquis (Apixaban) 5 Mg Tablet 5 Mg PO BID 30 Days 10mg BID for 7 days, then 5mg BID thereafter Atorvastatin Calcium 40 Mg Tablet 40 Mg PO QHS 30 Days Reported [place] 10-325 Tablet (Acetaminophen/Hydrocodone Bitart) 1 Each Tablet 1-2 Tab PO Q4-6HRS Levothyroxine Sodium 75 Mcg Tablet 1 Tab PO DAILY Allopurinol 100 Mg Tablet 1 Tab PO DAILY Propranolol Hcl 160 Mg Cap.sa.24h 160 Mg PO DAILY Losartan Potassium 50 Mg Tablet 50 Mg PO DAILY Cyclobenzaprine Hcl 10 Mg Tablet 10 Mg PO Proair Hfa Inhaler (Albuterol Sulfate) 8.5 Gm Hfa.aer.ad 8.5 Gm IH Vitals/I & O Vital Sign - Last 24 Hours 01/03/19 01/03/19 01/03/19 01/03/19 11:30 11:41 11:59 12:59 Temp 97.7 97.7 97.6 98.3 97.7 97.7 97.6 98.3 Pulse 101 101 67 78 Resp 18 18 18 18 B/P (MAP) 134/84 (101) 134/84 140/69 125/64 Pulse Ox 100 O2 Delivery Nasal Cannula O2 Flow Rate 2.0 01/03/19 01/03/19 01/03/19 01/03/19 13:59 14:28 15:26 15:30 Temp 98.1 98.5 98.0 98.0 98.1 98.5 98.0 98.0 Pulse 84 82 91 80 Resp 18 18 19 18 B/P (MAP) 132/64 139/62 139/67 (91) 120/80 Pulse Ox 99 O2 Delivery Room Air 01/03/19 01/03/19 01/03/19 01/03/19 19:45 20:00 20:11 21:11 Temp 98.3 98.3 Pulse 83 Resp 20 B/P (MAP) 141/81 (101) Pulse Ox 100 O2 Delivery Nasal Cannula Room Air Room Air Room Air O2 Flow Rate 2.0 01/03/19 01/04/19 01/04/19 23:55 03:57 07:20 Temp 97.8 98.0 97.8 98.0 Pulse 69 92 Resp 20 20 B/P (MAP) 140/75 (96) 144/73 (96) Pulse Ox 99 99 O2 Delivery Room Air Room Air Room Air Intake and Output 01/03/19 01/03/19 01/04/19 14:59 22:59 06:59 Intake Total 1555 ml 1040 ml 560 ml Output Total 1200 ml 300 ml Balance 355 ml 1040 ml 260 ml Images Carotid Doppler studies: FINDINGS: (All velocities are measured cm per second) Right carotid: Mild atheromatous plaque is identified at the right carotid bifurcation without significant luminal stenosis. Peak systolic velocity: Proximal common carotid artery: 177 Middle common carotid artery: 149 Distal common carotid artery: 132 Proximal internal carotid artery: 110 Middle internal carotid artery: 110 Distal internal carotid artery: 108 End-diastolic velocity: 29 External carotid artery: 179 Internal carotid artery/common carotid artery ratio: 0.72-0.74 Vertebral artery: Antegrade flow Left carotid: Mild atheromatous plaque is identified at the carotid bifurcation without significant luminal stenosis. Peak systolic velocity: Proximal common carotid artery: 85 Middle common carotid artery: 85 Distal common carotid artery: 91 Proximal internal carotid artery: 101 Middle internal carotid artery: 82 Distal internal carotid artery: 60 End-diastolic velocity: 24 External carotid artery: 123 Internal carotid artery/common carotid artery ratio: 0.71-1.19 Vertebral artery: Antegrade flow IMPRESSION: 1. There is 50-69 percent stenosis involving the cervical internal carotid artery bilaterally secondary to atheromatous plaque at the carotid bifurcation. 2. Antegrade flow is identified in the vertebral arteries. 3. Evaluation of the carotid vasculature and measurements for luminal stenosis was performed utilizing NASCET criteria. JASPREET PARADA MD Jan 04, 2019 09:35
[2019-01-04] MEDS: ALLOPURINOL 100 MG TABLET. PO SCH (09:57)
[2019-01-04] MEDS: APIXABAN 5 MG TABLET. PO SCH (09:57)
[2019-01-04] MEDS: PROPRANOLOL ER 80 MG CAP.ER.24H. PO SCH (09:57)
[2019-01-04] MEDS: LOSARTAN POTASSIUM 50 MG TABLET. PO SCH (09:58)
--- NOTE | 2019-01-04 10:03 | PDOC ---
PROGRESS NOTES Chief Complaint Chief Complaint discharge dx Known YENY, previous history of almost subtotal gastrectomy hence does not absorb Malabsorption Acute on chronic YENY Obesity, BMI 31 CK D-creatinine 2.5 Right ovarian cyst-interval sono Acute precipitous drop in hemoglobin-Hgb 6.6 status post transfusion History CVA deep basal ganglia with no residuals Slurred speech resolved after one and half hours could be reversible ischemic syndrome versus TIA Hx PE - supposed to be on lifelong Eliquis Complex right ovarian cyst need to rule out ovarian malignancy No acute intracranial abnormality. by mri head 01/04 Moderate sequela of chronic microvascular ischemia. Chronic right dominguez radiata/lentiform nucleus infarct. History of Present Illness History of Present Illness hemoGlobin 6.9 despite blood transfusion and there is no overt blood loss She chalks it up to previous history gastrectomy and is not absorbing and has malabsorption syndrome known to Dr. Gasper Woodruff - also GI workup in the past including colonoscopy then there is no bleeding Did get dose of IV Venofer yesterday Friday Seen by neurology because she came in for stroke like symptoms but that has since resolved and she is looking for the MRI brain promised to her Creatinine 2.0 from 2.5 and is also known to Dr. glass and has CK D stage III or 4 Called by RN loss iV line- hard stick -Agreeable to picc Sono of the pelvis I did because of her request - shows right ovarian complex cyst need to rule out ovarian cancer-we'll order CA 125 Plan: PICC line Consult heme onc known to her for 2 reasons about this YENY and re this ovarian complex cyst - has not seen [employer] as OP I'm giving IV Venofer �2 today, transfuse 1 packed RBC H&H tomorrow Check CA 125 levels Avoid nephrotoxins Okay to be off telemetry, may DC or transfer out of cardiac floor Transfuse if less than 7 when necessary Discussed with her and agrees HEme onc consult Add OB gyne - consult pt demand discharge tonight 01/04 d/c planning 34 min Vitals Vitals Vital Signs Date Time Temp Pulse Resp B/P (MAP) Pulse Ox O2 Delivery O2 Flow Rate FiO2 01/04/19 09:58 74 158/84 01/04/19 07:20 Room Air 01/04/19 07:00 97.7 12 99 97.7 01/03/19 19:45 2.0 Physical Exam General: Alert, Oriented X3, Cooperative, No acute distress Heart: Regular rate Lungs: Clear Abdomen: Normal bowel sounds, Soft, No tenderness, No hepatosplenomegaly, No masses Extremities: No clubbing, No cyanosis, No edema, Normal pulses, No tenderness/swelling Skin: No rashes, No breakdown, No significant lesion Labs LABS BRAIN W/O CONTRAST History: Stroke. Technique: Multiplanar, multi sequential MR imaging was performed of the brain without contrast. Comparison: Head CT January 01, 2019 Findings: No acute infarct. No intracranial hemorrhage. No mass effect. No hydrocephalus. Extra-axial spaces are unremarkable. Moderate foci of T2/FLAIR hyperintensity within the hemispheric white matter, most often due to chronic microvascular ischemia. Chronic right dominguez radiata/lentiform nucleus infarct. Imaged orbits are unremarkable. Imaged paranasal sinuses and mastoid air cells are clear. Impression: 1. No acute intracranial abnormality. 2. Moderate sequela of chronic microvascular ischemia. 3. Chronic right dominguez radiata/lentiform nucleus infarct. Electronically signed by: Sal Trujillo DO (01/04/2019 12:25 PM) [id number] Laboratory Tests Test 01/04/19 05:00 Hemoglobin 8.6 g/dL (12.0-15.5) Hematocrit 28.1 % (36.0-47.0) Mean Corpuscular Hemoglobin Concent 31 g/dL (31-37) Sodium Level 141 mmol/L (136-145) Potassium Level 5.0 mmol/L (3.5-5.1) Chloride Level 108 mmol/L (98-107) Carbon Dioxide Level 22 mmol/L (21-32) Anion Gap 11 (6-14) Blood Urea Nitrogen 27 mg/dL (7-20) Creatinine 1.8 mg/dL (0.6-1.0) Estimated GFR (Cockcroft-Gault) 28.3 Glucose Level 106 mg/dL (70-99) Calcium Level 9.2 mg/dL (8.5-10.1) Assessment and Plan Assessmemt and Plan Problems Medical Problems: (1) CKD (chronic kidney disease) Status: Chronic (2) YENY (iron deficiency anemia) Status: Acute (3) Malabsorption Status: Chronic (4) Slurred speech Status: Acute Comment Review of Relevant I have reviewed the following items joanna (where applicable) has been applied. Labs Laboratory Tests Test 01/02/19 13:30 01/03/19 04:20 01/04/19 05:00 Hemoglobin 7.8 g/dL (12.0-15.5) 6.9 g/dL (12.0-15.5) 8.6 g/dL (12.0-15.5) Hematocrit 26.0 % (36.0-47.0) 22.7 % (36.0-47.0) 28.1 % (36.0-47.0) Mean Corpuscular Hemoglobin Concent 30 g/dL (31-37) 30 g/dL (31-37) 31 g/dL (31-37) Sodium Level 141 mmol/L (136-145) 141 mmol/L (136-145) Potassium Level 5.1 mmol/L (3.5-5.1) 5.0 mmol/L (3.5-5.1) Chloride Level 110 mmol/L (98-107) 108 mmol/L (98-107) Carbon Dioxide Level 21 mmol/L (21-32) 22 mmol/L (21-32) Anion Gap 10 (6-14) 11 (6-14) Blood Urea Nitrogen 31 mg/dL (7-20) 27 mg/dL (7-20) Creatinine 2.0 mg/dL (0.6-1.0) 1.8 mg/dL (0.6-1.0) Estimated GFR (Cockcroft-Gault) 25.1 28.3 Glucose Level 132 mg/dL (70-99) 106 mg/dL (70-99) Calcium Level 8.7 mg/dL (8.5-10.1) 9.2 mg/dL (8.5-10.1) CA 125 Antigen 9.7 U/mL (0.0-38.1) Laboratory Tests Test 01/04/19 05:00 Hemoglobin 8.6 g/dL (12.0-15.5) Hematocrit 28.1 % (36.0-47.0) Mean Corpuscular Hemoglobin Concent 31 g/dL (31-37) Sodium Level 141 mmol/L (136-145) Potassium Level 5.0 mmol/L (3.5-5.1) Chloride Level 108 mmol/L (98-107) Carbon Dioxide Level 22 mmol/L (21-32) Anion Gap 11 (6-14) Blood Urea Nitrogen 27 mg/dL (7-20) Creatinine 1.8 mg/dL (0.6-1.0) Estimated GFR (Cockcroft-Gault) 28.3 Glucose Level 106 mg/dL (70-99) Calcium Level 9.2 mg/dL (8.5-10.1) Microbiology 01/01/19 Urine Culture - Preliminary, Resulted 01/01/19 Urine Culture Result 1 (LINDSAY) - Preliminary, Resulted Medications Current Medications Ceftriaxone Sodium (Rocephin) 1 gm 1X ONCE IVP Last administered on 01/01/19 23:02; Start 01/01/19 at 22:30; Stop 01/01/19 at 22:31; Status DC Aspirin (Children'S Aspirin) 324 mg 1X ONCE PO Last administered on 01/01/19 23:31; Start 01/01/19 at 23:30; Stop 01/01/19 at 23:31; Status DC Sodium Chloride 1,000 ml @ 75 mls/hr [id number] IV Last administered on 01/02/19 17:17; Start 01/01/19 at 23:30; Stop 01/02/19 at 23:29; Status DC Allopurinol (Zyloprim) 100 mg DAILY PO Last administered on 01/04/19 09:57; Start 01/02/19 at 10:00 Atorvastatin Calcium (Lipitor) 40 mg QHS PO Last administered on 01/03/19 20:11; Start 01/02/19 at 21:00 Cyclobenzaprine HCl (Flexeril) 10 mg PRN TID PRN PO MUSCLE SPASMS Last administered on 01/02/19 10:59; Start 01/02/19 at 09:15 Levothyroxine Sodium (Synthroid) 75 mcg DAILY06 PO Last administered on 01/04/19 05:27; Start 01/02/19 at 10:00 Losartan Potassium (Cozaar) 50 mg DAILY PO Last administered on 01/04/19 09:58; Start 01/02/19 at 10:00 Acetaminophen/ Hydrocodone Bitart (Lortab 10/325) 1 tab PRN Q4HRS PRN PO PAIN Last administered on 01/04/19 07:20; Start 01/02/19 at 09:30 Propranolol HCl (Inderal La) 160 mg DAILY PO Last administered on 01/04/19 09:57; Start 01/02/19 at 10:00 Temazepam (Restoril) 7.5 mg PRN QHS PRN PO INSOMNIA; Start 01/02/19 at 09:15 Clonidine HCl (Catapres) 0.1 mg PRN Q1HR PRN PO HYPERTENSION; Start 01/02/19 at 09:15 Calcium Carbonate/ Glycine (Tums) 500 mg PRN AFTMEALHC PRN PO INDIGESTION; Start 01/02/19 at 09:15 Epoetin Miller (PROCRIT for NON-DIALYSIS PTS) 10,000 unit 1X ONCE SQ Last administered on 01/02/19 14:53; Start 01/02/19 at 13:00; Stop 01/02/19 at 13:01; Status DC Iron Sucrose 200 mg/Sodium Chloride 110 ml @ 55 mls/hr 1X ONCE IV Last administered on 01/02/19at 14:54; Start 01/02/19 at 13:30; Stop 01/02/19 at 15:29; Status DC Apixaban (Eliquis) 5 mg BID PO Last administered on 01/04/19 09:57; Start 01/02/19 at 21:00 Iron Sucrose 200 mg/Sodium Chloride 110 ml @ 55 mls/hr 1X ONCE IV Last administered on 01/03/19 14:35; Start 01/03/19 at 10:00; Stop 01/03/19 at 11:59; Status DC Info (Anti-Coagulation Monitoring By Pharmacy) 1 each PRN DAILY PRN MC SEE COMMENTS Last administered on 01/03/19at 12:53; Start 01/03/19 at 13:00 Active Scripts Active Eliquis (Apixaban) 5 Mg Tablet 5 Mg PO BID 30 Days 10mg BID for 7 days, then 5mg BID thereafter Atorvastatin Calcium 40 Mg Tablet 40 Mg PO QHS 30 Days Reported [place] 10-325 Tablet (Acetaminophen/Hydrocodone Bitart) 1 Each Tablet 1-2 Tab PO Q4-6HRS Levothyroxine Sodium 75 Mcg Tablet 1 Tab PO DAILY Allopurinol 100 Mg Tablet 1 Tab PO DAILY Propranolol Hcl 160 Mg Cap.sa.24h 160 Mg PO DAILY Losartan Potassium 50 Mg Tablet 50 Mg PO DAILY Cyclobenzaprine Hcl 10 Mg Tablet 10 Mg PO Proair Hfa Inhaler (Albuterol Sulfate) 8.5 Gm Hfa.aer.ad 8.5 Gm IH Vitals/I & O Vital Sign - Last 24 Hours 01/03/19 01/03/19 01/03/19 01/03/19 11:30 11:41 11:59 12:59 Temp 97.7 97.7 97.6 98.3 97.7 97.7 97.6 98.3 Pulse 101 101 67 78 Resp 18 B/P (MAP) 134/84 (101) 134/84 140/69 125/64 Pulse Ox 100 O2 Delivery Nasal Cannula O2 Flow Rate 2.0 01/03/19 01/03/19 01/03/19 01/03/19 13:59 14:28 15:26 15:30 Temp 98.1 98.5 98.0 98.0 98.1 98.5 98.0 98.0 Pulse 84 82 91 80 Resp 18 B/P (MAP) 132/64 139/62 139/67 (91) 120/80 Pulse Ox 99 O2 Delivery Room Air 01/03/19 01/03/19 01/03/19 01/03/19 19:45 20:00 20:11 21:11 Temp 98.3 98.3 Pulse 83 Resp 20 B/P (MAP) 141/81 (101) Pulse Ox 100 O2 Delivery Nasal Cannula Room Air Room Air Room Air O2 Flow Rate 2.0 01/03/19 01/04/19 01/04/19 01/04/19 23:55 03:57 07:00 07:20 Temp 97.8 98.0 97.7 97.8 98.0 97.7 Pulse 69 92 74 Resp 20 20 12 B/P (MAP) 140/75 (96) 144/73 (96) 158/84 (108) Pulse Ox 99 99 99 O2 Delivery Room Air Room Air Room Air Room Air 01/04/19 01/04/19 09:57 09:58 Pulse 74 74 B/P (MAP) 158/84 158/84 Intake and Output 01/03/19 01/03/19 01/04/19 14:59 22:59 06:59 Intake Total 1555 ml 1040 ml 560 ml Output Total 1200 ml 300 ml Balance 355 ml 1040 ml 260 ml FULBRIGHT,MINISTERIO W MD Jan 04, 2019 10:03
--- NOTE | 2019-01-04 10:09 | PDOC2 ---
CONSULT Date of Consult Date of Consult DATE: 01/04/19 TIME: 09:58 Reason for consultation: Stroke/TIA Consult: Hematology oncology, Dr. Rani Woodruff History of present illness: She is a 63-year-old female who came in with neurologic symptoms including slurred speech w/ sx extending to left lower extremity weakness, it was acute, moderate, lasted a couple hours of the slurred speech which resolved, improved w/ time, but she still has lower extremity weakness, but back to her baseline walking she says. Of note on of last week she was falling when she would stand up, she does have some chronic hip issues, and neurology is involved. She was on eliquis 5 twice a day due to recurrent clotting. Aspirin 81 mg had been given (CAD) and stopped last fall, and she was given 324 mg of aspirin in the ER. MRI not done as she tells me the machine has been down. Past medical history: Carotid artery stenosis Coronary artery disease with stents and prior SC MRSA positive DVT left lower extremity March 2018 Left lower extremity DVT 2013 treated with Coumadin �6 months Right lower extremity DVT in 2015 treated with Xarelto �6 months, the DVT in 2013 and 2015 may have been related to surgery and potentially PICC line placement? PE March 2018, has been on eliquis since Old stroke and basal ganglia Recent TIA versus stroke Anemia with IV iron as needed Migraine Gout Peptic ulcer disease Chronic kidney disease Hypertension Hyperlipidemia Kidney stone Past surgical history: Partial gastrectomy Hernia repair C-spine fusion PCI Allergies: Sulfa, amlodipine, codeine, doxycycline, zetia, Levaquin, morphine, oxycodone, simvastatin Medications: See attached list Social history: Not , 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, no tobacco or alcohol or drugs Family history: Blood clots and lung cancer and coronary artery disease Review of systems: Epistaxis, left hip issues and trouble walking, left leg weakness, numbness and tingling in hands and feet and legs, recent vaginal bleeding, weight fluctuates about 5 pounds, common for her to have nausea, falling recently Physical exam: Vitals reviewed Gen.: Well-nourished and well-developed in no acute distress, tissue in her nose related to recent nosebleed HEENT: mucous membranes moist, head normocephalic atraumatic Neck: Supple, no lymphadenopathy Lymph nodes: No palpable lymphadenopathy neck or axilla Lungs: Breathing comfortably on room air, no evidence of respiratory distress Abdomen: Soft, nontender, nondistended Extremities: No cyanosis or edema Skin: No obvious rashes or skin breakdown Neuro: Alert and oriented �3 Psych: Normal mood and affect Lab reviewed: White count 7.1, Hemoccult 6.6, platelets 239, MCV 69 Hemoglobin 8.6 after 2 units INR 1.4 Creatinine 1.8 Iron sat 3% TIBC elevated Serum iron low Urinalysis w/ white blood cells and leukocyte esterase and positive bacteria TSH normal CA 125 normal Urine drug screen negative Rads reviewed: 01 January chest x-ray no acute disease [address] with chronic ischemic changes at right basal ganglia 02 January pelvic ultrasound with 4.3 cm right complicated ovarian cyst with thickened endometrial stripe and possible small uterine fibroid Case discussed with: Patient, records reviewed in [facility] and [facility], including labs and radiology, please see note for summary details. Assessment and Plan: She is a 63-year-old female with recurrent thrombosis on chronic anticoagulation, history of coronary artery disease and recent TIA vs stroke with old stroke in the past Epistaxis: Tolerable, we'll keep an eye on this if aspirin is added TIA versus stroke: Neurology involved, tells me she is going to be getting therapy involved as well, MRI pending, may add baby aspirin to her anticoa gulation Recurrent thrombosis: On apixaban twice a day ovarian cyst: CA-125 is normal, gynecology has been consulted, she has had recent vaginal bleeding Carotid artery disease: Defer to primary and neurology Renal insufficiency: Tells me she did get a dose of Procrit, defer dosing to nephrology, as I believe they have started this, and she has had some IV iron as well per primary Disposition: She is getting new insurance on 02 March and we will arrange follow-up as able once she is discharged Thank you kindly for this consultation, and please don't hesitate to call with further questions. Past Medical History Cardiovascular: CAD, HTN, Hyperlipidemia Pulmonary: No pertinent hx CENTRAL NERVOUS SYSTEM: Migraine, Other GI: Peptic Ulcer disease Heme/Onc: Other Hepatobiliary: No pertinent hx Psych: No pertinent hx Musculoskeletal: Other Rheumatologic: Gout Infectious disease: Other Renal/: Chronic renal insuff, Other Endocrine: No pertinent hx Past Surgical History Past Surgical History: Hernia Repair, Other Family History Family History: Coronary Artery Disease Social History No ALCOHOL: none Drugs: None Lives: with Family Current Problem List Problem List Problems Medical Problems: (1) CKD (chronic kidney disease) Status: Chronic (2) YENY (iron deficiency anemia) Status: Acute (3) Malabsorption Status: Chronic (4) Slurred speech Status: Acute Current Medications Current Medications Current Medications Ceftriaxone Sodium (Rocephin) 1 gm 1X ONCE IVP Last administered on 01/01/19 23:02; Start 01/01/19 at 22:30; Stop 01/01/19 at 22:31; Status DC Aspirin (Children'S Aspirin) 324 mg 1X ONCE PO Last administered on 01/01/19 23:31; Start 01/01/19 at 23:30; Stop 01/01/19 at 23:31; Status DC Sodium Chloride 1,000 ml @ 75 mls/hr [id number] IV Last administered on 01/02/19 17:17; Start 01/01/19 at 23:30; Stop 01/02/19 at 23:29; Status DC Allopurinol (Zyloprim) 100 mg DAILY PO Last administered on 01/03/19 08:54; Start 01/02/19 at 10:00 Atorvastatin Calcium (Lipitor) 40 mg QHS PO Last administered on 01/03/19 20:11; Start 01/02/19 at 21:00 Cyclobenzaprine HCl (Flexeril) 10 mg PRN TID PRN PO MUSCLE SPASMS Last administered on 01/02/19 10:59; Start 01/02/19 at 09:15 Levothyroxine Sodium (Synthroid) 75 mcg DAILY06 PO Last administered on 01/04/19 05:27; Start 01/02/19 at 10:00 Losartan Potassium (Cozaar) 50 mg DAILY PO Last administered on 01/03/19 08:55; Start 01/02/19 at 10:00 Acetaminophen/ Hydrocodone Bitart (Lortab 10/325) 1 tab PRN Q4HRS PRN PO PAIN Last administered on 01/04/19 07:20; Start 01/02/19 at 09:30 Propranolol HCl (Inderal La) 160 mg DAILY PO Last administered on 01/03/19 08:56; Start 01/02/19 at 10:00 Temazepam (Restoril) 7.5 mg PRN QHS PRN PO INSOMNIA; Start 01/02/19 at 09:15 Clonidine HCl (Catapres) 0.1 mg PRN Q1HR PRN PO HYPERTENSION; Start 01/02/19 at 09:15 Calcium Carbonate/ Glycine (Tums) 500 mg PRN AFTMEALHC PRN PO INDIGESTION; Start 01/02/19 at 09:15 Epoetin Miller (PROCRIT for NON-DIALYSIS PTS) 10,000 unit 1X ONCE SQ Last administered on 01/02/19at 14:53; Start 01/02/19 at 13:00; Stop 01/02/19 at 13:01; Status DC Iron Sucrose 200 mg/Sodium Chloride 110 ml @ 55 mls/hr 1X ONCE IV Last administered on 01/02/19at 14:54; Start 01/02/19 at 13:30; Stop 01/02/19 at 15:29; Status DC Apixaban (Eliquis) 5 mg BID PO Last administered on 01/03/19at 20:11; Start 01/02/19 at 21:00 Iron Sucrose 200 mg/Sodium Chloride 110 ml @ 55 mls/hr 1X ONCE IV Last administered on 01/03/19at 14:35; Start 01/03/19 at 10:00; Stop 01/03/19 at 11:59; Status DC Info (Anti-Coagulation Monitoring By Pharmacy) 1 each PRN DAILY PRN MC SEE COMMENTS Last administered on 01/03/19at 12:53; Start 01/03/19 at 13:00 Active Scripts Active Eliquis (Apixaban) 5 Mg Tablet 5 Mg PO BID 30 Days 10mg BID for 7 days, then 5mg BID thereafter Atorvastatin Calcium 40 Mg Tablet 40 Mg PO QHS 30 Days Reported [place] 10-325 Tablet (Acetaminophen/Hydrocodone Bitart) 1 Each Tablet 1-2 Tab PO Q4-6HRS Levothyroxine Sodium 75 Mcg Tablet 1 Tab PO DAILY Allopurinol 100 Mg Tablet 1 Tab PO DAILY Propranolol Hcl 160 Mg Cap.sa.24h 160 Mg PO DAILY Losartan Potassium 50 Mg Tablet 50 Mg PO DAILY Cyclobenzaprine Hcl 10 Mg Tablet 10 Mg PO Proair Hfa Inhaler (Albuterol Sulfate) 8.5 Gm Hfa.aer.ad 8.5 Gm IH Allergies Allergies: Coded Allergies: Sulfa (Sulfonamide Antibiotics) (Verified Allergy, Intermediate, 02/27/17) amlodipine (Verified Allergy, Intermediate, 02/27/17) codeine (Verified Allergy, Intermediate, Rash, 02/27/17) doxycycline (Verified Allergy, Intermediate, 02/27/17) ezetimibe (Verified Allergy, Intermediate, 02/27/17) levofloxacin (Verified Allergy, Intermediate, ITCH, 02/27/17) Tolerates cipro morphine (Verified Allergy, Intermediate, 02/27/17) simvastatin (Verified Allergy, Intermediate, 02/27/17) I S O L A T I O N *CONTACT* (Verified Allergy, Unknown, 03/12/18) +MRSA nares 03/11/18 oxycodone (Verified Adverse Reaction, Intermediate, Hallucinations, 02/16/16) Vitals VITALS Vital Signs Date Time Temp Pulse Resp B/P (MAP) Pulse Ox O2 Delivery O2 Flow Rate FiO2 01/04/19 07:20 Room Air 01/04/19 07:00 97.7 74 12 158/84 (108) 99 97.7 01/03/19 19:45 2.0 Labs Labs Laboratory Tests Test 01/02/19 13:30 01/03/19 04:20 01/04/19 05:00 Hemoglobin 7.8 g/dL (12.0-15.5) 6.9 g/dL (12.0-15.5) 8.6 g/dL (12.0-15.5) Hematocrit 26.0 % (36.0-47.0) 22.7 % (36.0-47.0) 28.1 % (36.0-47.0) Mean Corpuscular Hemoglobin Concent 30 g/dL (31-37) 30 g/dL (31-37) 31 g/dL (31-37) Sodium Level 141 mmol/L (136-145) 141 mmol/L (136-145) Potassium Level 5.1 mmol/L (3.5-5.1) 5.0 mmol/L (3.5-5.1) Chloride Level 110 mmol/L (98-107) 108 mmol/L (98-107) Carbon Dioxide Level 21 mmol/L (21-32) 22 mmol/L (21-32) Anion Gap 10 (6-14) 11 (6-14) Blood Urea Nitrogen 31 mg/dL (7-20) 27 mg/dL (7-20) Creatinine 2.0 mg/dL (0.6-1.0) 1.8 mg/dL (0.6-1.0) Estimated GFR (Cockcroft-Gault) 25.1 28.3 Glucose Level 132 mg/dL (70-99) 106 mg/dL (70-99) Calcium Level 8.7 mg/dL (8.5-10.1) 9.2 mg/dL (8.5-10.1) CA 125 Antigen 9.7 U/mL (0.0-38.1) Laboratory Tests Test 01/04/19 05:00 Hemoglobin 8.6 g/dL (12.0-15.5) Hematocrit 28.1 % (36.0-47.0) Mean Corpuscular Hemoglobin Concent 31 g/dL (31-37) Sodium Level 141 mmol/L (136-145) Potassium Level 5.0 mmol/L (3.5-5.1) Chloride Level 108 mmol/L (98-107) Carbon Dioxide Level 22 mmol/L (21-32) Anion Gap 11 (6-14) Blood Urea Nitrogen 27 mg/dL (7-20) Creatinine 1.8 mg/dL (0.6-1.0) Estimated GFR (Cockcroft-Gault) 28.3 Glucose Level 106 mg/dL (70-99) Calcium Level 9.2 mg/dL (8.5-10.1) RANI WOODRUFF MD Jan 04, 2019 10:09
--- NOTE | 2019-01-04 10:35 | NUR ---
SW following pt for dc planning. Chart reviewed and discussed with RN. Pt lives at home with family, Oncology following. PT/OT has been on medical hold. No SW needs noted at this time. Will continue to follow. Addendum: 01/04/19 at 1512 by CAROLIN CARLSON SW PT/OT recommends home with outpatient and pt will need 4WW.
--- NOTE | 2019-01-04 10:45 | NUR ---
IP: Pt has had a hx of mrsa since 2003 with most recent a + mrsa screen on 03/11/18. Pt to be in contact precautions until there are 2 negative screens 7 days apart.
[2019-01-04 11:00] VITALS: BP 143/68
--- NOTE | 2019-01-04 11:15 | PDOC ---
SUBJECTIVE ROS No complaints OBJECTIVE Vital Signs Vital Signs Date Time Temp Pulse Resp B/P (MAP) Pulse Ox O2 Delivery O2 Flow Rate FiO2 01/04/19 09:58 74 158/84 01/04/19 07:20 Room Air 01/04/19 07:00 97.7 12 99 97.7 01/03/19 19:45 2.0 I & 0 Intake and Output 01/04/19 07:00 Intake Total 3155 ml Output Total 1500 ml Balance 1655 ml Intake Oral 2490 ml IV Total 110 ml Blood Product 305 ml Blood Product IV Normal Saline Flush 250 ml Output Urine Total 1500 ml # Voids 2 PHYSICAL EXAM Physical Exam DIAGNOSIS/ASSESSMENT Assessment & Plan BHUPENDRA - improved Chronic kidney disease stage 3/ 4 - hypertensive nephrosclerosis Renal cortical scarring. Echogenic renal parenchyma, a finding which can be seen with medical renal disease. Anemia - s/p PRBC Stable TIA versus stroke: Neurology involved Recurrent thrombosis: On apixaban twice a day Ovarian cyst: CA-125 is normal, gynecology has been consulted Right nephrolithiasis, 2.4 cm stone within the mid zone. No Hydronephrosis COMMENT/RELEVANT DATA Meds Current Medications Medications (Trade) Dose Ordered Sig/David Start Time Stop Time Status Last Admin Dose Admin Acetaminophen/ Hydrocodone Bitart (Lortab 10/325) 1 tab PRN Q4HRS PRN 01/02/19 09:30 01/04/19 07:20 1 TAB Allopurinol (Zyloprim) 100 mg DAILY 01/02/19 10:00 01/04/19 09:57 100 MG Apixaban (Eliquis) 5 mg BID 01/02/19 21:00 01/04/19 09:57 5 MG Aspirin (Children'S Aspirin) 324 mg 1X ONCE 01/01/19 23:30 01/01/19 23:31 DC 01/01/19 23:31 324 MG Atorvastatin Calcium (Lipitor) 40 mg QHS 01/02/19 21:00 01/03/19 20:11 40 MG Calcium Carbonate/ Glycine (Tums) 500 mg PRN AFTMEALHC PRN 01/02/19 09:15 Ceftriaxone Sodium (Rocephin) 1 gm 1X ONCE 01/01/19 22:30 01/01/19 22:31 DC 01/01/19 23:02 1 GM Clonidine HCl (Catapres) 0.1 mg PRN Q1HR PRN 01/02/19 09:15 Cyclobenzaprine HCl (Flexeril) 10 mg PRN TID PRN 01/02/19 09:15 01/02/19 10:59 10 MG Epoetin Miller (PROCRIT for NON-DIALYSIS PTS) 10,000 unit 1X ONCE 01/02/19 13:00 01/02/19 13:01 DC 01/02/19 14:53 10,000 UNIT Info (Anti-Coagulation Monitoring By Pharmacy) 1 each PRN DAILY PRN 01/03/19 13:00 01/03/19 12:53 1 EACH Iron Sucrose 200 mg/Sodium Chloride 110 ml @ 55 mls/hr 1X ONCE 01/03/19 10:00 01/03/19 11:59 DC 01/03/19 14:35 55 MLS/HR Levothyroxine Sodium (Synthroid) 75 mcg DAILY06 01/02/19 10:00 01/04/19 05:27 75 MCG Losartan Potassium (Cozaar) 50 mg DAILY 01/02/19 10:00 01/04/19 09:58 50 MG Propranolol HCl (Inderal La) 160 mg DAILY 01/02/19 10:00 01/04/19 09:57 160 MG Sodium Chloride 1,000 ml @ 75 mls/hr [id number] 01/01/19 23:30 01/02/19 23:29 DC 01/02/19 17:17 75 MLS/HR Temazepam (Restoril) 7.5 mg PRN QHS PRN 01/02/19 09:15 Lab Laboratory Tests Test 01/04/19 05:00 Hemoglobin 8.6 g/dL (12.0-15.5) Hematocrit 28.1 % (36.0-47.0) Mean Corpuscular Hemoglobin Concent 31 g/dL (31-37) Sodium Level 141 mmol/L (136-145) Potassium Level 5.0 mmol/L (3.5-5.1) Chloride Level 108 mmol/L (98-107) Carbon Dioxide Level 22 mmol/L (21-32) Anion Gap 11 (6-14) Blood Urea Nitrogen 27 mg/dL (7-20) Creatinine 1.8 mg/dL (0.6-1.0) Estimated GFR (Cockcroft-Gault) 28.3 Glucose Level 106 mg/dL (70-99) Calcium Level 9.2 mg/dL (8.5-10.1) Results All relevant outside records, renal labs, imaging studies, telemetry/EKG's were reviewed. JOYCE KHAN MD Jan 04, 2019 11:15
--- NOTE | 2019-01-04 12:28 | RAD ---
BRAIN W/O CONTRAST History: Stroke. Technique: Multiplanar, multi sequential MR imaging was performed of the brain without contrast. Comparison: Head CT January 01, 2019 Findings: No acute infarct. No intracranial hemorrhage. No mass effect. No hydrocephalus. Extra-axial spaces are unremarkable. Moderate foci of T2/FLAIR hyperintensity within the hemispheric white matter, most often due to chronic microvascular ischemia. Chronic right dominguez radiata/lentiform nucleus infarct. Imaged orbits are unremarkable. Imaged paranasal sinuses and mastoid air cells are clear. Impression: 1. No acute intracranial abnormality. 2. Moderate sequela of chronic microvascular ischemia. 3. Chronic right dominguez radiata/lentiform nucleus infarct. Electronically signed by: Sal Trujillo DO (01/04/2019 12:25 PM) [email or web address]
--- NOTE | 2019-01-04 13:40 | CARD ---
MR#: [id number] Date of Study: 01/04/2019 Ordering Physician: EMIL WALLACE, Referring Physician: KELSIE IGNACIO Tech: Myranda Abarca RDCS APPROVED REPORT EXAM: Two-dimensional and M-mode echocardiogram with Doppler and color Doppler. Other Information Quality : Good INDICATION CVA/TIA Echo Enhancing Agent Agent/Amount Used: Agitated Saline 8mL 2D DIMENSIONS RVDd2.3 (2.9-3.5cm)Left Atrium(2D)3.5 (1.6-4.0cm) IVSd0.9 (0.7-1.1cm)Aortic Root(2D)2.6 (2.0-3.7cm) LVDd5.0 (3.9-5.9cm)LVOT Diameter1.9 (1.8-2.4cm) PWd0.7 (0.7-1.1cm)LVDs4.1 (2.5-4.0cm) FS (%) 27.0 %SV42.9 ml LVEF(%)55.0 (>50%) Aortic Valve AoV Peak Eugenio.180.6cm/sAoV VTI36.5cm AO Peak GR.13.1mmHgLVOT Peak Eugenio.150.0cm/s AO Mean GR.7mmHgAVA (VMAX)2.33cm2 MIGUEL (VTI)2.50cm2 Mitral Valve MV E Lrpuphto849.4cm/sMV DECEL [id number] MV A Ibljphwd57.9cm/sE/A Ratio1.2 Pulmonary Vein S1 Ecwocsnl92.9cm/sD2 Dsywjeli19.8cm/s LEFT VENTRICLE The left ventricle is normal size. There is normal left ventricular wall thickness. The left ventricu lar systolic function is normal. The Ejection Fraction is 60%. There is normal LV segmental wall wing on. RIGHT VENTRICLE The right ventricle is normal size. The right ventricular systolic function is normal. ATRIA The left atrium size is normal. The right atrium size is normal. The interatrial septum is intact wit h no evidence for an atrial septal defect or patent foramen ovale as noted on 2-D or Doppler imaging. Injection of bubbles documented no interatrial shunt. AORTIC VALVE The aortic valve is calcified but opens well. Doppler and Color Flow revealed no significant aortic r egurgitation. There is no significant aortic valvular stenosis. MITRAL VALVE The mitral valve is calcified but opens well. There is no evidence of mitral valve prolapse. There is no mitral valve stenosis. Doppler and Color-flow revealed trace mitral regurgitation. TRICUSPID VALVE The tricuspid valve is normal in structure and function. Doppler and Color Flow revealed no tricuspid valve regurgitation noted. There is no tricuspid valve stenosis. PULMONIC VALVE The pulmonic valve is not well visualized. Doppler and Color Flow revealed trace pulmonic valvular re gurgitation. There is no pulmonic valvular stenosis. GREAT VESSELS The aortic root is normal in size. The ascending aorta is not well seen. The IVC is normal in size an d collapses >50% with inspiration. PERICARDIAL EFFUSION There is no evidence of significant pericardial effusion. Critical Notification Critical Value: No <Conclusion> The left ventricular systolic function is normal. The Ejection Fraction is 60%. There is normal LV segmental wall motion. Trace mitral regurgitation. There is no evidence of significant pericardial effusion. Injection of bubbles documented no interatrial shunt. Signed by : Jose Luis Pryor, Electronically Approved : 01/04/2019 13:39:38
[2019-01-04 15:00] VITALS: BP 144/60
--- NOTE | 2019-01-04 18:51 | PDOC3 ---
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 by mri head 01/04 Moderate sequela of chronic microvascular ischemia. Chronic right dominguez radiata/lentiform nucleus infarct. History of Present Illness History of Present Illness hemoGlobin 6.9 despite blood transfusion and there is no overt blood loss She chalks it up to previous history gastrectomy and is not absorbing and has malabsorption syndrome known to Dr. Gasper Woodruff - also GI workup in the past including colonoscopy then there is no bleeding Did get dose of IV Venofer yesterday Friday Seen by neurology because she came in for stroke like symptoms but that has since resolved and she is looking for the MRI brain promised to her Creatinine 2.0 from 2.5 and is also known to Dr. 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 I'm giving IV Venofer �2 today, transfuse 1 packed RBC H&H tomorrow Check CA 125 levels Avoid nephrotoxins Okay to be off telemetry, may DC or transfer out of cardiac floor Transfuse if less than 7 when necessary Discussed with her and agrees HEme onc consult Add OB gyne - consult pt demand discharge tonight 01/04 d/c planning 34 min Vitals Vitals Vital Signs Date Time Temp Pulse Resp B/P (MAP) Pulse Ox O2 Delivery O2 Flow Rate FiO2 01/04/19 09:58 74 158/84 01/04/19 07:20 Room Air 01/04/19 07:00 97.7 12 99 97.7 01/03/19 19:45 2.0 Physical Exam General: Alert, Oriented X3, Cooperative, No acute distress Heart: Regular rate Lungs: Clear Abdomen: Normal bowel sounds, Soft, No tenderness, No hepatosplenomegaly, No masses Extremities: No clubbing, No cyanosis, No edema, Normal pulses, No tenderness/swelling Skin: No rashes, No breakdown, No significant lesion Labs LABS BRAIN W/O CONTRAST History: Stroke. Technique: Multiplanar, multi sequential MR imaging was performed of the brain without contrast. Comparison: Head CT January 01, 2019 Findings: No acute infarct. No intracranial hemorrhage. No mass effect. No hydrocephalus. Extra-axial spaces are unremarkable. Moderate foci of T2/FLAIR hyperintensity within the hemispheric white matter, most often due to chronic microvascular ischemia. Chronic right dominguez radiata/lentiform nucleus infarct. Imaged orbits are unremarkable. Imaged paranasal sinuses and mastoid air cells are clear. Impression: 1. No acute intracranial abnormality. 2. Moderate sequela of chronic microvascular ischemia. 3. Chronic right dominguez radiata/lentiform nucleus infarct. Electronically signed by: Sal Trujillo DO (01/04/2019 12:25 PM) [facility] FINAL DIAGNOSIS Problems Medical Problems: (1) CKD (chronic kidney disease) Status: Chronic (2) YENY (iron deficiency anemia) Status: Acute (3) Malabsorption Status: Chronic (4) Slurred speech Status: Acute Brief Hospital Course Ms. Gonzalez is a 63 old [sex] who presented with [ ] Discharge Medications Current Medications Ceftriaxone Sodium (Rocephin) 1 gm 1X ONCE IVP Last administered on 01/01/19at 23:02; Start 01/01/19 at 22:30; Stop 01/01/19 at 22:31; Status DC Aspirin (Children'S Aspirin) 324 mg 1X ONCE PO Last administered on 01/01/19at 23:31; Start 01/01/19 at 23:30; Stop 01/01/19 at 23:31; Status DC Sodium Chloride 1,000 ml @ 75 mls/hr [id number] IV Last administered on 01/02/19 17:17; Start 01/01/19 at 23:30; Stop 01/02/19 at 23:29; Status DC Allopurinol (Zyloprim) 100 mg DAILY PO Last administered on 01/04/19 09:57; Start 01/02/19 at 10:00 Atorvastatin Calcium (Lipitor) 40 mg QHS PO Last administered on 01/03/19 20:11; Start 01/02/19 at 21:00 Cyclobenzaprine HCl (Flexeril) 10 mg PRN TID PRN PO MUSCLE SPASMS Last administered on 01/02/19 10:59; Start 01/02/19 at 09:15 Levothyroxine Sodium (Synthroid) 75 mcg DAILY06 PO Last administered on 01/04/19 05:27; Start 01/02/19 at 10:00 Losartan Potassium (Cozaar) 50 mg DAILY PO Last administered on 01/04/19 09:58; Start 01/02/19 at 10:00 Acetaminophen/ Hydrocodone Bitart (Lortab 10/325) 1 tab PRN Q4HRS PRN PO PAIN Last administered on 01/04/19 07:20; Start 01/02/19 at 09:30 Propranolol HCl (Inderal La) 160 mg DAILY PO Last administered on 01/04/19 09:57; Start 01/02/19 at 10:00 Temazepam (Restoril) 7.5 mg PRN QHS PRN PO INSOMNIA; Start 01/02/19 at 09:15 Clonidine HCl (Catapres) 0.1 mg PRN Q1HR PRN PO HYPERTENSION; Start 01/02/19 at 09:15 Calcium Carbonate/ Glycine (Tums) 500 mg PRN AFTMEALHC PRN PO INDIGESTION; Start 01/02/19 at 09:15 Epoetin Miller (PROCRIT for NON-DIALYSIS PTS) 10,000 unit 1X ONCE SQ Last administered on 01/02/19 14:53; Start 01/02/19 at 13:00; Stop 01/02/19 at 13:01; Status DC Iron Sucrose 200 mg/Sodium Chloride 110 ml @ 55 mls/hr 1X ONCE IV Last administered on 01/02/19 14:54; Start 01/02/19 at 13:30; Stop 01/02/19 at 15:29; Status DC Apixaban (Eliquis) 5 mg BID PO Last administered on 01/04/19 09:57; Start 01/02/19 at 21:00 Iron Sucrose 200 mg/Sodium Chloride 110 ml @ 55 mls/hr 1X ONCE IV Last administered on 01/03/19at 14:35; Start 01/03/19 at 10:00; Stop 01/03/19 at 11:59; Status DC Info (Anti-Coagulation Monitoring By Pharmacy) 1 each PRN DAILY PRN MC SEE COMMENTS Last administered on 01/03/19at 12:53; Start 01/03/19 at 13:00 Active Scripts Active Eliquis (Apixaban) 5 Mg Tablet 5 Mg PO BID 30 Days 10mg BID for 7 days, then 5mg BID thereafter Atorvastatin Calcium 40 Mg Tablet 40 Mg PO QHS 30 Days Reported [place] 10-325 Tablet (Acetaminophen/Hydrocodone Bitart) 1 Each Tablet 1-2 Tab PO Q4-6HRS Levothyroxine Sodium 75 Mcg Tablet 1 Tab PO DAILY Allopurinol 100 Mg Tablet 1 Tab PO DAILY Propranolol Hcl 160 Mg Cap.sa.24h 160 Mg PO DAILY Losartan Potassium 50 Mg Tablet 50 Mg PO DAILY Cyclobenzaprine Hcl 10 Mg Tablet 10 Mg PO Proair Hfa Inhaler (Albuterol Sulfate) 8.5 Gm Hfa.aer.ad 8.5 Gm IH Vital Signs Vital Signs Date Time Temp Pulse Resp B/P (MAP) Pulse Ox O2 Delivery O2 Flow Rate FiO2 01/04/19 11:00 97.9 73 12 143/68 (93) 99 Room Air 97.9 01/03/19 19:45 2.0 Labs Laboratory Tests Test 01/03/19 04:20 01/04/19 05:00 Hemoglobin 6.9 g/dL (12.0-15.5) 8.6 g/dL (12.0-15.5) Hematocrit 22.7 % (36.0-47.0) 28.1 % (36.0-47.0) Mean Corpuscular Hemoglobin Concent 30 g/dL (31-37) 31 g/dL (31-37) Sodium Level 141 mmol/L (136-145) 141 mmol/L (136-145) Potassium Level 5.1 mmol/L (3.5-5.1) 5.0 mmol/L (3.5-5.1) Chloride Level 110 mmol/L (98-107) 108 mmol/L (98-107) Carbon Dioxide Level 21 mmol/L (21-32) 22 mmol/L (21-32) Anion Gap 10 (6-14) 11 (6-14) Blood Urea Nitrogen 31 mg/dL (7-20) 27 mg/dL (7-20) Creatinine 2.0 mg/dL (0.6-1.0) 1.8 mg/dL (0.6-1.0) Estimated GFR (Cockcroft-Gault) 25.1 28.3 Glucose Level 132 mg/dL (70-99) 106 mg/dL (70-99) Calcium Level 8.7 mg/dL (8.5-10.1) 9.2 mg/dL (8.5-10.1) CA 125 Antigen 9.7 U/mL (0.0-38.1) Laboratory Tests Test 01/04/19 05:00 Hemoglobin 8.6 g/dL (12.0-15.5) Hematocrit 28.1 % (36.0-47.0) Mean Corpuscular Hemoglobin Concent 31 g/dL (31-37) Sodium Level 141 mmol/L (136-145) Potassium Level 5.0 mmol/L (3.5-5.1) Chloride Level 108 mmol/L (98-107) Carbon Dioxide Level 22 mmol/L (21-32) Anion Gap 11 (6-14) Blood Urea Nitrogen 27 mg/dL (7-20) Creatinine 1.8 mg/dL (0.6-1.0) Estimated GFR (Cockcroft-Gault) 28.3 Glucose Level 106 mg/dL (70-99) Calcium Level 9.2 mg/dL (8.5-10.1) Allergies Allergies Coded Allergies Type Severity Reaction Last Updated Verified Sulfa (Sulfonamide Antibiotics) Allergy Intermediate 02/27/17 Yes amlodipine Allergy Intermediate 02/27/17 Yes codeine Allergy Intermediate Rash 02/27/17 Yes doxycycline Allergy Intermediate 02/27/17 Yes ezetimibe Allergy Intermediate 02/27/17 Yes levofloxacin Allergy Intermediate ITCH 02/27/17 Yes morphine Allergy Intermediate 02/27/17 Yes simvastatin Allergy Intermediate 02/27/17 Yes I S O L A T I O N *CONTACT* Allergy Unknown 03/12/18 Yes oxycodone Adverse Reaction Intermediate Hallucinations 02/16/16 Yes Disposition/Orders: D/C to Home Patient Instructions d/c planning 34 min FULBRIGHT,MINISTERIO W MD Jan 04, 2019 18:51
[2019-01-04] MEDS ORDERED: ASPI-612 PO (18:52)
--- NOTE | 2019-01-04 18:55 | SNU/HH DC ---
DISCHARGE WITH HOME HEALTH DISCHARGE INFORMATION: Final Diagnosis: Problems Medical Problems: (1) CKD (chronic kidney disease) Status: Chronic (2) YENY (iron deficiency anemia) Status: Acute (3) Malabsorption Status: Chronic (4) Slurred speech Status: Acute Condition on Discharge: Stable CODE STATUS: Code Status: Full HOME HEALTH: Face to Face: I certify this patient is under my care and that I, or a nurse practitioner or physician's assistant project engineer working with me, had a face to face encounter that meets the physician face to face encounter requirements with this patient on [01/04/19]. Medical Complications: CVA Mcc For: Admin/Educate Injections, Assess Cardiopulm Status, Assess & Educate Safety, Assess/Skilled Observatio, Medication Management RN For Eval/Treatment: Yes Physical Therapy For: Evalulation/Treatment Occupational Therapy For: Evaluation/Treatment Speech Language Pathology For: Evaluation/Treatment Home Health Aide For: Self-care ENVIRONMENTAL EMERGENCIES ASSISTANT For: Community Resources Pt Meets Homebound Status: Poor coordination w/ amb., Unsteady balance w/ amb,, Fatigue w/ amb., Limited distance walking POST DISCHARGE ORDERS: Activity Instructions for Disc: Activity as tolerated Weight Bearing Status after Di: No restrictions, As tolerated, Partial weight bearing DIET AFTER DISCHARGE: Cardiac Wound/Incision Care: No wound care needed CHECKS AFTER DISCHARGE: Checks after discharge: Check blood press - daily FOLLOW-UP: Follow up with: pcp this week Follow Up With: neurology 4 weeks TREATMENT/EQUIPMENT ORDERS: Adaptive Equipment Issued: None, Front wheeled walker CERTIFICATION STATEMENT: Certification Statement: Certification Statement: Based on the above finding, I certify that this patient is confined to the home and needs intermittent residential care, physical therapy and/or speech therapy, or continues to need occupational therapy.~ This patient is under my care, and I have initiated the establishment of the plan of care.~ This patient will be followed by myself or a community physician who will periodically review the plan of care. Home Meds Active Scripts Amoxicillin/Potassium Clav (AUGMENTIN 500-125 TABLET) 1 Each Tablet, 1 TAB PO BID for uti, #14 TAB Prov:MINISTERIO LYNN MD 01/04/19 Aspirin (ASPIRIN EC) 81 Mg Tablet.dr, 1 TAB PO DAILY for cva, #90 TAB 3 Refills Prov:MINISTERIO LYNN MD 01/04/19 Apixaban (ELIQUIS) 5 Mg Tablet, 5 MG PO BID for 30 Days, #74 TAB 2 Refills 10mg BID for 7 days, then 5mg BID thereafter Prov:NEIDA LUNA MD 03/16/18 Atorvastatin Calcium (ATORVASTATIN CALCIUM) 40 Mg Tablet, 40 MG PO QHS for 30 Days, #30 TAB Prov:GABY LUNA MD 03/13/18 Reported Medications Levothyroxine Sodium (LEVOTHYROXINE SODIUM) 75 Mcg Tablet, 1 TAB PO DAILY for thyroid, #30 TAB 5 Refills 06/23/18 Allopurinol (ALLOPURINOL) 100 Mg Tablet, 1 TAB PO DAILY for gout, #30 TAB 5 Refills 06/23/18 Propranolol Hcl (PROPRANOLOL HCL) 160 Mg Cap.sa.24h, 160 MG PO DAILY, CAP.SR 03/10/18 Losartan Potassium (LOSARTAN POTASSIUM) 50 Mg Tablet, 50 MG PO DAILY, TAB 03/10/18 Cyclobenzaprine Hcl (CYCLOBENZAPRINE HCL) 10 Mg Tablet, 10 MG PO 10/18/13 Albuterol Sulfate (PROAIR HFA INHALER) 8.5 Gm Hfa.aer.ad, 8.5 GM IH 10/18/13 Discontinued Reported Medications Hydrocodone/Apap 10-325 (NORCO 10-325 TABLET) 1 Each Tablet, 1-2 TAB PO Q4-6HRS for pain, #40 TAB 06/23/18 MINISTERIO LYNN MD Jan 04, 2019 18:55
[2019-01-04] MEDS ORDERED: AMOX1TAB58 PO (18:58)
--- NOTE | 2019-01-04 20:00 | NUR ---
patient discharged home
== END 2019-01-04 20:15 | disposition home or self-care (01) | DRG 683 ==
LOC: ER 19:48 → 6 SOUTH 23:06
PROVIDERS: ADMIT Internal Medicine; ATTEND Internal Medicine
PROC: 30233N1 Transfusion of Nonautologous Red Blood Cells into Peripheral Vein, Percutaneous Approach (ICD-10-PCS; principal; 2019-01-01)
PROC: 05HY33Z Insertion of Infusion Device into Upper Vein, Percutaneous Approach (ICD-10-PCS; 2019-01-03)
DX: N17.9 Acute kidney failure, unspecified (principal); G45.9 Transient cerebral ischemic attack, unspecified; K90.9 Intestinal malabsorption, unspecified; N39.0 Urinary tract infection, site not specified; D50.9 Iron deficiency anemia, unspecified; N18.4 Chronic kidney disease, stage 4 (severe); D63.1 Anemia in chronic kidney disease; E11.22 Type 2 diabetes mellitus with diabetic chronic kidney disease; E66.9 Obesity, unspecified; E78.5 Hyperlipidemia, unspecified; I12.9 Hypertensive chronic kidney disease with stage 1 through stage 4 chronic kidney disease, or unspecified chronic kidney disease; I25.10 Atherosclerotic heart disease of native coronary artery without angina pectoris; I25.2 Old myocardial infarction; N83.291 Other ovarian cyst, right side; M10.9 Gout, unspecified; Z68.31 Body mass index [BMI] 31.0-31.9, adult; G43.909 Migraine, unspecified, not intractable, without status migrainosus; Z79.01 Long term (current) use of anticoagulants; Z80.1 Family history of malignant neoplasm of trachea, bronchus and lung; Z82.49 Family history of ischemic heart disease and other diseases of the circulatory system; Z83.2 Family history of diseases of the blood and blood-forming organs and certain disorders involving the immune mechanism; Z86.718 Personal history of other venous thrombosis and embolism; Z86.73 Personal history of transient ischemic attack (TIA), and cerebral infarction without residual deficits; Z87.442 Personal history of urinary calculi; Z90.3 Acquired absence of stomach [part of]; Z95.5 Presence of coronary angioplasty implant and graft; Z98.1 Arthrodesis status; Z87.11 Personal history of peptic ulcer disease; Z86.711 Personal history of pulmonary embolism; Z86.14 Personal history of Methicillin resistant Staphylococcus aureus infection; Z88.2 Allergy status to sulfonamides; Z88.8 Allergy status to other drugs, medicaments and biological substances
CPT/HCPCS: 36415; 70450; 70551; 71045; 76770; 76830; 76856; 80048; 80053; 80307; 81001; 83540; 83550; 84439; 84443; 84481; 84484; 85014; 85018; 85025; 85610; 86304; 86850; 86900; 86901; 86920; 87086; 93005; 93306; 93880; G0480; J0696; J0885; J1756; J7030; P9016

== ENCOUNTER → 2019-02-23 | Outpatient (CLI) | payer OTHER ==
[2019-02-02 11:36] VITALS: BP 174/85
[~2019-02-23] MED LIST changes: +AMOX1TAB58 PO
[2019-02-23 11:24] LABS: HEMATOCRIT 35.6 % (36.0-47.0); HEMOGLOBIN 11.1 g/dL (12.0-15.5)
[2019-02-23 11:26] LABS: BILIRUBIN,URINE NEGATIVE (NEG); CLARITY,URINE CLOUDY; COLOR,URINE YELLOW; NITRITE,URINE NEGATIVE (NEG); PH,URINE 6.5; PROTEIN,URINE 100 mg/dL (NEG-TRACE); UROBILINOGEN,URINE 0.2 mg/dL (0.2 mg/dL)
[2019-02-23 11:32] LABS: BACTERIA,URINE MANY /HPF (0-FEW); WBC,URINE TNTC /HPF (0-4)
[2019-02-23 11:33] LABS: RBC,URINE FOBS /HPF (0-2)
[2019-02-23 12:04] LABS: ALBUMIN 3.7 g/dL (3.4-5.0); CALCIUM 9.8 mg/dL (8.5-10.1); CREATININE 2.6 mg/dL (0.6-1.0); GFR 18.5; MAGNESIUM 1.9 mg/dL (1.8-2.4); PHOSPHORUS 4.2 mg/dL (2.6-4.7)
[2019-02-23 12:10] LABS: CREATININE,RANDOM URINE 119.7 mg/dL (Not Establ.)
[2019-02-23 22:08] LABS: CALCIUM PTH 9.6 mg/dL (8.7-10.3); CREAT RD UR 111.9 mg/dL (Not Estab.); CREATININE PTH 2.48 mg/dL (0.57-1.00); MICRO CREAT RATIO 161.8 mg/g creat (0.0-30.0); MICROALB RD UR 181.1 ug/mL (Not Estab.); PTH INTACT 271 pg/mL (15-65)
== END | disposition home or self-care (01) ==
LOC: LAB 10:39 → EDSTATUS 10:48
PROVIDERS: ATTEND Internal Medicine Nephrology
DX: N19 Unspecified kidney failure (principal); D64.9 Anemia, unspecified
CPT/HCPCS: 36415; 80069; 81001; 82043; 82306; 82570; 82728; 83540; 83550; 83735; 83970; 84156; 85014; 85018; 87086

== ENCOUNTER 2019-07-17 13:17 | Emergency (ER) | payer OTHER ==
[~2019-07-17] VITALS: Ht 162.6 cm; Wt 85.0 kg
--- NOTE | 2019-07-17 13:41 | PHYS DOC ---
Past Medical History Past Medical History: Anemia, DVT, Hypertension, Kidney Stone, MRSA, Other Additional Past Medical Histor: KIDNEY INFECTION,CHRONIC BACK/HIP PAIN,PE'S Past Surgical History: Angioplasty, Cervical Fusion, Other Additional Past Surgical Histo: Cardiac STENTS,partial gastrectomy,C6-7 fusion, KIDNEY STENT, hernia. Smoking Status: Never Smoker Alcohol Use: None Drug Use: None Adult General Chief Complaint Chief Complaint: SKIN RASH/ABSCESS HPI HPI Patient is a 64 year old female who presents with [shortness of breath for the last 2 days and left rib lesions. Patient reports she has felt a little increased shortness of breath over the last 2 days, reports she gets this frequently. States that she has had some discomfort in her chest, worse on the left side of her chest when she takes a deep breath or when she touches things. States she has had a rash on her left side of her chest for the last day, which has been getting worse. Denies any fevers. Denies any cough. Denies any edema. Denies any fatigue well ambulating different than normal.] Review of Systems Review of Systems Constitutional: Denies fever or chills [] Eyes: Denies change in visual acuity, redness, or eye pain [] HENT: Denies nasal congestion or sore throat [] Respiratory: Denies cough, reports some shortness of breath, similar to what she normally has Cardiovascular: No additional information not addressed in HPI [] GI: Denies abdominal pain, nausea, vomiting, bloody stools or diarrhea [] : Denies dysuria or hematuria [] Musculoskeletal: Denies back pain or joint pain [] Integument: Reports rash to left side of chest and back[] Neurologic: Denies headache, focal weakness or sensory changes [] Endocrine: Denies polyuria or polydipsia [] All other systems were reviewed and found to be within normal limits, except as documented in this note. Current Medications Current Medications Current Medications Medications (Trade) Dose Ordered Sig/David Start Time Stop Time Status Last Admin Dose Admin Ceftriaxone Sodium (Rocephin) 1 gm 1X ONCE 07/17/19 16:15 07/17/19 16:16 Cancel Sodium Chloride 1,000 ml @ 125 mls/hr 1X ONCE 07/17/19 16:15 07/17/19 17:28 DC 07/17/19 16:55 125 MLS/HR Allergies Allergies Allergies Coded Allergies Type Severity Reaction Last Updated Verified Sulfa (Sulfonamide Antibiotics) Allergy Intermediate 02/27/17 Yes amlodipine Allergy Intermediate 02/27/17 Yes codeine Allergy Intermediate Rash 02/27/17 Yes doxycycline Allergy Intermediate 02/27/17 Yes ezetimibe Allergy Intermediate 02/27/17 Yes levofloxacin Allergy Intermediate ITCH 02/27/17 Yes morphine Allergy Intermediate 02/27/17 Yes simvastatin Allergy Intermediate 02/27/17 Yes I S O L A T I O N *CONTACT* Allergy Unknown 01/06/19 Yes oxycodone Adverse Reaction Intermediate Hallucinations 02/16/16 Yes Physical Exam Physical Exam Constitutional: Well developed, well nourished, obese, no acute distress, non- toxic appearance. [] HENT: Normocephalic, atraumatic, bilateral external ears normal, oropharynx moist, no oral exudates, nose normal. [] Eyes: PERRLA, EOMI, conjunctiva normal, no discharge. [] Neck: Normal range of motion, no tenderness, supple, no stridor. [] Cardiovascular:Heart rate regular rhythm, no murmur [] Lungs & Thorax: Bilateral breath sounds clear to auscultation patient speaks multiple word sentences without any noted air hunger[] Abdomen: Bowel sounds normal, soft, no tenderness, no masses, no pulsatile masses. [] Skin: Warm, dry, no erythema, numerous clustered vesicles, crusting to left normal back, left side.. [] Back: No tenderness, no CVA tenderness. [] Extremities: No tenderness, no cyanosis, no clubbing, ROM intact, no edema. [] Neurologic: Alert and oriented X 3, normal motor function, normal sensory function, no focal deficits noted. [] Psychologic: Affect normal, judgement normal, mood normal. [] Current Patient Data Vital Signs Vital Signs Date Time Temp Pulse Resp B/P (MAP) Pulse Ox O2 Delivery O2 Flow Rate FiO2 07/17/19 17:29 74 18 127/61 (83) 98 Room Air 07/17/19 13:22 97.6 97.6 Lab Values Laboratory Tests Test 07/17/19 13:44 07/17/19 14:00 White Blood Count 5.1 x10^3/uL (4.0-11.0) Red Blood Count 3.38 x10^6/uL (3.50-5.40) L Hemoglobin 7.5 g/dL (12.0-15.5) L Hematocrit 25.1 % (36.0-47.0) L Mean Corpuscular Volume 74 fL (79-100) L Mean Corpuscular Hemoglobin 22 pg (25-35) L Mean Corpuscular Hemoglobin Concent 30 g/dL (31-37) L Red Cell Distribution Width 17.9 % (11.5-14.5) H Platelet Count 202 x10^3/uL (140-400) Neutrophils (%) (Auto) 61 % (31-73) Lymphocytes (%) (Auto) 20 % (24-48) L Monocytes (%) (Auto) 13 % (0-9) H Eosinophils (%) (Auto) 5 % (0-3) H Basophils (%) (Auto) 1 % (0-3) Neutrophils # (Auto) 3.1 x10^3/uL (1.8-7.7) Lymphocytes # (Auto) 1.0 x10^3/uL (1.0-4.8) Monocytes # (Auto) 0.6 x10^3/uL (0.0-1.1) Eosinophils # (Auto) 0.3 x10^3/uL (0.0-0.7) Basophils # (Auto) 0.1 x10^3/uL (0.0-0.2) Platelet Estimate Adequate (ADEQUATE) Hypochromasia Mod Poikilocytosis Slight Anisocytosis Slight Microcytosis Slight Ovalocytes Present Schistocytes Occ Sodium Level 140 mmol/L (136-145) Potassium Level 4.8 mmol/L (3.5-5.1) Chloride Level 107 mmol/L (98-107) Carbon Dioxide Level 20 mmol/L (21-32) L Anion Gap 13 (6-14) Blood Urea Nitrogen 25 mg/dL (7-20) H Creatinine 2.4 mg/dL (0.6-1.0) H Estimated GFR (Cockcroft-Gault) 20.3 BUN/Creatinine Ratio 10 (6-20) Glucose Level 136 mg/dL (70-99) H Calcium Level 8.3 mg/dL (8.5-10.1) L Magnesium Level 2.1 mg/dL (1.8-2.4) Total Bilirubin 0.2 mg/dL (0.2-1.0) Aspartate Amino Transferase (AST) 25 U/L (15-37) Alanine Aminotransferase (ALT) 24 U/L (14-59) Alkaline Phosphatase 201 U/L (46-116) H Troponin I Quantitative < 0.017 ng/mL (0.000-0.055) LG-Owu-Z-Type Natriuretic Peptide 1179 pg/mL (0-124) H Total Protein 6.4 g/dL (6.4-8.2) Albumin 3.3 g/dL (3.4-5.0) L Albumin/Globulin Ratio 1.1 (1.0-1.7) Urine Collection Type Unknown Urine Color Yellow Urine Clarity Turbid Urine pH 6.5 Urine Specific [place] 1.015 Urine Protein 100 mg/dL (NEG-TRACE) Urine Glucose (UA) Negative mg/dL (NEG) Urine Ketones (Stick) Negative mg/dL (NEG) Urine Blood Small (NEG) Urine Nitrite Negative (NEG) Urine Bilirubin Negative (NEG) Urine Urobilinogen Dipstick 1.0 mg/dL (0.2 mg/dL) Urine Leukocyte Esterase Large (NEG) Urine RBC 11-20 /HPF (0-2) Urine WBC Tntc /HPF (0-4) Urine Squamous Epithelial Cells Few /LPF Urine Bacteria Many /HPF (0-FEW) Laboratory Tests 07/17/19 13:44 Laboratory Tests 07/17/19 13:44 EKG EKG no STElevation. NSR Per Dr Marquez @[id number][] Radiology/Procedures Radiology/Procedures Findings: Axial images of the abdomen and pelvis were obtained without contrast. Sagittal and coronal reformatted images were provided. Visualized lung bases are clear. Surgical clips are present about the gastroesophageal junction. Suture material involving the stomach is noted. Findings of gastric bypass surgery. Abdominal wall mesh material. The gallbladder fossa is unremarkable. Liver, spleen, pancreas and adrenal glands are normal. Multiple bilateral renal calculi are present and primarily seen on the right. Several right renal calyceal calculi are present measuring up to 1.2 cm diameter. Bilateral renal atrophy is present. Small renal cysts which do not require further follow-up is suggested. Moderate quantity of stool in the colon is present. Appendix is normal. No ascites or pelvic free fluid. Right adnexal 4 cm diameter cyst is present. Uterus is atrophic or absent. Bladder is unremarkable. No large abdominal or pelvic lymph nodes. Advanced left hip joint degenerative remodeling. Subcutaneous edema of the low lumbar and sacral midline noted. Impression: Nonobstructive bilateral renal calculi. Benign-appearing right adnexal cyst is increased in size in the interval by 1 cm. No suspicious features. Interval follow-up pelvic ultrasound in 16 weeks is recommended to assess stability and further characterize. No loculated collection. 3 cutaneous edema at the lower lumbar and sacral midline. No hemorrhage within the abdomen or pelvis identified. PQRS Compliance Statement: One or more of the following individualized dose reduction techniques were utilized for this examination: 1. Automated exposure control 2. Adjustment of the mA and/or kV according to patient size 3. Use of iterative reconstruction technique Electronically signed by: Zoltan Barahona MD (07/17/2019 4:16 PM) [id number] DICTATED and SIGNED BY: ZOLTAN BARAHONA MD DATE: 07/17/19 1616[] FINDINGS: The heart is not enlarged. Mediastinal and hilar contours are normal. No focal parenchymal airspace opacity. No pleural effusion or pneumothorax. Cervical spine fusion hardware is partially profiled. IMPRESSION: 1. No radiographic evidence for acute cardiopulmonary process. Electronically signed by: Manjit Gonzalez MD (07/17/2019 2:07 PM) [email or web address] Course & Med Decision Making Course & Med Decision Making Pertinent Labs and Imaging studies reviewed. (See chart for details) [Reviewed lab findings with patient, with noted anemia today. Prior lab tests show patient hemoglobin of 8.5-11 harvesters. No prior visits discomfort. Patient reports she has followed up with hematology regarding her blood, however has not anything done about it. Will discuss admission with hospitalist] Hospitalist believes patient should be safe for discharge home, not needing admission at this time, chronic anemia. Will Rx for antibiotics and antiviral for shingles. Patient to follow up with PCP, & computer engineering technician March appointment. Dragon Disclaimer Dragon Disclaimer This electronic medical record was generated, in whole or in part, using a voice recognition dictation system. Departure Departure Impression: Primary Impression: UTI (urinary tract infection) Additional Impressions: YENY (iron deficiency anemia) Shingles Referrals: WARD TINOCO MD (PCP) Patient Instructions: Iron Deficiency Anemia, Shingles, [id number], Urinary Tract Infection Additional Instructions: As we discussed, take the antibiotic as prescribed. Take the antiviral as prescribed for her shingles. Make sure you are taking your iron tablets as prescribed as well. Keep her appointment with her computer engineering technician next month. Follow-up with your primary care provider in the next week Scripts Cephalexin (CEPHALEXIN) 500 Mg Tablet 500 MG PO BID for 7 Days, #14 TAB Prov: ANDRÉS MCDANIELS APRN 07/17/19 Acyclovir (ACYCLOVIR) 800 Mg Tablet 800 MG PO Q8HRS for 7 Days, #21 TAB Prov: ANDRÉS MCDANIELS APRN 07/17/19 Problem Qualifiers Primary Impression: UTI (urinary tract infection) Urinary tract infection type: acute cystitis Hematuria presence: without hematuria Qualified Codes: N30.00 - Acute cystitis without hematuria Additional Impressions: YENY (iron deficiency anemia) Iron deficiency anemia type: unspecified iron deficiency Qualified Codes: D50.9 - Iron deficiency anemia, unspecified Shingles Herpes zoster complications: unspecified herpes zoster complication Qualified Codes: B02.8 - Zoster with other complications ANDRÉS MCDANIELS APRN Jul 17, 2019 13:41
[2019-07-17 14:00] LABS: BASO # 0.1 x10^3/uL (0.0-0.2); BASO % 1 % (0-3); EOS # 0.3 x10^3/uL (0.0-0.7); EOS % 5 % (0-3); HEMATOCRIT 25.1 % (36.0-47.0); HEMOGLOBIN 7.5 g/dL (12.0-15.5); LYMPH % 20 % (24-48); MEAN CORPUSCULAR HEMOGLOBIN 22 pg (25-35); MEAN CORPUSCULAR HGB CONC 30 g/dL (31-37); MEAN CORPUSCULAR VOLUME 74 fL (79-100); MONO # 0.6 x10^3/uL (0.0-1.1); MONO % 13 % (0-9); NEUT # 3.1 x10^3/uL (1.8-7.7); NEUT % 61 % (31-73); PLATELET COUNT 202 x10^3/uL (140-400); RED BLOOD COUNT 3.38 x10^6/uL (3.50-5.40); RED CELL DISTRIBUTION WIDTH 17.9 % (11.5-14.5); WHITE BLOOD COUNT 5.1 x10^3/uL (4.0-11.0)
[2019-07-17 14:06] LABS: CALCIUM 8.3 mg/dL (8.5-10.1); CREATININE 2.4 mg/dL (0.6-1.0); GFR 20.3; POTASSIUM 4.8 mmol/L (3.5-5.1)
[2019-07-17 14:10] LABS: BILIRUBIN,URINE NEGATIVE (NEG); CLARITY,URINE TURBID; COLOR,URINE YELLOW; NITRITE,URINE NEGATIVE (NEG); PH,URINE 6.5; PROTEIN,URINE 100 mg/dL (NEG-TRACE)
--- NOTE | 2019-07-17 14:10 | RAD ---
EXAM: AP View of the chest DATE: 07/17/2019 1:39 PM INDICATION: Shortness of air COMPARISON: 01/01/2019, 01/29/2019 FINDINGS: The heart is not enlarged. Mediastinal and hilar contours are normal. No focal parenchymal airspace opacity. No pleural effusion or pneumothorax. Cervical spine fusion hardware is partially profiled. IMPRESSION: 1. No radiographic evidence for acute cardiopulmonary process. Electronically signed by: Manjit Gonzalez MD (07/17/2019 2:07 PM) [email or web address]
[2019-07-17 14:12] LABS: ALBUMIN 3.3 g/dL (3.4-5.0); ALBUMIN/GLOBULIN RATIO 1.1 (1.0-1.7); MAGNESIUM 2.1 mg/dL (1.8-2.4); TOTAL BILIRUBIN 0.2 mg/dL (0.2-1.0); TOTAL PROTEIN 6.4 g/dL (6.4-8.2)
[2019-07-17 14:19] LABS: BACTERIA,URINE MANY /HPF (0-FEW); SQUAMOUS EPITHELIAL CELL,UR FEW /LPF; WBC,URINE TNTC /HPF (0-4)
[2019-07-17 14:29] LABS: ANISOCYTOSIS SLIGHT; HYPOCHROMIA MOD; MICROCYTOSIS SLIGHT; OVALOCYTES PRESENT; PLT ESTIMATE ADEQUATE (ADEQUATE); POIKILOCYTOSIS SLIGHT
[2019-07-17 14:30] LABS: SCHISTOCYTES OCC
[2019-07-17] MEDS ORDERED: cefTRIAXone IV Push 1 GM VIAL. IVP ONE ×2 (16:00→16:15)
[2019-07-17] MEDS ORDERED: IV NORMAL SALINE 1000ML BAG 1,000 ML IV ONE (16:15)
--- NOTE | 2019-07-17 16:19 | RAD ---
Examination: CT ABDOMEN PELVIS WO CONTRAST History: Lower back bruising and anemia Comparison/Correlation: 03/11/2018 CT abdomen and pelvis without contrast Findings: Axial images of the abdomen and pelvis were obtained without contrast. Sagittal and coronal reformatted images were provided. Visualized lung bases are clear. Surgical clips are present about the gastroesophageal junction. Suture material involving the stomach is noted. Findings of gastric bypass surgery. Abdominal wall mesh material. The gallbladder fossa is unremarkable. Liver, spleen, pancreas and adrenal glands are normal. Multiple bilateral renal calculi are present and primarily seen on the right. Several right renal calyceal calculi are present measuring up to 1.2 cm diameter. Bilateral renal atrophy is present. Small renal cysts which do not require further follow-up is suggested. Moderate quantity of stool in the colon is present. Appendix is normal. No ascites or pelvic free fluid. Right adnexal 4 cm diameter cyst is present. Uterus is atrophic or absent. Bladder is unremarkable. No large abdominal or pelvic lymph nodes. Advanced left hip joint degenerative remodeling. Subcutaneous edema of the low lumbar and sacral midline noted. Impression: Nonobstructive bilateral renal calculi. Benign-appearing right adnexal cyst is increased in size in the interval by 1 cm. No suspicious features. Interval follow-up pelvic ultrasound in 16 weeks is recommended to assess stability and further characterize. No loculated collection. 3 cutaneous edema at the lower lumbar and sacral midline. No hemorrhage within the abdomen or pelvis identified. PQRS Compliance Statement: One or more of the following individualized dose reduction techniques were utilized for this examination: 1. Automated exposure control 2. Adjustment of the mA and/or kV according to patient size 3. Use of iterative reconstruction technique Electronically signed by: Zoltan Martinez MD (07/17/2019 4:16 PM) [id number]
[2019-07-17] MEDS ORDERED: CEPH500T PO (17:08)
[2019-07-17] MEDS ORDERED: ACYC800T PO (17:08)
[2019-07-17 17:29] VITALS: BP 127/61
--- NOTE | 2019-07-17 23:55 | EKG ---
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
== END 2019-07-17 17:27 | disposition home or self-care (01) ==
LOC: ER 13:17
DX: D50.9 Iron deficiency anemia, unspecified (principal); N30.00 Acute cystitis without hematuria; B02.8 Zoster with other complications; I10 Essential (primary) hypertension; G89.29 Other chronic pain; Z90.3 Acquired absence of stomach [part of]; Z86.718 Personal history of other venous thrombosis and embolism; Z87.442 Personal history of urinary calculi; Z86.14 Personal history of Methicillin resistant Staphylococcus aureus infection; Z95.5 Presence of coronary angioplasty implant and graft; Z88.1 Allergy status to other antibiotic agents; Z88.2 Allergy status to sulfonamides; Z88.5 Allergy status to narcotic agent; Z91.041 Radiographic dye allergy status; Z88.8 Allergy status to other drugs, medicaments and biological substances
CPT/HCPCS: 36415; 71045; 74176; 80053; 81001; 83735; 83880; 84484; 85025; 86850; 86900; 86901; 87086; 93005; 96374; 99285; J0696; J7030

== ENCOUNTER → 2019-07-28 | Outpatient (CLI) | payer OTHER ==
[2019-07-17 17:29] VITALS: BP 127/61
[~2019-07-28] MED LIST changes: +ACET325T9 PO; +ACYC800T PO; +CEPH500T PO; +IRON150C11 PO; +LIDO700A21 TD; +METO25TA4 PO
--- NOTE | 2019-07-28 14:42 | RAD ---
Indication: Dyspnea Technique: Static images are obtained of both lungs following inhalation of 20 mCi of xenon-133 and again following IV administration of 5 mCi of 99 M technetium MAA. Comparison: Chest x-ray from same day Findings: No definite mismatched defects that are worse on the perfusion when compared to the ventilation images. Patchy defects are seen both on the ventilation and perfusion images. Impression: 1. Low probability of pulmonary embolus. Electronically signed by: Neo Quarles MD (07/28/2019 2:39 PM) [facility] [place]
--- NOTE | 2019-07-28 17:34 | RAD ---
CHEST PA LATERAL Clinical indications: Dyspnea. COMPARISON: July 17, 2019. Findings: No acute lung infiltrate or pleural effusion or pulmonary edema or lung mass or pneumothorax is seen. The heart size, pulmonary vasculature, mediastinum and both андрей are unremarkable. The osseous structures appear intact. Impression: No acute radiographic abnormality is seen. Stable chest x-ray. Electronically signed by: Lawrence Green MD (07/28/2019 5:31 PM) [id number]
== END | disposition home or self-care (01) ==
LOC: NM 12:45
PROVIDERS: ATTEND Internal Medicine Cardiovascular Disease
DX: I26.99 Other pulmonary embolism without acute cor pulmonale (principal); I10 Essential (primary) hypertension; Z79.01 Long term (current) use of anticoagulants
CPT/HCPCS: 71046; 78582; A9540; A9558; 96374

== ENCOUNTER → 2019-07-30 | Outpatient (CLI) | payer OTHER ==
[2019-07-30 09:21] VITALS: BP 140/73
--- NOTE | 2019-07-30 13:47 | CARD ---
MR#: [id number] Date of Study: 07/30/2019 Ordering Physician: SOFIYA MCKINLEY, Referring Physician: SOFIYA MCKINLEY, Tech: Amirah Venegas APPROVED REPORT EXAM: LIMITED Two-dimensional and M-mode echocardiogram. Other Information Quality : AverageHR: 124bpm Technically limited study due to body habitus. INDICATION Dyspnea Chest Pain 2D DIMENSIONS RVDd2.7 (2.9-3.5cm)Left Atrium(2D)2.9 (1.6-4.0cm) IVSd1.1 (0.7-1.1cm)Aortic Root(2D)2.9 (2.0-3.7cm) LVDd4.9 (3.9-5.9cm)LVOT Diameter1.8 (1.8-2.4cm) PWd1.0 (0.7-1.1cm)LVDs2.8 (2.5-4.0cm) FS (%) 42.4 %SV83.7 ml Aortic Valve AoV Peak Eugenio.134.4cm/Blake Peak GR.7.2mmHg LVOT VTI 15.71cm LEFT VENTRICLE Limited study. The left ventricle is normal size. There is borderline to mild concentric left ventric ular hypertrophy. The left ventricular systolic function is normal. The Ejection Fraction is 55-60%. Septal motion consistent with conduction abnormality. Diastology indeterminate due to atrial fibrilla tion. RIGHT VENTRICLE The right ventricle is normal size. There is normal right ventricular wall thickness. The right ventr icular systolic function is normal. ATRIA The left atrium size is normal. The right atrium size is normal. The interatrial septum is intact wit h no evidence for an atrial septal defect or patent foramen ovale as noted on 2-D or Doppler imaging. AORTIC VALVE The aortic valve is not well visualized. Doppler and Color Flow revealed no significant aortic regurg itation. There is no significant aortic valvular stenosis. MITRAL VALVE The mitral valve is normal in structure and function. There is no evidence of mitral valve prolapse. There is no mitral valve stenosis. Doppler and Color Flow revealed no mitral valve regurgitation note d. TRICUSPID VALVE The tricuspid valve is not well visualized. Doppler and color-flow analysis was not performed. PULMONIC VALVE The pulmonic valve is not well visualized. GREAT VESSELS The aortic root is normal in size. The IVC is normal in size and collapses >50% with inspiration. PERICARDIAL EFFUSION There is no evidence of significant pericardial effusion. Critical Notification Critical Value: No <Conclusion> Limited study. The left ventricle is normal size. The left ventricular systolic function is normal. The Ejection Fraction is 55-60%. There is borderline to mild concentric left ventricular hypertrophy. Doppler and Color Flow revealed no significant aortic regurgitation. There is no significant aortic valvular stenosis. Doppler and Color Flow revealed no mitral valve regurgitation noted. There is no evidence of significant pericardial effusion. Signed by : Sofiya Mckinley MD Electronically Approved : 07/30/2019 13:47:03
== END ==
LOC: NM 10:14
PROVIDERS: ATTEND Internal Medicine Cardiovascular Disease
DX: I51.7 Cardiomegaly (principal); I25.10 Atherosclerotic heart disease of native coronary artery without angina pectoris
CPT/HCPCS: 93308

== ENCOUNTER 2019-11-14 12:54 | Emergency (ER) | payer OTHER ==
[~2019-11-14] VITALS: Ht 162.6 cm; Wt 81.8 kg
[~2019-11-14 12:54] MED LIST changes: -TIZA2TAB2 PO; +TIZA2TAB4 PO
[2019-11-14 13:35] VITALS: BP 148/67
[2019-11-14] MEDS ORDERED: LIDOCAINE 1% PF 2 ML VIAL. INJ ONE (14:45)
[2019-11-14] MEDS ORDERED: DIPH,PERTUSS(ACELL),TET VAC/PF 0.5 ML SYRINGE. VAX IM ONE (14:45)
[2019-11-14] MEDS ORDERED: CEPH500C PO (15:29)
--- NOTE | 2019-11-14 15:30 | PHYS DOC ---
Past Medical History Past Medical History: Anemia, DVT, Hypertension, Kidney Stone, MRSA, Other Additional Past Medical Histor: KIDNEY INFECTION,CHRONIC BACK/HIP PAIN,PE'S Past Surgical History: Angioplasty, Cervical Fusion, Other Additional Past Surgical Histo: Cardiac STENTS,partial gastrectomy,C6-7 fusion, KIDNEY STENT, hernia. Smoking Status: Never Smoker Alcohol Use: None Drug Use: None General Adult EDM: Chief Complaint: LACERATION/AVULSION HPI: HPI: Patient is a 64 year old female who presents to the emergency department with complaints of a laceration to the volar surface of her left hand between her first and second digits. She states she was using a knife earlier this morning to open the package of a toy for her nephew when she accidentally cut herself. patient states her last tetanus shot was greater than 5 years ago. She denies any numbness, tingling, weakness, or decreased range of motion of the affected hand. She currently denies any pain or shortness of breath. Patient states that she takes Eliquis and she cannot get the bleeding to stop without holding pressure to the site. Review of Systems: Review of Systems: Constitutional: Denies fever or chills. [] Eyes: Denies change in visual acuity. [] HENT: Denies nasal congestion or sore throat. [] Respiratory: Denies cough or shortness of breath. [] Cardiovascular: Denies chest pain or edema. [] Musculoskeletal: Denies joint pain. [] Integument: See HPI Neurologic: Denies headache Psychiatric: Denies depression or anxiety. [] Heart Score: Risk Factors: Risk Factors: DM, Current or recent (<one month) smoker, HTN, HLP, family history of CAD, obesity. Risk Scores: Score 0 - 3: 2.5% MACE over next 6 weeks - Discharge Home Score 4 - 6: 20.3% MACE over next 6 weeks - Admit for Clinical Observation Score 7 - 10: 72.7% MACE over next 6 weeks - Early Invasive Strategies Current Medications: Current Medications Medications (Trade) Dose Ordered Sig/David Start Time Stop Time Status Last Admin Dose Admin Diphtheria/ Tetanus/Acell Pertussis (ADACEL TDap SYRINGE) 0.5 ml ONCE ONCE 11/14/19 14:45 11/14/19 14:46 DC 11/14/19 14:44 0.5 ML Lidocaine HCl (Xylocaine-Mpf 1% 2ml Vial) 4 ml 1X ONCE 11/14/19 14:45 11/14/19 14:46 DC 11/14/19 14:44 4 ML Allergies: Allergies: Allergies Coded Allergies Type Severity Reaction Last Updated Verified Sulfa (Sulfonamide Antibiotics) Allergy Intermediate 02/27/17 Yes amlodipine Allergy Intermediate 02/27/17 Yes codeine Allergy Intermediate Rash 02/27/17 Yes doxycycline Allergy Intermediate 02/27/17 Yes ezetimibe Allergy Intermediate 02/27/17 Yes levofloxacin Allergy Intermediate ITCH 02/27/17 Yes morphine Allergy Intermediate 02/27/17 Yes simvastatin Allergy Intermediate 02/27/17 Yes I S O L A T I O N *CONTACT* Allergy Unknown 01/06/19 Yes oxycodone Adverse Reaction Intermediate Hallucinations 02/16/16 Yes Physical Exam: PE: Constitutional: Well developed, well nourished, no acute distress, non-toxic appearance. [] HENT: Normocephalic, atraumatic, bilateral external ears normal, nose normal. [] Eyes: PERRLA, EOMI, conjunctiva normal, no discharge. [] Neck: Normal range of motion, no stridor. [] Cardiovascular:Heart rate regular rhythm Lungs & Thorax: Respirations even and unlabored, no retractions, no respiratory distress Skin: Warm, dry, no erythema, no rash; 2 cm laceration with bleeding controlled by pressure dressing noted to the volar surface of the left hand between the first and second digits, no visible foreign body, no visible tendon [] Extremities: Right hand: No bony tenderness, no cyanosis, ROM intact, no edema. [] Neurologic: Alert and oriented X 3, no focal deficits noted. [] Psychologic: Affect normal, judgement normal, mood normal. [] Current Patient Data: Vital Signs: Vital Signs Date Time Temp Pulse Resp B/P (MAP) Pulse Ox O2 Delivery O2 Flow Rate FiO2 11/14/19 13:35 98.5 93 22 148/67 (94) 97 Room Air 98.5 EKG: EKG: [] Radiology/Procedures: Radiology/Procedures: Laceration Repair by me: Anesthesia: 1% lidocaine locally Location: Left hand Tendon/Joint/Nerves: No injury Foreign body: None detected after copious irrigation and exploration with normal saline and chlorhexidine scrub Technique: 5 simple Interrupted Sutures with 4-0 Prolene Complexity: No subcutaneous sutures/mucosal repair/edge excision Post Closure Length: 2.5 cm Patient's bleeding was easily controlled in the department and there is no indication of anemia. No evidence of compartment syndrome, neurologic injury, vascular injury, open joint, tendon laceration, or foreign body. Patient is appropriate for outpatient follow up. [] Course & Med Decision Making: Course & Med Decision Making Pertinent Labs and Imaging studies reviewed. (See chart for details) [] Dragon Disclaimer: Dragon Disclaimer: This electronic medical record was generated, in whole or in part, using a voice recognition dictation system. Departure Departure Impression: Primary Impression: Laceration of left hand without complication, excluding fingers Qualified Codes: S61.412A - Laceration without foreign body of left hand, initial encounter Additional Impression: Need for Tdap vaccination Disposition: HOME, SELF-CARE Condition: STABLE Referrals: WARD TINOCO MD (PCP) Patient Instructions: Laceration Care, Adult, [place] Additional Instructions: Fill the prescription and take it as directed. Keep the affected area clean and dry. You may take Tylenol or ibuprofen as needed for pain. Keep the dressing that was placed today on for 24 hours then change the dressing twice a day and apply antibiotic ointment to the area. Follow-up with your primary care doctor, or return to the emergency room in 10-14 days to have the sutures removed, sooner if you develop signs of infection including: redness, warmth, drainage, or a fever. Scripts Cephalexin (CEPHALEXIN) 500 Mg Capsule 1 CAP PO TID for 7 Days, #21 CAP 0 Refills Prov: MAIK CANNON [employer] WHEEL ASSEMBLER 11/14/19 Justicifation of Admission Dx: Justifications for Admission: Justification of Admission Dx: N/A MAIK CANNON [employer] ASSEMBLER Nov 14, 2019 15:29
== END 2019-11-14 15:35 | disposition home or self-care (01) ==
LOC: ER 12:54
DX: S61.412A Laceration without foreign body of left hand, initial encounter (principal); I10 Essential (primary) hypertension; G89.29 Other chronic pain; Z86.718 Personal history of other venous thrombosis and embolism; Z86.14 Personal history of Methicillin resistant Staphylococcus aureus infection; Z95.5 Presence of coronary angioplasty implant and graft; Z88.1 Allergy status to other antibiotic agents; Z88.2 Allergy status to sulfonamides; Z88.5 Allergy status to narcotic agent; Z91.041 Radiographic dye allergy status; Z88.8 Allergy status to other drugs, medicaments and biological substances; W26.0XXA Contact with knife, initial encounter; Y93.89 Activity, other specified; Y92.89 Other specified places as the place of occurrence of the external cause; Y99.8 Other external cause status
CPT/HCPCS: 12001; 90471; 90715; 99283; J3490

== ENCOUNTER → 2020-11-24 | Outpatient (CLI) | payer OTHER ==
[2020-11-14 13:35] VITALS: BP 173/90
[~2020-11-24] MED LIST changes: -ACYC800T PO; +ACYC800T88 PO; -ASPI-612 PO; +ASPI-886 PO; +CEPH500C PO; -CLIN150C14 PO; +CLIN150C15 PO; +TIZA-58 PO; -TIZA2TAB4 PO
--- NOTE | 2020-11-24 09:06 | RAD ---
EXAMINATION: US DPLX ARTR EXTREM LOWER BILAT INDICATION: 65 years, Female, chronic leg pain. COMPARISON: None TECHNIQUE: Grayscale, color and spectral Doppler evaluation of the bilateral lower extremity arterial system(s) was performed. FINDINGS: RIGHT PEAK SYSTOLIC VELOCITIES: COMMON FEMORAL ARTERY: 130 cm/s WAVEFORMS: Biphasic. DEEP FEMORAL ARTERY: 78 cm/s WAVEFORMS: Biphasic PROXIMAL SUPERFICIAL FEMORAL ARTERY: 136 cm/s WAVEFORMS: Triphasic MID SUPERFICIAL FEMORAL ARTERY: 114 cm/s WAVEFORMS: Triphasic DISTAL SUPERFICIAL FEMORAL ARTERY: 143 cm/s WAVEFORMS: Triphasic POPLITEAL ARTERY: 93 cm/s WAVEFORMS: Triphasic DORSALIS PEDIS ARTERY: 35 cm/s WAVEFORMS: Biphasic PROXIMAL POSTERIOR TIBIAL ARTERY: 104 cm/s WAVEFORMS: Triphasic DISTAL POSTERIOR TIBIAL ARTERY: 94 cm/s WAVEFORMS: Triphasic ANTERIOR TIBIAL ARTERY: 37 cm/s WAVEFORMS: Triphasic PERONEAL ARTERY: 65 cm/s WAVEFORMS: Biphasic LEFT PEAK SYSTOLIC VELOCITIES: COMMON FEMORAL ARTERY: 127 cm/s WAVEFORMS: Triphasic DEEP FEMORAL ARTERY: 53 cm/s WAVEFORMS: Biphasic PROXIMAL SUPERFICIAL FEMORAL ARTERY: 141 cm/s WAVEFORMS: Triphasic MID SUPERFICIAL FEMORAL ARTERY: 128 cm/s WAVEFORMS: Triphasic DISTAL SUPERFICIAL FEMORAL ARTERY: 91 cm/s WAVEFORMS: Triphasic POPLITEAL ARTERY: 94 cm/s WAVEFORMS: Triphasic DORSALIS PEDIS ARTERY: 107 cm/s WAVEFORMS: Biphasic PROXIMAL POSTERIOR TIBIAL ARTERY: 89 cm/s WAVEFORMS: Triphasic DISTAL POSTERIOR TIBIAL ARTERY: 81 cm/s WAVEFORMS: Triphasic ANTERIOR TIBIAL ARTERY: 71 cm/s WAVEFORMS: Biphasic PERONEAL ARTERY: 50 cm/s WAVEFORMS: Biphasic IMPRESSION: Patent bilateral lower extremity arterial vasculature with no hemodynamically significant stenosis. Electronically signed by: Lion Nolasco MD (11/24/2020 9:03 AM) [facility]
--- NOTE | 2020-11-24 09:13 | RAD ---
EXAMINATION: US VENOUS REFLUX, US BILATERAL LOWEREXTREMITY VENOUS DOPPLER INDICATION: Chronic neck pain. COMPARISON: None TECHNIQUE: Grayscale, color and spectral doppler evaluation of the Bilateral lower extremity superfic ial and deep veins was performed to evaluate for deep venous thrombosis and reflux. FINDINGS: US BILATERAL LOWEREXTREMITY VENOUS DOPPLER Bilateral common femoral, femoral and popliteal veins are normally compressible and demonstrate radhika lly directed and appropriately phasic flow with augmentation. Normal flow is present within the saphenofemoral junctions and deep femoral veins in the proximal thi ghs and the posterior tibial and peroneal veins in the proximal calves. US VENOUS REFLUX Right greater saphenous vein at the junction measures 0.5 cm with no evidence of reflux. Right proximal greater saphenous vein measures 0.4 cm with no evidence of reflux. Right proximal is a saphenous vein measures 0.1 cm with no evidence of reflux. Left greater saphenous vein at the junction measures 0.6 cm with no evidence of reflux. Left proximal greater saphenous vein measures 0.4 cm with no evidence of reflux. Left proximal lesser saphenous vein measures 0.2 cm with no evidence of reflux. IMPRESSION: 1. No deep venous thrombosis in both lower extremities. 2. No evidence of reflux in the visualized superficial bilateral lower extremity veins, as described above. Electronically signed by: Lion Nolasco MD (11/24/2020 9:10 AM) [facility]
== END ==
LOC: US 09:08
PROVIDERS: ATTEND Internal Medicine
DX: M79.605 Pain in left leg (principal); M79.604 Pain in right leg; M79.89 Other specified soft tissue disorders
CPT/HCPCS: 93925; 93970

== ENCOUNTER 2021-01-01 16:45 | Emergency (ER) | payer OTHER ==
[2020-11-14 13:35] VITALS: BP 173/90
[~2021-01-01 16:45] MED LIST changes: -CLIN150C15 PO; +CLIN150C16 PO
== END 2021-01-01 19:00 | disposition left against medical advice (07) ==
LOC: ER 16:45
DX: R05 Cough (principal); R42 Dizziness and giddiness; Z53.21 Procedure and treatment not carried out due to patient leaving prior to being seen by health care provider

== ENCOUNTER → 2021-01-22 | Outpatient (CLI) | payer OTHER ==
[2020-11-14 13:35] VITALS: BP 173/90
[2021-01-22 09:34] LABS: BASO % 1 % (0-3); EOS # 0.2 x10^3/uL (0.0-0.7); EOS % 5 % (0-3); HEMATOCRIT 25.3 % (36.0-47.0); HEMOGLOBIN 7.6 g/dL (12.0-15.5); LYMPH # 0.9 x10^3/uL (1.0-4.8); LYMPH % 19 % (24-48); MEAN CORPUSCULAR HEMOGLOBIN 21 pg (25-35); MEAN CORPUSCULAR HGB CONC 30 g/dL (31-37); MEAN CORPUSCULAR VOLUME 71 fL (79-100); MONO # 0.4 x10^3/uL (0.0-1.1); MONO % 7 % (0-9); NEUT # 3.4 x10^3/uL (1.8-7.7); NEUT % 68 % (31-73); PLATELET COUNT 247 x10^3/uL (140-400); RED BLOOD COUNT 3.57 x10^6/uL (3.50-5.40); RED CELL DISTRIBUTION WIDTH 21.9 % (11.5-14.5)
[2021-01-22 09:47] LABS: CALCIUM 8.7 mg/dL (8.5-10.1); GFR 24.9; POTASSIUM 4.2 mmol/L (3.5-5.1)
[2021-01-22 10:03] LABS: ALBUMIN 3.2 g/dL (3.4-5.0); ALBUMIN/GLOBULIN RATIO 0.9 (1.0-1.7); TOTAL BILIRUBIN 0.2 mg/dL (0.2-1.0); TOTAL PROTEIN 6.8 g/dL (6.4-8.2)
[2021-01-22 10:20] LABS: ANISOCYTOSIS MOD; PLT ESTIMATE ADEQUATE (ADEQUATE)
[2021-01-22 10:21] LABS: OVALOCYTES OCC
[2021-01-22 10:22] LABS: MICROCYTOSIS SLIGHT; POLYCHROMASIA SLIGHT
== END ==
LOC: ONCLAB 09:07
PROVIDERS: ATTEND Internal Medicine Hematology & Oncology
DX: D50.0 Iron deficiency anemia secondary to blood loss (chronic) (principal)
CPT/HCPCS: 36415; 80053; 82607; 82728; 82746; 83540; 83550; 85025

== ENCOUNTER 2021-04-19 23:00 | Observation (INO) | payer OTHER ==
[~2021-04-19] VITALS: Ht 162.6 cm; Wt 89.0 kg
[~2021-04-19 23:00] MED LIST changes: +CYCL10TA19 PO; -CYCL10TA2 PO
[2021-04-20] VITALS (16 sets, daily range): BP systolic 135–193; BP diastolic 66–100
--- NOTE | 2021-04-20 00:12 | ED.ADGEN ---
Past Medical History Past Medical History: Anemia, DVT, Hypertension, Kidney Stone, MRSA, Other Additional Past Medical Histor: KIDNEY INFECTION,CHRONIC BACK/HIP PAIN,PE'S Past Surgical History: Angioplasty, Cervical Fusion, Other Additional Past Surgical Histo: Cardiac STENTS,partial gastrectomy,C6-7 fusion, KIDNEY STENT, hernia. Smoking Status: Never Smoker Alcohol Use: None Drug Use: None General Adult HPI: HPI: Patient is a 65 year old female coming in for left lower extremity swelling over the past couple of days. Patient denies any injury. 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 Last DVT was 6 months ago when she was started Eliquis, but recently had her dose reduced by her chip mucker. Patient has a history of severe anemia so they cut her Eliquis from 5 mg twice daily to 2.5 mg twice daily. Review of Systems: Review of Systems: All other systems within normal limits except for as noted in the HPI Current Medications: Current Medications Medications (Trade) Dose Ordered Sig/David Start Time Stop Time Status Last Admin Dose Admin Acetaminophen (Tylenol) 650 mg PRN Q4HRS PRN 04/20/21 03:00 04/21/21 02:59 Morphine Sulfate (Morphine Sulfate) 2 mg PRN Q2HR PRN 04/20/21 03:00 04/21/21 02:59 Cancel Ondansetron HCl (Zofran) 4 mg PRN Q8HRS PRN 04/20/21 03:00 04/21/21 02:59 Allergies: Allergies: Allergies Coded Allergies Type Severity Reaction Last Updated Verified Sulfa (Sulfonamide Antibiotics) Allergy Intermediate 11/14/20 Yes amlodipine Allergy Intermediate 11/14/20 Yes codeine Allergy Intermediate Rash 11/14/20 Yes doxycycline Allergy Intermediate 11/14/20 Yes ezetimibe Allergy Intermediate 11/14/20 Yes levofloxacin Allergy Intermediate ITCH 11/14/20 Yes morphine Allergy Intermediate 11/14/20 Yes simvastatin Allergy Intermediate 11/14/20 Yes I S O L A T I O N *CONTACT* Allergy Unknown 11/14/20 Yes oxycodone Adverse Reaction Intermediate Hallucinations 11/14/20 Yes Physical Exam: PE: Constitutional: Well developed, well nourished, no acute distress, non-toxic appearance. [] HENT: Normocephalic, atraumatic, bilateral external ears normal, nose normal. [] Eyes: PERRLA, conjunctiva normal, no discharge. [] Neck: No rigidity, supple, no stridor. [] Cardiovascular: Regular rate and rhythm, brisk cap refill [] Lungs & Thorax: Non labored symmetric respirations, no tachypnea or respiratory distress [] Abdomen: Soft, nondistended. Skin: Warm, dry, no erythema, no rash. [] Back: Unremarkable Extremities: No deformities, range of motion grossly intact, left lower extremity pitting edema, calf and posterior fossa tenderness Neurologic: Alert and oriented X 3, no focal deficits noted. [] Psychologic: Affect normal, judgement normal, mood normal. [] Current Patient Data: Labs: Laboratory Tests Test 04/20/21 01:00 White Blood Count 8.2 x10^3/uL (4.0-11.0) Red Blood Count 3.05 x10^6/uL (3.50-5.40) L Hemoglobin 5.8 g/dL (12.0-15.5) *L Hematocrit 19.6 % (36.0-47.0) *L Mean Corpuscular Volume 64 fL (79-100) L Mean Corpuscular Hemoglobin 19 pg (25-35) L Mean Corpuscular Hemoglobin Concent 30 g/dL (31-37) L Red Cell Distribution Width 18.7 % (11.5-14.5) H Platelet Count 368 x10^3/uL (140-400) Neutrophils (%) (Auto) 67 % (31-73) Lymphocytes (%) (Auto) 19 % (24-48) L Monocytes (%) (Auto) 11 % (0-9) H Eosinophils (%) (Auto) 2 % (0-3) Basophils (%) (Auto) 1 % (0-3) Neutrophils # (Auto) 5.5 x10^3/uL (1.8-7.7) Lymphocytes # (Auto) 1.6 x10^3/uL (1.0-4.8) Monocytes # (Auto) 0.9 x10^3/uL (0.0-1.1) Eosinophils # (Auto) 0.1 x10^3/uL (0.0-0.7) Basophils # (Auto) 0.1 x10^3/uL (0.0-0.2) Platelet Estimate Adequate (ADEQUATE) Polychromasia Slight Hypochromasia Marked Poikilocytosis Slight Anisocytosis Slight Microcytosis Marked Spherocytes Occ Ovalocytes Few Helmet Cells Occ Prothrombin Time 14.5 SEC (11.7-14.0) H Prothrombin Time INR 1.1 (0.8-1.1) D-Dimer (Bhumika) 0.93 ug/mlFEU (0.00-0.50) H Sodium Level 138 mmol/L (136-145) Potassium Level 3.8 mmol/L (3.5-5.1) Chloride Level 100 mmol/L (98-107) Carbon Dioxide Level 22 mmol/L (21-32) Anion Gap 16 (6-14) H Blood Urea Nitrogen 46 mg/dL (7-20) H Creatinine 2.3 mg/dL (0.6-1.0) H Estimated GFR (Cockcroft-Gault) 21.2 BUN/Creatinine Ratio 20 (6-20) Glucose Level 121 mg/dL (70-99) H Calcium Level 8.8 mg/dL (8.5-10.1) Total Bilirubin 0.2 mg/dL (0.2-1.0) Aspartate Amino Transferase (AST) 18 U/L (15-37) Alanine Aminotransferase (ALT) 19 U/L (14-59) Alkaline Phosphatase 163 U/L (46-116) H Total Protein 6.9 g/dL (6.4-8.2) Albumin 3.4 g/dL (3.4-5.0) Albumin/Globulin Ratio 1.0 (1.0-1.7) Laboratory Tests 04/20/21 01:00 Laboratory Tests 04/20/21 01:00 Vital Signs: Vital Signs Date Time Temp Pulse Resp B/P (MAP) Pulse Ox O2 Delivery O2 Flow Rate FiO2 04/19/21 23:50 98.1 98 23 176/84 (114) 100 Room Air 98.1 EKG: EKG: [] Heart Score: C/O Chest Pain: No Risk Factors: Risk Factors: DM, Current or recent (<one month) smoker, HTN, HLP, family history of CAD, obesity. Risk Scores: Score 0 - 3: 2.5% MACE over next 6 weeks - Discharge Home Score 4 - 6: 20.3% MACE over next 6 weeks - Admit for Clinical Observation Score 7 - 10: 72.7% MACE over next 6 weeks - Early Invasive Strategies Radiology/Procedures: Radiology/Procedures: [][facility] [address] [place] [address] IMAGING REPORT Signed PATIENT: PANDA COLEMAN ACCOUNT: [id number] : 1955 LOCATION: ER AGE: 65 SEX: F EXAM STATUS: REG ER ORD. PHYSICIAN: MEG MORAN MD REASON: swelling, h/o dvt PROCEDURE: VENOUS LOWER EXTREMITY LEFT Left Lower Extremity Venous Doppler Ultrasound History: Reason: swelling, h/o dvt / Spl. Instructions: / History: Comparison: None Procedure: Color flow, duplex, spectral analysis and 2D images are obtained with and without compression in the area of the common femoral vein, superficial femoral vein - femoral vein junction, main femoral vein (superficial femoral vein) and popliteal vein. Veins of the proximal calf are also imaged. Findings: There is normal duplex flow, color flow and compressibility of all visualized vein segments. No evidence of deep venous thrombus is present. Impression: No evidence of DVT. Electronically signed by: Michele Rider III, MD (04/20/2021 2:34 AM) [facility] DICTATED and SIGNED BY: MICHELE RIDER III, MD DATE: 04/20/21 [id number] 0 Course & Med Decision Making: Course & Med Decision Making Pertinent Labs and Imaging studies reviewed. (See chart for details) Patient initially in the emergency department. Per patient's records her last hemoglobin was 6.6 on April 06, 2021. Letter to hospitalist, Dr. Rae [] Batsheva Disclaimer: Batsheva Disclaimer: This electronic medical record was generated, in whole or in part, using a voice recognition dictation system. Departure Departure Impression: Primary Impression: Microcytic anemia Disposition: ADMITTED INPATIENT Admitting Physician: TOBI Condition: STABLE Referrals: WARD TINOCO MD (PCP) MEG MORAN MD Apr 20, 2021 00:12
[2021-04-20 01:27] LABS: BASO # 0.1 x10^3/uL (0.0-0.2); BASO % 1 % (0-3); EOS # 0.1 x10^3/uL (0.0-0.7); EOS % 2 % (0-3); LYMPH # 1.6 x10^3/uL (1.0-4.8); LYMPH % 19 % (24-48); MEAN CORPUSCULAR HEMOGLOBIN 19 pg (25-35); MEAN CORPUSCULAR HGB CONC 30 g/dL (31-37); MEAN CORPUSCULAR VOLUME 64 fL (79-100); MONO # 0.9 x10^3/uL (0.0-1.1); MONO % 11 % (0-9); NEUT # 5.5 x10^3/uL (1.8-7.7); NEUT % 67 % (31-73); PLATELET COUNT 368 x10^3/uL (140-400); RED BLOOD COUNT 3.05 x10^6/uL (3.50-5.40); RED CELL DISTRIBUTION WIDTH 18.7 % (11.5-14.5); WHITE BLOOD COUNT 8.2 x10^3/uL (4.0-11.0)
[2021-04-20 01:31] LABS: CALCIUM 8.8 mg/dL (8.5-10.1); CREATININE 2.3 mg/dL (0.6-1.0); GFR 21.2; POTASSIUM 3.8 mmol/L (3.5-5.1)
[2021-04-20 01:32] LABS: HEMATOCRIT 19.6 % (36.0-47.0); HEMOGLOBIN 5.8 g/dL (12.0-15.5); PROTHROMBIN TIME PATIENT 14.5 SEC (11.7-14.0)
[2021-04-20 01:35] LABS: D-DIMER 0.93 ug/mlFEU (0.00-0.50)
[2021-04-20 01:37] LABS: ALBUMIN 3.4 g/dL (3.4-5.0); TOTAL BILIRUBIN 0.2 mg/dL (0.2-1.0); TOTAL PROTEIN 6.9 g/dL (6.4-8.2)
[2021-04-20 01:57] LABS: PLT ESTIMATE ADEQUATE (ADEQUATE)
[2021-04-20 01:58] LABS: ANISOCYTOSIS SLIGHT; HYPOCHROMIA MARKED; MICROCYTOSIS MARKED; OVALOCYTES FEW; POIKILOCYTOSIS SLIGHT; POLYCHROMASIA SLIGHT; SPHEROCYTES OCC
[2021-04-20 02:00] LABS: HELMET CELLS OCC
--- NOTE | 2021-04-20 02:36 | RAD ---
Left Lower Extremity Venous Doppler Ultrasound History: Reason: swelling, h/o dvt / Spl. Instructions: / History: Comparison: None Procedure: Color flow, duplex, spectral analysis and 2D images are obtained with and without compress ion in the area of the common femoral vein, superficial femoral vein - femoral vein junction, main fe moral vein (superficial femoral vein) and popliteal vein. Veins of the proximal calf are also imaged. Findings: There is normal duplex flow, color flow and compressibility of all visualized vein segments. No evide nce of deep venous thrombus is present. Impression: No evidence of DVT. Electronically signed by: Evan Shah III, MD (04/20/2021 2:34 AM) [facility]
[2021-04-20] MEDS ORDERED: ACETAMINOPHEN 325 MG TABLET. PO PRN (03:00)
[2021-04-20] MEDS ORDERED: MORPHINE SULFATE 2 MG/ML INJ. IVP PRN (03:00)
[2021-04-20] MEDS ORDERED: ONDANSETRON PF 4 MG/2 ML VIAL. IVP PRN (03:00)
[2021-04-20] MEDS ORDERED: fentaNYL PF VIAL 100 MCG/2 ML VIAL IVP PRN (05:00)
[2021-04-20] MEDS ORDERED: LATA2.5D2 OU (11:27)
[2021-04-20] MEDS ORDERED: FENT1PAT13 TP (11:47)
--- NOTE | 2021-04-20 12:46 | SSS ---
DATE OF SERVICE: 04/20/2021 ADMIT DATE: 04/20/2021 CHIEF COMPLAINT: Left leg pain. HISTORY OF PRESENT ILLNESS: The patient is a pleasant, middle-aged female who presented with left leg pain. We were concerned she might have some clots, but actually the imaging did not show any clots in the leg, but her hemoglobin is down to 5.8. We have admitted her overnight for observation. This morning, she is doing better. We are giving her 2 units of blood. We plan to discharge. PAST MEDICAL HISTORY: Anemia, DVT, hypertension, kidney stones, MRSA, chronic back pain, cervical fusion, angioplasty, cardiac stents, C6 and C7 fusion, hernia repair. ALLERGIES: MULTIPLE INCLUDING SULFA, AMLODIPINE, CODEINE, DOXYCYCLINE, EZETIMIBE, LEVAQUIN, MORPHINE, OXYCODONE, AND SIMVASTATIN. FAMILY HISTORY: Diabetes. SOCIAL HISTORY: She does not drink, smoke or take drugs. MEDICATIONS: Reviewed. Please refer to the MRAD. REVIEW OF SYSTEMS: GENERAL: No history of weight change, weakness or fevers. SKIN: No bruising, hair changes or rashes. EYES: No blurred, double or loss of vision. NOSE AND THROAT: No history of nosebleeds, hoarseness or sore throat. HEART: No history of palpitations, chest pain or shortness of breath on exertion. LUNGS: Denies cough, hemoptysis, wheezing or shortness of breath. GASTROINTESTINAL: Denies changes in appetite, nausea, vomiting, diarrhea or constipation. GENITOURINARY: No history of frequency, urgency, hesitancy or nocturia. NEUROLOGIC: Denies history of numbness, tingling, tremor or weakness. PSYCHIATRIC: No history of panic, anxiety or depression. ENDOCRINE: No history of heat or cold intolerance, polyuria or polydipsia. EXTREMITIES: Denies muscle weakness, joint pain, pain on walking or stiffness. PHYSICAL EXAMINATION: VITALS: Within normal limits and are stable. GENERAL: No apparent distress. Alert and oriented. HEENT: Normal cephalic atraumatic, external auditory canals are patent EYES: Extraocular muscles are intact, pupils are equally round and reactive to light and accommodation MUSCULOSKELETAL: Well developed, well nourished, good range of motion ENDOCRINE: No thyromegaly was palpated LYMPHATICS: No cervical chain or axillary nodes were noted HEMATOPOIETIC: No bruising NECK: Supple, no JVD, no thyromegaly was noted. LUNGS: Clear to auscultation in all lung vaughn without rhonchi or wheezing. HEART: RRR, S1, S2 present. Peripheral pulses intact, no obvious murmurs were noted. ABDOMEN: Soft, nontender. Positive bowel sounds no organomegaly, normal bowel sounds. EXTREMITIES: Without any cyanosis, clubbing, or edema. Pedal pulses intact, Homans sign is negative. NEUROLOGIC: Normal speech, normal tone. A and O x 3, moves all extremities, no obvious focal deficits. PSYCHIATRIC: Normal affect, normal mood. Stable. SKIN: No ulcerations or rashes, good skin turgor, no jaundice. VASCULAR: Good capillary refill, neurovascular bundle appears to be intact. ASSESSMENT AND PLAN: Resolving acute on chronic anemia. Her hemoglobin was 5.8. We transfused. We are transfusing 2 units packed red blood cells. We will discharge this evening once the transfusions are done. DISPOSITION: Home. ACTIVITY: As tolerated. DIET: Low sodium. MEDICATIONS: Please see the MRAD. Total time [address]: Tootie TID: [id number]
== END 2021-04-20 18:16 | disposition home or self-care (01) ==
LOC: ER 23:00 → ED HOLD 04-20 01:30 → 6 SOUTH 04-20 04:39
PROVIDERS: ADMIT Student in an Organized Health Care Education/Training Program; ATTEND Student in an Organized Health Care Education/Training Program
DX: D50.9 Iron deficiency anemia, unspecified (principal); I10 Essential (primary) hypertension; G89.29 Other chronic pain; M54.9 Dorsalgia, unspecified; Z86.718 Personal history of other venous thrombosis and embolism; Z87.442 Personal history of urinary calculi; Z79.01 Long term (current) use of anticoagulants; Z90.3 Acquired absence of stomach [part of]; Z95.5 Presence of coronary angioplasty implant and graft; Z79.899 Other long term (current) drug therapy; Z98.890 Other specified postprocedural states; Z95.1 Presence of aortocoronary bypass graft; Z86.711 Personal history of pulmonary embolism
CPT/HCPCS: 36415; 36430; 80053; 85025; 85379; 85610; 86850; 86900; 86901; 86920; 93971; 96374; 96375; 99284; G0378; J2405; J3010; P9040; G0379

== ENCOUNTER 2021-06-01 18:23 | Emergency (ER) | payer MEDICARE, OTHER ==
[~2021-06-01] VITALS: Ht 160 cm; Wt 97.5 kg
[~2021-06-01 18:23] MED LIST changes: +FENT1PAT13 TP; +LATA2.5D2 OU
[2021-06-01] MEDS ORDERED: fentaNYL PF VIAL 100 MCG/2 ML VIAL IVP ONE (21:00)
--- NOTE | 2021-06-01 22:47 | RAD ---
EXAMINATION: CT head and cervical spine without IV contrast. CT pelvis without IV contrast. INDICATION:65 years, Female, fall, pain. Left hip pain. On blood thinner. COMPARISON: 01/29/2019 TECHNIQUE: Spiral acquisition of contiguous images from the skull base to the vertex were obtained. C T of the cervical spine was obtained using contiguous spiral imaging from the skull base to the upper thoracic level. Sagittal and coronal 2D reformatted series were provided by the technologist. Soft t issue and bone window algorithms were reviewed. CT pelvis performed without IV contrast. Coronal and sagittal reformats obtained. Exposure: One or more of the following individualized dose reduction techniques were utilized for thi s examination: 1. Automated exposure control 2. Adjustment of the mA and/or kV according to patient size 3. Use of iterative reconstruction technique. FINDINGS: CT HEAD: Neither mass, midline shift, intracranial hemorrhage, acute/subacute ischemic changes, nor extraaxial fluid collections are seen. Similar supratentorial periventricular white matter hypodensities, indet erminate but most likely representing chronic microangiopathic disease. The paranasal sinuses, mastoi d air cells, and middle ears are clear. The orbital contents appear within normal limits. CT CERVICAL SPINE: Anatomic alignment of the cervical spine is maintained. Neither fracture, subluxation, nor traumatic spondylolisthesis is seen. The vertebral body heights are preserved. Multilevel degenerative changes in the spine. Anterior hardware fusion in the lower cervical spine. There is no evidence of a large i ntraspinal hematoma. The prevertebral and paravertebral soft tissues are within normal limits. CT PELVIS: No acute fracture, dislocation or subluxation. Extensive osteoarthritis of the left hip with joint sp harriett narrowing, subcondylar cystic changes and sclerosis with osteophytes. Mild right hip osteoarthrit is. Postsurgical changes of ventral hernia repair with mesh. Multiple nonobstructing right nephrolithiasis, the largest measures 1.2 cm. Prominent bilateral urete rs with partially obstructing 4 mm calculus at the left uterovesical junction and 4.5 mm calculus in the distal right ureter. No pelvic lymphadenopathy. No bowel dilation. Unremarkable urinary bladder. Hysterectomy. No pneumoperitoneum or ascites. Benign-appearing 4.1 cm right adnexal cyst. IMPRESSION: 1. No acute intracranial abnormality. 2. No acute fracture of the cervical spine. 3. No acute fracture of the pelvis. 4. Extensive osteoarthritis of the left hip. 5. Multiple nonobstructing right nephrolithiasis. 6. Prominent bilateral ureters with partially obstructing 4 mm calculus at the left uterovesical allyssa ction and 4.5 mm calculus in the distal right ureter. 7. Benign-appearing 4.1 cm right adnexal cyst. Recommend further evaluation with nonemergent pelvic ultrasound. Electronically signed by: Lion Nolasco MD (06/01/2021 10:44 PM) [facility]
[2021-06-01 23:25] LABS: BASO # 0.1 x10^3/uL (0.0-0.2); BASO % 1 % (0-3); EOS % 0 % (0-3); HEMATOCRIT 27.6 % (36.0-47.0); HEMOGLOBIN 8.4 g/dL (12.0-15.5); LYMPH # 0.6 x10^3/uL (1.0-4.8); LYMPH % 5 % (24-48); MEAN CORPUSCULAR HEMOGLOBIN 21 pg (25-35); MEAN CORPUSCULAR HGB CONC 31 g/dL (31-37); MEAN CORPUSCULAR VOLUME 70 fL (79-100); MONO # 0.9 x10^3/uL (0.0-1.1); MONO % 8 % (0-9); NEUT # 10.3 x10^3/uL (1.8-7.7); NEUT % 87 % (31-73); PLATELET COUNT 284 x10^3/uL (140-400); RED BLOOD COUNT 3.96 x10^6/uL (3.50-5.40); RED CELL DISTRIBUTION WIDTH 24.4 % (11.5-14.5); WHITE BLOOD COUNT 11.9 x10^3/uL (4.0-11.0)
[2021-06-01 23:41] LABS: CALCIUM 8.8 mg/dL (8.5-10.1); CREATININE 1.9 mg/dL (0.6-1.0); GFR 26.4; POTASSIUM 3.8 mmol/L (3.5-5.1)
[2021-06-01 23:43] LABS: ALBUMIN 3.5 g/dL (3.4-5.0); ALBUMIN/GLOBULIN RATIO 0.9 (1.0-1.7); MAGNESIUM 2.2 mg/dL (1.8-2.4); TOTAL BILIRUBIN 0.5 mg/dL (0.2-1.0); TOTAL PROTEIN 7.2 g/dL (6.4-8.2)
--- NOTE | 2021-06-01 23:54 | PHYS DOC ---
Past Medical History Past Medical History: Anemia, CAD, DVT, Hypertension, Kidney Stone, MRSA, Renal Disease, Other Additional Past Medical Histor: KIDNEY INFECTION,CHRONIC BACK/HIP PAIN,PE'S Past Surgical History: Angioplasty, Cervical Fusion, Other Additional Past Surgical Histo: Cardiac STENTS,partial gastrectomy,C6-7 fusion, KIDNEY STENT, hernia. Smoking Status: Never Smoker Alcohol Use: None Drug Use: None General Adult EDM: Chief Complaint: HIP PAIN HPI: HPI: 65-year-old female presents with report of hip pain primarily to left hip causing her to trip and fall several times today. Patient reports initially fell at approximately noon. Reports she has had some leg weakness secondary to the pain. Patient reports she is fallen at least 5 other times. Patient is concerned as she is currently on blood thinners. Denies hitting her head and denies neck pain. Patient reports problems with ambulation secondary to discomfort and pain. Patient does report history of known osteoarthritis of her hip but reports she was not a candidate for a hip replacement last time she follow-up with orthopedics. Review of Systems: Review of Systems: Constitutional: Reports subjective chills Eyes: Denies redness or eye pain HENT: Denies nasal congestion or epistaxis Respiratory: Denies cough or shortness of breath Cardiovascular: Denies chest pain or palpitations GI: Denies abdominal pain, nausea, or vomiting : Denies dysuria or hematuria Musculoskeletal: Reports chronic back pain and left greater than right hip pain Integument: Denies rash; reports of bruising to back Neurologic: Denies headache, focal weakness or sensory changes; reports generalized weakness to bilateral lower extremities Complete systems were reviewed and found to be within normal limits, except as documented in this note. Heart Score: C/O Chest Pain: N/A Current Medications: Current Medications Medications (Trade) Dose Ordered Sig/[facility] Start Time Stop Time Status Last Admin Dose Admin Fentanyl Citrate (Fentanyl 2ml Vial) 50 mcg 1X ONCE 06/01/21 21:00 06/01/21 21:01 DC 06/01/21 23:12 50 MCG Allergies: Allergies: Allergies Coded Allergies Type Severity Reaction Last Updated Verified Sulfa (Sulfonamide Antibiotics) Allergy Intermediate 11/14/20 Yes amlodipine Allergy Intermediate 11/14/20 Yes codeine Allergy Intermediate Rash 11/14/20 Yes doxycycline Allergy Intermediate 11/14/20 Yes ezetimibe Allergy Intermediate 11/14/20 Yes levofloxacin Allergy Intermediate ITCH 11/14/20 Yes morphine Allergy Intermediate 11/14/20 Yes simvastatin Allergy Intermediate 11/14/20 Yes oxycodone Adverse Reaction Intermediate Hallucinations 11/14/20 Yes Physical Exam: PE: Constitutional: Well developed, well nourished, no acute distress, non-toxic appearance HENT: Normocephalic, atraumatic Eyes: Conjunctiva normal, no discharge Neck: Normal range of motion, no midline tenderness, supple Lungs & Thorax: No respiratory distress, equal chest rise and fall Abdomen: Soft, no tenderness; pelvis stable and nontender Skin: Warm, dry, no erythema, no rash, healing ecchymosis noted to back Back: No midline tenderness, no CVA tenderness Extremities: Left hip tenderness primarily with range of motion, 1+ edema to bilateral lower extremities, no shortening or rotation appreciated Neurologic: Alert and oriented X 3, normal motor function, normal sensory function, no focal deficits noted Psychologic: Affect normal, judgment normal Current Patient Data: Labs: Laboratory Tests Test 06/01/21 23:05 White Blood Count 11.9 x10^3/uL (4.0-11.0) H Red Blood Count 3.96 x10^6/uL (3.50-5.40) Hemoglobin 8.4 g/dL (12.0-15.5) L Hematocrit 27.6 % (36.0-47.0) L Mean Corpuscular Volume 70 fL (79-100) L Mean Corpuscular Hemoglobin 21 pg (25-35) L Mean Corpuscular Hemoglobin Concent 31 g/dL (31-37) Red Cell Distribution Width 24.4 % (11.5-14.5) H Platelet Count 284 x10^3/uL (140-400) Neutrophils (%) (Auto) 87 % (31-73) H Lymphocytes (%) (Auto) 5 % (24-48) L Monocytes (%) (Auto) 8 % (0-9) Eosinophils (%) (Auto) 0 % (0-3) Basophils (%) (Auto) 1 % (0-3) Neutrophils # (Auto) 10.3 x10^3/uL (1.8-7.7) H Lymphocytes # (Auto) 0.6 x10^3/uL (1.0-4.8) L Monocytes # (Auto) 0.9 x10^3/uL (0.0-1.1) Eosinophils # (Auto) 0.0 x10^3/uL (0.0-0.7) Basophils # (Auto) 0.1 x10^3/uL (0.0-0.2) Platelet Estimate Pending Sodium Level 134 mmol/L (136-145) L Potassium Level 3.8 mmol/L (3.5-5.1) Chloride Level 99 mmol/L (98-107) Carbon Dioxide Level 22 mmol/L (21-32) Anion Gap 13 (6-14) Blood Urea Nitrogen 26 mg/dL (7-20) H Creatinine 1.9 mg/dL (0.6-1.0) H Estimated GFR (Cockcroft-Gault) 26.4 BUN/Creatinine Ratio 14 (6-20) Glucose Level 131 mg/dL (70-99) H Calcium Level 8.8 mg/dL (8.5-10.1) Magnesium Level 2.2 mg/dL (1.8-2.4) Total Bilirubin 0.5 mg/dL (0.2-1.0) Aspartate Amino Transferase (AST) 24 U/L (15-37) Alanine Aminotransferase (ALT) 23 U/L (14-59) Alkaline Phosphatase 189 U/L (46-116) H Troponin I High Sensitivity 10 ng/L (4-50) Total Protein 7.2 g/dL (6.4-8.2) Albumin 3.5 g/dL (3.4-5.0) Albumin/Globulin Ratio 0.9 (1.0-1.7) L Laboratory Tests 06/01/21 23:05 Laboratory Tests 06/01/21 23:05 Vital Signs: Vital Signs Date Time Temp Pulse Resp B/P (MAP) Pulse Ox O2 Delivery O2 Flow Rate FiO2 06/01/21 23:12 20 06/01/21 20:49 98.5 87 167/65 (99) 95 Room Air 98.5 EKG: EKG: @2214 NSR at 97bpm, NO ST elevated, QRS 80ms, QT/QTc 352/451ms, Q wave in III Radiology/Procedures: Radiology/Procedures: EXAMINATION: CT head and cervical spine without IV contrast. CT pelvis without IV contrast. INDICATION:65 years, Female, fall, pain. Left hip pain. On blood thinner. COMPARISON: 01/29/2019 TECHNIQUE: Spiral acquisition of contiguous images from the skull base to the vertex were obtained. CT of the cervical spine was obtained using contiguous spiral imaging from the skull base to the upper thoracic level. Sagittal and coronal 2D reformatted series were provided by the technologist. Soft tissue and bone window algorithms were reviewed. CT pelvis performed without IV contrast. Coronal and sagittal reformats obtained. Exposure: One or more of the following individualized dose reduction techniques were utilized for this examination: 1. Automated exposure control 2. Adjustment of the mA and/or kV according to patient size 3. Use of iterative reconstruction technique. FINDINGS: CT HEAD: Neither mass, midline shift, intracranial hemorrhage, acute/subacute ischemic changes, nor extraaxial fluid collections are seen. Similar supratentorial periventricular white matter hypodensities, indeterminate but most likely representing chronic microangiopathic disease. The paranasal sinuses, mastoid air cells, and middle ears are clear. The orbital contents appear within normal limits. CT CERVICAL SPINE: Anatomic alignment of the cervical spine is maintained. Neither fracture, subluxation, nor traumatic spondylolisthesis is seen. The vertebral body heights are preserved. Multilevel degenerative changes in the spine. Anterior hardware fusion in the lower cervical spine. There is no evidence of a large intraspinal hematoma. The prevertebral and paravertebral soft tissues are within normal l imits. CT PELVIS: No acute fracture, dislocation or subluxation. Extensive osteoarthritis of the left hip with joint space narrowing, subcondylar cystic changes and sclerosis with osteophytes. Mild right hip osteoarthritis. Postsurgical changes of ventral hernia repair with mesh. Multiple nonobstructing right nephrolithiasis, the largest measures 1.2 cm. Prominent bilateral ureters with partially obstructing 4 mm calculus at the left uterovesical junction and 4.5 mm calculus in the distal right ureter. No pelvic lymphadenopathy. No bowel dilation. Unremarkable urinary bladder. Hysterectomy. No pneumoperitoneum or ascites. Benign-appearing 4.1 cm right adnexal cyst. IMPRESSION: 1. No acute intracranial abnormality. 2. No acute fracture of the cervical spine. 3. No acute fracture of the pelvis. 4. Extensive osteoarthritis of the left hip. 5. Multiple nonobstructing right nephrolithiasis. 6. Prominent bilateral ureters with partially obstructing 4 mm calculus at the left uterovesical junction and 4.5 mm calculus in the distal right ureter. 7. Benign-appearing 4.1 cm right adnexal cyst. Recommend further evaluation with nonemergent pelvic ultrasound. Electronically signed by: Lion Nolasco MD (06/01/2021 10:44 PM) [facility] Course & Med Decision Making: Course & Med Decision Making Pertinent Labs and Imaging studies reviewed. (See chart for details) Patient presents with report of bilateral lower extremity weakness and hip pain primarily to left side. Patient reports she fell at least 5-6 times today. Patient without deformity. Concern for possible occult fracture. CT pelvis therefore obtained without signs of fracture however notation of 4 to 4.5 mm distal ureteral stones appreciated with some bilateral ureteral prominence. There is significant signs of osteoarthritis noted. Other labs obtained and posted to chart. WBC slightly elevated. Lactic acid within normal limits. Creatinine improved from prior per [employer] review. Patient also found to be febrile during ED stay. Rapid Covid 19. Patient denies any respiratory symptoms. UA with signs of infection. Fever addressed. Empiric antibiotic initiated. Patient offered transfer to facility with urology coverage secondary to complicated UTI. Patient reports she typically follows with urology at . Patient declined transfer at this time and elects to trial outpatient therapy. Patient reports she will follow closely with her urologist as an outpatient and if symptoms worsen will present directly to emergency department. Patient stable for discharge with outpatient follow-up with PCP/orthopedics/urology. Discussed findings and plan with patient, who acknowledges understanding and agreement. Batsheva Disclaimer: Batsheva Disclaimer: This electronic medical record was generated, in whole or in part, using a voice recognition dictation system. Departure Departure Impression: Primary Impression: Complicated UTI (urinary tract infection) Additional Impressions: Bilateral ureteral calculi Left hip pain Disposition: 01 HOME / SELF CARE / HOMELESS Condition: STABLE Referrals: WARD TINOCO MD (PCP) MICHELLE BALLARD Jr. DO Patient Instructions: Diet for Kidney Stones, Hip Pain, Kidney Stones, [id number], Osteoarthritis, Urinary Tract Infection, [id number] Additional Instructions: It was offered to transfer you to a facility that has urology coverage, however you have elected to be discharged home with outpatient therapy and will follow with your urologist or present to ER with urology coverage if symptoms persist or worsen. Scripts Cephalexin (KEFLEX) 500 Mg Capsule 1 CAP PO TID for 10 Days, #30 CAP Prov: YOAL BARRIGA DO 06/02/21 Tamsulosin Hcl (FLOMAX) 0.4 Mg Cap.er.24h 1 CAP PO DAILY for 10 Days, #10 CAP Prov: YOLA BARRIGA DO 06/02/21 Hydrocodone Bit/Acetaminophen (HYDROCODONE-APAP 5-325 ) 1 Tab Tablet 0.5-1 TAB PO PRN Q6HRS PRN for PAIN, #14 TAB 0 Refills Prov: YOLA BARRIGA DO 06/02/21 YOLA BARRIGA DO Jun 01, 2021 23:54
[2021-06-02] MEDS ORDERED: ACETAMINOPHEN 500 MG TABLET PO ONE (00:30)
[2021-06-02 01:00] LABS: BILIRUBIN,URINE NEGATIVE (NEG); CLARITY,URINE CLEAR; COLOR,URINE YELLOW; NITRITE,URINE POSITIVE (NEG); PROTEIN,URINE 100 mg/dL (NEG-TRACE); UROBILINOGEN,URINE 0.2 mg/dL (0.2 mg/dL)
[2021-06-02] MEDS ORDERED: fentaNYL PF VIAL 100 MCG/2 ML VIAL ONE (01:02)
[2021-06-02 01:18] LABS: BACTERIA,URINE MANY /HPF (0-FEW); RBC,URINE OCC /HPF (0-2); WBC,URINE 20-40 /HPF (0-4)
[2021-06-02] MEDS ORDERED: fentaNYL PF VIAL 100 MCG/2 ML VIAL IV ONE (01:30)
[2021-06-02 02:00] VITALS: BP 135/65
[2021-06-02] MEDS ORDERED: TAMSULOSIN 0.4 MG CAP.ER.24H. PO ONE (02:00)
[2021-06-02] MEDS ORDERED: HYDROcodone/APAP 5/325MG 1 TAB TABLET PO ONE (02:00)
[2021-06-02] MEDS ORDERED: TAMS0.4C97 PO (02:01)
[2021-06-02] MEDS ORDERED: CEPH500C PO (02:01)
[2021-06-02] MEDS ORDERED: HYDR-2761 PO (02:01)
[2021-06-02] MEDS ORDERED: cefTRIAXone IV Push 1 GM VIAL. IVP ONE (02:30)
--- NOTE | 2021-06-02 02:52 | EKG ---
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
[2021-06-02 04:58] LABS: % BANDS 7 % (0-9); % BASOS 2 % (0-3); % LYMPHS 4 % (24-48); % MONOS 5 % (0-10); % SEGS 82 % (35-66)
[2021-06-02 04:59] LABS: ANISOCYTOSIS MOD; HYPOCHROMIA MOD; MICROCYTOSIS MOD; PLT ESTIMATE ADEQUATE (ADEQUATE); POLYCHROMASIA SLIGHT
--- NOTE | 2021-06-04 14:56 | NUR ---
IP: Attempted to contact pt concerning coivd results. No answer, left a voicemail to return the call. Addendum: 06/04/21 at 1712 by CLAU VICK RN Pt returned my call. Informed her of the negative covid test. pt verbalized understanding.
== END 2021-06-02 02:24 | disposition home or self-care (01) ==
LOC: ER 18:23
DX: N39.0 Urinary tract infection, site not specified (principal); G89.11 Acute pain due to trauma; N20.1 Calculus of ureter; M25.552 Pain in left hip; I25.10 Atherosclerotic heart disease of native coronary artery without angina pectoris; I10 Essential (primary) hypertension; G89.29 Other chronic pain; Z95.5 Presence of coronary angioplasty implant and graft; Z95.1 Presence of aortocoronary bypass graft; Z86.718 Personal history of other venous thrombosis and embolism; W01.0XXA Fall on same level from slipping, tripping and stumbling without subsequent striking against object, initial encounter; Y93.89 Activity, other specified; Y92.89 Other specified places as the place of occurrence of the external cause; Y99.8 Other external cause status
CPT/HCPCS: 36415; 70450; 72125; 72192; 80053; 81001; 82553; 83605; 83735; 84484; 85007; 85025; 87040; 87077; 87086; 87186; 87426; 93005; 96374; 96375; 99285; J0696; J3010; U0003; U0005

== ENCOUNTER 2021-10-16 11:19 | Emergency (ER) | payer MEDICARE ==
[~2021-10-16] VITALS: Ht 162.6 cm; Wt 85.5 kg
[~2021-10-16 11:19] MED LIST changes: +TAMS0.4C97 PO
[2021-10-16] MEDS ORDERED: IV NORMAL SALINE 1000ML BAG 1,000 ML IV SCH (11:45)
--- NOTE | 2021-10-16 12:29 | RAD ---
PA and lateral views of the chest. Comparison: 07/30/2019. Indication: Fall with pain Findings: There is cervical fusion hardware. There is cervical fusion hardware. The heart size is normal. No pn eumothorax or effusion. No air space or interstitial disease. The bony structures are intact. Impression: 1. No acute cardiopulmonary process. Electronically signed by: Rufino De Leon MD (10/16/2021 12:27 PM) [id number]
--- NOTE | 2021-10-16 13:04 | RAD ---
Lumbar spine 3 views. HISTORY: Trauma, pain after a fall 3 views were taken of the lumbar spine. There is mild scoliosis convex the left. There is facet arthr itis in the lower lumbar spine especially L5-S1. There are hypertrophic changes on the lumbar vertebr a. There is spondylolisthesis at L5-S1. IMPRESSION: 1. Mild scoliosis. 2. Spondylolisthesis L5-S1. 3. No acute lumbar fracture. Electronically signed by: Robles Bose MD (10/16/2021 1:01 PM) [id number]
--- NOTE | 2021-10-16 13:11 | RAD ---
XR CERVICAL SPINE 4-5V History: Trauma. Comparison: CT cervical spine 06/01/2021 Technique: 5 views of the cervical spine. Findings: There are 7 non-rib bearing cervical vertebral segments. Postsurgical features from ACDF at C5-C6 and C6-C7. There is no evidence of fracture. No destructive osseous lesions are seen. Mild reversal of the normal cervical lordosis at C5-C6. No spondylolisthesis. Degenerative facet hypertrophy greatest at. C3-C4 Anterior osteophytes in the upper cervical spine with relative preservation of the disc heights. Soft tissues are unremarkable. IMPRESSION: 1. No acute findings in the cervical spine. Electronically signed by: Minh Jefferson MD (10/16/2021 1:09 PM) [id number]
[2021-10-16 13:22] VITALS: BP 141/73
--- NOTE | 2021-10-16 13:23 | PHYS DOC ---
Past Medical History Past Medical History: Anemia, CAD, DVT, Hypertension, Kidney Stone, MRSA, Renal Disease, Other Additional Past Medical Histor: KIDNEY INFECTION,CHRONIC BACK/HIP PAIN,PE'S Past Surgical History: Angioplasty, Cervical Fusion, Other Additional Past Surgical Histo: Cardiac STENTS,partial gastrectomy,C6-7 fusion, KIDNEY STENT, hernia. Smoking Status: Never Smoker Alcohol Use: None Drug Use: None General Adult EDM: Chief Complaint: MECHANICAL FALL HPI: HPI: Patient is a 66 year old female with history of frequent falls presents after a fall in the shower. Patient states that she did not fall with her entire weight she was able to let herself down, she landed softly on her low back and upper back. Patient otherwise states that she feels okay, she presents just to make sure she does not have a fracture. Patient is alert and oriented, at baseline, feels well. She states she has no symptoms besides mild low back and upper back pain. Review of Systems: Review of Systems: Constitutional: Denies fever or chills. [] Eyes: Denies change in visual acuity. [] HENT: Denies nasal congestion or sore throat. [] Respiratory: Denies cough or shortness of breath. [] Cardiovascular: Denies chest pain or edema. [] GI: Denies abdominal pain, nausea, vomiting, bloody stools or diarrhea. [] : Denies dysuria. [] Musculoskeletal: + back pain Integument: Denies rash. [] Neurologic: Denies headache, focal weakness or sensory changes. [] Endocrine: Denies polyuria or polydipsia. [] Lymphatic: Denies swollen glands. [] Psychiatric: Denies depression or anxiety. [] No head trauma Heart Score: C/O Chest Pain: No Risk Factors: Risk Factors: DM, Current or recent (<one month) smoker, HTN, HLP, family history of CAD, obesity. Risk Scores: Score 0 - 3: 2.5% MACE over next 6 weeks - Discharge Home Score 4 - 6: 20.3% MACE over next 6 weeks - Admit for Clinical Observation Score 7 - 10: 72.7% MACE over next 6 weeks - Early Invasive Strategies Current Medications: Current Medications Medications (Trade) Dose Ordered Sig/[facility] Start Time Stop Time Status Last Admin Dose Admin Sodium Chloride 1,000 ml @ 30 mls/hr Q24H 10/16/21 11:45 10/16/21 11:47 DC Allergies: Allergies: Allergies Coded Allergies Type Severity Reaction Last Updated Verified Sulfa (Sulfonamide Antibiotics) Allergy Intermediate 06/02/21 Yes amlodipine Allergy Intermediate 06/02/21 Yes codeine Allergy Intermediate Rash 06/02/21 Yes doxycycline Allergy Intermediate 06/02/21 Yes ezetimibe Allergy Intermediate 06/02/21 Yes levofloxacin Allergy Intermediate ITCH 06/02/21 Yes morphine Allergy Intermediate 11/14/20 Yes simvastatin Allergy Intermediate 11/14/20 Yes oxycodone Adverse Reaction Intermediate Hallucinations 11/14/20 Yes Physical Exam: PE: Constitutional: Well developed, well nourished, no acute distress, non-toxic appearance. [] HENT: Normocephalic, atraumatic, bilateral external ears normal, oropharynx moist, no oral exudates, nose normal. [] Eyes: PERRLA, EOMI, conjunctiva normal, no discharge. [] Neck: Normal range of motion, no tenderness, supple, no stridor. [] Cardiovascular:Heart rate regular rhythm, no murmur [] Lungs & Thorax: Bilateral breath sounds clear to auscultation [] Abdomen: Bowel sounds normal, soft, no tenderness, no masses, no pulsatile masses. [] Skin: Warm, dry, no erythema, no rash. [] Back: Very minimal lumbar tenderness around paraspinals, mild tenderness around rhomboids. [] Extremities: No tenderness, no cyanosis, no clubbing, ROM intact, no edema. [] Neurologic: Alert and oriented X 3, normal motor function, normal sensory function, no focal deficits noted. [] Psychologic: Affect normal, judgement normal, mood normal. [] Current Patient Data: Vital Signs: Vital Signs Date Time Temp Pulse Resp B/P (MAP) Pulse Ox O2 Delivery O2 Flow Rate FiO2 10/16/21 11:35 98.2 85 16 154/74 (100) 100 Room Air 98.2 EKG: EKG: [] Radiology/Procedures: Radiology/Procedures: Chest x-ray, lumbar x-ray, cervical x-ray within normal limits [] Impression: Contusion after a fall Course & Med Decision Making: Course & Med Decision Making Pertinent Labs and Imaging studies reviewed. (See chart for details) [] 66-year-old female seen and evaluated by myself, patient is alert and orie nted, patient essentially at baseline, complaining of mild low back and upper back pain. Patient is ambulatory, normal ambulation. Otherwise is doing well. X-rays within normal limits. Reviewed this with the patient. Patient is comfortable with discharge and home follow-up. Patient will follow up with primary care physician. Patient states that she needs to place rails in her shower which she has been meaning to do. Patient is otherwise at baseline. Patient was given ER precautions, discharged in stable hemodynamic condition. Dragon Disclaimer: Dragon Disclaimer: This electronic medical record was generated, in whole or in part, using a voice recognition dictation system. Departure Departure Impression: Primary Impression: Fall Additional Impression: Contusion Disposition: 01 HOME / SELF CARE / HOMELESS Condition: GOOD Patient Instructions: Fall Prevention and Home Safety, [id number] Additional Instructions: Follow-up with your primary care in about 3 to 5 days You may use Tylenol or ibuprofen for pain control LAQUITA JUÁREZ MD October 16, 2021 13:23
== END 2021-10-16 13:23 | disposition home or self-care (01) ==
LOC: ER 11:19
DX: S30.0XXA Contusion of lower back and pelvis, initial encounter (principal); I10 Essential (primary) hypertension; I25.10 Atherosclerotic heart disease of native coronary artery without angina pectoris; R29.6 Repeated falls; Z86.2 Personal history of diseases of the blood and blood-forming organs and certain disorders involving the immune mechanism; Z86.718 Personal history of other venous thrombosis and embolism; Z87.442 Personal history of urinary calculi; Z88.2 Allergy status to sulfonamides; Z88.5 Allergy status to narcotic agent; Z88.8 Allergy status to other drugs, medicaments and biological substances; W18.2XXA Fall in (into) shower or empty bathtub, initial encounter; Y93.89 Activity, other specified; Y92.89 Other specified places as the place of occurrence of the external cause; Y99.8 Other external cause status
CPT/HCPCS: 71046; 72050; 72100; 99284